=== PATIENT | male | born 1980 | race Caucasian/White ===

== ENCOUNTER 2024-07-02 13:29 | Outpatient (OUT) | payer MEDICARE, OTHER, SELFPAY ==
--- NOTE | 2024-07-02 13:44 | XR_ITS ---
The [address] [address] Patient Name: RON MOHAN MRN: [id number] date: 1980 Sex: M Assigned Patient Location: LAB Current Patient Location: Accession/Order Number: [id number] Exam Date: 07/02/2024 14:00 Report Date: 07/03/2024 07:38 At the request of: AP DENIS Procedure: XR lumbar spine 2-3V EXAMINATION: XR lumbar spine 2-3V HISTORY: Low Back Pain Radiating To Right Lower Extremity ; injured while lifting COMPARISON: No relevant comparison available. FINDINGS: BONES: No significant spondylosis, scoliosis, fracture, or visible bony lesion. DISC SPACES: Slight disc space narrowing L5-S1. PARASPINOUS: Negative. No paraspinous abnormality is seen. OTHER: Negative. XR/XR lumbar spine 2-3V IMPRESSION: 1. Minimal left convex curvature lumbar spine; positioning versus muscle spasm. 2. L5-S1 minimal disc height reduction compared to other levels; possibly secondary to degenerative disc disease. Electronically authenticated by: ABDOUL HOLT Date: 07/03/2024 07:38
[2024-07-02 14:40] LABS: Basophils Percent Auto 0.8 % (0.2-2.0); Eosinophils Percent Auto 1.1 % (0.9-7.0); Hematocrit 41.3 % (42.0-54.0); Hemoglobin 14.2 g/dL (14.0-18.0); Immature Granulocytes Abs Auto 0.01 10^3/uL (0.00-0.03); Immature Granulocytes Pct Auto 0.3 % (0.0-0.5); Lymphocytes Absolute Auto 1.4 10^3/uL (1.2-3.8); Lymphocytes Percent Auto 37.2 % (20.5-60.0); Mean Corpuscular HGB Conc 34.4 g/dL (29.9-35.2); Mean Corpuscular Hemoglobin 32.3 pg (25.9-34.0); Mean Corpuscular Volume 94.1 fL (80.0-94.0); Monocytes Absolute Auto 0.4 10^3/uL (0.3-0.8); Monocytes Percent Auto 9.5 % (1.7-12.0); Neutrophils Absolute Auto 1.9 10^3/uL (1.4-6.5); Neutrophils Percent Auto 51.1 % (43.0-75.0); Platelet Count 142 10^3/uL (150-450); Red Blood Count 4.39 10^6/uL (4.70-6.10); Red Cell Distribution Width 11.9 % (11.0-15.0); White Blood Count 3.8 10^3/uL (4.0-11.0)
[2024-07-02 15:36] LABS: Anion Gap 11.8; BUN Creatinine Ratio 9.8; Calcium 8.9 mg/dL (8.5-10.1); Carbon Dioxide 27.2 mmol/L (21.0-32.0); Chloride 100 mmol/L (98-107); Estimated GFR (African America >60 (>=60 mL/min/1.73m^2); Estimated GFR (Non-African Ame >60 (>=60 mL/min/1.73m^2); Glucose 79 mg/dL (74-106); Sodium 135 mmol/L (136-145); Thyroid Stimulating Hormone 0.901 uIU/mL (0.358-3.740)
[2024-07-03 04:08] LABS: Vitamin B12 623 pg/mL (232-1245)
== END 2024-07-02 13:30 | disposition home or self-care (01) ==
LOC: LAB 13:38
PROVIDERS: PCP Family Medicine; Visit Provider Family Medicine
DX: R53.83 Other fatigue (principal); M54.50 Low back pain, unspecified; M79.604 Pain in right leg; M51.369 Other intervertebral disc degeneration, lumbar region without mention of lumbar back pain or lower extremity pain
CPT/HCPCS: 36415; 72100; 80048; 82306; 82607; 82746; 84443; 85025

== ENCOUNTER 2024-09-15 10:00 | Emergency (ER) | payer MEDICARE, BC, SELFPAY ==
[2024-09-15 10:06] VITALS: BP 132/86; PULSE 90; TEMP 36.8; O2SAT 100; BMI 19.7
--- OUTSIDE RECORDS SUMMARY | 2024-09-15 10:28 | XMS_ITS | CCD ---
Author Organization [facility] Care Team Providers Care Rating Examiner Name Role Phone Ap Denis MD Primary Care Provider [phone] DR AP DENIS Attending Unavailable ADEEL, DR AP Pickering Consulting Unavailable ADEEL, DR AP Pickering Admitting Unavailable Ap Denis MD Primary Care Provider [phone] Ap Denis AP DENIS Primary Care Unavailable KAYLAN, DEEPALI R Referring Unavailable DAYDAY TUCKER Attending Unavailable Ap Denis MD Primary Care Provider [phone] KAYLAN, DEEPALI R Referring Unavailable DIANNA DENISIA Raheel Primary Care Unavailable KAYLAN, DEEPALI R Referring Unavailable DENISAP Primary Care Unavailable KAYLAN, DEEPALI R Referring Unavailable DENIS, AP Raheel Primary Care Unavailable KAYLAN, DEEPALI R Referring Unavailable KAYLAN, DEEPALI R Attending Unavailable DIANNA DENISIA Raheel Primary Care Unavailable KAYLAN, DEEPALI R Referring Unavailable DENIS, AP Raheel Primary Care Unavailable DENIS, AP Raheel Primary Care Unavailable KAYLAN, DEEPALI R Referring Unavailable AP DENIS Primary Care Unavailable KAYLAN, DEEPALI R Referring Unavailable DIANNA DENISIA Raheel Primary Care Unavailable KAYLAN, DEEPALI R Referring Unavailable KAYLAN, DEEPALI R Attending Unavailable AP DENIS Primary Care Unavailable Allergies Allergy Classification Reported Allergen(s) Allergy Type Date of Onset Reaction(s) Facility (20 sources) azaTHIOprine; Translations: [AZATHIOPRINE SODIUM] Drug Allergy 02-02-20 13 Other: See Comments [facility] (20 sources) Baclofen; Translations: [BACLOFEN] Drug Allergy 07-15-20 13 Other: See Comments [facility] (20 sources) Budesonide; Translations: [BUDESONIDE] Drug Allergy 02-02-20 13 Other: See Comments [facility] (20 sources) Cholestyramine Resin; Translations: [CHOLESTYRAMINE (WITH SUGAR)] Drug Allergy 02-02-20 13 Other: See Comments [facility] (20 sources) Colestipol; Translations: [COLESTIPOL] Drug Allergy 11-11-19 17 Other: See Comments [facility] Work Phone: (20 sources) Metoclopramide; Translations: [METOCLOPRAMIDE HCL] Drug Allergy 02-02-20 13 Other: See Comments [facility] (20 sources) traMADol; Translations: [TRAMADOL HCL] Drug Allergy 02-02-20 13 Other: See Comments [facility] (20 sources) venlafaxine; Translations: [VENLAFAXINE HCL] Drug Allergy 02-02-20 13 Other: See Comments [facility] (1 source) Amoxicillin / Clavulanate Drug Allergy 07-08-20 14 [facility] (20 sources) Colestipol Drug Allergy 05-06-20 14 Unknown [facility] (1 source) Dicyclomine Drug Allergy 05-06-20 14 [facility] (1 source) Iothalamate Drug Allergy 05-06-20 14 [facility] (1 source) traMADol Drug Allergy 05-06-20 14 [facility] (20 sources) Budesonide Drug Allergy 12-26-19 24 Unknown, [facility] (20 sources) Cholestyramine Resin Drug Allergy Unknown [facility] Other (20 sources) Dicyclomine Drug Allergy 12-26-19 24 Unknown, [facility] (20 sources) Metoclopramide Drug Allergy 12-26-19 24 Unknown, [facility] (20 sources) traMADol Drug Allergy 12-26-19 24 Unknown, [facility] (20 sources) venlafaxine Drug Allergy Unknown [facility] Other (20 sources) 6MP MEDS Propensity to adverse reactions 12-26-19 24 Unknown, [facility] (20 sources) IMMURAN Drug allergy 12-26-19 24 Unknown, [facility] (20 sources) Ciprofloxacin; Translations: [ciprofloxacin] Drug Allergy 10-05-19 17 Unknown, [facility] (20 sources) DULoxetine Drug Allergy 12-26-19 24 Unknown, [facility] (20 sources) guaiFENesin Drug Allergy 12-26-19 24 Unknown, [facility] (14 sources) guaiFENesin / Pseudoephedrine Drug Allergy Unknown [email or web address] [facility] [employer] Other (20 sources) venlafaxine Drug Allergy 12-26-19 24 Unknown, [facility] (12 sources) patient allergy list reviewed by nurse or physicia Propensity to adverse reactions 10-05-19 Comment:Done [facility] Other (12 sources) Allergies Reconciled Propensity to adverse reactions Unknown [facility] Other (7 sources) Cholestyramine Resin Drug Allergy 12-26-19 [facility] (7 sources) Sucrose Drug Allergy 12-26-19 [facility] Medications Current Medications Medication Drug Class(es) Dates Sig (Normalized) Sig (Original) 8 hr acetaminophen 650 mg extended release oral tablet (20 sources) take 2 tablets by mouth twice daily acetaminophen 650 mg CR tablet Take 1,300 mg by mouth twice daily. Active Comment on above: Take 1,300 mg by mary twice daily. atropine sulfate 0.025 mg / diphenoxylate hydrochloride 2.5 mg oral tablet (20 sources) Anticholinergic, Cholinergic Muscarinic Antagonist, Antidiarrheal Start: 01-08-2024 take 1 tablet by mouth every six hours as needed Diphenoxylate-Atro pine (Lomotil) 2.5-0.025 mg tablet Active 1 TAB PO Every 6 hours as needed January 07, 2024 11:00pm Start: 08-16-2023 take 2 tablets by mo [facility] every six hours as needed Diphenoxylate-Atropine 2.5-0.025 MG TAKE 2 TABLETS BY MOUTH EVERY 6 HOURS NEEDED for Jul, Active Start: 04-28-2017 End: 01-21-2022 take 1 tablet by mouth every six hours as needed diphenoxylate-atropine (LOMOTIL) 2.5-0.025 mg per tablet Take 1 tablet by mouth four times daily as needed. 0 04/28/2017 01/21/2022 Discontinued Comment on above: Take 1 tablet by mary th four times daily as needed. daridorexant 25 MG Oral Tablet [Quviviq] (8 sources) Start: 01-18-2023 Quviviq 25 MG 1 tablet within 30 minutes of bedtime Orally Once a day for 30 days Dec, Active Start: 10-17-2022 Quviviq 25 MG 1 tablet within 30 minutes of bedtime Orally Once a day for 30 days Sep, Active enteric contrast (will be provided with radiology test) (13 sources) Start: 08-25-[address] (will be provided with radiology test) For MRI ENTEROGRAPHY WO/W Administer, As Directed One Time Only, via Oral, Rectal, both Oral and Rectal, Enteric Tube, Stoma or Indwelling Catheter, Enteric Contrast as designated per enteric contrast guidelines 1 Each 08/25/2023 Active Start: 08-25-[address] (will be provided with radiology test) For MRI ENTEROGRAPHY WO/W Administer, As Directed One Time Only, via Oral, Rectal, both Oral and Rectal, Enteric Tube, Stoma or Indwelling Catheter, Enteric Contrast as designated per enteric contrast guidelines 1 Each 0 08/25/2023 Active Comment on above: For MRI ENTEROGRAPHY WO/W Administer, As Directed One Time Only, via Oral, Rectal, both Oral and Rectal, Enteric Tube, Stoma or Indwelling Catheter, Enteric Contrast as designated per enteric contrast guidelines famotidine 20 mg oral tablet (20 sources) Histamine-2 Receptor Antagonist Start: 2015 take 1 tablet by mouth twice daily famotidine (PEPCID) 20 mg tablet Take 1 tablet by mouth twice daily. 60 tablet 0 12/20/2015 Active Comment on above: Take 1 tablet by mary twice daily. glucagon (rdna) 1 mg injection (13 sources) Antihypoglycemic Agent Start: 2022 inject 1 mg intravenously once glucagon (GLUCAGEN) 1 mg/mL injection Inject 1 mg intravenously one time only for 1 dose. For MRI Enterography, Inject 1 mg intravenously, as directed. Slow push at the appropriate time during MRI Scan 1 Each 08/25/2023 Active Comment on above: Inject 1 mg intraven ously one time only for 1 dose. For MRI Enterography, Inject 1 mg intravenously, as directed. Slow push at the appropriate time during MRI Scan iv contrast (will be provided with radiology test) (13 sources) Start: 2022 iv contrast (will be provided with radiology test) MRI Enterography Inject, intravenously, once for 1 dose. No IV access, insert saline lock prior to the beginning of sedation, infusion, injection of imaging exam. Discontinue saline lock post exam. If Pt. has a central line or IVAD, may access for administration according to line specific nursing protocol. Once exam is complete flush line and de-access according to line specific nursing protocol in the MR contrast administration guidelines link. 1 Each 08/25/2023 Active Start: 08-25-2023 iv contrast (w ill be provided with radiology test) MRI Enterography Inject, intravenously, once for 1 dose. No IV access, insert saline lock prior to the beginning of sedation, infusion, injection of imaging exam. Discontinue saline lock post exam. If Pt. has a central line or IVAD, may access for administration according to line specific nursing protocol. Once exam is complete flush line and de-access according to line specific nursing protocol in the MR contrast administration guidelines link. 1 Each 0 08/25/2023 Active Comment on above: MRI Enterography Inj ect, intravenously, once for 1 dose. No IV access, insert saline lock prior to the beginning of sedation, infusion, injection of imaging exam. Discontinue saline lock post exam. If Pt. has a central line or IVAD, may access for administration according to line specific nursing protocol. Once exam is complete flush line and de-access according to line specific nursing protocol in the MR contrast administration guidelines link. ondansetron 4 mg disintegrating oral tablet (20 sources) Serotonin-3 Receptor Antagonist Start: 07-11-20 take 1 tablet by mouth three times daily as needed Ondansetron 4 mg tablet,disintegrati ng Active 0 .ROUTE .COMPLEX 90 July 11, 2024 7:27am DISSOLVE 1 (ONE) TABLET BY MOUTH THREE TIMES DAILY NEEDED Start: 12-25-2023 End: 07-11-2024 take 1 tablet by mouth three times daily as needed Ondansetron 4 mg tablet,disintegrating Discontinued 4 MG PO Three times daily as needed December 24, 2023 11:00pm July 11, 2024 7:27am Start: 01-18-2023 take 1 tablet by mary th three times daily as needed Ondansetron 4 MG 1 tablet on the tongue and allow to dissolve Orally tid prn for 30 days Dec, Active Start: 05-24-2018 take 1 tablet by mary th every six hours as needed ondansetron orally disintegrating (ZOFRA N ODT) 4 mg disintegrating tablet DISSOLVE 1 (ONE) TABLET on the tongue EVERY 6 HOURS NEEDED 3 05/24/2018 Active Zofran 4 MG as d irected Orally Active Comment on above: DISSOLVE 1 (ONE) TAB LET on the tongue EVERY 6 HOURS NEEDED rifAXIMin 550 mg oral tablet (12 sources) Rifamycin Antibacterial Start: 01-12-2024 take 1 tablet by mouth three times daily rifAXIMin (XIFAXAN) 550 mg tablet Take 1 tablet by mouth three times a day. 42 tablet 01/12/2024 Active Start: 10-16-2020 End: 01-21-2022 take 1 tablet by mouth twice daily rifAXIMin (XIFAXAN) 550 mg tablet Take 1 tablet by mouth twice daily. 20 tablet 0 10/16/2020 01/21/2022 Discontinued Comment on above: Take 1 tablet by mary twice daily. rOPINIRole 2 mg oral tablet (20 sources) Nonergot Dopamine Agonist Start: 06-17-2024 take 1 tablet by mouth twice daily Ropinirole 2 mg tablet Active 2 MG PO Twice daily 60 June 17, 2024 1:22pm Start: 06-11-2024 End: 06-17-2024 take 1 tablet by mouth twice daily Ropinirole 2 mg tablet Discontinued 0 .ROUTE .COMPLEX 60 June 11, 2024 7:18am June 17, 2024 1:27pm TAKE 1 TABLET BY MOUTH TWICE DAILY Start: 12-26-2023 End: 06-11-2024 take 1 tablet by mouth twice daily Ropinirole 2 mg tablet Discontinued 2 MG PO Twice daily 60 February 16, 2024 9:26am June 11, 2024 7:18am Start: 10-20-2022 take 2 tablets by mo [facility] every twelve hours rOPINIRole HCl 2 MG 2 tablet Orally bid for 30 days Sep, Active Start: 01-21-2022 End: 12-26-2023 take 2 tablets by mouth once daily at bedtime rOPINIRole (REQUIP) 2 mg tablet Take 2 tablets by mouth daily at bedtime. 01/21/2022 Active Start: 07-16-2015 take 2 tablets by mo [facility] once daily at bedtime rOPINIRole (REQUIP) 1 mg tablet Take 2 tablets by mouth daily at bedtime. 0 07/16/2015 Active take 1 tablet by [facility] three times daily Requip 1 MG 1 tablet Orally Three times a day for 90 days Active Comment on above: Take 2 tablets by mo [facility] daily at bedtime. vedolizumab 300 mg injection (20 sources) Integrin Receptor Antagonist Start: 01-08-2024 Vedolizumab (Entyvio) 300 mg recon soln Active 300 MG IV EVERY 8 WEEKS January 07, 2024 11:00pm administer over 30 mins Start: 12-17-2020 End: 01-04-2022 vedolizumab (ENTYVIO) 300 mg injection 300 mg iv every 8 weeks 1 Each 5 01/05/2022 Active Comment on above: 300 mg iv every 8 we eks vitamin b12 5 mg sublingual tablet (8 sources) Vitamin B12 Start: 01-12-2024 cyanocobalamin, vitamin B-12, (VITAMIN B-12) 5,000 mcg subl Dissolve 1 tablet under the tongue once daily. 30 tablet 11 01/12/2024 Active Completed/Discontinued Medications Medication Drug Class(es) Dates Sig (Normalized) Sig (Original) B-12 - up to 1000 mcg (5 sources) Start: 11-02-2023 B-12 - up to 1000 mcg Oct, 1000 mcg Start: 10-20-2023 B-12 - up to 1 000 mcg Sep, 1000 mcg Start: 10-12-2023 B-12 - up to 1 000 mcg Sep, 1000 mcg COMPOUNDED PRESCRIPTION (9 sources) COMPOUNDED PRESCRIPTION Medical Marijuna 0 Active Comment on above: Medical Marijuna crisaborole 0.02 mg/mg topical ointment (20 sources) Start: 02-24-20 End: 01-12-20 EUCRISA 2 % oint Apply to affected area. APPLY TO THE AFFECTED AREA(S) TWICE DAILY. 1 02/23/2018 01/12/2024 Discontinued Comment on above: Apply to affected ar ea. APPLY TO THE AFFECTED AREA(S) TWICE DAILY. DULoxetine 60 mg delayed release oral capsule (6 sources) Serotonin and Norepinephrine Reuptake Inhibitor take 1 capsule by mouth every twenty-four hours Cymbalta 60 MG 1 capsule Orally Once a day for 30 day(s) Not-Taking eszopiclone 3 mg oral tablet (6 sources) take 1 tablet by mouth every twenty-four hours Lunesta 3 MG 1 tablet immediately before bedtime Orally Once a day Not-Taking folic acid 1 mg oral tablet (1 source) Start: 07-02-20 End: 08-06-20 take 1 tablet by mouth once daily Folic Acid 1 mg tablet Discontinued 1 MG PO Daily July 01, 2024 11:00pm August 06, 2024 2:13pm hyoscyamine sulfate 0.125 mg oral tablet (6 sources) take 1 tablet by mouth every four hours Levsin 0.125 MG 1 tablet before meals Orally every 4 hrs Not-Taking inFLIXimab 100 mg injection (6 sources) Tumor Necrosis Factor Jean Remicade 100 MG as directed Intravenous Not-Taking metroNIDAZOLE 0.0075 mg/mg topical gel (20 sources) Nitroimidazole Antimicrobial Start: 02-19-20 End: 01-12-20 metroNIDAZOLE (METROGEL) 0.75 % Topical Gel Indications: Rosacea Apply to affected areas on face at bedtime. 45 g 2 02/18/2021 01/12/2024 Discontinued Comment on above: Apply to affected ar eas on face at bedtime. morphine sulfate 15 mg extended release oral tablet (20 sources) Opioid Agonist Start: 03-01-20 End: 08-01-20 take 1 tablet by mouth every eight hours Morphine 15 mg tablet extended release Discontinued 15 MG PO Every 8 hours 90 April 03, 2024 May 02, 2024 3:43pm Start: 02-05-2024 End: 03-01-2024 take 1 tablet by mouth every twelve hours Morphine 15 mg tablet extended release Discontinued 15 MG PO Q12H 50 February 08, 2024 March 01, 2024 8:44am oxyCODONE hydrochloride 20 mg oral tablet (20 sources) Opioid Agonist Start: 02-05-2024 End: 02-05-2024 take 1 tablet by mouth every twelve hours Oxycodone 10 mg tablet,oral only,ext.rel.12 hr Discontinued 10 MG PO Every 12 hours 60 February 05, 2024 February 05, 2024 4:12pm Start: 01-08-2024 End: 01-15-2024 take 1 tablet by mouth every hour Oxycodone 10 mg tablet,oral only,ext.rel.12 hr Discontinued 10 MG PO Once 10 January 08, 2024 January 08, 2024 3:03pm Start: 01-08-2024 End: 02-05-2024 take 1 tablet by mouth once daily Oxycodone 10 mg tablet,oral only,ext.rel.12 hr Discontinued 10 MG PO Daily 03 31January 15, 2024 February 05, 2024 1:51pm Start: 01-03-2024 End: 01-08-2024 take 1 tablet by mouth twice daily Oxycodone 10 mg tablet,oral only,ext.rel.12 hr Discontinued 10 MG PO Twice daily 14 January 03, 2024 January 08, 2024 2:27pm Start: 12-26-2023 End: 01-03-2024 take 1 tablet by mouth twice daily Oxycodone 15 mg tablet,oral only,ext.rel.12 hr Discontinued 15 MG PO Twice daily 07 04December 26, 2023 January 03, 2024 4:33am Start: 11-21-2023 End: 12-26-2023 take 1 tablet by mouth twice daily Oxycodone 20 mg tablet,oral only,ext.rel.12 hr Discontinued 20 MG PO Twice daily 07 04December 21, 2023 December 26, 2023 1:39pm Start: 11-10-2023 End: 11-21-2023 take 1 tablet by mouth every four hours as needed for pain Oxycodone 20 mg tablet,oral only,ext.rel.12 hr Discontinued 20 MG PO Every 4 hours as needed for pain 180 November 10, 2023 November 21, 2023 1:03pm Start: 09-13-2023 take 1 tablet by mary th every six hours as needed oxyCODONE HCl 30 MG 1 tablet as needed Orally q6h prn for 30 days Aug, Active Start: 08-24-2023 take 1 tablet by mary th every twelve hours OXYCONTIN 20 mg 12 hr tablet Take 20 mg by mouth as directed. 08/24/2023 Active Start: 08-15-2023 take 1 tablet by mary th every six hours as needed oxyCODONE HCl 30 MG 1 tablet as needed Orally q6h prn for 30 days Jul, Active Start: 07-21-2023 take 1 tablet by mary th every twelve hours oxyCODONE HCl ER 20 MG 1 tablet Orally every 12 hrs for 30 days Due on 07/24 - fill then please Jun, Active Start: 07-10-2023 take 1 tablet by mary th every twelve hours oxyCODONE HCl ER 20 MG 1 tablet Orally every 12 hrs for 7 days Jun, Active Start: 06-08-2023 take 1 capsule by mo uth every twelve hours Xtampza ER 27 MG 1 capsule with food Orally every 12 hrs for 30 days May, Active Start: 05-11-2023 take 1 capsule by mo uth every twelve hours Xtampza ER 27 MG 1 capsule with food Orally every 12 hrs for 30 days Apr, Active Start: 04-07-2023 take 1 capsule by mo uth every twelve hours Xtampza ER 27 MG 1 capsule with food Orally every 12 hrs for 30 days Mar, Active Start: 04-07-2023 End: 08-01-2024 take 1 tablet by mouth every four hours as needed for pain Oxycodone 20 mg tablet Discontinued 20 MG PO Every 4 hours as needed for pain 180 March 04, 2024 April 03, 2024 8:04am Start: 01-12-2023 take 1 tablet by mary th every four hours as needed oxyCODONE HCl 30 MG 1 tablet Orally every 4 hours, as needed for 30 days Dec, Active Start: 12-12-2022 take 1 tablet by mary th every four hours as needed oxyCODONE HCl 30 MG 1 tablet Orally every 4 hours, as needed for 30 days Nov, Active Start: 11-10-2022 End: 08-25-2023 take 1 capsule by mouth twice daily Xtampza ER 18 MG 1 capsule Orally two times daily for 30 days (DO NOT CRUSH) Dec, Active Start: 11-10-2022 take 1 tablet by mary th every four hours as needed oxyCODONE HCl 30 MG 1 tablet Orally every 4 hours, as needed for 30 days Oct, Active take 1 tablet by mary th every six hours as needed oxyCODONE 30 mg tab ER 12hr Take 30 mg by mouth every 6 hours as needed. 0 Active take 1 tablet by mary th every four hours as needed oxyCODONE 30 mg tab ER 12hr Take 30 mg by mouth every 4 hours as needed. 0 Active oxyCODONE HCl 5 MG 1 tablet Orally NEEDED Not-Taking Comment on above: Take 30 mg by mouth every 4 hours as needed. Take by mouth. Take 30 mg by mouth every 6 hours as needed. Take 20 mg by mouth every 4 hours as needed (pain). Take 20 mg by mouth every 12 hours. Vitamins 0.8 MG (6 sources) Vitamin s 0.8 MG as directed Orally Not-Taking vedolizumab 300 mg in NaCl 0.9% 250 mL (ENTYVIO) (4 sources) Start: 08-07-2024 End: 08-07-2024 300 mg, INTRAVENOUS, Administer over 30 Minutes, ONCE, 1 dose, On Mon08/07/24 at 1430, Approx Total Volume: 280 mL EXP: 08/08/2024 0210 RT After the infusion is complete flush with 30 mL of sterile 0.9% Sodium Chloride Injection. Refrigerate. After the infusion is complete flush with 30 mL of sterile 0.9% Sodium Chloride Injection. Start: 06-12-2024 End: 06-12-2024 300 mg, INTRAVENOUS, Adminis ter over 30 Minutes, ONCE, 1 dose, On Mon06/12/24 at 1430, Approx Total Volume: 280 mL EXP: 06/13/2024 0220 RT After the infusion is complete flush with 30 mL of sterile 0.9% Sodium Chloride Injection. Refrigerate. EXP: (24 HR) Start: 04-18-2024 End: 04-18-2024 vedolizumab 300 mg in NaCl 0 .9% 250 mL (ENTYVIO) Start: 02-22-2024 End: 02-22-2024 vedolizumab 300 mg in NaCl 0 .9% 250 mL (ENTYVIO) Vitamin D 1000 UNIT (6 sources) take 1 tablet by mouth once daily Vitamin D 1000 UNIT 1 tablet Orally Once a day for 30 day(s) Not-Taking zolpidem tartrate 10 mg oral tablet (20 sources) gamma-Aminobutyri c Acid-ergic Agonist Start: 09-29-2022 End: 07-19-2024 take 1 tablet by mouth once daily at bedtime Zolpidem 10 mg tablet Discontinued 10 MG PO Daily at bedtime December 24, 2023 11:00pm January 23, 2024 12:21pm Comment on above: Take by mouth at bed time as needed. Problems Active Problems Problem Classification Problem Date Documented Date Episodic/Chronic Adjustment disorders (8 sources) Adjustment disorder with mixed anxiety and depressed mood; Translations: [Adjustment disorder with mixed anxiety and depressed mood] 06-04-2024 Chronic Deficiency and other anemia (7 sources) Vitamin B12 deficiency anemia due to intrinsic factor deficiency; Translations: [VITAMIN B12 DEF ANEMIA DUE IF DEF] Onset: 04-19-2016 Episodic Deficiency and other anemia (20 sources) Pernicious anemia; Translations: [Vitamin B12 deficiency anemia due to intrinsic factor deficiency] Onset: 04-19-2016 12-25-2023 Episodic Immunity disorders (2 sources) Immunosuppression; Translations: [Immunodeficiency, unspecified] Chronic Inflammation; infection of eye (except that caused by tuberculosis or sexually transmitteddisease) (20 sources) Conjunctivitis; Translations: [Unspecified conjunctivitis] Onset: 07-10-2013 Episodic Malaise and fatigue (20 sources) Fatigue; Translations: [Other fatigue] Onset: 06-15-2015 06-17-2024 Episodic Miscellaneous mental health disorders (20 sources) Primary insomnia; Translations: [Primary insomnia] Chronic Mood disorders (11 sources) Depression; Translations: [Depression, unspecified] Onset: 10-25-2013 Chronic Mood disorders (1 source) Mood disorders; Translations: [Depression, unspecified] Onset: 10-25-2013 Nausea and vomiting (19 sources) Nausea and vomiting; Translations: [Nausea with vomiting, unspecified] 12-25-2023 Episodic Nutritional deficiencies (20 sources) Vitamin D deficiency; Translations: [Vitamin D deficiency, unspecified] Onset: 05-30-2013 05-30-2013 Chronic Other aftercare (6 sources) Patient encounter status; Translations: [Encounter for palliative care] 01-05-2024 Episodic Other aftercare (3 sources) Encounter for palliative care; Translations: [Encounter for palliative care] 01-08-2024 Episodic Other and unspecified benign neoplasm (1 source) Adenomatous polyp of colon ; Translations: [Benign neoplasm of colon, unspecified] 01-20-2024 Episodic Other connective tissue disease (6 sources) Fibromyalgia; Translations: [Fibromyalgia] 12-26-2023 Episodic Other connective tissue disease (4 sources) Fibromyalgia; Translations: [Myalgia and myositis, unspecified] 12-26-2023 Episodic Other hereditary and degenerative nervous system conditions (8 sources) Restless legs syndrome; Translations: [Restless legs syndrome (RLS)] Onset: 06-15-2022 Chronic Other hereditary and degenerative nervous system conditions (2 sources) Extrapyramidal and movement disorder, unspecified; Translations: [EXTRAPYRAMIDAL MOVEMNT DISORDER UNS] Onset: 06-15-2022 Chronic Other hereditary and degenerative nervous system conditions (20 sources) Restless legs; Translations: [Restless legs syndrome] 12-25-2023 Chronic Other hereditary and degenerative nervous system conditions (11 sources) Extrapyramidal movements; Translations: [Extrapyramidal and movement disorder, unspecified] Chronic Other hereditary and degenerative nervous system conditions (7 sources) Movement disorder; Translations: [Extrapyramidal and movement disorder, unspecified] 12-25-2023 Chronic Other nutritional; endocrine; and metabolic disorders (12 sources) Body mass index less than 20; Translations: [Body mass index (BMI) 19.9 or less, adult] Episodic Other screening for suspected conditions (not mental disorders or infectious disease) (2 sources) Abnormal blood cell count; Translations: [Abnormal finding of blood chemistry, unspecified] Episodic Other upper respiratory disease (12 sources) Allergic rhinitis; Translations: [Other allergic rhinitis] Onset: 04-19-2016 Chronic Other upper respiratory infections (12 sources) Chronic sinusitis; Translations: [Chronic sinusitis, unspecified] Chronic Other upper respiratory infections (20 sources) Acute sinusitis; Translations: [Acute sinusitis, unspecified] Onset: 08-27-2015 Episodic Regional enteritis and ulcerative colitis (20 sources) Crohn's disease; Translations: [Crohn's disease, unspecified, without complications] Onset: 05-13-2013 05-13-2013 Chronic Residual codes; unclassified (18 sources) Insomnia; Translations: [Insomnia, unspecified] 12-25-2023 Episodic Residual codes; unclassified (5 sources) Insomnia, unspecified; Translations: [Insomnia, unspecified] 06-04-2024 Episodic Spondylosis; intervertebral disc disorders; other back problems (16 sources) Pain in thoracic spine; Translations: [Pain in thoracic spine] Onset: 07-10-2013 06-17-2024 Episodic Unclassified (1 source) Abdominal pain, unspecified site; Translations: [Abdominal pain, unspecified site] Onset: 07-10-2013 Past or Other Problems Problem Classification Problem Date Documented Date Episodic/Chronic Abdominal pain (20 sources) Right lower quadrant pain; Translations: [Right lower quadrant pain] Onset: 07-10-2013 Episodic Allergic reactions (12 sources) Contact dermatitis; Translations: [Contact dermatitis and other eczema, due to unspecified cause] Onset: 07-07-2017 Episodic Deficiency and other anemia (11 sources) Megaloblastic anemia due to vitamin B>12< deficiency; Translations: [Other vitamin B12 deficiency anemia] Onset: 09-07-2017 Episodic Deficiency and other anemia (1 source) Other vitamin B12 deficiency anemia; Translations: [Other vitamin B12 deficiency anemia] Onset: 09-07-2017 Episodic Fever of unknown origin (12 sources) Fever; Translations: [Fever, unspecified] Onset: 10-29-2013 Episodic Mycoses (12 sources) Candidiasis of mouth; Translations: [Candidal stomatitis] Onset: 07-24-2013 Episodic Other connective tissue disease (3 sources) Myalgia/myositis - multiple; Translations: [Unspecified myalgia and myositis] Onset: 10-29-2013 Episodic Other connective tissue disease (9 sources) Muscle pain; Translations: [Unspecified myalgia and myositis] Onset: 10-29-2013 Episodic Other non-traumatic joint disorders (12 sources) Shoulder joint pain; Translations: [Pain in left shoulder] Onset: 02-12-2018 Episodic Residual codes; unclassified (12 sources) Sleep disorder; Translations: [Persistent disorder of initiating or maintaining sleep] Onset: 07-07-2017 Episodic Screening and history of mental health and substance abuse codes (12 sources) History of tobacco use; Translations: [Personal history of tobacco use, presenting hazards to health] Onset: 12-05-2016 Episodic Results Test Name Value Interpretation Reference Range Facility Basophils Auto (Bld) [#/Vol] on 07-02-2024 Basophils (Bld) [#/Vol] Automated basophil count 0.0-0.1 [facility] Basophils/100 WBC Auto (Bld) on 07-02-2024 Basophils/100 WBC (Bld) Automated basophil % 0.2-2.0 [facility] Eosinophils/100 WBC Auto (Bl d)on 07-02-2024 Eosinophils/100 WBC (Bld) Automated eosinophil % 0.9-7.0 [facility] Erythrocyte distribution wid th Auto (RBC) [Ratio]on 07-02-2024 Erythrocyte distribution width (RBC) [Ratio] Erythrocyte distribution width [Ratio] by Automated count 11.0-15.0 [facility] Estimated glomerular filtrat ion rate (GFR) non- Americanon 07-02-2024 GFR/1.73 sq M.predicted among non-blacks MDRD (S/P/Bld) [Vol rate/Area] Estimated glomerular filtration rate (GFR) non- >=60 mL/min/1.73m 2 [facility] Hematocrit Auto (Bld) [Volum e fraction]on 07-02-2024 Hematocrit (Bld) [Volume fraction] Hematocrit [Volume Fraction] of Blood by Automated count Low 42.0-54.0 [facility] Hemoglobin [Mass/volume] in Bloodon 07-02-2024 Hemoglobin (Bld) [Mass/Vol] Hemoglobin [Mass/volume] in Blood 14.0-18.0 [facility] Laboratory - Chemistry and C hemistry - challengeon 07-02-2024 Calcium [Mass/Vol] 8.9 mg/dL 8.5-10.1 [facility] Chloride [Moles/Vol] 100 mmol/L 98-107 [facility] CO2 [Moles/Vol] 27.2 mmol/L 21.0-32.0 [facility] Cobalamin (Vitamin B12) [Mass/Vol] 623 pg/mL 232-1245 [facility] Comment on above: Performed at: [address] [id number] Director: Maikel Henderson PhD, Phone: [phone] Creatinine [Mass/Vol] 1.22 mg/dL 0.70-1.30 [facility] GFR/1.73 sq M.predicted MDRD (S/P/Bld) [Vol rate/Area] mL/min/{1.73_m2} >=60 mL/min/1.73m 2 [facility] Glucose [Mass/Vol] 79 mg/dL 74-106 [facility] Potassium [Moles/Vol] 4.0 mmol/L 3.5-5.1 [facility] Sodium [Moles/Vol] 135 mmol/L Low 136-145 [facility] TSH Qn 0.901 m[IU]/L 0.358-3.740 [facility] Urea nitrogen [Mass/Vol] 12.0 mg/dL 7.0-18.0 [facility] Urea nitrogen/Creatinine [Mass ratio] 9.8 mg/mg [facility] Laboratory - Hematology and Cell countson 07-02-2024 Immature granulocytes/100 WBC (Bld) 0.3 % 0.0-0.5 [facility] Leukocytes [#/volume] correc brett for nucleated erythrocytes in Blood by Automated counon 07-02-2024 WBC corrected for nucl RBC Auto (Bld) [#/Vol] Leukocytes [#/volume] corrected for nucleated erythrocytes in Blood by Automated coun Low 4.0-11.0 [facility] Lymphocytes Auto (Bld) [#/Vo l]on 07-02-2024 Lymphocytes (Bld) [#/Vol] Lymphocytes [#/volume] in Blood by Automated count 1.2-3.8 [facility] Lymphocytes/100 WBC Auto (Bl d)on 07-02-2024 Lymphocytes/100 WBC (Bld) Lymphocytes/100 leukocytes in Blood by Automated count 20.5-60.0 [facility] MCH Auto (RBC) [Entitic mass ]on 07-02-2024 MCH (RBC) [Entitic mass] MCH [Entitic mass] by Automated count 25.9-34.0 [facility] MCHC Auto (RBC) [Mass/Vol]on 07-02-2024 MCHC (RBC) [Mass/Vol] MCHC [Mass/volume] by Automated count 29.9-35.2 [facility] MCV Auto (RBC) [Entitic vol] on 07-02-2024 MCV (RBC) [Entitic vol] MCV [Entitic volume] by Automated count High 80.0-94.0 [facility] Monocytes Auto (Bld) [#/Vol] on 07-02-2024 Monocytes (Bld) [#/Vol] Automated blood monocyte count 0.3-0.8 [facility] Monocytes/100 WBC Auto (Bld) on 07-02-2024 Monocytes/100 WBC (Bld) Automated monocyte % 1.7-12.0 [facility] Neutrophils Auto (Bld) [#/Vo l]on 07-02-2024 Neutrophils (Bld) [#/Vol] Neutrophils [#/volume] in Blood by Automated count 1.4-6.5 [facility] Neutrophils/100 WBC Auto (Bl d)on 07-02-2024 Neutrophils/100 WBC (Bld) Automated neutrophil % 43.0-75.0 [facility] No Panel Informationon 07-02 25-Hydroxy Vitamin D Total 53.9 ng/mL [facility] Comment on above: <20 ng/mL Vit D defi cient20-<30 ng/mL Vit D [id number] ng/mL Vit D sufficient>100 ng/mL Potential Toxicity Eosinophils # (Auto) 0.0 10 3/uL 0.0-0.7 [facility] Folate 1.50 ng/mL Low 8.60-58.90 [facility] Immature Granulocyte # (Auto) 0.01 10 3/uL 0.00-0.03 [facility] Platelet mean volume Auto (B ld) [Entitic vol]on 07-02-2024 Platelet mean volume (Bld) [Entitic vol] Platelet mean volume [Entitic volume] in Blood by Automated count Low 9.5-13.5 [facility] Platelets Auto (Bld) [#/Vol] on 07-02-2024 Platelets (Bld) [#/Vol] Platelets [#/volume] in Blood by Automated count Low 150-450 [facility] RBC Auto (Bld) [#/Vol]on RBC (Bld) [#/Vol] Erythrocytes [#/volume] in Blood by Automated count Low 4.70-6.10 [facility] Serum or plasma anion gap de terminationon 07-02-2024 Anion gap [Moles/Vol] Serum or plasma anion gap determination [facility] C-REACTIVE PROTEINon CRP [Mass/Vol] mg/dL NINF - 0.9 mg/dL [facility] CRP [Mass/Vol]on 02-23-2024 Interpretation and review of laboratory results Normal [facility] Cobalamin (Vitamin B12) [Mas s/Vol]on 02-23-2024 Interpretation and review of laboratory results Abnormal [facility] VITAMIN B12on 02-23-2024 Cobalamin (Vitamin B12) [Mass/Vol] pg/mL High 232 - 1245 pg/mL [facility] BLOOD TB SCREENon 02-22-2024 M. tuberculosis tuberculin stim IFN-g Ql (Bld) Negative Normal [facility] Comment on above: Order Comment: Specyesenia vázquez Type: BLOOD SPECIMEN Ordering Facility: [facility] Address: [address] [place] [address] Performed By: #### 1 988-5, 2132-05 #### [facility] CLIA [id number] [address] [place] [address] [place] MITOGEN MINUS NIL >9.96 Normal >=0.50 [facility] Comment on above: Order Comment: Raquel vázquez Type: BLOOD SPECIMEN Ordering Facility: [facility] Address: [address] [place] [address] Performed By: #### 1 988-5, 2132-05 #### [facility] CLIA [id number] [address] [place] [address] [place] TB GAMMA INTERPRETATION Infection with M. tuberculosis complex is unlikely. If latent tuberculosis infection is highly suspected, a negative result does not rule out the infection. Specimens from immunocompromised patients and those <5 years of age may show false negative results. In case of a contact investigation, please repeat 8-12 weeks after a known exposure. Normal [facility] Comment on above: Order Comment: Speci men Type: BLOOD SPECIMEN Ordering Facility: [facility] Address: [address] [place] [address] Performed By: #### 1 9885, 2132-05 #### [facility] CLIA [id number] [address] [place] [address] [place] TB NIL 0.04 IU/mL Normal <=8.00 [facility] Comment on above: Order Comment: Speci men Type: BLOOD SPECIMEN Ordering Facility: [facility] Address: [address] [place] [address] Performed By: #### 1 988-, 2132-05 #### [facility] CLIA [id number] [address] [place] [address] [place] TB1 AG MINUS NIL 0.01 IU/mL Normal <0.35 [facility] Comment on above: Order Comment: Speci men Type: BLOOD SPECIMEN Ordering Facility: [facility] Address: [address] [place] [address] Performed By: #### 1 988, 2132-05 #### [facility] CLIA [id number] [address] [place] [address] [place] TB2 AG MINUS NIL 0.09 IU/mL Normal <0.35 [facility] Comment on above: Order Comment: Speci men Type: BLOOD SPECIMEN Ordering Facility: [facility] Address: [address] [place] [address] Performed By: #### 1 988-5, 2132-05 #### [facility] CLIA [id number] [address] [place] [address] [place] Basophils Auto (Bld) [#/Vol] on 02-22-2024 Basophils (Bld) [#/Vol] 10*3/uL <0.11 [facility] Basophils/100 WBC Auto (Bld) on 02-22-2024 Basophils/100 WBC (Bld) 0.7 % [facility] Blood Mycobacterium tubercul osis tuberculin stimulated gamma interferon detectionon 02-22-2024 M. tuberculosis tuberculin stim IFN-g Ql (Bld) 0.01 [IU]/mL <0.35 [facility] M. tuberculosis tuberculin stim IFN-g Ql (Bld) [facility] M. tuberculosis tuberculin stim IFN-g Ql (Bld) 0.04 [IU]/mL <=8.00 [facility] Blood manual differential co mment interpretation narrativeon 02-22-2024 Manual differential comment Obdulio (Bld) [Interp] Auto [facility] Blood mitogen stimulated jaycee ma interferon measurement (units/volume)on 02-22-2024 Mitogen stimulated gamma interferon Qn (Bld) >9.96 [IU]/mL >=0.50 [facility] CBC W Auto Differential pane l (Bld)on 02-22-2024 Basophils (Bld) [#/Vol] [facility] Basophils/100 WBC (Bld) 0.7 % [facility] Differential cell count method Nom (Bld) Auto [facility] Eosinophils (Bld) [#/Vol] 0.04 10*3/uL [facility] Eosinophils/100 WBC (Bld) 1.4 % [facility] Erythrocyte distribution width (RBC) [Ratio] 11.9 % 11.5 - 15.0 % [facility] Hematocrit (Bld) [Volume fraction] 40.5 % 39.0 - 51.0 % [facility] Hemoglobin (Bld) [Mass/Vol] 14.2 g/dL 13.0 - 17.0 g/dL [facility] Immature granulocytes (Bld) [#/Vol] [facility] Immature granulocytes/100 WBC (Bld) 0.3 % [facility] Interpretation and review of laboratory results Abnormal [facility] Lymphocytes (Bld) [#/Vol] 1.28 10*3/uL [facility] Lymphocytes/100 WBC (Bld) 43.4 % [facility] MCH (RBC) [Entitic mass] 32.2 pg 26.0 - 34.0 pg [facility] MCHC (RBC) [Mass/Vol] 35.1 g/dL 30.5 - 36.0 g/dL [facility] MCV (RBC) [Entitic vol] 91.8 fL 80.0 - 100.0 fL [facility] Monocytes (Bld) [#/Vol] 0.28 10*3/uL [facility] Monocytes/100 WBC (Bld) 9.5 % [facility] Neutrophils (Bld) [#/Vol] 1.32 10*3/uL Low [facility] Neutrophils/100 WBC (Bld) 44.7 % [facility] Nucleated RBC (Bld) [#/Vol] NINF [facility] Nucleated RBC/100 WBC (Bld) [Ratio] 0.0 % /100 WBC [facility] Platelet mean volume (Bld) [Entitic vol] 9.8 fL 9.0 - 12.7 fL [facility] Platelets (Bld) [#/Vol] 137 10*3/uL Low [facility] RBC (Bld) [#/Vol] 4.41 10*6/uL 4.20 - 6.0 0 m/uL [facility] WBC (Bld) [#/Vol] 2.95 10*3/uL Low [facility] Basophils (Bld) [#/Vol] 10*3/uL Normal <0.11 [facility] Comment on above: Order Comment: Speci men Type: BLOOD SPECIMEN Ordering Facility: [facility] Address: [address] [place] [address] Performed By: #### 5 7021-8 #### [facility] CLIA [id number] [address] [place] [address] Basophils/100 WBC (Bld) 0.7 % Normal [facility] Comment on above: Order Comment: Speci men Type: BLOOD SPECIMEN Ordering Facility: [facility] Address: [address] [place] [address] Performed By: #### 5 7021-8 #### [facility] CLIA [id number] [address] [place] [address] Differential cell count method Nom (Bld) Auto Normal [facility] Comment on above: Order Comment: Speci men Type: BLOOD SPECIMEN Ordering Facility: [facility] Address: [address] [place] [address] [place] [address] Performed By: #### 5 7021-8 #### [facility] CLIA [id number] [address] [place] [address] Eosinophils (Bld) [#/Vol] 0.04 10*3/uL Normal <0.46 [facility] Comment on above: Order Comment: Speci men Type: BLOOD SPECIMEN Ordering Facility: [facility] Address: [address] [place] [address] Performed By: #### 5 7021-8 #### [facility] CLIA [id number] [address] [place] [address] Eosinophils/100 WBC (Bld) 1.4 % Normal [facility] Comment on above: Order Comment: Speci men Type: BLOOD SPECIMEN Ordering Facility: [facility] Address: [address] [place] [address] Performed By: #### 5 7021-8 #### [facility] CLIA [id number] [address] [place] [address] Erythrocyte distribution width (RBC) [Ratio] 11.9 % Normal 11.5-15.0 [facility] Comment on above: Order Comment: Speci men Type: BLOOD SPECIMEN Ordering Facility: [facility] Address: [address] [place] [address] Performed By: #### 5 7021-8 #### [facility] CLIA [id number] [address] [place] [address] Hematocrit (Bld) [Volume fraction] 40.5 % Normal 39.0-51.0 [facility] Comment on above: Order Comment: Speci men Type: BLOOD SPECIMEN Ordering Facility: [facility] Address: [address] [place] [address] Performed By: #### 5 7021-8 #### [facility] CLIA [id number] [address] [place] [address] Hemoglobin (Bld) [Mass/Vol] 14.2 g/dL Normal 13.0-17.0 [facility] Comment on above: Order Comment: Speci men Type: BLOOD SPECIMEN Ordering Facility: [facility] Address: [address] [place] [address] Performed By: #### 5 7021-8 #### [facility] CLIA [id number] [address] [place] [address] Immature granulocytes (Bld) [#/Vol] 10*3/uL Normal <0.10 [facility] Comment on above: Order Comment: Speci men Type: BLOOD SPECIMEN Ordering Facility: [facility] Address: [address] [place] [address] Performed By: #### 5 7021-8 #### [facility] CLIA [id number] [address] [place] [address] Immature granulocytes/100 WBC (Bld) 0.3 % Normal [facility] Comment on above: Order Comment: Speci men Type: BLOOD SPECIMEN Ordering Facility: [facility] Address: [address] [place] [address] Performed By: #### 5 7021-8 #### [facility] CLIA [id number] [address] [place] [address] Lymphocytes (Bld) [#/Vol] 1.28 10*3/uL Normal 1.00-4.00 [facility] Comment on above: Order Comment: Speci men Type: BLOOD SPECIMEN Ordering Facility: [facility] Address: [address] [place] [address] Performed By: #### 5 7021-8 #### [facility] CLIA [id number] [address] [place] [address] 16221 Lymphocytes/100 WBC (Bld) 43.4 % Normal [facility] Comment on above: Order Comment: Speci men Type: BLOOD SPECIMEN Ordering Facility: [facility] Address: [address] [place] [address] Performed By: #### 5 7021-8 #### [facility] CLIA [id number] [address] [place] [address] 10625 MCH (RBC) [Entitic mass] 32.2 pg Normal 26.0-34.0 [facility] Comment on above: Order Comment: Speci men Type: BLOOD SPECIMEN Ordering Facility: [facility] Address: [address] [place] [address] Performed By: #### 5 7021-8 #### [facility] CLIA [id number] [address] [place] [address] 33623 MCHC (RBC) [Mass/Vol] 35.1 g/dL Normal 30.5-36.0 [facility] Comment on above: Order Comment: Speci men Type: BLOOD SPECIMEN Ordering Facility: [facility] Address: [address] [place] [address] Performed By: #### 5 7021-8 #### [facility] CLIA [id number] [address] [place] [address]4638 MCV (RBC) [Entitic vol] 91.8 fL Normal 80.0-100.0 [facility] Comment on above: Order Comment: Speci men Type: BLOOD SPECIMEN Ordering Facility: [facility] Address: [address] [place] [address] Performed By: #### 5 7021-8 #### [facility] CLIA [id number] [address] [place] [address] 19685 Monocytes (Bld) [#/Vol] 0.28 10*3/uL Normal <0.87 [facility] Comment on above: Order Comment: Speci men Type: BLOOD SPECIMEN Ordering Facility: [facility] Address: [address] [place] [address] Performed By: #### 5 7021-8 #### [facility] CLIA [id number] [address] [place] [address] 34966 Monocytes/100 WBC (Bld) 9.5 % Normal [facility] Comment on above: Order Comment: Speci men Type: BLOOD SPECIMEN Ordering Facility: [facility] Address: [address] [place] [address] Performed By: #### 5 7021-8 #### [facility] CLIA [id number] [address] [place] [address] Neutrophils (Bld) [#/Vol] 1.32 10*3/uL Low 1.45-7.50 [facility] Comment on above: Order Comment: Speci men Type: BLOOD SPECIMEN Ordering Facility: [facility] Address: [address] [place] [address] Performed By: #### 5 7021-8 #### [facility] CLIA [id number] [address] [place] [address] 87103 Neutrophils/100 WBC (Bld) 44.7 % Normal [facility] Comment on above: Order Comment: Speci men Type: BLOOD SPECIMEN Ordering Facility: [facility] Address: [address] [place] [address] Performed By: #### 5 7021-8 #### [facility] CLIA [id number] [address] [place] [address] 48777 Nucleated RBC (Bld) [#/Vol] 10*3/uL Normal <0.01 [facility] Comment on above: Order Comment: Speci men Type: BLOOD SPECIMEN Ordering Facility: [facility] Address: [address] [place] [address] Performed By: #### 5 7021-8 #### [facility] CLIA [id number] [address] [place] [address] 16541 Nucleated RBC/100 WBC (Bld) [Ratio] 0.0 /100 WBC Normal [facility] Comment on above: Order Comment: Speci men Type: BLOOD SPECIMEN Ordering Facility: [facility] Address: [address] [place] [address] Performed By: #### 5 7021-8 #### [facility] CLIA [id number] [address] [place] [address] 98620 Platelet mean volume (Bld) [Entitic vol] 9.8 fL Normal 9.0-12.7 [facility] Comment on above: Order Comment: Speci men Type: BLOOD SPECIMEN Ordering Facility: [facility] Address: [address] [place] [address] Performed By: #### 5 7021-8 #### [facility] CLIA [id number] [address] [place] [address] Platelets (Bld) [#/Vol] 137 10*3/uL Low 150-400 [facility] Comment on above: Order Comment: Speci men Type: BLOOD SPECIMEN Ordering Facility: [facility] Address: [address] [place] [address] Performed By: #### 5 7021-8 #### [facility] CLIA [id number] [address] [place] [address] 14829 RBC (Bld) [#/Vol] 4.41 10*6/uL Normal 4.20-6.00 [facility] Comment on above: Order Comment: Speci men Type: BLOOD SPECIMEN Ordering Facility: [facility] Address: [address] [place] [address] Performed By: #### 5 7021-8 #### [facility] CLIA [id number] [address] [place] [address] 78837 WBC (Bld) [#/Vol] 2.95 10*3/uL Low 3.70-11.00 [facility] Comment on above: Order Comment: Speci men Type: BLOOD SPECIMEN Ordering Facility: [facility] Address: [address] [place] [address] Performed By: #### 5 7021-8 #### [facility] CLIA [id number] [address] [place] [address] 84335 CRP [facility] 02-22-2024 CRP [Mass/Vol] mg/L Normal <0.9 [facility] Comment on above: Order Comment: Speci men Type: BLOOD SPECIMEN Ordering Facility: [facility] Address: [address] [place] [address] Performed By: #### 1 988-5, 2132-9 #### [facility] CLIA [id number] [address] [place] [address] [place] Comprehensive metabolic 2000 panelOrdered By: Emeterio Betts on 02-22-2024 Albumin [Mass/Vol] 4.5 g/dL 3.9 - 4.9 g/dL [facility] ALP [Catalytic activity/Vol] 101 U/L 38 - 113 U/L [facility] ALT [Catalytic activity/Vol] 17 U/L 10 - 54 U/L [facility] Anion gap [Moles/Vol] 11 mmol/L 9 - 18 mmol/L [facility] AST [Catalytic activity/Vol] [facility] Comment on above: Unable to assay. Spe cimen significantly hemolyzed. Bilirubin [Mass/Vol] 2.4 mg/dL High 0.2 - 1 .3 mg/dL [facility] Calcium [Mass/Vol] 9.7 mg/dL 8.5 - 10. 2 mg/dL [facility] Chloride [Moles/Vol] 98 mmol/L 97 - 10 5 mmol/L [facility] CO2 [Moles/Vol] 27 mmol/L 22 - 30 mmol/L [facility] Creatinine [Mass/Vol] 1.16 mg/dL 0.73 - 1.22 mg/dL [facility] GFR/1.73 sq M.predicted among non-blacks MDRD (S/P/Bld) [Vol rate/Area] 79 mL/min/{1.73_m2} - PINF [facility] Comment on above: Estimated Glomerular Filtration Rate (eGFR) is calculated using the 2020 CKD-EPI creatinine equation. This equation utilizes serum creatinine, sex, and age as parameters. The creatinine assay has traceable calibration to isotope dilution-mass spectrometry. Refer to KDIGO guidelines for clinical interpretation. In patients with unstable renal function, e.g. those with acute kidney injury, the eGFR may not accurately reflect actual GFR. Glucose [Mass/Vol] 87 mg/dL 74 - 99 mg/dL [facility] Comment on above: The Stateless Diabete s Association (ADA) provides guidance for cutoff values for fasting glucose and random glucose. The ADA defines fasting as no caloric intake for at least 8 hours. Fasting plasma glucose results between 100 to 125 mg/dL indicate increased risk for diabetes (prediabetes). Fasting plasma glucose results greater than or equal to 126 mg/dL meet the criteria for diagnosis of diabetes. In the absence of unequivocal hyperglycemia, results should be confirmed by repeat testing. In a patient with classic symptoms of hyperglycemia or hyperglycemic crisis, random plasma glucose results greater than or equal to 200 mg/dL meet the criteria for diagnosis of diabetes. Reference: Standards of Medical Care in Diabetes 2016, Stateless Diabetes Association. Diabetes Care. 2016.39(Suppl 1). Interpretation and review of laboratory results Abnormal [facility] Potassium [Moles/Vol] 3.9 mmol/L 3.7 - 5.1 mmol/L [facility] Protein [Mass/Vol] 7.4 g/dL 6.3 - 8.0 g/dL [facility] Sodium [Moles/Vol] 136 mmol/L 136 - 144 mmol/L [facility] Urea nitrogen [Mass/Vol] 12 mg/dL 9 - 24 mg/dL [facility] Comprehensive metabolic 2000 panelon 02-22-2024 Albumin [Mass/Vol] 4.5 g/dL Normal 3.9-4.9 [facility] Comment on above: Order Comment: Speci men Type: BLOOD SPECIMEN Ordering Facility: [facility] Address: [address] [place] [address] Performed By: #### 2 4323-8 #### [facility] CLIA [id number] [address] [place], [place] [id number] ALP [Catalytic activity/Vol] 101 U/L Normal 38-113 [facility] Comment on above: Order Comment: Speci men Type: BLOOD SPECIMEN Ordering Facility: [facility] Address: [address] [place] [address] Performed By: #### 2 4323-8 #### [facility] CLIA [id number] [address] [place] [address] ALT [Catalytic activity/Vol] 17 U/L Normal 10-54 [facility] Comment on above: Order Comment: Speci men Type: BLOOD SPECIMEN Ordering Facility: [facility] Address: [address] [place] [address] Performed By: #### 2 4323-8 #### [facility] CLIA [id number] [address] [place] [address]190 Anion gap [Moles/Vol] 11 mmol/L Normal 9-18 [facility] Comment on above: Order Comment: Speci men Type: BLOOD SPECIMEN Ordering Facility: [facility] Address: [address] [place] [address] Performed By: #### 2 4323-8 #### [facility] CLIA [id number] [address] [place] [address] 95965 AST [Catalytic activity/Vol] Normal [facility] Comment on above: Order Comment: Speci men Type: BLOOD SPECIMEN Ordering Facility: [facility] Address: [address] [place] [id number] Result Comment: Unab le to assay. Specimen significantly hemolyzed. Performed By: #### 2 4323-8 #### [facility] CLIA [id number] [address] [place] [address] Bilirubin [Mass/Vol] 2.4 mg/dL High 0.2-1.3 [facility] Comment on above: Order Comment: Speci men Type: BLOOD SPECIMEN Ordering Facility: [facility] Address: [address] [place] [address] Performed By: #### 2 4323-8 #### [facility] CLIA [id number] [address] [place] [address] Calcium [Mass/Vol] 9.7 mg/dL Normal 8.5-10.2 [facility] Comment on above: Order Comment: Speci men Type: BLOOD SPECIMEN Ordering Facility: [facility] Address: [address] [place] [address] Performed By: #### 2 4323-8 #### [facility] CLIA [id number] [address] [place] [address] Chloride [Moles/Vol] 98 mmol/L Normal 97-105 [facility] Comment on above: Order Comment: Speci men Type: BLOOD SPECIMEN Ordering Facility: [facility] Address: [address] [place] [address] Performed By: #### 2 4323-8 #### [facility] CLIA [id number] [address] [place] [address] CO2 [Moles/Vol] 27 mmol/L Normal 22-30 [facility] Comment on above: Order Comment: Speci men Type: BLOOD SPECIMEN Ordering Facility: [facility] Address: [address] [place] [address] Performed By: #### 2 4323-8 #### [facility] CLIA [id number] [address] [place] [address] Creatinine [Mass/Vol] 1.16 mg/dL Normal 0.73-1.22 [facility] Comment on above: Order Comment: Speci men Type: BLOOD SPECIMEN Ordering Facility: [facility] Address: [address] [place] [address] Performed By: #### 2 4323-8 #### [facility] CLIA [id number] [address] [place] [address] Creatinine and Glomerular filtration rate.predicted panel (S/P/Bld) 79 mL/min/1.73m??? Normal >=60 [facility] Comment on above: Order Comment: Speci men Type: BLOOD SPECIMEN Ordering Facility: [facility] Address: [address] [place] [address] Result Comment: Barbara mated Glomerular Filtration Rate (eGFR) is calculated using the 2020 CKD-EPI creatinine equation. This equation utilizes serum creatinine, sex, and age as parameters. The creatinine assay has traceable calibration to isotope dilution-mass spectrometry. Refer to KDIGO guidelines for clinical interpretation. In patients with unstable renal function, e.g. those with acute kidney injury, the eGFR may not accurately reflect actual GFR. Performed By: #### 2 4323-8 #### [facility] CLIA [id number] [address] [place] [address]698 Glucose [Mass/Vol] 87 mg/dL Normal 74-99 [facility] Comment on above: Order Comment: Speci men Type: BLOOD SPECIMEN Ordering Facility: [facility] Address: [address], [place] [address] Result Comment: The Stateless Diabetes Association (ADA) provides guidance for cutoff values for fasting glucose and random glucose. The ADA defines fasting as no caloric intake for at least 8 hours. Fasting plasma glucose results between 100 to 125 mg/dL indicate increased risk for diabetes (prediabetes). Fasting plasma glucose results greater than or equal to 126 mg/dL meet the criteria for diagnosis of diabetes. In the absence of unequivocal hyperglycemia, results should be confirmed by repeat testing. In a patient with classic symptoms of hyperglycemia or hyperglycemic crisis, random plasma glucose results greater than or equal to 200 mg/dL meet the criteria for diagnosis of diabetes. Reference: Standards of Medical Care in Diabetes 2016, Stateless Diabetes Association. Diabetes Care. 2016.39(Suppl 1). Performed By: #### 2 4323-8 #### [facility] CLIA [id number] [address] [place] [address] Potassium [Moles/Vol] 3.9 mmol/L Normal 3.7-5.1 [facility] Comment on above: Order Comment: Speci men Type: BLOOD SPECIMEN Ordering Facility: [facility] Address: [address] [place] [address] Performed By: #### 2 4323-8 #### [facility] CLIA [id number] [address] [place] [address] Protein [Mass/Vol] 7.4 g/dL Normal 6.3-8.0 [facility] Comment on above: Order Comment: Speci men Type: BLOOD SPECIMEN Ordering Facility: [facility] Address: [address] [place] [address] Performed By: #### 2 4323-8 #### [facility] CLIA [id number] [address] [place] [address] Sodium [Moles/Vol] 136 mmol/L Normal 136-144 [facility] Comment on above: Order Comment: Speci men Type: BLOOD SPECIMEN Ordering Facility: [facility] Address: [address] [place] [place] [id number] Performed By: #### 2 4323-8 #### [facility] CLIA [id number] [address] [place] [address] Urea nitrogen [Mass/Vol] 12 mg/dL Normal 9-24 [facility] Comment on above: Order Comment: Speci men Type: BLOOD SPECIMEN Ordering Facility: [facility] Address: [address] [place] [address] Performed By: #### 2 4323-8 #### [facility] CLIA [id number] [address] [place] [address]2822 Eosinophils/100 WBC Auto (Bl d)on 02-22-2024 Eosinophils/100 WBC (Bld) 1.4 % [facility] Erythrocyte distribution wid th Auto (RBC) [Ratio]on 02-22-2024 Erythrocyte distribution width (RBC) [Ratio] 11.9 % 11.5-15.0 [facility] Hematocrit Auto (Bld) [Volum e fraction]on 02-22-2024 Hematocrit (Bld) [Volume fraction] 40.5 % 39.0-51.0 [facility] Hemoglobin [Mass/volume] in Bloodon 02-22-2024 Hemoglobin (Bld) [Mass/Vol] 14.2 g/dL 13.0-17.0 [facility] Laboratory - Chemistry and C hemistry - challengeon 02-22-2024 Albumin [Mass/Vol] 4.5 g/dL 3.9-4.9 [facility] ALP [Catalytic activity/Vol] 101 U/L 38-113 [facility] ALT [Catalytic activity/Vol] 17 U/L 10-54 [facility] Bilirubin [Mass/Vol] 2.4 mg/dL High 0.2-1.3 [facility] Calcium [Mass/Vol] 9.7 mg/dL 8.5-10.2 [facility] Chloride [Moles/Vol] 98 mmol/L 97-105 [facility] CO2 [Moles/Vol] 27 mmol/L 22-30 [facility] Creatinine [Mass/Vol] 1.16 mg/dL 0.73-1.22 [facility] Glucose [Mass/Vol] 87 mg/dL 74-99 [facility] Comment on above: The Stateless Diabete s Association (ADA) provides guidance for cutoff values for fasting glucose and random glucose. The ADA defines fasting as no caloric intake for at least 8 hours. Fasting plasma glucose results between 100 to 125 mg/dL indicate increased risk for diabetes (prediabetes).Fasting plasma glucose results greater than or equal to 126 mg/dL meet the criteria for diagnosis of diabetes. In the absence of unequivocal hyperglycemia, results should be confirmed by repeat testing. In a patient with classic symptoms of hyperglycemia or hyperglycemic crisis, random plasma glucose results greater than or equal to 200 mg/dL meet the criteria for diagnosis of diabetes.Reference: Standards of Medical Care in Diabetes 2016, Stateless Diabetes Association. Diabetes Care. 2016.39(Suppl 1). Potassium [Moles/Vol] 3.9 mmol/L 3.7-5.1 [facility] Sodium [Moles/Vol] 136 mmol/L 136-144 [facility] Urea nitrogen [Mass/Vol] 12 mg/dL 9- [facility] Laboratory - Hematology and Cell countson 02-22-2024 Eosinophils (Bld) [#/Vol] 0.04 10*3/uL <0.46 [facility] Immature granulocytes/100 WBC (Bld) 0.3 % [facility] Leukocytes [#/volume] correc brett for nucleated erythrocytes in Blood by Automated counon 02-22-2024 WBC corrected for nucl RBC Auto (Bld) [#/Vol] 2.95 k/uL Low 3.70-11.00 [facility] Lymphocytes Auto (Bld) [#/Vo l]on 02-22-2024 Lymphocytes (Bld) [#/Vol] 1.28 10*3/uL 1.00-4.00 [facility] Lymphocytes/100 WBC Auto (Bl d)on 02-22-2024 Lymphocytes/100 WBC (Bld) 43.4 % [facility] MCH Auto (RBC) [Entitic mass ]on 02-22-2024 MCH (RBC) [Entitic mass] 32.2 pg 26.0-34.0 [facility] MCHC Auto (RBC) [Mass/Vol]on 02-22-2024 MCHC (RBC) [Mass/Vol] 35.1 g/dL 30.5-36.0 [facility] MCV Auto (RBC) [Entitic vol] on 02-22-2024 MCV (RBC) [Entitic vol] 91.8 fL 80.0-100.0 [facility] Monocytes Auto (Bld) [#/Vol] on 02-22-2024 Monocytes (Bld) [#/Vol] 0.28 10*3/uL <0.87 [facility] Monocytes/100 WBC Auto (Bld) on 02-22-2024 Monocytes/100 WBC (Bld) 9.5 % [facility] Mycobacterium tuberculosis s timulated gamma interferon [Interpretation] in Blood Qualon 02-22-2024 M. tuberculosis stim IFN-g Ql (Bld) [Interp] Negative [facility] Neutrophils Auto (Bld) [#/Vo l]on 02-22-2024 Neutrophils (Bld) [#/Vol] 1.32 10*3/uL Low 1.45-7.50 [facility] Neutrophils/100 WBC Auto (Bl d)on 02-22-2024 Neutrophils/100 WBC (Bld) 44.7 % [facility] No Panel Informationon 02-21 Aspartate Amino Transf (AST/SGOT) See comment [facility] Comment on above: Unable to assay. Spe cimen significantly hemolyzed. C-Reactive Protein, Quantitative <0.3 mg/dL <0.9 [facility] Estimated GFR (CKD-EPI) 79 mL/min/1.73m??? >=60 [facility] Comment on above: Estimated Glomerular Filtration Rate (eGFR) is calculated using the 2020 CKD-EPI creatinine equation. This equation utilizes serum creatinine, sex, and age as parameters. The creatinine assay has traceable calibration to isotope dilution-mass spectrometry. Refer to KDIGO guidelines for clinical interpretation. In patients with unstable renal function, e.g. those with acute kidney injury, the eGFR may not accurately reflect actual GFR. Immature Granulocyte # (Auto) <0.03 k/uL <0.10 [facility] Vitamin B12 Level >2000 pg/mL High 232-1245 [facility] Nucleated RBC Auto (Bld) [#/ Vol]on 02-22-2024 Nucleated RBC (Bld) [#/Vol] 10*3/uL <0.01 [facility] Nucleated erythrocytes [Pres ence] in Blood by Automated counton 02-22-2024 Nucleated RBC Auto Ql (Bld) 0.0 /100{WBC} [facility] Platelet mean volume Auto (B ld) [Entitic vol]on 02-22-2024 Platelet mean volume (Bld) [Entitic vol] 9.8 fL 9.0-12.7 [facility] Platelets Auto (Bld) [#/Vol] on 02-22-2024 Platelets (Bld) [#/Vol] 137 10*3/uL Low 150-400 [facility] Protein [Mass/volume] in Ser um or Plasmaon 02-22-2024 Protein [Mass/Vol] 7.4 g/dL 6.3-8.0 [facility] RBC Auto (Bld) [#/Vol]on RBC (Bld) [#/Vol] 4.41 10*6/uL 4.20-6.00 [facility] Serum or plasma anion gap de terminationon 02-22-2024 Anion gap [Moles/Vol] 11 mmol/L 9-18 [facility] Vit B12 SerPl-mCncon 024 Cobalamin (Vitamin B12) [Mass/Vol] pg/mL High 232-1245 [facility] Comment on above: Order Comment: Speci men Type: BLOOD SPECIMEN Ordering Facility: [facility] Address: [address] [place] [address] Performed By: #### 1 988-5, 3365-0 #### [facility] CLIA [id number] [address] [place] [address] [place] Whole blood measurement of M ycobacterium tuberculosis stimulated gamma interferon relon 02-22-2024 M. tuberculosis stim IFN-g by CD4+ CD8+ T-cells corrected for background Qn (Bld) 0.09 [IU]/mL <0.35 [facility] CNPNon 01-25-2024 CNPN Telephone (GASTMN) MADELINE MOHANBRIAN Del Angel ([id number]) 1980 M Date Time Provider Department 01/25/24 DEEPALI STONE During your visit today, we recorded the following information about you: Deepali Castellanos RN 01/25/2024 1:52 PM Signed Submitted PA request for Xifaxan via [facility]. Awaiting insurance determination. Deepali Castellanos RN ([place]kes: [id number]) - [id number] Manuela Crowley 01/29/2024 1:12 PM Signed Incoming fax received on 01/27/2024 informing of Xifaxan approval, valid 01/27/2024 - 03/23/2024. Scanned into [employer]. PA ref #: [id number] Manuela Crowley Allergies As of Date: 01/25/2024 Noted Allergy Reaction EFFEXOR (VENLAFAXINE HCL) 02/01/2013 14 - Other: See Comments Comments: Hot flashes, and tachycardia IMURAN (AZATHIOPRINE SODIUM) 02/01/2013 14 - Other: See Comments Comments: Nausea COLESTIPOL 11/11/2016 14 - Other: See Comments Comments: Joint pian ENTOCORT EC (BUDESONIDE) 02/01/2013 14 - Other: See Comments Comments: Cramps LIORESAL (BACLOFEN) 07/15/2013 14 - Other: See Comments Comments: [place] off , dizziness, irregular heart beat/breathing, difficult to wake up. QUESTRAN (CHOLESTYRAMINE (WITH CARVALHO*02/01/2013 14 - Other: See Comments Comments: Nausea REGLAN (METOCLOPRAMIDE HCL) 02/01/2013 14 - Other: See Comments Comments: anxiety, states couldn't control himself ULTRAM (TRAMADOL HCL) 02/01/2013 14 - Other: See Comments Comments: Dizzy, vertigo Date Reviewed: 01/12/2024 Reviewed by: Mirian Mckeon OCCA - Fully Assessed Reason for Visit: Insurance Authorization [[id number]] Cmt: Xifaxan Prescriptions as of 01/29/2024 - rifAXIMin (XIFAXAN) 550 mg tablet Take 1 tablet by mouth three times a day. - cyanocobalamin, vitamin B-12, (VITAMIN B-12) 5,000 mcg subl Dissolve 1 tablet under the tongue once daily. - OXYCONTIN 20 mg 12 hr tablet Take 20 mg by mouth as directed. - iv contrast (will be provided with radiology test) MRI Enterography Inject, intravenously, once for 1 dose. No IV access, insert saline lock prior to the beginning of sedation, infusion, injection of imaging exam. Discontinue saline lock post exam. If Pt. has a central line or IVAD, may access for administration according to line specific nursing protocol. Once exam is complete flush line and de-access according to line specific nursing protocol in the MR contrast administration guidelines link. - enteric contrast (will be provided with radiology test) For MRI ENTEROGRAPHY WO/W Administer, As Directed One Time Only, via Oral, Rectal, both Oral and Rectal, Enteric Tube, Stoma or Indwelling Catheter,? Enteric Contrast as designated per enteric contrast guidelines - glucagon (GLUCAGEN) 1 mg/mL injection Inject 1 mg intravenously one time only for 1 dose. For MRI Enterography, Inject 1 mg intravenously, as directed. Slow push at the appropriate time during MRI Scan - rOPINIRole (REQUIP) 2 mg tablet Take 2 tablets by mouth daily at bedtime. - vedolizumab (ENTYVIO) 300 mg injection 300 mg iv every 8 weeks - ondansetron orally disintegrating (ZOFRAN ODT) 4 mg disintegrating tablet DISSOLVE 1 (ONE) TABLET on the tongue EVERY 6 HOURS NEEDED - zolpidem (AMBIEN) 10 mg Take by mouth at bedtime as needed. - oxyCODONE IR (ROXICODONE) 20 mg tab Take 20 mg by mouth every 4 hours as needed (pain). - acetaminophen 650 mg CR tablet Take 1,300 mg by mouth twice daily. - famotidine (PEPCID) 20 mg tablet Take 1 tablet by mouth twice daily. Problem List As Of Date 01/25/2024 Noted Resolved Crohn disease [K50.90] 05/13/2013 Vitamin D deficiency-Severe [E55.9] 05/30/2013 Crohn's disease of both small and large intesti*12/16/2015 Crohn's disease of small intestine with intesti*12/11/2017 Encounter Status:Closed by DEEPALI CASTELLANOS RN on 01/25/24 Normal [facility] CNOVon 01-12-2024 CNOV Office Visit (GASTAV ) HERMINIO MOHAN ([id number]) 1980 M Date Time Provider Department 01/12/24 9:20 AM DEEPALI STONE GASTAV During your visit today, we recorded the following information about you: Pulse Blood pressure Weight Height 98/minute 117/82 67 kg 1.829 m Deepali Stone MD, PhD 01/20/2024 10:36 AM Signed EST PT OFFICE VISIT CC: Patient presents with: Established Patient: Crohn's disease of small intestine with intestinal obstruction Pt states 1 BM every other day, regular stools without bleeding. Mr. Mohan is here today for follow-up of: Crohn's disease. He is having abdominal pain Sometimes gets bloated but not too often Having bm with Is having cramping/spasming pain Weight is stable Not ready to schedule the scan Has some traveling ahead of him In precess of weaning off opiates VITALS: Blood pressure 117/82, pulse 98, height 182.9 cm (6'), weight 67 kg (147 lb 11.3 oz), SpO2 98%. ALLERGIES: Effexor [Venlafaxine Hcl], Imuran [Azathioprine Sodium], Colestipol, Entocort Ec [Budesonide], Lioresal [Baclofen], Questran [Cholestyramine (With Sugar)], Reglan [Metoclopramide Hcl], and Ultram [Tramadol Hcl] MEDICATIONS: Current Outpatient Medications Medication Sig Dispense Refill OXYCONTIN 20 mg 12 hr tablet Take 20 mg by mouth as directed. enteric contrast (will be provided with radiology test) For MRI ENTEROGRAPHY WO/W Administer, As Directed One Time Only, via Oral, Rectal, both Oral and Rectal, Enteric Tube, Stoma or Indwelling Catheter, Enteric Contrast as designated per enteric contrast guidelines 1 Each 0 rOPINIRole (REQUIP) 2 mg tablet Take 2 tablets by mouth daily at bedtime. vedolizumab (ENTYVIO) 300 mg injection 300 mg iv every 8 weeks 1 Each 5 ondansetron orally disintegrating (ZOFRAN ODT) 4 mg disintegrating tablet DISSOLVE 1 (ONE) TABLET on the tongue EVERY 6 HOURS NEEDED 3 zolpidem (AMBIEN) 10 mg Take by mouth at bedtime as needed. oxyCODONE IR (ROXICODONE) 20 mg tab Take 20 mg by mouth every 4 hours as needed (pain). acetaminophen 650 mg CR tablet Take 1,300 mg by mouth twice daily. famotidine (PEPCID) 20 mg tablet Take 1 tablet by mouth twice daily. 60 tablet 0 rifAXIMin (XIFAXAN) 550 mg tablet Take 1 tablet by mouth three times a day. 42 tablet 0 cyanocobalamin, vitamin B-12, (VITAMIN B-12) 5,000 mcg subl Dissolve 1 tablet under the tongue once daily. 30 tablet 11 iv contrast (will be provided with radiology test) MRI Enterography Inject, intravenously, once for 1 dose. No IV access, insert saline lock prior to the beginning of sedation, infusion, injection of imaging exam. Discontinue saline lock post exam. If Pt. has a central line or IVAD, may access for administration according to line specific nursing protocol. Once exam is complete flush line and de-access according to line specific nursing protocol in the MR contrast administration guidelines link. (Patient not taking: Reported on 01/12/2024) 1 Each 0 glucagon (GLUCAGEN) 1 mg/mL injection Inject 1 mg intravenously one time only for 1 dose. For MRI Enterography, Inject 1 mg intravenously, as directed. Slow push at the appropriate time during MRI Scan 1 Each 0 No current facility-administered medications for this visit. Social History: Social History Tobacco Use Smoking status: Former Packs/day: 1.00 Years: 18.00 Additional pack years: 0.00 Total pack years: 18.00 Types: Cigarettes Quit date: 12/15/2014 Years since quittin.1 Smokeless tobacco: Never Substance Use Topics Alcohol use: Yes Comment: Maybe once a year Drug use: No Medical History: No changes since last visit. REVIEW OF SYSTEMS: GENERAL: weight stable, no fevers. CARDIOVASCULAR: No chest pain, no edema RESPIRATORY: No dyspnea The remainder of the review of systems are negative. Reviewed with patient during visit today. PHYSICAL EXAMINATION: GENERAL APPEARANCE: Well developed and well nourished. SKIN: Skin color, texture, turgor normal. No rashes or lesions. EYES: Conjunctiva normal without icterus. OROPHARYNX: lips, mucosa, and tongue normal, teeth and gums normal NECK: Supple, full range of motion, no lymphadenopathy, normal thyroid, LUNGS: Normal breath sounds, Clear to auscultation, No wheezes, No crackles. HEART:Normal PMI, Regular rate and rhythm, Normal heart sounds, S1 and S2 and No murmurs. NEURO: Alert and oriented in no acute distress. ABDOMEN: Normal bowel sounds, abdomen flat with no distention, Soft, non-tender, no hepatomegaly. no palpable masses, no abdominal bruits, no rebound and no rigidity. EXTREMITIES:Extremitie s normal, No deformities, No skin discoloration, No edema . Copy of narrative history per previous note with addendum/edit. 1994 dx 1999 bowel resection 2010 bowel resection 12/07 quit smoking Serial bowel resections, most recently 2016. (more content not included)... [facility] ANES POSTPROC EVALon 024 ANES POSTPROC EVAL HNO ID: [id number] Author: ELVIS MELGAR MD Service: Anesthesiology Author Type: Physician Type: Anesthesia Postprocedure Evaluation Filed: 11/15/2023 13:56 Note Text: POST ANESTHESIA EVALUATION NOTE : 1980 Procedure Summary Date: 11/15/23 Room / Location: Procedures Anesthesia Start: 1324 Anesthesia Stop: 1345 Procedure: COLONOSCOPY DIAGNOSTIC Diagnosis: Crohn's disease of small intestine with intestinal obstruction (HCC) (Disease activity assessment of Crohn's disease of the small bowel) Scheduled Providers: Deepali Stone MD, PhD; Elvis Melgar MD; Dayday Tucker APRN.MANUFACTURING PLANT MANAGER; Coni Edouard RN Responsible Provider: Elvis Melgar MD Anesthesia Type: MAC ASA Status: 2 Anesthesia Type: MAC Last Vitals Vitals Value Taken Time BP 96/57 11/15/23 1350 Temp 11/15/23 1356 Pulse 71 11/15/23 1355 Resp 10 11/15/23 1355 SpO2 97 % 11/15/23 1355 Vitals shown include unfiled device data. Post Anesthesia Patient Status Patient Evaluation: PACU. PACU/ICU Patient Condition: stable. Anticipated Disposition: phase 2 then home. Neurological Status: aware and responsive. Pulmonary Status: breathing comfortably on room air Airway Control: returned to baseline unsupported. Cardiovascular Status: stable. Pain Management: satisfactory to patient Postoperative Hydration: acceptable. Intraoperative Events: no significant anesthesia events Recommendation: continue current plan of care. Anesthesia Observations No Documentation SIGNATURE: Elvis Melgar MD PATIENT NAME: Herminio Mohan DATE: November 15, 2023 TIME: 1:56 PM CSN: [id number] [facility] ANES PRE-OPon 11-15-2023 ANES PRE-OP HNO ID: [id number] Author: ELVIS MELGAR MD Service: Anesthesiology Author Type: Physician Type: Anesthesia Preprocedure Evaluation Filed: 11/15/2023 12:40 Note Text: ANESTHESIOLOGY DAY OF SURGERY NOTE : 1980 Procedure Information Date/Time: 11/15/23 1245 Scheduled providers: Deepali Stone MD, PhD; Elvis Melgar MD; Dayday Tucker APRN.MANUFACTURING PLANT MANAGER; Coni Edouard RN Procedure: COLONOSCOPY DIAGNOSTIC Location: Procedures Estimated body mass index is 19.67 kg/m? as calculated from the following: Height as of 08/25/23: 182.9 cm (6'). Weight as of this encounter: 65.8 kg (145 lb). Most recent hematocrit and potassium results: Hematocrit 36.9 09/07/2023 Potassium 3.4 09/07/2023 Relevant Problems Allergy/Immunology (+) Crohn disease (HCC) I - PHYSICAL EVALUATION AIRWAY Patient intubated: No. Tracheostomy tube not present Mallampati: II. TM distance: >3 FB. Neck ROM: full. Mouth opening: adequate. Short neck: no. Thick neck: no Murillo present: no DENTAL Normal dental observations. Dental findings: teeth intact. Additional exam findings: no II - ANESTHESIA PLAN ASA Score: 2 Anesthetic Plan: MAC NPO Status: adequate Beta Jean Monitoring Plan Monitoring plan: Standard ASA. Post Procedure Analgesic Plan Postoperative analgesic plan: parenteral or oral opioids. Informed Consent Anesthetic risks, benefits, alternatives, personnel and consent discussed: yes. Patient / Responsible Libertarian agrees to proceed: yes Patient / Surrogate agrees to blood products: blood products not planned Significant changes in the patient condition since the History and Physical, not otherwise documented in primary service progress note: no. Potential Anesthesia issues that may suggest increased risk of complications or contraindication to planned procedure: none. Vitals Value Taken Time BP 109/76 11/15/23 1239 Pulse 86 11/15/23 1239 Resp 16 11/15/23 1239 Temp 36.5 ?C (97.7 ?F) 11/15/23 1239 SpO2 100 % 11/15/23 1239 Outpatient Medications as of 11/15/2023 Medication Sig - OXYCONTIN 20 mg 12 hr tablet Take 20 mg by mouth every 12 hours. - rOPINIRole (REQUIP) 2 mg tablet Take 2 tablets by mouth daily at bedtime. - ondansetron orally disintegrating (ZOFRAN ODT) 4 mg disintegrating tablet DISSOLVE 1 (ONE) TABLET on the tongue EVERY 6 HOURS NEEDED - zolpidem (AMBIEN) 10 mg Take by mouth at bedtime as needed. - oxyCODONE IR (ROXICODONE) 20 mg tab Take 20 mg by mouth every 4 hours as needed (pain). - acetaminophen 650 mg CR tablet Take 1,300 mg by mouth twice daily. - famotidine (PEPCID) 20 mg tablet Take 1 tablet by mouth twice daily. (Patient taking differently: Take 20 mg by mouth once daily.) - iv contrast (will be provided with radiology test) MRI Enterography Inject, intravenously, once for 1 dose. No IV access, insert saline lock prior to the beginning of sedation, infusion, injection of imaging exam. Discontinue saline lock post exam. If Pt. has a central line or IVAD, may access for administration according to line specific nursing protocol. Once exam is complete flush line and de-access according to line specific nursing protocol in the MR contrast administration guidelines link. - enteric contrast (will be provided with radiology test) For MRI ENTEROGRAPHY WO/W Administer, As Directed One Time Only, via Oral, Rectal, both Oral and Rectal, Enteric Tube, Stoma or Indwelling Catheter,? Enteric Contrast as designated per enteric contrast guidelines - glucagon (GLUCAGEN) 1 mg/mL injection Inject 1 mg intravenously one time only for 1 dose. For MRI Enterography, Inject 1 mg intravenously, as directed. Slow push at the appropriate time during MRI Scan - vedolizumab (ENTYVIO) 300 mg injection 300 mg iv every 8 weeks - metroNIDAZOLE (METROGEL) 0.75 % Topical Gel Apply to affected areas on face at bedtime. (Patient not taking: Reported on 11/02/2023) - EUCRISA 2 % oint Apply to affected area. APPLY TO THE AFFECTED AREA(S) TWICE DAILY. (Patient not taking: Reported on 11/02/2023) Facility-Administered Medications as of 11/15/2023 Medication Dose Route Frequency - NaCl 0.9% iv infusion 30 mL/hr INTRAVENOUS CONTINUOUS - fentaNYL 50 mcg/mL 50 mcg injection (SUBLIMAZE) 50 mcg INTRAVENOUS Pre-Op PRN I have interviewed and examined the patient. I have reviewed the medical record and/or the pre-anesthesia evaluation, pertinent labs, and test results. This contains updated information obtained within 48 hours of Surgery/Procedure. SIGNATURE: Elvis Melgar MD PATIENT NAME: Herminio Mohan DATE: November 15, 2023 TIME: 12:40 PM CSN: [id number] Normal [facility] Colonoscopyon 11-15-2023 Colonoscopy [facility] Gastrointestinal Endoscopy Patient Name: Herminio Mohan Procedure Date: 11/15/2023 1:17 PM Date of : 1980 Admit Type: Outpatient Age: 43 Room: [place] [address] Gender: Male Note Status: Finalized Attending MD: Deepali Stone MD, PhD, [id number] Procedure: Colonoscopy Indications: Disease activity assessment of Crohn's disease of the small bowel, Assess therapeutic response to therapy of Crohn's disease of the small bowel on entyvio some symptoms Providers: Deepali Stone MD, PhD Patient Profile: This is a 43 year old male. Refer to note in patient chart for documentation of history and physical. Last Colonoscopy: several years ago. Referring Physician: Deepali Stone MD, PhD (Referring MD) Medicines: Monitored Anesthesia Care Complications: No immediate complications. Requesting Provider: Procedure: Pre-Anesthesia Assessment: - Prior to the procedure, a History and Physical was performed, and patient medications and allergies were reviewed. The patient's tolerance of previous anesthesia was also reviewed. The risks and benefits of the procedure and the sedation options and risks were discussed with the patient. All questions were answered, and informed consent was obtained. Prior Anticoagulants: The patient has taken no anticoagulant or antiplatelet agents. ASA Grade Assessment: III - A patient with severe systemic disease. After reviewing the risks and benefits, the patient was deemed in satisfactory condition to undergo the procedure. After I obtained informed consent, the scope was passed under direct vision. Throughout the procedure, the patient's blood pressure, pulse, and oxygen saturations were monitored continuously. The Colonoscope was introduced through the anus and advanced to the terminal ileum. The colonoscopy was performed without difficulty. The patient tolerated the procedure well. The quality of the bowel preparation was poor. The terminal ileum and the rectum were photographed. Scope Withdrawal Time: 0 hours 9 minutes 17 seconds Moderate Sedation: MAC anesthesia was administered by the anesthesia team. Total Procedure Duration: 0 hours 15 minutes 14 seconds Findings: The terminal ileum appeared normal. Biopsies were taken with a cold forceps for histology. Estimated blood loss was minimal. There was evidence of a prior end-to-side ileo-colonic anastomosis in the ascending colon. This was patent and was characterized by healthy appearing mucosa. The anastomosis was traversed. A 7 mm polyp was found in the transverse colon. The polyp was sessile. The polyp was removed with a hot snare. Resection and retrieval were complete. Estimated blood loss was minimal. A 5 mm polyp was found in the sigmoid colon. The polyp was sessile. The polyp was removed with a cold snare. Resection and retrieval were complete. Estimated blood loss was minimal. The Simple Endoscopic Score for Crohn's Disease was determined based on the endoscopic appearance of the mucosa in the following segments: - Ileum: Findings include no ulcers present, no ulcerated surfaces, no affected surfaces and no narrowings. Segment score: 0. - Right Colon: Findings include no ulcers present, no ulcerated surfaces, no affected surfaces and no narrowings. Segment score: 0. - Transverse Colon: Findings include no ulcers present, no ulcerated surfaces, no affected surfaces and no narrowings. Segment score: 0. - Left Colon: Findings include no ulcers present, no ulcerated surfaces, no affected surfaces and no narrowings. Segment score: 0. - Rectum: Findings include less than 50% of surfaces affected. Segment score: 1. Some very mild stritped erythyma was only findings to limits of this exam - Total SES-CD aggregate score: 1. Biopsies were taken with a cold forceps for histology. Estimated blood loss was minimal. Impression: - Preparation of the colon was poor. - The examined portion of the ileum was normal. Biopsied. - Patent end-to-side ileo-colonic anastomosis, characterized by healthy appearing mucosa. - One 7 mm polyp in the transverse colon, removed with a hot snare. Resected and retrieved. - One 5 mm polyp in the sigmoid colon, removed with a cold snare. Resected and retrieved. - Simple Endoscopic Score for Crohn's Disease: 1, mucosal inflammatory changes secondary to Crohn's disease. Biopsied. Recommendation: - Discharge patient to home (ambulatory). - Await pathology results. - If you have not received my chart notice, letter or telephone call in one week telephone Dr. Stone at [phone] for results. - Resume previous diet. - Continue present medications. - Return to my office as previously scheduled. - Patient has a contact number available for emergencies. The signs and symptoms of potential delayed complications were discussed with the patient. Return to [facility] (more content not included)... Normal [facility] Flexible sigmoidoscopy study on 11-15-2023 [facility] HISTORY PHYSICALon HISTORY PHYSICAL HNO ID: [id number] Author: DEEPALI STONE MD, PhD Service: Gastroenterology Author Type: Physician Type: H&P Filed: 11/15/2023 13:19 Note Text: PROCEDURAL SEDATION HISTORY AND PHYSICAL EXAM SERVICE DATE: 11/15/2023 SERVICE TIME: 1:18 PM Subjective HPI: This is a 43 year old male who presents with crohns PAST ANESTHESIA HISTORY: No history of adverse event PAST MEDICAL HISTORY Diagnosis Date Chronic back pain Crohn's disease (HCC) dx'd 1993, small bowel RLS (restless legs syndrome) PAST SURGICAL HISTORY Procedure Laterality Date PAST SURGICAL HISTORY OF 09/25/1993 bowel resection PAST SURGICAL HISTORY OF 09/25/2000 bowel resection PAST SURGICAL HISTORY OF 09/25/2004 vasectomy PAST SURGICAL HISTORY OF right inguinal hernia PAST SURGICAL HISTORY OF 09/25/2010 bowel resection PAST SURGICAL HISTORY OF 12/16/2015 Exploratory laparotomy, lysis of adhesions, resection of ileocolic anastomosis with creation of new ileocolic anastomosis, omental pedicle flap Prior to Admission medications as of 11/15/23 1231 Medication Sig Last Dose Taking OXYCONTIN 20 mg 12 hr tablet Take 20 mg by mouth every 12 hours. 11/15/2023 Yes rOPINIRole (REQUIP) 2 mg tablet Take 2 tablets by mouth daily at bedtime. 11/14/2023 Yes ondansetron orally disintegrating (ZOFRAN ODT) 4 mg disintegrating tablet DISSOLVE 1 (ONE) TABLET on the tongue EVERY 6 HOURS NEEDED 11/14/2023 Yes zolpidem (AMBIEN) 10 mg Take by mouth at bedtime as needed. 11/14/2023 Yes oxyCODONE IR (ROXICODONE) 20 mg tab Take 20 mg by mouth every 4 hours as needed (pain). 11/15/2023 Yes acetaminophen 650 mg CR tablet Take 1,300 mg by mouth twice daily. 11/15/2023 Yes famotidine (PEPCID) 20 mg tablet Take 1 tablet by mouth twice daily. Patient taking differently: Take 20 mg by mouth once daily. 11/14/2023 Yes iv contrast (will be provided with radiology test) MRI Enterography Inject, intravenously, once for 1 dose. No IV access, insert saline lock prior to the beginning of sedation, infusion, injection of imaging exam. Discontinue saline lock post exam. If Pt. has a central line or IVAD, may access for administration according to line specific nursing protocol. Once exam is complete flush line and de-access according to line specific nursing protocol in the MR contrast administration guidelines link. enteric contrast (will be provided with radiology test) For MRI ENTEROGRAPHY WO/W Administer, As Directed One Time Only, via Oral, Rectal, both Oral and Rectal, Enteric Tube, Stoma or Indwelling Catheter, Enteric Contrast as designated per enteric contrast guidelines glucagon (GLUCAGEN) 1 mg/mL injection Inject 1 mg intravenously one time only for 1 dose. For MRI Enterography, Inject 1 mg intravenously, as directed. Slow push at the appropriate time during MRI Scan vedolizumab (ENTYVIO) 300 mg injection 300 mg iv every 8 weeks 11/02/2023 metroNIDAZOLE (METROGEL) 0.75 % Topical Gel Apply to affected areas on face at bedtime. Patient not taking: Reported on 11/02/2023 EUCRISA 2 % oint Apply to affected area. APPLY TO THE AFFECTED AREA(S) TWICE DAILY. Patient not taking: Reported on 11/02/2023 ALLERGIES Allergen Reactions Effexor [Venlafaxin* Other: See Comments Hot flashes, and tachycardia Imuran [Azathioprin* Other: See Comments Nausea Colestipol Other: See Comments Joint pian Entocort Ec [Budeso* Other: See Comments Cramps Lioresal [Baclofen] Other: See Comments [place] off , dizziness, irregular heart beat/breathing, difficult to wake up. Questran [Cholestyr* Other: See Comments Nausea Reglan [Metoclopram* Other: See Comments anxiety, states couldn't control himself Ultram [Tramadol Hc* Other: See Comments Dizzy, vertigo Objective PHYSICAL EXAM: The remainder of the physical exam is noncontributory. AIRWAY: Airway Visualization of Uvula: Yes Mouth opening greater than 2 fingerbreadths: Yes Neck Full Range of Motion: Yes LUNGS: ctab CARDIAC: , rrr Assessment/Plan ASA Class: ASA Class:: Patient with severe systemic disease Active Problems: * No active hospital problems. * Resolved Problems: * No resolved hospital problems. * Medication and Non-Pharmacologic VTE Prophylaxis/Anticoagul ants VTE Prophylaxis: none Provisional Diagnosis/Treatment Plan: crohns SIGNATURE: Deepali Stone MD, PhD PATIENT NAME: Herminio Mohan DATE: November 15, 2023 TIME: 1:18 PM [facility] SURGICAL PATHOLOGYon 024 CASE REPORT [facility] Comment on above: Order Comment: Speci men Type: TISSUE SPECIMEN Ordering Facility: [facility] Address: [address] [place] [address] Result Comment: Surg [facility] Pathology Report Case: [id number] Authorizing Provider: Deepali Stone MD, Collected: 11/15/2023 01:32 PM PhD Ordering Location: Procedures Received: 11/15/2023 02:02 PM Pathologist: Van Quezada MD, PhD Specimens: A) - TRANSVERSE COLON POLYP B) - ILEUM BIOPSY C) - TRANSVERSE COLON BIOPSY, ? colitis D) - SIGMOID COLON POLYP E) - RECTAL BIOPSY, proctitis Performed By: #### S #### [facility] CLIA [id number] [address] [place] [address] OF [place] FINAL DIAGNOSIS Normal [facility] ital Comment on above: Order Comment: Speci men Type: TISSUE SPECIMEN Ordering Facility: [facility] Address: [address] [place] [address] Result Comment: A. C olon, transverse, polyp, polypectomy: - Scant mucus material, no colonic mucosa tissue present. B. Ileum, biopsy: - Small intestinal mucosa with no diagnostic abnormality. - No evidence of granulomas or dysplasia. C. Colon, transverse, biopsy: - Colonic mucosa with no diagnostic abnormality. - No evidence of granulomas or dysplasia. D. Colon, sigmoid, polyp, polypectomy: - Polypoid low-grade dysplasia. E. Rectum, biopsy: - Colonic mucosa with no significant diagnostic abnormality. - No evidence of granulomas or dysplasia. Performed By: #### S #### [facility] CLIA [id number] [address] [place] [address] FINAL PERFORMING LAB Normal [facility] Comment on above: Order Comment: Speci men Type: TISSUE SPECIMEN Ordering Facility: [facility] Address: [address] [place] [address] Result Comment: Diag nostic interpretation performed at [facility], [address] [place] [address] CLIA# [id number] Visitor Services Associate: Macario Jeffery M.D. Performed By: #### S #### [facility] CLIA [id number] [address] [place] [address] GROSS DESCRIPTION Normal [facility] spital Comment on above: Order Comment: Speci men Type: TISSUE SPECIMEN Ordering Facility: [facility] Address: [address] [place] [address] Result Comment: A. T RANSVERSE COLON POLYP Received in formalin are two pieces of yan, soft tissue aggregating to 0.6 x 0.2 x 0.1 cm. Totally submitted in one cassette, may not survive the processing. B. ILEUM BIOPSY Received in formalin are two pieces of yan to yan-pink, soft tissue aggregating to 0.6 x 0.2 x 0.2 cm. Totally submitted in one cassette. C. TRANSVERSE COLON BIOPSY Received in formalin are multiple pieces of yan, soft tissue aggregating to 1.1 x 0.2 x 0.1 cm. Totally submitted in one cassette. November 15, 2023 7:36 PM Gross examination performed at [facility], [address] [place] [address].[place] [address] D. SIGMOID COLON POLYP Received in formalin is one segment of yan-brown polypoid tissue measuring 1.3 x 0.6 x 0.3 cm. No stalk is present. The line of resection is noted. The specimen is bisected and totally submitted in one cassette. Gross examination performed at [facility], [address] [place] [address] November 15, 2023 7:11 PM E. RECTAL BIOPSY Received in formalin are two pieces of yan to yan-pink, soft tissue aggregating to 0.8 x 0.3 x 0.2 cm. Totally submitted in one cassette. November 15, 2023 7:39 PM Gross examination performed at [facility], [address] [place] [address] Performed By: #### S #### [facility] CLIA [id number] [address] [place], [place] [address]K [address] [facility] An 09-09-20[facility] HERMIN[facility]OHAN ([id number]) 1980 M Date Time Provider Department 09/09/23 DEEPALI STONE During your visit today, we recorded the following information about you: Deepali Stone MD, PhD 09/09/2023 10:48 AM Signed Anywhere we can squeeze him in for sooner colon Zeny Do 09/11/2023 9:37 AM Signed Patient is scheduled for 11/15 and on wait list Allergies As of Date: 09/09/2023 Noted Allergy Reaction EFFEXOR (VENLAFAXINE HCL) 02/01/2013 14 - Other: See Comments Comments: Hot flashes, and tachycardia IMURAN (AZATHIOPRINE SODIUM) 02/01/2013 14 - Other: See Comments Comments: Nausea COLESTIPOL 11/11/2016 14 - Other: See Comments Comments: Joint pian ENTOCORT EC (BUDESONIDE) 02/01/2013 14 - Other: See Comments Comments: Cramps LIORESAL (BACLOFEN) 07/15/2013 14 - Other: See Comments Comments: [place] off , dizziness, irregular heart beat/breathing, difficult to wake up. QUESTRAN (CHOLESTYRAMINE (WITH CARVALHO*02/01/2013 14 - Other: See Comments Comments: Nausea REGLAN (METOCLOPRAMIDE HCL) 02/01/2013 14 - Other: See Comments Comments: anxiety, states couldn't control himself ULTRAM (TRAMADOL HCL) 02/01/2013 14 - Other: See Comments Comments: Dizzy, vertigo Date Reviewed: 09/07/2023 Reviewed by: Michele Turcios, NURYS - Fully Assessed Prescriptions as of 09/11/2023 - OXYCONTIN 20 mg 12 hr tablet - iv contrast (will be provided with radiology test) MRI Enterography Inject, intravenously, once for 1 dose. No IV access, insert saline lock prior to the beginning of sedation, infusion, injection of imaging exam. Discontinue saline lock post exam. If Pt. has a central line or IVAD, may access for administration according to line specific nursing protocol. Once exam is complete flush line and de-access according to line specific nursing protocol in the MR contrast administration guidelines link. - enteric contrast (will be provided with radiology test) For MRI ENTEROGRAPHY WO/W Administer, As Directed One Time Only, via Oral, Rectal, both Oral and Rectal, Enteric Tube, Stoma or Indwelling Catheter,? Enteric Contrast as designated per enteric contrast guidelines - glucagon (GLUCAGEN) 1 mg/mL injection Inject 1 mg intravenously one time only for 1 dose. For MRI Enterography, Inject 1 mg intravenously, as directed. Slow push at the appropriate time during MRI Scan - rOPINIRole (REQUIP) 2 mg tablet Take 2 tablets by mouth daily at bedtime. - vedolizumab (ENTYVIO) 300 mg injection 300 mg iv every 8 weeks - metroNIDAZOLE (METROGEL) 0.75 % Topical Gel Apply to affected areas on face at bedtime. - EUCRISA 2 % oint Apply to affected area. APPLY TO THE AFFECTED AREA(S) TWICE DAILY. - ondansetron orally disintegrating (ZOFRAN ODT) 4 mg disintegrating tablet DISSOLVE 1 (ONE) TABLET on the tongue EVERY 6 HOURS NEEDED - zolpidem (AMBIEN) 10 mg Take by mouth at bedtime as needed. - oxyCODONE 30 mg tab ER 12hr Take 30 mg by mouth every 6 hours as needed. - acetaminophen 650 mg CR tablet Take 1,300 mg by mouth twice daily. - famotidine (PEPCID) 20 mg tablet Take 1 tablet by mouth twice daily. Problem List As Of Date 09/09/2023 Noted Resolved Crohn disease [K50.90] 05/13/2013 Vitamin D deficiency-Severe [E55.9] 05/30/2013 Crohn's disease of both small and large intesti*12/16/2015 Crohn's disease of small intestine with intesti*12/11/2017 Encounter Status:Closed by ZENY DO on 09/11/23 Normal [facility] 25(OH)D3 Cierra-ana luisa 2022 25-hydroxyvitamin D3 [Mass/Vol] 57.4 ng/mL Normal 31.0-80.0 [facility] Comment on above: Order Comment: Speci men Type: BLOOD SPECIMEN Ordering Facility: [facility] Address: [address] [place] [address] Result Comment: Clas sification of 25 OH Vitamin D status: Deficiency/Insufficiency: < or = 30 ng/ml. Sufficiency/Optimal Levels: 31-80 ng/mL Toxicity: > 100 ng/mL. Test performed by chemiluminescent immunoassay. Performed By: #### 1 [id number] #### [facility] CLIA [id number] [address] [facility] [address] [place] CBC panel Auto (Bld)on 09-07 Erythrocyte distribution width (RBC) [Ratio] 12.4 % 11.5 - 15.0 % [facility] Hematocrit (Bld) [Volume fraction] 36.9 % Low 39.0 - 51.0 % [facility] Hemoglobin (Bld) [Mass/Vol] 13.0 g/dL 13.0 - 17.0 g/dL [facility] MCH (RBC) [Entitic mass] 32.4 pg 26.0 - 34.0 pg [facility] MCHC (RBC) [Mass/Vol] 35.2 g/dL 30.5 - 36.0 g/dL [facility] MCV (RBC) [Entitic vol] 92.0 fL 80.0 - 100.0 fL [facility] Nucleated RBC (Bld) [#/Vol] <0.01 k/uL [facility] Platelet mean volume (Bld) [Entitic vol] 8.9 fL Low 9.0 - 12.7 fL [facility] Platelets (Bld) [#/Vol] 127 10*3/uL Low 150 - 400 k/uL [facility] RBC (Bld) [#/Vol] 4.01 10*6/uL Low 4.20 - 6.0 0 m/uL [facility] WBC (Bld) [#/Vol] 3.96 10*3/uL 3.70 - 11. 00 k/uL [facility] Erythrocyte distribution width (RBC) [Ratio] 12.4 % Normal 11.5-15.0 [facility] Comment on above: Order Comment: Speci men Type: BLOOD SPECIMEN Ordering Facility: [facility] Address: [address] [place] [address] Performed By: #### 1 988-5, 2132-05 #### [facility] CLIA [id number] [address] [place] [address] [place] Hematocrit (Bld) [Volume fraction] 36.9 % Low 39.0-51.0 [facility] Comment on above: Order Comment: Speci men Type: BLOOD SPECIMEN Ordering Facility: [facility] Address: [address] [place] [address] Performed By: #### 1 988-5, 2132-05 #### [facility] CLIA [id number] [address] [place] [address] [place] Hemoglobin (Bld) [Mass/Vol] 13.0 g/dL Normal 13.0-17.0 [facility] Comment on above: Order Comment: Speci men Type: BLOOD SPECIMEN Ordering Facility: [facility] Address: [address] [place] [address] Performed By: #### 1 988-, 2132-05 #### [facility] CLIA [id number] [address] [place] [address] [place] MCH (RBC) [Entitic mass] 32.4 pg Normal 26.0-34.0 [facility] Comment on above: Order Comment: Speci men Type: BLOOD SPECIMEN Ordering Facility: [facility] Address: [address] [place] [address] Performed By: #### 1 988-, 2132-05 #### [facility] CLIA [id number] [address] [place] [address] [place] MCHC (RBC) [Mass/Vol] 35.2 g/dL Normal 30.5-36.0 [facility] Comment on above: Order Comment: Speci men Type: BLOOD SPECIMEN Ordering Facility: [facility] Address: [address] [place] [address] Performed By: #### 1 988, 2132-05 #### [facility] CLIA [id number] [address] [place] [address] [place] MCV (RBC) [Entitic vol] 92.0 fL Normal 80.0-100.0 [facility] Comment on above: Order Comment: Speci men Type: BLOOD SPECIMEN Ordering Facility: [facility] Address: [address] [place] [address] Performed By: #### 1 988-5, 2132-05 #### [facility] CLIA [id number] [address] [place] [address] [place] Nucleated RBC (Bld) [#/Vol] 10*3/uL Normal <0.01 [facility] Comment on above: Order Comment: Speci men Type: BLOOD SPECIMEN Ordering Facility: [facility] Address: [address] [place] [address] Performed By: #### 1 988-5, 2132-05 #### [facility] CLIA [id number] [address] [place] [address] [place] Platelet mean volume (Bld) [Entitic vol] 8.9 fL Low 9.0-12.7 [facility] Comment on above: Order Comment: Speci men Type: BLOOD SPECIMEN Ordering Facility: [facility] Address: [address] [place] [address] Performed By: #### 1 988-5, 2132-05 #### [facility] CLIA [id number] [address] [place] [address] [place] Platelets (Bld) [#/Vol] 127 10*3/uL Low 150-400 [facility] Comment on above: Order Comment: Speci men Type: BLOOD SPECIMEN Ordering Facility: [facility] Address: [address] [place] [address] Performed By: #### 1 988, 2132-05 #### [facility] CLIA [id number] [address] [place] [address] [place] RBC (Bld) [#/Vol] 4.01 10*6/uL Low 4.20-6.00 [facility] Comment on above: Order Comment: Speci men Type: BLOOD SPECIMEN Ordering Facility: [facility] Address: [address] [place] [address] Performed By: #### 1 988-5, 2132-05 #### [facility] CLIA [id number] [address] [place] [address] [place] WBC (Bld) [#/Vol] 3.96 10*3/uL Normal 3.70-11.00 [facility] Comment on above: Order Comment: Speci men Type: BLOOD SPECIMEN Ordering Facility: [facility] Address: [address] [place] [address] Performed By: #### 1 988-5, 2132-05 #### [facility] CLIA [id number] [address] CRP SerPl-mCncon 09-07-2023 CRP [Mass/Vol] 4.2 mg/dL High <0.9 [facility] Comment on above: Order Comment: Speci men Type: BLOOD SPECIMEN Ordering Facility: [facility] Address: [address] [place] [address] Performed By: #### 1 988-5, 2132-05 #### [facility] CLIA [id number] [address] STATES OF [facility] Comprehensive metabolic 2000 panelon 09-07-2023 Albumin [Mass/Vol] 4.2 g/dL 3.9 - 4.9 g/dL [facility] ALP [Catalytic activity/Vol] 95 U/L 38 - 113 U/L [facility] ALT [Catalytic activity/Vol] 11 U/L 10 - 54 U/L [facility] Anion gap [Moles/Vol] 9 mmol/L 9 - 18 mmol/L [facility] AST [Catalytic activity/Vol] 13 U/L Low 14 - 40 U/L [facility] Bilirubin [Mass/Vol] 2.8 mg/dL High 0.2 - 1 .3 mg/dL [facility] Calcium [Mass/Vol] 8.9 mg/dL 8.5 - 10. 2 mg/dL [facility] Chloride [Moles/Vol] 100 mmol/L 97 - 10 5 mmol/L [facility] CO2 [Moles/Vol] 29 mmol/L 22 - 30 mmol/L [facility] Creatinine [Mass/Vol] 1.07 mg/dL 0.73 - 1.22 mg/dL [facility] Estimated Glomerular Filtration Rate 88 mL/min/1.73m >=60 mL/min/1.73m [facility] Glucose [Mass/Vol] 115 mg/dL High 74 - 99 mg/dL [facility] Potassium [Moles/Vol] 3.4 mmol/L Low 3.7 - 5.1 mmol/L [facility] Protein [Mass/Vol] 6.6 g/dL 6.3 - 8.0 g/dL [facility] Sodium [Moles/Vol] 138 mmol/L 136 - 144 mmol/L [facility] Urea nitrogen [Mass/Vol] 10 mg/dL 9 - 24 mg/dL [facility] Albumin [Mass/Vol] 4.2 g/dL Normal 3.9-4.9 [facility] Comment on above: Order Comment: Speci men Type: BLOOD SPECIMEN Ordering Facility: [facility] Address: [address] [place] [address] Performed By: #### 2 4323-8 #### [facility] CLIA [id number] [address] [place] [address] ALP [Catalytic activity/Vol] 95 U/L Normal 38-113 [facility] Comment on above: Order Comment: Speci men Type: BLOOD SPECIMEN Ordering Facility: [facility] Address: [address] [place] [address] Performed By: #### 2 4323-8 #### [facility] CLIA [id number] [address] [place] [address] ALT [Catalytic activity/Vol] 11 U/L Normal 10-54 [facility] Comment on above: Order Comment: Speci men Type: BLOOD SPECIMEN Ordering Facility: [facility] Address: [address] [place] [address] Performed By: #### 2 4323-8 #### [facility] CLIA [id number] [address] [place] [address] Anion gap [Moles/Vol] 9 mmol/L Normal 9-18 [facility] Comment on above: Order Comment: Speci men Type: BLOOD SPECIMEN Ordering Facility: [facility] Address: [address] [place] [address] Performed By: #### 2 4323-8 #### [facility] CLIA [id number] [address] [place] [address]058 AST [Catalytic activity/Vol] 13 U/L Low 14-40 [facility] Comment on above: Order Comment: Speci men Type: BLOOD SPECIMEN Ordering Facility: [facility] Address: [address] [place] [address] Performed By: #### 2 4323-8 #### [facility] CLIA [id number] [address] [place] [address] Bilirubin [Mass/Vol] 2.8 mg/dL High 0.2-1.3 [facility] Comment on above: Order Comment: Speci men Type: BLOOD SPECIMEN Ordering Facility: [facility] Address: [address] [place] [address] Performed By: #### 2 4323-8 #### [facility] CLIA [id number] [address] [place] [address] Calcium [Mass/Vol] 8.9 mg/dL Normal 8.5-10.2 [facility] Comment on above: Order Comment: Speci men Type: BLOOD SPECIMEN Ordering Facility: [facility] Address: [address] [place] [address] Performed By: #### 2 4323-8 #### [facility] CLIA [id number] [address] [place] [address] Chloride [Moles/Vol] 100 mmol/L Normal 97-105 [facility] Comment on above: Order Comment: Speci men Type: BLOOD SPECIMEN Ordering Facility: [facility] Address: [address] [place] [address] Performed By: #### 2 4323-8 #### [facility] CLIA [id number] [address] [place] [address] CO2 [Moles/Vol] 29 mmol/L Normal 22-30 [facility] Comment on above: Order Comment: Speci men Type: BLOOD SPECIMEN Ordering Facility: [facility] Address: [address] [place] [address] Performed By: #### 2 4323-8 #### [facility] CLIA [id number] [address] [place] [address] Creatinine [Mass/Vol] 1.07 mg/dL Normal 0.73-1.22 [facility] Comment on above: Order Comment: Raquel vázquez Type: BLOOD SPECIMEN Ordering Facility: [facility] Address: [address] [place] [address] Performed By: #### 2 4323-8 #### [facility] CLIA [id number] [address] [place] [address]778 Creatinine and Glomerular filtration rate.predicted panel (S/P/Bld) 88 mL/min/1.73m??? Normal >=60 [facility] Comment on above: Order Comment: Raquel vázquez Type: BLOOD SPECIMEN Ordering Facility: [facility] Address: [address] [place] [address] Result Comment: Barbara mated Glomerular Filtration Rate (eGFR) is calculated using the 2020 CKD-EPI creatinine equation. This equation utilizes serum creatinine, sex, and age as parameters. The creatinine assay has traceable calibration to isotope dilution-mass spectrometry. Refer to KDIGO guidelines for clinical interpretation. In patients with unstable renal function, e.g. those with acute kidney injury, the eGFR may not accurately reflect actual GFR. Performed By: #### 2 4323-8 #### [facility] CLIA [id number] [address] [place] [address]98 Glucose [Mass/Vol] 115 mg/dL High 74-99 [facility] Comment on above: Order Comment: Raquel vázquez Type: BLOOD SPECIMEN Ordering Facility: [facility] Address: [address] [place] [address] Result Comment: The Stateless Diabetes Association (ADA) provides guidance for cutoff values for fasting glucose and random glucose. The ADA defines fasting as no caloric intake for at least 8 hours. Fasting plasma glucose results between 100 to 125 mg/dL indicate increased risk for diabetes (prediabetes). Fasting plasma glucose results greater than or equal to 126 mg/dL meet the criteria for diagnosis of diabetes. In the absence of unequivocal hyperglycemia, results should be confirmed by repeat testing. In a patient with classic symptoms of hyperglycemia or hyperglycemic crisis, random plasma glucose results greater than or equal to 200 mg/dL meet the criteria for diagnosis of diabetes. Reference: Standards of Medical Care in Diabetes 2016, Stateless Diabetes Association. Diabetes Care. 2016.39(Suppl 1). Performed By: #### 2 4323-8 #### [facility] CLIA [id number] [address] [place] [address] Potassium [Moles/Vol] 3.4 mmol/L Low 3.7-5.1 [facility] Comment on above: Order Comment: Speci men Type: BLOOD SPECIMEN Ordering Facility: [facility] Address: [address] [place] [address] Performed By: #### 2 4323-8 #### [facility] CLIA [id number] [address] [place] [address]118 Protein [Mass/Vol] 6.6 g/dL Normal 6.3-8.0 [facility] Comment on above: Order Comment: Speci men Type: BLOOD SPECIMEN Ordering Facility: [facility] Address: [address] [place] [address] Performed By: #### 2 4323-8 #### [facility] CLIA [id number] [address] [place] [address]95 Sodium [Moles/Vol] 138 mmol/L Normal 136-144 [facility] Comment on above: Order Comment: Speci men Type: BLOOD SPECIMEN Ordering Facility: [facility] Address: [address] [place] [address] Performed By: #### 2 4323-8 #### [facility] CLIA [id number] [address] [place] [address] 49052 Urea nitrogen [Mass/Vol] 10 mg/dL Normal 9-24 [facility] Comment on above: Order Comment: Speci men Type: BLOOD SPECIMEN Ordering Facility: [facility] Address: [address] [place] [address] Performed By: #### 2 4323-8 #### [facility] CLIA [id number] [address] [place] [address]6576 Vit B12 SerPl-mCncon 12-14-2 023 Cobalamin (Vitamin B12) [Mass/Vol] 228 pg/mL Low 232-1245 [facility] Comment on above: Order Comment: Speci men Type: BLOOD SPECIMEN Ordering Facility: [facility] Address: [address] [place] [address] Performed By: #### 1 988-5, 2132-9 #### [facility] CLIA [id number] [address] [facility] [id number] [place] [address] [address] [facility] CNOVon 08-25-2023 CNOV Office Visit (GASTAV ) HERMINIO MOHAN ([id number]) 1980 M Date Time Provider Department 08/25/23 3:20 PM DEEPALI STONE GASTAV During your visit today, we recorded the following information about you: Pulse Blood pressure Weight Height 85/minute 118/84 65.8 kg 1.829 m Deepali Stone MD, PhD 09/02/2023 6:04 PM Signed EST PT OFFICE VISIT CC: Patient presents with: Established Patient: 9 month follow up Pt states no BM in the last two days. Pt states not in a flare up. Mr. Mohan is here today for follow-up of: Crohn's disease. Lots of rough days Had to miss the scope he got bad diarrhea The day of clean out Could not drink fluids Could not drink coffee Thought no way he could drink the prep Fatigue level higher Pain on left side Has th constant on the right side Stopped the medical cannibis Vaccine Tetanus is utd Pneumo he thinks he got at my suggestion Hep B ? PPD Hep A VZV had a child Flu does not get Pertussis Skin no check Bone covid 02/12 03/15 did not have ifx VITALS: Blood pressure 118/84, pulse 85, height 182.9 cm (6'), weight 65.8 kg (145 lb). ALLERGIES: Effexor [Venlafaxine Hcl], Imuran [Azathioprine Sodium], Colestipol, Entocort Ec [Budesonide], Lioresal [Baclofen], Questran [Cholestyramine (With Sugar)], Reglan [Metoclopramide Hcl], and Ultram [Tramadol Hcl] MEDICATIONS: Current Outpatient Medications Medication Sig Dispense Refill OXYCONTIN 20 mg 12 hr tablet rOPINIRole (REQUIP) 2 mg tablet Take 2 tablets by mouth daily at bedtime. vedolizumab (ENTYVIO) 300 mg injection 300 mg iv every 8 weeks 1 Each 5 metroNIDAZOLE (METROGEL) 0.75 % Topical Gel Apply to affected areas on face at bedtime. 45 g 2 EUCRISA 2 % oint Apply to affected area. APPLY TO THE AFFECTED AREA(S) TWICE DAILY. 1 ondansetron orally disintegrating (ZOFRAN ODT) 4 mg disintegrating tablet DISSOLVE 1 (ONE) TABLET on the tongue EVERY 6 HOURS NEEDED 3 zolpidem (AMBIEN) 10 mg Take by mouth at bedtime as needed. oxyCODONE 30 mg tab ER 12hr Take 30 mg by mouth every 6 hours as needed. acetaminophen 650 mg CR tablet Take 1,300 mg by mouth twice daily. famotidine (PEPCID) 20 mg tablet Take 1 tablet by mouth twice daily. (Patient taking differently: Take 20 mg by mouth once daily.) 60 tablet 0 No current facility-administered medications for this visit. Social History: Social History Tobacco Use Smoking status: Former Packs/day: 1.00 Years: 18.00 Additional pack years: 0.00 Total pack years: 18.00 Types: Cigarettes Quit date: 12/15/2014 Years since quittin.6 Smokeless tobacco: Never Substance Use Topics Alcohol use: Yes Comment: Maybe once a year Drug use: No Medical History: No changes since last visit. REVIEW OF SYSTEMS: GENERAL: weight stable, no fevers. CARDIOVASCULAR: No chest pain, no edema RESPIRATORY: No dyspnea The remainder of the review of systems are negative. Reviewed with patient during visit today. PHYSICAL EXAMINATION: GENERAL APPEARANCE: thin SKIN: Skin color, texture, turgor normal. No rashes or lesions. EYES: Conjunctiva normal without icterus. OROPHARYNX: lips, mucosa, and tongue normal, teeth and gums normal NECK: Supple, full range of motion, no lymphadenopathy, normal thyroid, LUNGS: Normal breath sounds, Clear to auscultation, No wheezes, No crackles. HEART:Normal PMI, Regular rate and rhythm, Normal heart sounds, S1 and S2 and No murmurs. NEURO: Alert and oriented in no acute distress. ABDOMEN: Normal bowel sounds, abdomen flat with no distention, Soft, mild tender, no hepatomegaly. no palpable masses, no abdominal bruits, no rebound and no rigidity. EXTREMITIES:Extremitie s normal, No deformities, No skin discoloration, No edema . Copy of narrative history per previous note with addendum/edit. 1994 dx 1999 bowel resection 2010 bowel resection 12/07 quit smoking Serial bowel resections, most recently 2015. Was on maximal dose ifx (10 mg/kg q4) with levels but still symptomatic and evidence of disease on mri and insurance would not authorize 12/01/16. was changed to entyvio His crp went up but now is down. 09/10 mri shows improvement 2017 repeated colonoscopy and no disease recurrence. For joint pains, I added mtx. 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 Biologic statement of necessity: Requires Entyvio to maintain remission. Tolerating with no side effects. No active infection. It is medically necessary to continue this med (more content not included)... Normal [facility] CBC W Auto Differential pane l (Bld)on 01-27-2023 Basophils (Bld) [#/Vol] 0.03 10*3/uL <0.11 k/uL [facility] Basophils/100 WBC (Bld) 0.8 % [facility] Differential cell count method Nom (Bld) Auto [facility] Eosinophils (Bld) [#/Vol] 0.03 10*3/uL <0.46 k/uL [facility] Eosinophils/100 WBC (Bld) 0.8 % [facility] Erythrocyte distribution width (RBC) [Ratio] 12.6 % 11.5 - 15.0 % [facility] Hematocrit (Bld) [Volume fraction] 36.7 % Low 39.0 - 51.0 % [facility] Hemoglobin (Bld) [Mass/Vol] 12.7 g/dL Low 13.0 - 17.0 g/dL [facility] Immature granulocytes (Bld) [#/Vol] <0.10 k/uL [facility] Immature granulocytes/100 WBC (Bld) 0.3 % [facility] Lymphocytes (Bld) [#/Vol] 1.03 10*3/uL 1.00 - 4.00 k/uL [facility] Lymphocytes/100 WBC (Bld) 27.8 % [facility] MCH (RBC) [Entitic mass] 33.2 pg 26.0 - 34.0 pg [facility] MCHC (RBC) [Mass/Vol] 34.6 g/dL 30.5 - 36.0 g/dL [facility] MCV (RBC) [Entitic vol] 95.8 fL 80.0 - 100.0 fL [facility] Monocytes (Bld) [#/Vol] 0.27 10*3/uL <0.87 k/uL [facility] Monocytes/100 WBC (Bld) 7.3 % [facility] Neutrophils (Bld) [#/Vol] 2.34 10*3/uL 1.45 - 7.50 k/uL [facility] Neutrophils/100 WBC (Bld) 63.0 % [facility] Nucleated RBC (Bld) [#/Vol] <0.01 k/uL [facility] Nucleated RBC/100 WBC (Bld) [Ratio] 0.0 /100 WBC [facility] Platelet mean volume (Bld) [Entitic vol] 8.8 fL Low 9.0 - 12.7 fL [facility] Platelets (Bld) [#/Vol] 122 10*3/uL Low 150 - 400 k/uL [facility] RBC (Bld) [#/Vol] 3.83 10*6/uL Low 4.20 - 6.0 0 m/uL [facility] WBC (Bld) [#/Vol] 3.71 10*3/uL 3.70 - 11. 00 k/uL [facility] RETIC COUNTon 01-27-2023 Reticulocytes (Bld) [#/Vol] 0.18079 10*3/uL 0.018 - 0.100 M/uL [facility] Reticulocytes (Bld) [#/Vol]o n 01-27-2023 Reticulocytes/100 RBC (Bld) 1.2 % 0.4 - 2.0 % [facility] CBC panel Auto (Bld)on 12-07 Erythrocyte distribution width (RBC) [Ratio] 12.6 % 11.5 - 15.0 % [facility] Hematocrit (Bld) [Volume fraction] 38.0 % Low 39.0 - 51.0 % [facility] Hemoglobin (Bld) [Mass/Vol] 13.4 g/dL 13.0 - 17.0 g/dL [facility] MCH (RBC) [Entitic mass] 33.6 pg 26.0 - 34.0 pg [facility] MCHC (RBC) [Mass/Vol] 35.3 g/dL 30.5 - 36.0 g/dL [facility] MCV (RBC) [Entitic vol] 95.2 fL 80.0 - 100.0 fL [facility] Nucleated RBC (Bld) [#/Vol] <0.01 k/uL [facility] Platelet mean volume (Bld) [Entitic vol] 8.5 fL Low 9.0 - 12.7 fL [facility] Platelets (Bld) [#/Vol] 118 10*3/uL Low 150 - 400 k/uL [facility] RBC (Bld) [#/Vol] 3.99 10*6/uL Low 4.20 - 6.0 0 m/uL [facility] WBC (Bld) [#/Vol] 2.97 10*3/uL Low 3.70 - 11. 00 k/uL [facility] Comprehensive metabolic 2000 panelon 12-07-2022 Albumin [Mass/Vol] 4.2 g/dL 3.9 - 4.9 g/dL Cl [facility] ALP [Catalytic activity/Vol] 92 U/L 38 - 113 U/L [facility] ALT [Catalytic activity/Vol] 15 U/L 10 - 54 U/L [facility] Anion gap [Moles/Vol] 11 mmol/L 9 - 18 mmol/L [facility] AST [Catalytic activity/Vol] 15 U/L 14 - 40 U/L [facility] Bilirubin [Mass/Vol] 2.0 mg/dL High 0.2 - 1 .3 mg/dL [facility] Calcium [Mass/Vol] 9.1 mg/dL 8.5 - 10. 2 mg/dL [facility] Chloride [Moles/Vol] 100 mmol/L 97 - 10 5 mmol/L [facility] CO2 [Moles/Vol] 26 mmol/L 22 - 30 mmol/L [facility] Creatinine [Mass/Vol] 1.11 mg/dL 0.73 - 1.22 mg/dL [facility] Estimated Glomerular Filtration Rate 84 mL/min/1.73m >=60 mL/min/1.73m [facility] Glucose [Mass/Vol] 128 mg/dL High 74 - 99 mg/dL [facility] Potassium [Moles/Vol] 3.4 mmol/L Low 3.7 - 5.1 mmol/L [facility] Protein [Mass/Vol] 6.6 g/dL 6.3 - 8.0 g/dL Cl [facility] Sodium [Moles/Vol] 137 mmol/L 136 - 144 mmol/L [facility] Urea nitrogen [Mass/Vol] 11 mg/dL 9 - 24 mg/dL [facility] CBC AUTO DIFFon 06-13-2022 BASO # 0.0 103/ul Normal 0.0-0.1 [facility] Comment on above: Performed By: #### C BC #### [facility] [address] [place] [address] Dr. Isabel Garcia Basophils/100 WBC (Bld) 1.1 % Normal 0.2-2.0 [facility] Comment on above: Performed By: #### C BC #### [facility] [address] [place] [address] Dr. Isabel Garcia EO # 0.1 103/ul Normal 0.0-0.7 [facility] Comment on above: Performed By: #### C BC #### [facility] [address] [address] [address] Isabel Garcia Eosinophils/100 WBC (Bld) 1.7 % Normal 0.9-7.0 [facility] Comment on above: Performed By: #### C BC #### [facility] [address] [place] [address] [address] Isabel Garcia Erythrocyte distribution width (RBC) [Ratio] 12.4 % Normal 11.0-15.0 [facility] Comment on above: Performed By: #### C BC #### [facility] [address] [place] [address] Dr. Isabel Garcia Hematocrit (Bld) [Volume fraction] 41.3 % Critically low 42.0-54.0 [facility] Comment on above: Performed By: #### C BC #### [facility] [address] [place] [address] Dr. Isabel Garcia Hemoglobin (Bld) [Mass/Vol] 14.2 g/dL Normal 14.0-18.0 [facility] Comment on above: Performed By: #### C BC #### [facility] [address] [place] [address] Dr. Isabel Garcia IG # 0.01 10e3/ul Normal 0.00-0.03 [facility] Comment on above: Performed By: #### C BC #### [facility] [address] [place] [address] Dr. Isabel Garcia IG % 0.3 % Normal 0.0-0.5 [facility] Comment on above: Performed By: #### C BC #### [facility] [address] [place] [address] Dr. Isabel Garcia LYMPH # 1.4 103/ul Normal 1.2-3.8 [facility] Comment on above: Performed By: #### C BC #### [facility] [address] [place] [address] Dr. Isabel Garcia Lymphocytes/100 WBC (Bld) 38.7 % Normal 20.5-60.0 [facility] Comment on above: Performed By: #### C BC #### [facility] [address] [place] [address] Dr. Isabel Garcia MANUAL DIFF REQ NO Normal [facility] Comment on above: Performed By: #### C BC #### [facility] [address] [place] [address] Dr. Isabel Garcia MCH (RBC) [Entitic mass] 32.9 pg Normal 25.9-34.0 [facility] Comment on above: Performed By: #### C BC #### [facility] [address] [place] [address] Dr. Isabel Garcia MCHC (RBC) [Mass/Vol] 34.4 g/dL Normal 29.9-35.2 [facility] Comment on above: Performed By: #### C BC #### [facility] [address] [place] [address] Dr. Isabel Garcia MCV (RBC) [Entitic vol] 95.6 fL Critically high 80.0-94.0 [facility] Comment on above: Performed By: #### C BC #### [facility] [address] [place] [address] Dr. Isabel Garcia MONO # 0.4 103/ul Normal 0.3-0.8 [facility] Comment on above: Performed By: #### C BC #### [facility] [address] [place] [address] Dr. Isabel Garcia Monocytes/100 WBC (Bld) 11.9 % Normal 1.7-12.0 [facility] Comment on above: Performed By: #### C BC #### [facility] [address] [place] [address] Dr. Isabel Garcia NEUT # 1.7 103/ul Normal 1.4-6.5 [facility] Comment on above: Performed By: #### C BC #### [facility] [address] [place] [address] Dr. Isabel Garcia Neutrophils/100 WBC (Bld) 46.3 % Normal 43.0-75.0 [facility] Comment on above: Performed By: #### C BC #### [facility] [address] [place] [address] Dr. Isabel Garcia Platelet mean volume (Bld) [Entitic vol] 8.4 fL Critically low 9.5-13.5 [facility] Comment on above: Performed By: #### C BC #### [facility] [address] [place] [address] Dr. Isabel Garcia PLT 129 103/ul Critically low 150-450 [facility] Comment on above: Performed By: #### C BC #### [facility] [address] [place] [address] Dr. Isabel Garcia RBC 4.32 106/ul Critically low 4.70-6.10 [facility] Comment on above: Performed By: #### C BC #### [facility] [address] [address] [address] Isabel Garcia WBC 3.6 103/ul Critically low 4.0-11.0 [facility] Comment on above: Performed By: #### C BC #### [facility] [address] [place] [address] Dr. Isabel Garcia FERRITINon 06-13-2022 Ferritin [Mass/Vol] 84.0 ng/mL Normal 26.0-388.0 [facility] Comment on above: Performed By: #### V ITB12, FERR #### [facility] [address] [place] [address] Dr. Isabel Garcia MAGNESIUMon 06-13-2022 Magnesium [Mass/Vol] 2.1 mg/dL Normal 1.8-2.4 [facility] Comment on above: Performed By: #### M SHELBY Morrison, TSH #### [facility] [address] [place] [address] Dr. Isabel Garcia PROF CHEM 8 (BAS METB)on Anion gap [Moles/Vol] 12.3 mmol/L Normal [facility] Comment on above: Performed By: #### M Prince BMP, TSH #### [facility] [address] [place] [address] Dr. Isabel Garcia Calcium [Mass/Vol] 8.7 mg/dL Normal 8.5-10.1 [facility] Comment on above: Performed By: #### M Prince BMP, TSH #### [facility] [address] [place] [address] Dr. Isabel Garcia Chloride [Moles/Vol] 101 mmol/L Normal 98-107 [facility] Comment on above: Performed By: #### M Prince, BMP, TSH #### [facility] [address] [address] [address] Isabel Garcia CO2 [Moles/Vol] 26.4 mmol/L Normal 21.0-32.0 [facility] Comment on above: Performed By: #### M G, BMP, TSH #### [facility] [address] [address] [address] Isabel Garcia Creatinine [Mass/Vol] 1.00 mg/dL Normal 0.70-1.30 [facility] Comment on above: Performed By: #### M G, BMP, TSH #### [facility] [address] [address] [address] Isabel Garcia EGFR-AF SOUTH AFRICAN >60 Normal >=60 [facility] Comment on above: Performed By: #### M G, BMP, TSH #### [facility] [address] [address] [address] Isabel Garcia EGFR-NON AF SOUTH AFRICAN >60 Normal >=60 [facility] Comment on above: Performed By: #### M G, BMP, TSH #### [facility] [address] [address] [address] Isabel Garcia Glucose [Mass/Vol] 96 mg/dL Normal 74-106 [facility] Comment on above: Performed By: #### M G, BMP, TSH #### [facility] [address] [address] [address] Isabel Garcia Potassium [Moles/Vol] 3.7 mmol/L Normal 3.5-5.1 [facility] Comment on above: Performed By: #### M G, BMP, TSH #### [facility] [address] [address] [address] Iasbel Garcia Sodium [Moles/Vol] 136 mmol/L Normal 136-145 [facility] Comment on above: Performed By: #### M G, BMP, TSH #### [facility] [address] [address] [address] Isabel Garcia Urea nitrogen [Mass/Vol] 13.0 mg/dL Normal 7.0-18.0 [facility] Comment on above: Performed By: #### M G, BMP, TSH #### [facility] [address] [address] [address] Isabel Garcia Urea nitrogen/Creatinine [Mass ratio] 13.0 mg/mg Normal [facility] Comment on above: Performed By: #### M G, BMP, TSH #### [facility] [address] [address] [address] Isabel Garcia TSHon 06-13-2022 TSH 0.779 uIU/mL Normal 0.358-3.740 [facility] Comment on above: Performed By: #### M G, BMP, TSH #### [facility] [address] [address] [address] Isabel Garcia VITAMIN B12on 06-13-2022 Cobalamin (Vitamin B12) [Mass/Vol] 286.0 pg/mL Normal 193.0-986.0 [facility] Comment on above: Performed By: #### V ITB12, FERR #### [facility] [address] [address] [address] Isabel Garcia CBC panel Auto (Bld)on 03-02 Erythrocyte distribution width (RBC) [Ratio] 12.6 % 11.5 - 15.0 % [facility] Hematocrit (Bld) [Volume fraction] 39.7 % 39.0 - 51.0 % [facility] Hemoglobin (Bld) [Mass/Vol] 13.8 g/dL 13.0 - 17.0 g/dL [facility] MCH (RBC) [Entitic mass] 33.1 pg 26.0 - 34.0 pg [facility] MCHC (RBC) [Mass/Vol] 34.8 g/dL 30.5 - 36.0 g/dL [facility] MCV (RBC) [Entitic vol] 95.2 fL 80.0 - 100.0 fL [facility] Nucleated RBC (Bld) [#/Vol] 10*3/uL <0.01 k/uL [facility] Platelet mean volume (Bld) [Entitic vol] 8.8 fL Low 9.0 - 12.7 fL [facility] Platelets (Bld) [#/Vol] 134 10*3/uL Low 150 - 400 k/uL [facility] RBC (Bld) [#/Vol] 4.17 10*6/uL Low 4.20 - 6.0 0 m/uL [facility] WBC (Bld) [#/Vol] 3.39 10*3/uL Low 3.70 - 11. 00 k/uL [facility] Comprehensive metabolic 2000 panelon 03-02-2022 Albumin [Mass/Vol] 4.4 g/dL 3.9 - 4.9 g/dL [facility] ALP [Catalytic activity/Vol] 97 U/L 38 - 113 U/L [facility] ALT [Catalytic activity/Vol] 12 U/L 10 - 54 U/L [facility] Anion gap [Moles/Vol] 7 mmol/L Low 9 - 18 mmol/L [facility] AST [Catalytic activity/Vol] 15 U/L 14 - 40 U/L [facility] Bilirubin [Mass/Vol] 1.4 mg/dL High 0.2 - 1 .3 mg/dL [facility] Calcium [Mass/Vol] 9.1 mg/dL 8.5 - 10. 2 mg/dL [facility] Chloride [Moles/Vol] 102 mmol/L 97 - 10 5 mmol/L [facility] CO2 [Moles/Vol] 28 mmol/L 22 - 30 mmol/L [facility] Creatinine [Mass/Vol] 1.01 mg/dL 0.73 - 1.22 mg/dL [facility] Estimated Glomerular Filtration Rate 95 mL/min/1.73m >=60 mL/min/1.73m [facility] Glucose [Mass/Vol] 114 mg/dL High 74 - 99 mg/dL [facility] Potassium [Moles/Vol] 3.7 mmol/L 3.7 - 5.1 mmol/L [facility] Protein [Mass/Vol] 6.8 g/dL 6.3 - 8.0 g/dL [facility] Sodium [Moles/Vol] 137 mmol/L 136 - 144 mmol/L [facility] Urea nitrogen [Mass/Vol] 11 mg/dL 9 - 24 mg/dL [facility] SURGICAL PATHOLOGYon 021 SURGICAL PATHOLOGY Specimen originated from [facility] Specimen #: [id number] Submitting Physician: DEEPALI STONE M.D. FINAL DIAGNOSIS 1. Ileum, biopsy (A) - Small bowel mucosa with no diagnostic alteration. 2. Right colon, biopsy (B) - Colonic mucosa with no diagnostic alteration. 3. Transverse colon, biopsy (C) - Colonic mucosa with no diagnostic alteration. 4. Left colon, biopsy (D) - Colonic mucosa with no diagnostic alteration. 5. Rectum, biopsy (E) - Rectal mucosa with focal prolapse-type changes. TP/slb 11/05/2020 Jeffery Reynaga M.D. (Electronic Signature) _ SPECIMEN SUBMITTED A: ILEUM, BIOPSY B: RIGHT COLON, BIOPSY C: TRANSVERSE COLON, BIOPSY D: LEFT COLON, BIOPSY E: RECTAL, BIOPSY CLINICAL DATA CROHN'S DISEASE OF SMALL INTESTINE WITH INTESTINAL OBSTRUCTION (HCC) B-C: ? COLITIS E: ? PROCTITIS GROSS DESCRIPTION A. Received in formalin are multiple pieces of yan, soft tissue aggregating to 0.6 x 0.4 x 0.1 cm. Totally submitted in one cassette. B. Received in formalin are two pieces of yan, soft tissue aggregating to 0.5 x 0.2 x 0.2 cm. Totally submitted in one cassette. C. Received in formalin are multiple pieces of yan, soft tissue aggregating to 0.4 x 0.3 x 0.2 cm. Totally submitted in one cassette. D. Received in formalin are two pieces of yan, soft tissue aggregating to 0.6 x 0.3 x 0.2 cm. Totally submitted in one cassette. E. Received in formalin are multiple pieces of yan, soft tissue aggregating to 0.3 x 0.3 x 0.2 cm. Totally submitted in one cassette. Gross examination performed at [facility], [address] [place] [address] 11/04/2020 1:49:01 PM Date of Report: 11/05/2020 Date of Procedure: 11/04/2020 Date of Receipt: 11/04/2020 Submitted by: DEEPALI STONE M.D. Location: [facility] Diagnostic interpretation performed at [facility], [address] [place] [address], [place] [address]. CLIA Number: [id number] Normal [facility] Comment on above: Performed By: #### S #### See report for performing lab information. Vital Signs Date Time Vital Sign Value Performing Clinician Facility 08-07-2024 13:57-0500 Body temperature 97.59 [degF] Chair Wanova Work Phone: [facility] 08-07-2024 13:57-0500 Diastolic blood pressure 76 mm[Hg] Chair Wanova Work Phone: [facility] 08-07-2024 13:57-0500 Heart rate 95 /min Chair Wanova Work Phone: [facility] 08-07-2024 13:57-0500 Respiratory rate 16 /min Chair Wanova Work Phone: [facility] 08-07-2024 13:57-0500 SaO2% (BldA) [Mass fraction] 96 % Chair Wanova Work Phone: [facility] 08-07-2024 13:57-0500 Systolic blood pressure 111 mm[Hg] Chair Wanova Work Phone: [facility] 08-06-2024 14:11-0500 Body height 182.88 cm [facility] 08-06-2024 14:11-0500 Body mass index (BMI) [Ratio] 19.7 kg/m2 [facility] 08-06-2024 14:11-0500 Body temperature 98.2 [degF] [facility] 08-06-2024 14:11-0500 Body weight 66 kg [facility] 08-06-2024 14:11-0500 Diastolic blood pressure 69 mm[Hg] [facility] 08-06-2024 14:11-0500 Systolic blood pressure 103 mm[Hg] [facility] 06-17-2024 13:56-0400 Body height 182.88 cm [facility] 06-17-2024 13:56-0400 Body mass index (BMI) [Ratio] 20.1 kg/m2 [facility] 06-17-2024 13:56-0400 Body weight 67.3 kg [facility] 06-17-2024 13:56-0400 Diastolic blood pressure 62 mm[Hg] [facility] 06-17-2024 13:56-0400 Heart rate 102 /min [facility] 06-17-2024 13:56-0400 Systolic blood pressure 95 mm[Hg] [facility] 06-12-2024 14:00-0400 Body temperature 97.7 [degF] [employer] Work Phone: [facility] 06-12-2024 14:00-0400 Diastolic blood pressure 66 mm[Hg] Chair Wanova Work Phone: [facility] 06-12-2024 14:00-0400 Heart rate 76 /min [employer] Work Phone: [facility] 06-12-2024 14:00-0400 Respiratory rate 16 /min [employer] Work Phone: [facility] 06-12-2024 14:00-0400 SaO2% (BldA) [Mass fraction] 99 % Chair Wanova Work Phone: [facility] 06-12-2024 14:00-0400 Systolic blood pressure 99 mm[Hg] [employer] Work Phone: [facility] 06-04-2024 14:10-0400 Body height 182.88 cm [facility] 06-04-2024 14:10-0400 Body mass index (BMI) [Ratio] 19.7 kg/m2 [facility] 06-04-2024 14:10-0400 Body temperature 97.9 [degF] [facility] 06-04-2024 14:10-0400 Body weight 66 kg [facility] 06-04-2024 14:10-0400 Diastolic blood pressure 69 mm[Hg] [facility] 06-04-2024 14:10-0400 Systolic blood pressure 104 mm[Hg] [facility] 04-18-2024 14:10-0400 Body temperature 98.01 [degF] [facility] Work Phone: [facility] 04-18-2024 14:10-0400 Diastolic blood pressure 72 mm[Hg] Chair Kati Work Phone: [facility] 04-18-2024 14:10-0400 Heart rate 65 /min [facility] Work Phone: [facility] 04-18-2024 14:10-0400 Respiratory rate 18 /min [facility] Work Phone: [facility] 04-18-2024 14:10-0400 SaO2% (BldA) [Mass fraction] 96 % [facility] Work Phone: [facility] 04-18-2024 14:10-0400 Systolic blood pressure 103 mm[Hg] [facility] Work Phone: [facility] 04-03-2024 08:37-0400 Body height 182.88 cm [facility] 04-03-2024 08:37-0400 Body mass index (BMI) [Ratio] 19.7 kg/m2 [facility] 04-03-2024 08:37-0400 Body temperature 98.2 [degF] [facility] 04-03-2024 08:37-0400 Body weight 66 kg [facility] 04-03-2024 08:37-0400 Diastolic blood pressure 76 mm[Hg] [facility] 04-03-2024 08:37-0400 Systolic blood pressure 108 mm[Hg] [facility] 02-27-2024 14:17-0400 Body height 182.88 cm [facility] 02-27-2024 14:17-0400 Body mass index (BMI) [Ratio] 19.4 kg/m2 [facility] 02-27-2024 14:17-0400 Body temperature 98.8 [degF] [facility] 02-27-2024 14:17-0400 Body weight 65 kg [facility] 02-27-2024 14:17-0400 Diastolic blood pressure 89 mm[Hg] [facility] 02-27-2024 14:17-0400 Heart rate 60 /min [facility] 02-27-2024 14:17-0400 Systolic blood pressure 121 mm[Hg] [facility] 02-22-2024 14:24-0400 Body temperature 98.01 [degF] Chair Kati Work Phone: [facility] 02-22-2024 14:24-0400 Diastolic blood pressure 76 mm[Hg] [facility] Work Phone: [facility] 02-22-2024 14:24-0400 Heart rate 71 /min Chair Kati Work Phone: [facility] 02-22-2024 14:24-0400 Respiratory rate 16 /min [facility] Work Phone: [facility] 02-22-2024 14:24-0400 SaO2% (BldA) [Mass fraction] 98 % [facility] Work Phone: [facility] 02-22-2024 14:24-0400 Systolic blood pressure 116 mm[Hg] [facility] Work Phone: [facility] 01-12-2024 09:26-0400 Body height 182.9 cm Deepali Stone MD, PhD Work Phone: [facility] 01-12-2024 09:26-0400 Body mass index (BMI) [Ratio] 20.03 kg/m2 Deepali Stone MD, PhD Work Phone: [facility] 01-12-2024 09:26-0400 Body weight 67 kg Deepali Stone MD, PhD Work Phone: [facility] 01-12-2024 09:26-0400 Diastolic blood pressure 82 mm[Hg] Deepali Stone MD, PhD Work Phone: [facility] 01-12-2024 09:26-0400 Heart rate 98 /min Deepali Stone MD, PhD Work Phone: [facility] 01-12-2024 09:26-0400 SaO2% (BldA) [Mass fraction] 98 % Deepali Stone MD, PhD Work Phone: [facility] 01-12-2024 09:26-0400 Systolic blood pressure 117 mm[Hg] Deepali Stone MD, PhD Work Phone: [facility] 01-08-2024 14:39-0400 Body height 182.88 cm [facility] 01-08-2024 14:39-0400 Body mass index (BMI) [Ratio] 19.9 kg/m2 [facility] 01-08-2024 14:39-0400 Body weight 66.67 kg [facility] 01-08-2024 14:39-0400 Diastolic blood pressure 75 mm[Hg] [facility] 01-08-2024 14:39-0400 Heart rate 100 /min [facility] 01-08-2024 14:39-0400 Systolic blood pressure 114 mm[Hg] [facility] 12-28-2023 14:01-0400 Body temperature 97.59 [degF] Chair Kati Work Phone: [facility] 12-28-2023 14:01-0400 Diastolic blood pressure 78 mm[Hg] [facility] Work Phone: [facility] 12-28-2023 14:01-0400 Heart rate 83 /min Chair Kati Work Phone: [facility] 12-28-2023 14:01-0400 Respiratory rate 16 /min [facility] Work Phone: [facility] 12-28-2023 14:01-0400 SaO2% (BldA) [Mass fraction] 100 % Chair Kati Work Phone: [facility] 12-28-2023 14:01-0400 Systolic blood pressure 115 mm[Hg] Chair Kati Work Phone: [facility] 12-26-2023 14:08-0400 Body height 182.88 cm [facility] 12-26-2023 14:08-0400 Body mass index (BMI) [Ratio] 20 kg/m2 [facility] 12-26-2023 14:08-0400 Body weight 66.84 kg [facility] 12-26-2023 14:08-0400 Diastolic blood pressure 78 mm[Hg] [facility] 12-26-2023 14:08-0400 Heart rate 92 /min [facility] 12-26-2023 14:08-0400 Systolic blood pressure 116 mm[Hg] [facility] 11-15-2023 14:30-0500 Diastolic blood pressure 63 mm[Hg] Deepali Stone MD, PhD Work Phone: [facility] 11-15-2023 14:30-0500 Heart rate 82 /min Deepali Stone MD, PhD Work Phone: [facility] 11-15-2023 14:30-0500 Respiratory rate 13 /min Deepali Stone MD, PhD Work Phone: [facility] 11-15-2023 14:30-0500 SaO2% (BldA) [Mass fraction] 95 % Deepali Stone MD, PhD Work Phone: [facility] 11-15-2023 14:30-0500 Systolic blood pressure 100 mm[Hg] Deepali Stone MD, PhD Work Phone: [facility] 11-15-2023 13:50-0500 Body temperature 97.11 [degF] Deepali Stone MD, PhD Work Phone: [facility] 11-15-2023 12:39-0500 Body weight 65.77 kg Deepali Stone MD, PhD Work Phone: [facility] 11-02-2023 14:05-0500 Body temperature 97.39 [degF] [facility] Work Phone: [facility] 11-02-2023 14:05-0500 Diastolic blood pressure 69 mm[Hg] [facility] Work Phone: [facility] 11-02-2023 14:05-0500 Heart rate 96 /min Chair Kati Work Phone: [facility] 11-02-2023 14:05-0500 Respiratory rate 18 /min Chair Kati Work Phone: [facility] 11-02-2023 14:05-0500 SaO2% (BldA) [Mass fraction] 95 % Chair Kati Work Phone: [facility] 11-02-2023 14:05-0500 Systolic blood pressure 101 mm[Hg] Chair Kati Work Phone: [facility] 10-12-2023 13:00-0500 Body height 182.88 cm [facility] 10-12-2023 13:00-0500 Body weight 64.41 kg [facility] 10-12-2023 13:00-0500 Diastolic blood pressure 73 mm[Hg] [facility] 10-12-2023 13:00-0500 Systolic blood pressure 98 mm[Hg] [facility] 09-07-2023 14:18-0500 Body temperature 98.4 [degF] [facility] Work Phone: [facility] 09-07-2023 14:18-0500 Diastolic blood pressure 73 mm[Hg] [facility] Work Phone: [facility] 09-07-2023 14:18-0500 Heart rate 90 /min [facility] Work Phone: [facility] 09-07-2023 14:18-0500 Respiratory rate 18 /min [facility] Work Phone: [facility] 09-07-2023 14:18-0500 SaO2% (BldA) [Mass fraction] 97 % Chair Kati Work Phone: [facility] 09-07-2023 14:18-0500 Systolic blood pressure 123 mm[Hg] Chair Kati Work Phone: [facility] 08-25-2023 15:26-0500 Body height 182.9 cm Deepali Stone MD, PhD Work Phone: [facility] 08-25-2023 15:26-0500 Body weight 65.77 kg Deepali Stone MD, PhD Work Phone: [facility] 08-25-2023 15:26-0500 Diastolic blood pressure 84 mm[Hg] Deepali Stone MD, PhD Work Phone: [facility] 08-25-2023 15:26-0500 Heart rate 85 /min Deepali Stone MD, PhD Work Phone: [facility] 08-25-2023 15:26-0500 Systolic blood pressure 118 mm[Hg] Deepali Stone MD, PhD Work Phone: [facility] 07-10-2023 13:45-0400 Body height 182.88 cm Ap Denis Other [employer] Other 07-10-2023 13:45-0400 Body mass index (BMI) [Ratio] 18.93 kg/m2 Ap Denis Other [employer] Other 07-10-2023 13:45-0400 Body weight 63.32 kg Ap Denis Other [employer] Other 07-10-2023 13:45-0400 Diastolic blood pressure 76 mm[Hg] Ap Denis Other [employer] Other 07-10-2023 13:45-0400 Systolic blood pressure 116 mm[Hg] Ap Denis Other [email or web address] [facility] [employer] Other 05-18-2023 15:09-0400 Body temperature 98.2 [degF] [facility] Work Phone: [facility] 05-18-2023 15:09-0400 Diastolic blood pressure 63 mm[Hg] [facility] Work Phone: [facility] 05-18-2023 15:09-0400 Heart rate 75 /min [facility] Work Phone: [facility] 05-18-2023 15:09-0400 Respiratory rate 16 /min [employer] Work Phone: [facility] 05-18-2023 15:09-0400 SaO2% (BldA) [Mass fraction] 98 % Chair Wanova Work Phone: [facility] 05-18-2023 15:09-0400 Systolic blood pressure 98 mm[Hg] [facility] Work Phone: [facility] 04-07-2023 13:15-0400 Body height 182.88 cm Ap Denis Other [employer] Other 04-07-2023 13:15-0400 Body mass index (BMI) [Ratio] 19.12 kg/m2 Ap [facility] Other [employer] Other 04-07-2023 13:15-0400 Body weight 63.96 kg Ap Denis Other [employer] Other 04-07-2023 13:15-0400 Diastolic blood pressure 68 mm[Hg] Ap Denis Other [facility] Other 04-07-2023 13:15-0400 Systolic blood pressure 99 mm[Hg] Ap Denis Other [facility] Other 03-23-2023 14:10-0400 Body temperature 98.1 [degF] Chair [facility] Work Phone: [facility] 03-23-2023 14:10-0400 Diastolic blood pressure 60 mm[Hg] Chair Kati Work Phone: [facility] 03-23-2023 14:10-0400 Heart rate 82 /min Chair Kati Work Phone: [facility] 03-23-2023 14:10-0400 Respiratory rate 16 /min Chair [facility] Work Phone: [facility] 03-23-2023 14:10-0400 SaO2% (BldA) [Mass fraction] 98 % Chair [facility] Work Phone: [facility] 03-23-2023 14:10-0400 Systolic blood pressure 95 mm[Hg] Chair [facility] Work Phone: [facility] 01-27-2023 12:54-0400 Body temperature 97.81 [degF] Chair Kati Work Phone: [facility] 01-27-2023 12:54-0400 Diastolic blood pressure 74 mm[Hg] Chair [facility] Work Phone: [facility] 01-27-2023 12:54-0400 Heart rate 91 /min Chair Kati Work Phone: [facility] 01-27-2023 12:54-0400 Respiratory rate 18 /min Chair [facility] Work Phone: [facility] 01-27-2023 12:54-0400 SaO2% (BldA) [Mass fraction] 97 % Chair Kati Work Phone: [facility] 01-27-2023 12:54-0400 Systolic blood pressure 122 mm[Hg] Chair [facility] Work Phone: [facility] 01-18-2023 12:30-0400 Body height 182.88 cm Ap Denis Other [facility] Other 01-18-2023 12:30-0400 Body mass index (BMI) [Ratio] 20.8 kg/m2 Ap Denis Other [facility] Other 01-18-2023 12:30-0400 Body weight 69.58 kg Ap Denis Other [facility] Other 01-18-2023 12:30-0400 Diastolic blood pressure 60 mm[Hg] Ap Denis Other [facility] Other 01-18-2023 12:30-0400 SaO2% (BldA) [Mass fraction] 97 % Ap Denis Other [facility] Other 01-18-2023 12:30-0400 Systolic blood pressure 104 mm[Hg] Ap Denis Other [facility] Other 12-07-2022 15:14-0400 Body temperature 98.29 [degF] Chair [facility] Work Phone: [facility] 12-07-2022 15:14-0400 Diastolic blood pressure 54 mm[Hg] Chair [facility] Work Phone: [facility] 12-07-2022 15:14-0400 Heart rate 78 /min Chair [facility] Work Phone: [facility] 12-07-2022 15:14-0400 Respiratory rate 16 /min Chair [facility] Work Phone: [facility] 12-07-2022 15:14-0400 SaO2% (BldA) [Mass fraction] 96 % Chair [facility] Work Phone: [facility] 12-07-2022 15:14-0400 Systolic blood pressure 91 mm[Hg] Chair Kati Work Phone: [facility] 10-17-2022 15:30-0500 Body height 182.88 cm Ap Denis Other [facility] Other 10-17-2022 15:30-0500 Body mass index (BMI) [Ratio] 20.34 kg/m2 Ap Denis Other [facility] Other 10-17-2022 15:30-0500 Body weight 68.04 kg Ap Denis Other [facility] Other 10-17-2022 15:30-0500 Diastolic blood pressure 66 mm[Hg] Ap Denis Other [facility] Other 10-17-2022 15:30-0500 SaO2% (BldA) [Mass fraction] 97 % Ap Denis Other [facility] Other 10-17-2022 15:30-0500 Systolic blood pressure 102 mm[Hg] Ap Denis Other [facility] Other 10-12-2022 14:45-0500 Body temperature 98.2 [degF] Chair Kati Work Phone: [facility] 10-12-2022 14:45-0500 Diastolic blood pressure 64 mm[Hg] Chair [facility] Work Phone: [facility] 10-12-2022 14:45-0500 Heart rate 75 /min Chair Kati Work Phone: [facility] 10-12-2022 14:45-0500 Respiratory rate 16 /min Chair Kati Work Phone: [facility] 10-12-2022 14:45-0500 SaO2% (BldA) [Mass fraction] 98 % Chair Kati Work Phone: [facility] 10-12-2022 14:45-0500 Systolic blood pressure 98 mm[Hg] Chair [facility] Work Phone: [facility] 08-16-2022 14:38-0500 Body temperature 97.81 [degF] Chair Kati Work Phone: [facility] 08-16-2022 14:38-0500 Diastolic blood pressure 79 mm[Hg] Chair [facility] Work Phone: [facility] 08-16-2022 14:38-0500 Heart rate 89 /min Chair [facility] Work Phone: [facility] 08-16-2022 14:38-0500 Respiratory rate 16 /min Chair Kati Work Phone: [facility] 08-16-2022 14:38-0500 SaO2% (BldA) [Mass fraction] 98 % Chair [facility] Work Phone: [facility] 08-16-2022 14:38-0500 Systolic blood pressure 112 mm[Hg] Chair Kati Work Phone: [facility] 04-27-2022 14:28-0400 Body temperature 98.2 [degF] Chair Kati Work Phone: [facility] 04-27-2022 14:28-0400 Diastolic blood pressure 66 mm[Hg] Chair Kati Work Phone: [facility] 04-27-2022 14:28-0400 Heart rate 78 /min Chair [facility] Work Phone: [facility] 04-27-2022 14:28-0400 Respiratory rate 18 /min Chair [facility] Work Phone: [facility] 04-27-2022 14:28-0400 Systolic blood pressure 112 mm[Hg] Chair [facility] Work Phone: [facility] 03-02-2022 14:07-0400 Body temperature 97 [degF] Chair [facility] Work Phone: [facility] 03-02-2022 14:07-0400 Diastolic blood pressure 65 mm[Hg] Chair Kati Work Phone: [facility] 03-02-2022 14:07-0400 Heart rate 70 /min Chair [facility] Work Phone: [facility] 03-02-2022 14:07-0400 Respiratory rate 18 /min Chair [facility] Work Phone: [facility] 03-02-2022 14:07-0400 SaO2% (BldA) [Mass fraction] 98 % Chair [facility] Work Phone: [facility] 03-02-2022 14:07-0400 Systolic blood pressure 106 mm[Hg] Chair [facility] Work Phone: [facility] 01-21-2022 11:00-0400 Body weight 67.27 kg Deepali Stone MD, PhD Work Phone: [facility] 01-21-2022 11:00-0400 Diastolic blood pressure 70 mm[Hg] Deepali Stone MD, PhD Work Phone: [facility] 01-21-2022 11:00-0400 Heart rate 97 /min Deepali Stone MD, PhD Work Phone: [facility] 01-21-2022 11:00-0400 SaO2% (BldA) [Mass fraction] 98 % Deepali Stone MD, PhD Work Phone: [facility] 01-21-2022 11:00-0400 Systolic blood pressure 120 mm[Hg] Deepali Stone MD, PhD Work Phone: [facility] 01-05-2022 14:18-0400 Body temperature 98.1 [degF] Chair Kati Work Phone: [facility] 01-05-2022 14:18-0400 Diastolic blood pressure 71 mm[Hg] Chair [facility] Work Phone: [facility] 01-05-2022 14:18-0400 Heart rate 83 /min Chair Kati Work Phone: [facility] 01-05-2022 14:18-0400 Respiratory rate 18 /min Chair Chin Work Phone: [facility] 01-05-2022 14:18-0400 SaO2% (BldA) [Mass fraction] 98 % Chair Chin Work Phone: [facility] 01-05-2022 14:18-0400 Systolic blood pressure 119 mm[Hg] Chair Chin Work Phone: [facility] Encounters Encounter Date Encounter Type Care Provider Facility Start: 09-14-2024 End: 09-14-2024 E-mail encounter from caregiver Deepali Stone MD, PhD Work Phone: Gastroenterology Start: 09-14-2024 End: 09-14-2024 Follow-up encounter Deepali Stone MD, PhD Work Phone: Gastroenterology Comment on above: follow up Start: 08-07-2024 End: 08-07-2024 ambulatory Chair Delvis Chin Work Phone: Hematology/Oncology Comment on above: Crohn's disease of b oth small and large intestine with intestinal obstruction (HCC) (Primary Dx) Start: 08-06-2024 End: 08-06-2024 ambulatory [facility] Work Phone: Start: 08-06-2024 End: 08-06-2024 Patient encounter procedure [facility] Work Phone: Start: 07-18-2024 End: 07-18-2024 Orders Only Deepali Stone MD, PhD Work Phone: Gastroenterology Start: 07-02-2024 Non-patient / Non-visit [facility] Work Phone: Start: 06-17-2024 End: 06-17-2024 ambulatory [facility] Work Phone: Start: 06-17-2024 End: 06-17-2024 Patient encounter procedure [facility] Work Phone: Start: 06-12-2024 End: 06-12-2024 ambulatory Chair Delvis Chin Work Phone: Hematology/Oncology Comment on above: Crohn's disease of b oth small and large intestine with intestinal obstruction (HCC) (Primary Dx) Start: 06-04-2024 End: 06-04-2024 ambulatory [facility] Work Phone: Start: 06-04-2024 End: 06-04-2024 Patient encounter procedure [facility] Work Phone: Start: 04-18-2024 End: 04-18-2024 ambulatory Chair Delvis Chin Work Phone: Hematology/Oncology Comment on above: Crohn's disease of b oth small and large intestine with intestinal obstruction (HCC) (Primary Dx) Start: 04-03-2024 End: 04-03-2024 ambulatory [facility] Work Phone: Start: 04-03-2024 End: 04-03-2024 Patient encounter procedure [facility] Palliative [facility] Work Phone: Start: 02-27-2024 End: 02-27-2024 ambulatory [facility] Work Phone: Start: 02-27-2024 End: 02-27-2024 Patient encounter procedure [facility] Work Phone: Start: 02-22-2024 Non-patient / Non-visit [facility] Work Phone: Start: 02-22-2024 End: 02-22-2024 ambulatory Chair Delvis Chin Work Phone: Hematology/Oncology Comment on above: Crohn's disease of b oth small and large intestine with intestinal obstruction (HCC) (Primary Dx); Crohn's disease of small intestine with intestinal obstruction (HCC) Start: 02-08-2024 End: 02-08-2024 Patient encounter procedure [facility] Work Phone: Start: 01-25-2024 Telephone encounter Deepali Stone MD, PhD Work Phone: Gastroenterology Comment on above: Insurance Authorizat ion ([employer]) Start: 01-12-2024 End: 01-12-2024 ambulatory DEEPALI STONE Facility:[facility] Start: 01-12-2024 End: 01-12-2024 Patient encounter procedure Deepali Stone MD, PhD Work Phone: Gastroenterology Comment on above: Crohn's disease of s mall intestine with intestinal obstruction (HCC) (Primary Dx); Vitamin D deficiency-Severe; Immunosuppression (HCC); Adenomatous polyp of colon, unspecified part of colon Start: 01-08-2024 End: 01-08-2024 ambulatory [facility] Work Phone: Start: 01-08-2024 End: 01-08-2024 Patient encounter procedure [facility] Work Phone: Start: 12-28-2023 End: 12-28-2023 ambulatory Chair 17 Kati Work Phone: Hematology/Oncology Comment on above: Crohn's disease of b oth small and large intestine with intestinal obstruction (HCC) (Primary Dx) Start: 12-26-2023 End: 12-26-2023 ambulatory [facility] Work Phone: Start: 12-26-2023 End: 12-26-2023 Patient encounter procedure [facility] Work Phone: Start: 11-21-2023 Non-patient / Non-visit [facility] Work Phone: Start: 11-15-2023 ambulatory AP DENIS Facility :[facility] Start: 11-15-2023 End: 11-15-2023 Subsequent hospital visit by physician Deepali Stone MD, PhD Work Phone: Procedures Comment on above: Crohn's disease of s mall intestine with intestinal obstruction (HCC) [K50.012] Start: 11-10-2023 Non-patient / Non-visit [facility] Work Phone: Start: 11-02-2023 End: 11-02-2023 ambulatory Chair Delvis Chin Work Phone: Hematology/Oncology Comment on above: Crohn's disease of b oth small and large intestine with intestinal obstruction (HCC) (Primary Dx) Start: 11-02-2023 Nursing evaluation o f patient and report Ap Denis [facility] Start: 10-20-2023 End: 10-20-2023 ambulatory Ap Denis Other [facility] Other Start: 10-20-2023 Nursing evaluation o f patient and report Ap Denis [facility] Start: 10-12-2023 End: 10-12-2023 Patient encounter procedure [facility] Start: 09-21-2023 End: 09-21-2023 ambulatory Ap Denis Other [facility] Other Start: 09-21-2023 Telephone encounter Ap Denis [facility] Start: 09-13-2023 End: 09-13-2023 ambulatory Ap Denis Other [facility] Other Start: 09-13-2023 Telephone encounter Ap Denis [facility] Start: 09-07-2023 End: 09-07-2023 ambulatory Chair Delvis Chin Work Phone: Hematology/Oncology Comment on above: Crohn's disease of b oth small and large intestine with intestinal obstruction (HCC) (Primary Dx); Crohn's disease of small intestine with intestinal obstruction (HCC) Start: 08-25-2023 End: 08-25-2023 ambulatory DEEPALI STONE Facility:[facility] Start: 08-25-2023 End: 08-25-2023 Patient encounter procedure Deepali Stone MD, PhD Work Phone: Gastroenterology Comment on above: Crohn's disease of s mall intestine with intestinal obstruction (HCC) (Primary Dx); Crohn's disease of small and large intestines with complication (HCC) Start: 08-23-2023 End: 08-23-2023 ambulatory Ap Denis Other [facility] Other Start: 08-23-2023 Telephone encounter Ap Adeel [facility] Start: 08-15-2023 End: 08-15-2023 ambulatory Ap Denis Other [facility] Other Start: 08-15-2023 Telephone encounter Ap Adeel [facility] Start: 08-14-2023 End: 08-14-2023 ambulatory Ap Denis Other [facility] Other Start: 08-14-2023 Telephone encounter Ap Adeel [facility] Start: 08-08-2023 End: 08-08-2023 ambulatory Ap Adeel Other [facility] Other Start: 08-08-2023 Telephone encounter Ap Adeel [facility] Start: 07-21-2023 End: 07-21-2023 ambulatory Ap Adeel Other [facility] Other Start: 07-21-2023 Telephone encounter Ap Denis [facility] Start: 07-19-2023 End: 07-19-2023 ambulatory Ap Adeel Other [facility] Other Start: 07-19-2023 Telephone encounter Ap Denis [facility] Start: 07-13-2023 End: 07-13-2023 ambulatory Chair 18 Kati Work Phone: Hematology/Oncology Comment on above: Crohn's disease of b oth small and large intestine with intestinal obstruction (HCC) (Primary Dx) Start: 07-10-2023 End: 07-10-2023 ambulatory Ap Denis Other [facility] Other Start: 07-10-2023 Office outpatient vi sit 15 minutes Ap Denis [facility] Start: 06-27-2023 End: 06-27-2023 ambulatory Ap Denis Other [facility] Other Start: 06-27-2023 Telephone encounter Ap Denis [facility] Start: 06-07-2023 End: 06-07-2023 ambulatory Ap Denis Other [facility] Other Start: 06-07-2023 Telephone encounter Ap Denis [facility] Start: 05-18-2023 End: 05-18-2023 ambulatory Chair 17 Kati Work Phone: Hematology/Oncology Comment on above: Crohn's disease of b oth small and large intestine with intestinal obstruction (HCC) (Primary Dx) Start: 05-10-2023 End: 05-10-2023 ambulatory Ap Denis Other [facility] Other Start: 05-10-2023 Telephone encounter Ap Denis [facility] Start: 04-07-2023 End: 04-07-2023 ambulatory Ap Denis Other [facility] Other Start: 04-07-2023 Office outpatient vi sit 15 minutes Ap Denis [facility] Start: 03-23-2023 End: 03-23-2023 ambulatory Chair 17 [facility] Work Phone: Hematology/Oncology Comment on above: Crohn's disease of b oth small and large intestine with intestinal obstruction (HCC) (Primary Dx) Start: 03-23-2023 Telephone encounter Kelly Steward RN H ematology/Oncology Comment on above: Orders Start: 01-27-2023 End: 01-27-2023 ambulatory Chair 17 Kati Work Phone: Hematology/Oncology Comment on above: Crohn's disease of b oth small and large intestine with intestinal obstruction (HCC) (Primary Dx); Crohn's disease of small intestine with intestinal obstruction (HCC); Abnormal blood cell count Start: 01-23-2023 ambulatory Deepali lawrence MD, PhD Work Phone: Gastroenterology Comment on above: Entivyo Infusion chance e move sooner Start: 01-19-2023 End: 01-19-2023 ambulatory Ap Denis Other [facility] Other Start: 01-19-2023 Telephone encounter Ap Adeel [facility] Start: 01-18-2023 End: 01-18-2023 ambulatory Ap Denis Other [facility] Other Start: 01-18-2023 Office outpatient vi sit 15 minutes Ap Adeel [facility] Start: 01-11-2023 End: 01-11-2023 ambulatory Ap Denis Other [facility] Other Start: 01-11-2023 Telephone encounter Ap Denis [facility] Start: 12-16-2022 End: 12-16-2022 ambulatory Ap Denis Other [facility] Other Start: 12-16-2022 Telephone encounter Ap Denis [facility] Start: 12-12-2022 End: 12-12-2022 ambulatory Ap Denis Other [facility] Other Start: 12-12-2022 Telephone encounter Ap Denis [facility] Start: 12-08-2022 ambulatory Deepali lawrence MD, PhD Work Phone: Gastroenterology Comment on above: Question regarding C BC Start: 12-07-2022 End: 12-07-2022 ambulatory Chair John Chin Work Phone: Hematology/Oncology Comment on above: Crohn's disease of b oth small and large intestine with intestinal obstruction (HCC) (Primary Dx); Crohn's disease of small intestine with intestinal obstruction (HCC); Immunosuppression (HCC) Start: 11-09-2022 End: 11-09-2022 ambulatory Ap Denis Other [facility] Other Start: 11-09-2022 Telephone encounter Ap Denis [facility] Start: 10-20-2022 End: 10-20-2022 ambulatory Ap Denis Other [facility] Other Start: 10-20-2022 Telephone encounter Ap Denis [facility] Start: 10-17-2022 End: 10-17-2022 ambulatory Ap Denis Other [facility] Other Start: 10-17-2022 Office outpatient vi sit 15 minutes Ap Denis [facility] Start: 10-12-2022 End: 10-12-2022 ambulatory Chair 19 Kati Work Phone: Hematology/Oncology Comment on above: Crohn's disease of b oth small and large intestine with intestinal obstruction (HCC) (Primary Dx) Start: 08-26-2022 Telephone encounter Deepali Stone MD, PhD Work Phone: Gastroenterology Comment on above: Appointment Start: 08-16-2022 End: 08-16-2022 ambulatory Chair 9 Kati Work Phone: Hematology/Oncology Comment on above: Crohn's disease of b oth small and large intestine with intestinal obstruction (HCC) (Primary Dx) Start: 06-13-2022 End: 06-14-[address] AP DENIS Facility: Start: 05-31-2022 Adult health examination Ap Denis Other [facility] Other Start: 04-27-2022 End: 04-27-2022 ambulatory Chair 17 Kati Work Phone: Hematology/Oncology Comment on above: Crohn's disease of b oth small and large intestine with intestinal obstruction (HCC) (Primary Dx) Start: 03-02-2022 End: 03-02-2022 ambulatory Chair 17 Kati Work Phone: Hematology/Oncology Comment on above: Crohn's disease of b oth small and large intestine with intestinal obstruction (HCC) (Primary Dx); Crohn's disease of small intestine with intestinal obstruction (HCC) Start: 01-21-2022 End: 01-21-2022 Patient encounter procedure Deepali Stone MD, PhD Work Phone: Gastroenterology Comment on above: Crohn's disease of s mall intestine with intestinal obstruction (HCC) (Primary Dx) Start: 01-05-2022 End: 01-05-2022 ambulatory Chair 17 Kati Work Phone: Hematology/Oncology Comment on above: Crohn's disease of b oth small and large intestine with intestinal obstruction (HCC) (Primary Dx) Start: 01-04-2022 Refill Yue DelunaQuan azael [facility] Work Phone: Hematology/Oncology Comment on above: Refill Request Procedures Date Procedure Procedure Detail Performing Clinician Start: 02-22-2024 Blood count complete auto&auto difrntl wbc Deepali Stone MD, PhD Work Phone: Start: 02-22-2024 C-reactive protein Evelyn Stone MD, PhD Work Phone: Start: 11-15-2023 Colonoscopy flx dx w /collj spec when pfrmd Deepali Stone MD, PhD Work Phone: Start: 11-15-2023 Colonoscopy Deepali briceno MD, PhD Work Phone: Start: 09-07-2023 Blood count complete automated Deepali Stone MD, PhD Work Phone: Start: 01-27-2023 Blood count complete auto&auto difrntl wbc Deepali Stone MD, PhD Work Phone: Start: 12-07-2022 Blood count complete automated Deepali Stone MD, PhD Work Phone: Start: 03-02-2022 Blood count complete automated Deepali Stone MD, PhD Work Phone: Start: 11-04-2020 Colonoscopy Yue Underwood [facility] Work Phone: Start: 12-31-2015 Removal of suture Bridgett Denis Other Start: 07-15-2013 Adult depression scr eening assessment Yue Pisano [facility] Work Phone: Plan of Treatment Date Care Activity Detail Author Start: 2038 HEPATITIS B (1 of 3 - Risk 3-dose series) HEPATITIS B (1 of 3 - Risk 3-dose series) [facility] Start: 2038 Hepatitis B Vaccine (1 of 3 - Risk 3-dose series) Hepatitis B Vaccine (1 of 3 - Risk 3-dose series) [facility] Start: 02-21-2027 Diabetes Screening Diabetes Screenin g [facility] Start: 09-07-2026 Diabetes Screening Diabetes Screenin [facility] Start: 11-15-2024 Screening for malign ant neoplasm of colon [facility] Start: 10-02-2024 End: 10-02-2024 ambulatory 10/02/2024 2:00 PM [facility] Hematology/Oncology [address] [place] [address] 8 Week [facility] Hematology/Oncology Comment on above: 8 Week [facility] Start: 08-07-2024 End: 08-07-2024 ambulatory 08/07/2024 2:00 PM [facility] Hematology/Oncology [address] [place] [address] 8 Week [facility] Hematology/Oncology Comment on above: 8 Week [facility] Start: 06-12-2024 End: 06-12-2024 ambulatory 06/12/2024 2:00 PM [facility]fusion [facility] Hematology/Oncology [address] [place] [place] [address] 8 Week [facility] Hematology/Oncology Comment on above: 8 Week [facility] Start: 05-26-2024 Covid-19 Vaccine () Covid-19 Vaccine () [facility] Start: 05-26-2024 Covid-19 Vaccine () Covid-19 Vaccine () [facility] Start: 05-26-2024 Influenza vaccination C [facility] Start: 04-18-2024 End: 04-18-2024 ambulatory 04/18/2024 2:00 PM [facility] Hematology/Oncology [address] [place] [address] [place] [address] 8 Week [facility] Hematology/Oncology Comment on above: 8 Week [facility]io Start: 02-22-2024 End: 02-22-2024 ambulatory 02/22/2024 2:00 PM [facility] Hematology/Oncology [address] [place] [address] [place] [address] 8 Week [facility] Hematology/Oncology Comment on above: 8 Week Entyv Start: 01-12-2024 End: 04-12-2024 BLOOD TB SCREEN BLOOD TB SCREEN Lab Routine Crohn's disease of small intestine with intestinal obstruction (HCC) Expected: 01/12/2024, Expires: 04/12/2024 [facility] Comment on above: Expected: 01/12/2024 , Expires: 04/12/2024 Start: 2023 Cologuard (FIT-DNA) Cologuard (FIT-D NA) [facility] Start: [address] Colonography [facility] Start: 2023 Fecal Occult Blood Fecal Occult Bloo d [facility] Start: 2023 Screening for malign ant neoplasm of colon [facility] Start: 2023 Sigmoidoscopy Sigmoidoscopy [facility] Start: 09-25-2023 Behavioral Health Screening Behavioral Health Screening [facility] Start: 09-25-2023 Depression Assessment Depression Ass essment [facility] Start: 05-26-2023 Covid-19 Vaccine ( season) Covid-19 Vaccine () [facility] Start: 05-26-2023 Influenza vaccination C [facility] Start: 12-11-2022 End: 02-10-2023 CBC W Auto Differential panel - Blood CBC + DIFF Lab Routine Crohn's disease of small intestine with intestinal obstruction (HCC) Abnormal blood cell count Expected: 12/11/2022, Expires: 02/10/2023 [facility] Work Phone: Comment on above: Expected: 12/11/2022 , Expires: 02/10/2023 Start: 12-11-2022 End: 02-10-2023 COPPER BLOOD COPPER BLOOD Lab Routine Crohn's disease of small intestine with intestinal obstruction (HCC) Abnormal blood cell count Expected: 12/11/2022, Expires: 02/10/2023 [facility] Work Phone: Comment on above: Expected: 12/11/2022 , Expires: 02/10/2023 Start: 12-11-2022 End: 02-10-2023 RETIC COUNT RETIC COUNT Lab Routine Crohn's disease of small intestine with intestinal obstruction (HCC) Abnormal blood cell count Expected: 12/11/2022, Expires: 02/10/2023 [facility] Work Phone: Comment on above: Expected: 12/11/2022 , Expires: 02/10/2023 Start: 09-25-2022 DEPRESSION ASSESSMENT DEPRESSION ASS ESSMENT [facility] Start: 05-26-2022 Influenza vaccination [facility] Start: 01-21-2022 End: 03-23-2022 C reactive protein [Mass/volume] in Serum or Plasma C-REACTIVE PROTEIN (CRP) Lab Routine Crohn's disease of small intestine with intestinal obstruction (HCC) Expected: 01/21/2022, Expires: 03/23/2022 [facility] Work Phone: Comment on above: Expected: 01/21/2022 , Expires: 03/23/2022 Start: 01-21-2022 End: 03-23-2022 CBC panel - Blood by Automated count CBC Lab Routine Crohn's disease of small intestine with intestinal obstruction (HCC) Expected: 01/21/2022, Expires: 03/23/2022 [facility] Work Phone: Comment on above: Expected: 01/21/2022 , Expires: 03/23/2022 Start: 01-21-2022 End: 03-23-2022 Comprehensive metabolic 2000 panel - Serum or Plasma COMP METABOLIC PANEL Lab Routine Crohn's disease of small intestine with intestinal obstruction (HCC) Expected: 01/21/2022, Expires: 03/23/2022 [facility] Work Phone: Comment on above: Expected: 01/21/2022 , Expires: 03/23/2022 Start: 01-21-2022 End: 03-23-2022 VITAMIN B12 BLOOD VITAMIN B12 BLOOD Lab Routine Crohn's disease of small intestine with intestinal obstruction (HCC) Expected: 01/21/2022, Expires: 03/23/2022 [facility] Work Phone: Comment on above: Expected: 01/21/2022 , Expires: 03/23/2022 Start: 01-21-2022 End: 03-23-2022 VITAMIN D 25 HYDROXY VITAMIN D 25 HYDROXY Lab Routine Crohn's disease of small intestine with intestinal obstruction (HCC) Expected: 01/21/2022, Expires: 03/23/2022 [facility] Work Phone: Comment on above: Expected: 01/21/2022 , Expires: 03/23/2022 Start: 11-04-2021 Colonoscopy COLONOSCOPY [facility] Start: 11-04-2021 COLORECTAL CANCER SCREENING COLORECTAL CANCER SCREENING [facility] Start: 11-04-2021 Screening for malign ant neoplasm of colon [facility] Start: 09-25-2021 DEPRESSION ASSESSMENT DEPRESSION ASS ESSMENT [facility] Start: 08-14-2021 COVID-19 VACCINE (3 - Booster for Moderna series) COVID-19 VACCINE (3 - Booster for Moderna series) [facility] Start: 05-09-2021 COVID-19 VACCINE (3 - Booster for Moderna series) COVID-19 VACCINE (3 - Booster for Moderna series) [facility] Start: 05-09-2021 COVID-19 VACCINE (3 - Moderna series) COVID-19 VACCINE (3 - Moderna series) [facility] Start: 07-15-2014 Adult depression screening assessment DEPRESSION SCREENING [facility] Start: 2013 Lipid 1996 panel - Serum or Plasma Lipid Screening [facility] Start: 2013 Lipid panel Lipid Screening [facility] Start: 2013 LIPID SCREEN LIPID SCREEN [facility] Start: 07-06-2013 Pneumococcal vaccination Pneumococcal Vaccine (2 of 2 - PCV) [facility] Start: 1997 HEPATITIS A (1 of 2 - Risk 2-dose series) HEPATITIS A (1 of 2 - Risk 2-dose series) [facility] Start: 1997 Hepatitis A Vaccine (1 of 2 - Risk 2-dose series) Hepatitis A Vaccine (1 of 2 - Risk 2-dose series) [facility] Start: 1997 HEPATITIS B (1 of 3 - Risk 3-dose series) HEPATITIS B (1 of 3 - Risk 3-dose series) [facility] Start: 1997 Hepatitis B Vaccine (1 of 3 - 19+ 3-dose series) Hepatitis B Vaccine (1 of 3 - 19+ 3-dose series) [facility] Start: 1997 Urine microalbumin profile [facility] Start: 1996 Anxiety Screening Anxiety Screening [facility] Start: 1996 Depression Screening Depression Scre ening [facility] Start: 1996 HEPATITIS C SCREENING HEPATITIS C [facility] Start: 1996 Hepatitis C screening Hepatitis C [facility] Start: 1996 HIV SCREENING HIV SCREENING [facility] Start: 1996 HIV screening HIV Screening [facility] Start: 1996 MMR (1 of 2 - Risk 2-dose series) MMR (1 of 2 - Risk 2-dose series) [facility] Start: 1996 MMR Vaccine (1 of 2 - Risk 2-dose series) MMR Vaccine (1 of 2 - Risk 2-dose series) [facility] Start: 1988 Meningococcal B Vaccine: Consider Based On Risk (1 of 4 - Increased Risk) Meningococcal B Vaccine: Consider Based On Risk (1 of 4 - Increased Risk) [facility] Start: 1988 MENINGOCOCCAL B: Consider based on risk (1 of 4 - Increased Risk Bexsero 2-dose series) MENINGOCOCCAL B: Consider based on risk (1 of 4 - Increased Risk Bexsero 2-dose series) [facility] Start: 1988 MENINGOCOCCAL B: Consider based on risk (1 of 4 - Increased Risk) MENINGOCOCCAL B: Consider based on risk (1 of 4 - Increased Risk) [facility] Start: 1979 HEPATITIS A (1 of 2 - Risk 2-dose series) HEPATITIS A (1 of 2 - Risk 2-dose series) [facility] 25-hydroxyvitamin D3 [Mass/volume] in Serum or Plasma VITAMIN D 25 HYDROXY Lab Routine Crohn's disease of small intestine with intestinal obstruction (HCC) Immunosuppression (HCC) 12/07/2022 2:57 PM EDT [facility] Work Phone: End: 08-19-2024 25-hydroxyvitamin D3 [Mass/volume] in Serum or Plasma VITAMIN D 25 HYDROXY Lab Routine Crohn's disease of small intestine with intestinal obstruction (HCC) 1 Occurrences starting 08/25/2023 until 08/19/2024 [facility] Work Phone: Comment on above: 1 Occurrences starti ng 08/25/2023 until 08/19/2024 25-hydroxyvitamin D3 [Mass/volume] in Serum or Plasma VITAMIN D 25 HYDROXY Lab Routine Crohn's disease of small intestine with intestinal obstruction (HCC) 09/07/2023 2:37 PM [facility] Work Phone: BLOOD TB SCREEN BLOOD TB SCREEN Lab Routine Crohn's disease of small intestine with intestinal obstruction (HCC) Immunosuppression (HCC) 12/07/2022 2:57 PM T [facility] Work Phone: BLOOD TB SCREEN BLOOD TB SCREEN Lab Routine Crohn's disease of small intestine with intestinal obstruction (HCC) 02/22/2024 2:23 PM T [facility] Work Phone: C reactive protein [Mass/volume] in Serum or Plasma C-REACTIVE PROTEIN (CRP) Lab Routine Crohn's disease of small intestine with intestinal obstruction (HCC) 03/02/2022 2:09 PM T [facility] Work Phone: C reactive protein [Mass/volume] in Serum or Plasma C-REACTIVE PROTEIN (CRP) Lab Routine Crohn's disease of small intestine with intestinal obstruction (HCC) Immunosuppression (HCC) 12/07/2022 2:57 PM T [facility] Work Phone: End: 08-23-2024 C reactive protein [Mass/volume] in Serum or Plasma C-REACTIVE PROTEIN (CRP) Lab Routine Crohn's disease of small intestine with intestinal obstruction (HCC) 1 Occurrences starting 08/25/2023 until 08/23/2024 [facility] Work Phone: Comment on above: 1 Occurrences starti ng 08/25/2023 until 08/23/2024 C reactive protein [Mass/volume] in Serum or Plasma C-REACTIVE PROTEIN (CRP) Lab Routine Crohn's disease of small intestine with intestinal obstruction (HCC) 09/07/2023 2:37 PM EST [facility] Work Phone: End: 01-10-2025 C reactive protein [Mass/volume] in Serum or Plasma C-REACTIVE PROTEIN Lab Routine Crohn's disease of small intestine with intestinal obstruction (HCC) 1 Occurrences starting 01/12/2024 until 01/10/2025 [facility] Comment on above: 1 Occurrences starti ng 01/12/2024 until 01/10/2025 End: 08-19-2024 CBC panel - Blood by Automated count CBC Lab Routine Crohn's disease of small intestine with intestinal obstruction (HCC) 1 Occurrences starting 08/25/2023 until 08/19/2024 [facility] Work Phone: Comment on above: 1 Occurrences starti ng 08/25/2023 until 08/19/2024 End: 01-06-2025 CBC W Auto Differential panel - Blood COMPLETE BLOOD COUNT AND DIFFERENTIAL Lab Routine Crohn's disease of small intestine with intestinal obstruction (HCC) 1 Occurrences starting 01/12/2024 until 01/06/2025 [facility] Comment on above: 1 Occurrences starti ng 01/12/2024 until 01/06/2025 Cobalamin (Vitamin B 12) [Mass/volume] in Serum or Plasma VITAMIN B12 BLOOD Lab Routine Crohn's disease of small intestine with intestinal obstruction (HCC) Immunosuppression (HCC) 12/07/2022 2:57 PM EDT [facility] Work Phone: End: 08-23-2024 Cobalamin (Vitamin B12) [Mass/volume] in Serum or Plasma VITAMIN B12 BLOOD Lab Routine Crohn's disease of small intestine with intestinal obstruction (HCC) 1 Occurrences starting 08/25/2023 until 08/23/2024 [facility] Work Phone: Comment on above: 1 Occurrences starti ng 08/25/2023 until 08/23/2024 Cobalamin (Vitamin B 12) [Mass/volume] in Serum or Plasma VITAMIN B12 BLOOD Lab Routine Crohn's disease of small intestine with intestinal obstruction (HCC) 09/07/2023 2:37 PM EST [facility] Work Phone: End: 01-10-2025 Cobalamin (Vitamin B12) [Mass/volume] in Serum or Plasma VITAMIN B12 Lab Routine Crohn's disease of small intestine with intestinal obstruction (HCC) 1 Occurrences starting 01/12/2024 until 01/10/2025 [facility] Comment on above: 1 Occurrences starti ng 01/12/2024 until 01/10/2025 End: 08-25-2024 COLONOSCOPY DIAGNOSTIC COLONOSCOPY DIAGNOSTIC Endoscopy Routine Crohn's disease of small intestine with intestinal obstruction (HCC) 1 Occurrences starting 08/25/2023 until 08/25/2024 [facility] Work Phone: Comment on above: 1 Occurrences starti ng 08/25/2023 until 08/25/2024 End: 08-23-2024 Comprehensive metabolic 2000 panel - Serum or Plasma COMP METABOLIC PANEL Lab Routine Crohn's disease of small intestine with intestinal obstruction (HCC) 1 Occurrences starting 08/25/2023 until 08/23/2024 [facility] Work Phone: Comment on above: 1 Occurrences starti ng 08/25/2023 until 08/23/2024 End: 01-10-2025 Comprehensive metabolic 2000 panel - Serum or Plasma COMPREHENSIVE METABOLIC PANEL Lab Routine Crohn's disease of small intestine with intestinal obstruction (HCC) 1 Occurrences starting 01/12/2024 until 01/10/2025 [facility] Work Phone: Comment on above: 1 Occurrences starti ng 01/12/2024 until 01/10/2025 COPPER BLOOD COPPER BLOOD Lab Routine Crohn's disease of small intestine with intestinal obstruction (HCC) Abnormal blood cell count 01/27/2023 1:07 PM EDT [facility] Work Phone: End: 09-23-2024 MRI ABD ENTEROG WO/W IVCON MRI ABD ENTEROG WO/W IVCON Radiology Routine Crohn's disease of small and large intestines with complication (HCC) 1 Occurrences starting 08/25/2023 until 09/23/2024 [facility] Work Phone: Comment on above: 1 Occurrences starti ng 08/25/2023 until 09/23/2024 End: 09-23-2024 Mri pelvis w/o & w/contrast material MRI PEL ENTEROG WO/W IVCON Radiology Routine Crohn's disease of small and large intestines with complication (HCC) 1 Occurrences starting 08/25/2023 until 09/23/2024 [facility] Work Phone: Comment on above: 1 Occurrences starti ng 08/25/2023 until 09/23/2024 Patient Education Low back pain in adults [facility] Work Phone: SURGICAL PATHOLOGY [facility] Work Phone: Comment on above: Release Upon Orderin g for 1 Occurrences starting 11/15/2023, 1 completed VITAMIN B12 BLOOD VITAMIN B12 BL OOD Lab Routine Crohn's disease of small intestine with intestinal obstruction (HCC) 03/02/2022 2:09 PM EDT [facility] Work Phone: VITAMIN D 25 HYDROXY VITAMIN D 2 5 HYDROXY Lab Routine Crohn's disease of small intestine with intestinal obstruction (HCC) 03/02/2022 2:09 PM EDT [facility] Work Phone: XR Lumbar spine [address] [facility] Immunizations Immunization Date Immunization Notes Care Provider Eduardo yang 07-06-2012 pneumococcal polysaccharide vaccine, 23 valent Ap Denis Other [facility] Payers Date Payer Category Payer Private Health Insurance [employer] OAP [id number] 2023-Present [phone] [address] [place] [address] Open Access [id number] 2023 Private Health Insurance [id number] 2023 Blue Cross Blue Shield [id number] 2023 Medicare [employer] [facility] MEDICARE [id number] 2023-Present [phone] [address] [place] [address] HMO [id number] 2023 Medicare [id number] 2016 Unknown [employer] BLUE CARD PPO OOS [id number] 2016-Present [phone] [address] [place] [address] PPO [id number] 2016 Unknown [id number] 1978 Unknown [id number] 1959 Unknown [id number] Medicare [id number] Medicare [employer] [facility] PFFS [id number] 600 [id number] Private Health Insurance [facility] [id number] Social History Date Type Detail Facility Start: 02-20-2015 End: 11-18-2022 Tobacco smoking status MDIS Ex-smoker [facility] Start: 12-15-1996 End: 11-10-2023 History of tobacco use Current smoker [facility] Start: 12-15-1996 End: 12-15-2014 History of tobacco use Cigarette Smoker [facility] Start: 02-20-2015 End: 01-27-2023 Cigarettes smoked current (pack per day) - Reported 1 [facility] Start: 02-20-2015 End: 11-18-2022 Tobacco use and exposure Smokeless tobacco non-user [facility] Start: 10-26-2020 End: 01-12-2024 Alcohol intake Current drinker of alcohol (finding) [facility] Start: 02-01-2013 History SDOH Alcohol Comment Maybe once a year [facility] Start: 1980 Sex Assigned At Male [facility] Start: 12-26-2021 End: 08-16-2022 Exposure to SARS-CoV-2 (event) Not sure [facility] Start: 01-27-2023 End: 01-12-2024 Sex Assigned At [place] Other National Score (1-10 0), lower number is lower risk 59 [facility] Start: 10-26-2020 Gender identity Identifies as male gender (finding) [facility] Start: 10-26-2020 Sexual orientation Heterosexual (finding) [facility] Start: 08-06-2024 Sex Male (finding) [facility] Clinical Notes 01-05-2022 to 06-04-2024 Note Date & Type Note Facility 06-04-2024 Evaluation note Diagnosis Onset Date Resolution Abdominal pain despite therapy for Crohn's disease acute June 04, 2024 2:08pm Adjustment disorder with mixed anxiety and depressed mood acute June 04, 2024 2:08pm Insomnia acute May 2:08pm Fatigue acute May 1:39pm Grief reaction acute June 17, 2024 1:39pm Lumbar pain with radiation down right leg acute June 17, 2024 1:39pm Abdominal pain despite therapy for Crohn's disease acute August 06, 2 024 2:04pm Insomnia acute August 06, 2024 2:04pm [facility] Work Phone: [phone]) 268-214605-02-2024 Telephone encounter Note* Telephone Encounter - Deepali Castellanos RN - 01/25/2024 1:51 PM EDT Submitted PA request for Xifaxan via CMM. Awaiting insurance determination. Deepali Castellanos RN (Sykes: [id number]) - [id number] [facility]05-02-2024 Miscellaneous Notes* Telephone Encounter - Deepali Castellanos RN - 01/25/2024 1:51 PM EDT Submitted PA request for Xifaxan via CMM. Awaiting insurance determination. Deepali Castellanos RN (Sykes: [id number]) - [id number] [facility] History of Present illness Narrative* Deepali Stone MD, PhD - 01/12/2024 9:20 AM EDT EST PT OFFICE VISIT CC: Patient presents with: Established Patient: Crohn's disease of small intestine with intestinal obstruction Pt states 1 BM every other day, regular stools without bleeding. Mr. Mohan is here today for follow-up of: Crohn's disease. He is having abdominal pain Sometimes gets bloated but not too often Having bm with Is having cramping/spasming pain Weight is stable Not ready to schedule the scan Has some traveling ahead of him In precess of weaning off opiates VITALS: Blood pressure 117/82, pulse 98, height 182.9 cm (6'), weight 67 kg (147 lb 11.3 oz), SpO2 98%. ALLERGIES: Effexor [Venlafaxine Hcl], Imuran [Azathioprine Sodium], Colestipol, Entocort Ec [Budesonide], Lioresal [Baclofen], Questran [Cholestyramine (With Sugar)], Reglan [Metoclopramide Hcl], andUltram [Tramadol Hcl] MEDICATIONS: Current Outpatient Medications Medication Sig Dispense Refill OXYCONTIN 20 mg 12 hr tablet Take 20 mg by mouth as directed. enteric contrast (will be provided with radiology test) For MRI ENTEROGRAPHY WO/W Administer, As Directed One Time Only, via Oral, Rectal, both Oral and Rectal, Enteric Tube, Stoma or Indwelling Catheter, Enteric Contrast as designated per enteric contrast guidelines 1 Each 0 rOPINIRole (REQUIP) 2 mg tablet Take 2 tablets by mouth daily at bedtime. vedolizumab (ENTYVIO) 300 mg injection 300 mg iv every 8 weeks 1 Each 5 ondansetron orally disintegrating (ZOFRAN ODT) 4 mg disintegrating tablet DISSOLVE 1 (ONE) TABLET on the tongue EVERY 6 HOURS NEEDED 3 zolpidem (AMBIEN) 10 mg Take by mouth at bedtime as needed. oxyCODONE IR (ROXICODONE) 20 mg tab Take 20 mg by mouth every 4 hours as needed (pain). acetaminophen 650 mg CR tablet Take 1,300 mg by mouth twice daily. famotidine (PEPCID) 20 mg tablet Take 1 tablet by mouth twice daily. 60 tablet 0 rifAXIMin (XIFAXAN) 550 mg tablet Take 1 tablet by mouth three times a day. 42 tablet 0 cyanocobalamin, vitamin B-12, (VITAMIN B-12) 5,000 mcg subl Dissolve 1 tablet under the tongue oncedaily. 30 tablet 11 iv contrast (will be provided with radiology test) MRI Enterography Inject, intravenously, once for1 dose. No IV access, insert saline lock prior to the beginning of sedation, infusion, injection ofimaging exam. Discontinue saline lock post exam. If Pt. has a central line or IVAD, may access for administration according to line specific nursing protocol. Once exam is complete flush line and de-access according to line specific nursing protocol in the MR contrast administration guidelines link. (Patient not taking: Reported on 01/12/2024) 1 Each 0 glucagon (GLUCAGEN) 1 mg/mL injection Inject 1 mg intravenously one time only for 1 dose. For MRI Enterography, Inject 1 mg intravenously, as directed. Slow push at the appropriate time during MRI Scan 1 Each 0 No current facility-administered medications for this visit. Social History: Social History Tobacco Use Smoking status: Former Packs/day: 1.00 Years: 18.00 Additional pack years: 0.00 Total pack years: 18.00 Types: Cigarettes Quit date: 12/15/2014 Years since quittin.1 Smokeless tobacco: Never Substance Use Topics Alcohol use: Yes Comment: Maybe once a year Drug use: No Medical History: No changes since last visit. REVIEW OF SYSTEMS: GENERAL: weight stable, no fevers. CARDIOVASCULAR: No chest pain, no edema RESPIRATORY: No dyspnea The remainder of the review of systems are negative. Reviewed with patient during visit today. PHYSICAL EXAMINATION: GENERAL APPEARANCE: Well developed and well nourished. SKIN: Skin color, texture, turgor normal. No rashes or lesions. EYES: Conjunctiva normal without icterus. OROPHARYNX: lips, mucosa, and tongue normal, teeth and gums normal NECK: Supple, full range of motion, no lymphadenopathy, normal thyroid, LUNGS: Normal breath sounds, Clear to auscultation, No wheezes, No crackles. HEART:Normal PMI, Regular rate and rhythm, Normal heart sounds, S1 and S2 and No murmurs. NEURO: Alert and oriented in no acute distress. ABDOMEN: Normal bowel sounds, abdomen flat with no distention, Soft, non-tender, no hepatomegaly. no palpable masses, no abdominal bruits, no rebound and no rigidity. EXTREMITIES:Extremities normal, No deformities, No skin discoloration, No edema . Copy of narrative history per previous note with addendum/edit. 1994 dx 1999 bowel resection 2010 bowel resection 12/07 quit smoking Serial bowel resections, most recently 2015. Was on maximal dose ifx (10 mg/kg q4) with levels but still symptomatic and evidence of disease on mri and insurance would not authorize 12/01/16. was changed to entyvio His crp went up but now is down. 09/10 mri shows improvement 2017 repeated colonoscopy and no disease recurrence. For joint pains, I added mtx. He did not feel better in terms of joint and did not tolerate 2020 colonoscopy in remission 2023 colonoscopy ses 1 (erythema rectum) i0 all bx normal 2 adenoma ASSESSMENT/PLAN: (K50.012) Crohn's disease of small intestine with intestinal obstruction (HCC) (primary encounter diagnosis) (E55.9) Vitamin D deficiency-Severe (D84.9) Immunosuppression (HCC) (D12.6) Adenomatous polyp of colon, unspecified part of colon 43 yo with ileal Crohns, fibrostenosing, s/p serial resections most recently 2015 On Entyvio with endoscopic remission Has chronic back pain on opiates, is weaning off, this is good news. He has sense of malaise and not feeling well, will treat for sibo Check mri Biologic statement of necessity: Requires Entyvio to maintain remission. Tolerating with no side effects. No active infection. It is medically necessary to continue this medication otherwise at risk of flares, steroids, hospitalization and potentially surgery and very importantly permanent disabilit y. Biologics are not interchangeable. If a medication has been dose optimized, if it is not continued at that required dose the patient undergoes the risk of permanent loss of response. Deepali Stone MD, PhD [facility] NoteHNO ID: [id number] Author: DEEPALI STONE MD, PhD Service: ? Author Type: Physician Type: Progress Notes Filed: 01/20/2024 10:36 Note Text: EST PT OFFICE VISIT CC: Patient presents with: Established Patient: Crohn's disease of small intestine with intestinal obstruction Pt states 1 BM every other day, regular stools without bleeding. Mr. Mohan is here today for follow-up of: Crohn's disease. He is having abdominal pain Sometimes gets bloated but not too often Having bm with Is having cramping/spasming pain Weight is stable Not ready to schedule the scan Has some traveling ahead of him In precess of weaning off opiates VITALS: Blood pressure 117/82, pulse 98, height 182.9 cm (6'), weight 67 kg (147 lb 11.3 oz), SpO2 98%. ALLERGIES: Effexor [Venlafaxine Hcl], Imuran [Azathioprine Sodium], Colestipol, Entocort Ec [Budesonide], Lioresal [Baclofen], Questran [Cholestyramine (With Sugar)], Reglan [Metoclopramide Hcl], and Ultram [Tramadol Hcl] MEDICATIONS: Current Outpatient Medications Medication Sig Dispense Refill OXYCONTIN 20 mg 12 hr tablet Take 20 mg by mouth as directed. enteric contrast (will be provided with radiology test) For MRI ENTEROGRAPHY WO/W Administer, As Directed One Time Only, via Oral, Rectal, both Oral and Rectal, Enteric Tube, Stoma or Indwelling Catheter, Enteric Contrast as designated per enteric contrast guidelines 1 Each 0 rOPINIRole (REQUIP) 2 mg tablet Take 2 tablets by mouth daily at bedtime. vedolizumab (ENTYVIO) 300 mg injection 300 mg iv every 8 weeks 1 Each 5 ondansetron orally disintegrating (ZOFRAN ODT) 4 mg disintegrating tablet DISSOLVE 1 (ONE) TABLET on the tongue EVERY 6 HOURS NEEDED 3 zolpidem (AMBIEN) 10 mg Take by mouth at bedtime as needed. oxyCODONE IR (ROXICODONE) 20 mg tab Take 20 mg by mouth every 4 hours as needed (pain). acetaminophen 650 mg CR tablet Take 1,300 mg by mouth twice daily. famotidine (PEPCID) 20 mg tablet Take 1 tablet by mouth twice daily. 60 tablet 0 rifAXIMin (XIFAXAN) 550 mg tablet Take 1 tablet by mouth three times a day. 42 tablet 0 cyanocobalamin, vitamin B-12, (VITAMIN B-12) 5,000 mcg subl Dissolve 1 tablet under the tongue once daily. 30 tablet 11 iv contrast (will be provided with radiology test) MRI Enterography Inject, intravenously, once for 1 dose. No IV access, insert saline lock prior to the beginning of sedation, infusion, injection of imaging exam. Discontinue saline lock post exam. If Pt. has a central line or IVAD, may access for administration according to line specific nursing protocol. Once exam is complete flush line and de-access according to line specific nursing protocol in the MR contrast administration guidelines link. (Patient not taking: Reported on 01/12/2024) 1 Each 0 glucagon (GLUCAGEN) 1 mg/mL injection Inject 1 mg intravenously one time only for 1 dose. For MRI Enterography, Inject 1 mg intravenously, as directed. Slow push at the appropriate time during MRI Scan 1 Each 0 No current facility-administered medications for this visit. Social History: Social History Tobacco Use Smoking status: Former Packs/day: 1.00 Years: 18.00 Additional pack years: 0.00 Total pack years: 18.00 Types: Cigarettes Quit date: 12/15/2014 Years since quittin.1 Smokeless tobacco: Never Substance Use Topics Alcohol use: Yes Comment: Maybe once a year Drug use: No Medical History: No changes since last visit. REVIEW OF SYSTEMS: GENERAL: weight stable, no fevers. CARDIOVASCULAR: No chest pain, no edema RESPIRATORY: No dyspnea The remainder of the review of systems are negative. Reviewed with patient during visit today. PHYSICAL EXAMINATION: GENERAL APPEARANCE: Well developed and well nourished. SKIN: Skin color, texture, turgor normal. No rashes or lesions. EYES: Conjunctiva normal without icterus. OROPHARYNX: lips, mucosa, and tongue normal, teeth and gums normal NECK: Supple, full range of motion, no lymphadenopathy, normal thyroid, LUNGS: Normal breath sounds, Clear to auscultation, No wheezes, No crackles. HEART:Normal PMI, Regular rate and rhythm, Normal heart sounds, S1 and S2 and No murmurs. NEURO: Alert and oriented in no acute distress. ABDOMEN: Normal bowel sounds, abdomen flat with no distention, Soft, non-tender, no hepatomegaly. no palpable masses, no abdominal bruits, no rebound and no rigidity. EXTREMITIES:Extremities normal, No deformities, No skin discoloration, No edema . Copy of narrative history per previous note with addendum/edit. 1994 dx 1999 bowel resection 2010 bowel resection 12/07 quit smoking Serial bowel resections, most recently 2016. Was on maximal dose ifx (10 mg/kg q4) with levels but still symptomatic and evidence of disease on mri and insurance would not authorize 12/01/16. was changed to entyvio His crp went up but now is down. 09/10 mri shows improvement 2018 repeated colonoscopy and (more content not included)...[facility]04-04[facility]24 NoteHNO ID: [id number] Author: MICHELE TURCIOS RN Service: ? Author Type: Registered Nurse Type: Progress Notes Filed: 12/28/2023 15:29 Note Text: Patient has arrived for Entyvio per Dr Stone. There are no signed orders to proceed. Provider paged. Michele Turcios RNPro[facility]04-[facility] History of Present illness Narrative* Michele Turcios RN - 12/28/2023 2:03 PM EDT Patient has arrived for Entyvio per Dr Stone. There are no signed orders to proceed. Provider paged. Michele Turcios RN documented in this encounterCl[facility]02-21-[facility]24 History and physical note * Deepali Stone MD, PhD - 11/15/2023 12:45 PM EST PROCEDURAL SEDATION HISTORY AND PHYSICAL EXAM SERVICE DATE: 11/15/2023 SERVICE TIME: 1:18 PM Subjective HPI: This is a 43 year old male who presents with crohns PAST ANESTHESIA HISTORY: No history of adverse event PAST MEDICAL HISTORY Diagnosis Date Chronic back pain Crohn's disease (HCC) dx'd 1993, small bowel RLS (restless legs syndrome) PAST SURGICAL HISTORY Procedure Laterality Date PAST SURGICAL HISTORY OF 09/25/1993 bowel resection PAST SURGICAL HISTORY OF 09/25/2000 bowel resection PAST SURGICAL HISTORY OF 09/25/2004 vasectomy PAST SURGICAL HISTORY OF right inguinal hernia PAST SURGICAL HISTORY OF 09/25/2010 bowel resection PAST SURGICAL HISTORY OF 12/16/2015 Exploratory laparotomy, lysis of adhesions, resection of ileocolic anastomosis with creation of newileocolic anastomosis, omental pedicle flap Prior to Admission medications as of 11/15/23 1231 Medication Sig Last Dose Taking OXYCONTIN 20 mg 12 hr tablet Take 20 mg by mouth every 12 hours. 11/15/2023 Yes rOPINIRole (REQUIP) 2 mg tablet Take 2 tablets by mouth daily at bedtime. 11/14/2023 Yes ondansetron orally disintegrating (ZOFRAN ODT) 4 mg disintegrating tablet DISSOLVE 1 (ONE) TABLET on the tongue EVERY 6 HOURS NEEDED 11/14/2023 Yes zolpidem (AMBIEN) 10 mg Take by mouth at bedtime as needed. 11/14/2023 Yes oxyCODONE IR (ROXICODONE) 20 mg tab Take 20 mg by mouth every 4 hours as needed (pain). 11/15/2023 Yes acetaminophen 650 mg CR tablet Take 1,300 mg by mouth twice daily. 11/15/2023 Yes famotidine (PEPCID) 20 mg tablet Take 1 tablet by mouth twice daily. Patient taking differently: Take 20 mg by mouth once daily. 11/14/2023 Yes iv contrast (will be provided with radiology test) MRI Enterography Inject, intravenously, once for1 dose. No IV access, insert saline lock prior to the beginning of sedation, infusion, injection ofimaging exam. Discontinue saline lock post exam. If Pt. has a central line or IVAD, may access for administration according to line specific nursing protocol. Once exam is complete flush line and de-access according to line specific nursing protocol in the MR contrast administration guidelines link. enteric contrast (will be provided with radiology test) For MRI ENTEROGRAPHY WO/W Administer, As Directed One Time Only, via Oral, Rectal, both Oral and Rectal, Enteric Tube, Stoma or Indwelling Catheter, Enteric Contrast as designated per enteric contrast guidelines glucagon (GLUCAGEN) 1 mg/mL injection Inject 1 mg intravenously one time only for 1 dose. For MRI Enterography, Inject 1 mg intravenously, as directed. Slow push at the appropriate time during MRI Scan vedolizumab (ENTYVIO) 300 mg injection 300 mg iv every 8 weeks 11/02/2023 metroNIDAZOLE (METROGEL) 0.75 % Topical Gel Apply to affected areas on face at bedtime. Patient not taking: Reported on 11/02/2023 EUCRISA 2 % oint Apply to affected area. APPLY TO THE AFFECTED AREA(S) TWICE DAILY. Patient not taking: Reported on 11/02/2023 ALLERGIES Allergen Reactions Effexor [Venlafaxin* Other: See Comments Hot flashes, and tachycardia Imuran [Azathioprin* Other: See Comments Nausea Colestipol Other: See Comments Joint pian Entocort Ec [Budeso* Other: See Comments Cramps Lioresal [Baclofen] Other: See Comments [place] off , dizziness, irregular heart beat/breathing, difficult to wake up. Questran [Cholestyr* Other: See Comments Nausea Reglan [Metoclopram* Other: See Comments anxiety, states couldn't control himself Ultram [Tramadol Hc* Other: See Comments Dizzy, vertigo Objective PHYSICAL EXAM: The remainder of the physical exam is noncontributory. AIRWAY: Airway Visualization of Uvula: Yes Mouth opening greater than 2 fingerbreadths: Yes Neck Full Range of Motion: Yes LUNGS: ctab CARDIAC: , rrr Assessment/Plan ASA Class: ASA Class:: Patient with severe systemic disease Active Problems: * No active hospital problems. * Resolved Problems: * No resolved hospital problems. * Medication and Non-Pharmacologic VTE Prophylaxis/Anticoagulants VTE Prophylaxis: none Provisional Diagnosis/Treatment Plan: crohns SIGNATURE: Deepali Stone MD, PhD PATIENT NAME: Herminio Mohan DATE: November 15, 2023 TIME: 1:18 PM documented in this encounterClerm[facility]02-08-[facility] Evaluation note* Encounter Date Diagnosis Assessment Notes Treatment Notes Treatment Clinical Notes Oct, Pernicious anemia (ICD-10 - D51.0) [facility] 01-26-2024 Evaluation note* Encounter Date Diagnosis Assessment Notes Treatment Notes Treatment Clinical Notes Sep, Pernicious anemia (ICD-10 - D51.0) [facility] 12-28-2023 Evaluation note* Encounter Date Diagnosis Assessment Notes Treatment Notes Treatment Clinical Notes Aug, Crohn's disease with other complication, unspecified gastrointestinal tract location (ICD-10 - K50.918) [facility] 12-20-2023 Evaluation note* Encounter Date Diagnosis Assessment Notes Treatment Notes Treatment Clinical Notes Aug, Crohn's disease with other complication, unspecified gastrointestinal tract location (ICD-10 - K50.918) [facility] 12-01-2023 History of Present illness Narrative* Deepali Stone MD, PhD - 08/25/2023 3:20 PM EST EST PT OFFICE VISIT CC: Patient presents with: Established Patient: 9 month follow up Pt states no BM in the last two days. Pt states not in a flare up. Mr. Mohan is here today for follow-up of: Crohn's disease. Lots of rough days Had to miss the scope he got bad diarrhea The day of clean out Could not drink fluids Could not drink coffee Thought no way he could drink the prep Fatigue level higher Pain on left side Has th constant on the right side Stopped the medical cannibis Vaccine Tetanus is utd Pneumo he thinks he got at my suggestion Hep B ? PPD Hep A VZV had a child Flu does not get Pertussis Skin no check Bone covid 02/12 03/15 did not have ifx VITALS: Blood pressure 118/84, pulse 85, height 182.9 cm (6'), weight 65.8 kg (145 lb). ALLERGIES: Effexor [Venlafaxine Hcl], Imuran [Azathioprine Sodium], Colestipol, Entocort Ec [Budesonide], Lioresal [Baclofen], Questran [Cholestyramine (With Sugar)], Reglan [Metoclopramide Hcl], andUltram [Tramadol Hcl] MEDICATIONS: Current Outpatient Medications Medication Sig Dispense Refill OXYCONTIN 20 mg 12 hr tablet rOPINIRole (REQUIP) 2 mg tablet Take 2 tablets by mouth daily at bedtime. vedolizumab (ENTYVIO) 300 mg injection 300 mg iv every 8 weeks 1 Each 5 metroNIDAZOLE (METROGEL) 0.75 % Topical Gel Apply to affected areas on face at bedtime. 45 g 2 EUCRISA 2 % oint Apply to affected area. APPLY TO THE AFFECTED AREA(S) TWICE DAILY. 1 ondansetron orally disintegrating (ZOFRAN ODT) 4 mg disintegrating tablet DISSOLVE 1 (ONE) TABLET on the tongue EVERY 6 HOURS NEEDED 3 zolpidem (AMBIEN) 10 mg Take by mouth at bedtime as needed. oxyCODONE 30 mg tab ER 12hr Take 30 mg by mouth every 6 hours as needed. acetaminophen 650 mg CR tablet Take 1,300 mg by mouth twice daily. famotidine (PEPCID) 20 mg tablet Take 1 tablet by mouth twice daily. (Patient taking differently: Take 20 mg by mouth once daily.) 60 tablet 0 No current facility-administered medications for this visit. Social History: Social History Tobacco Use Smoking status: Former Packs/day: 1.00 Years: 18.00 Additional pack years: 0.00 Total pack years: 18.00 Types: Cigarettes Quit date: 12/15/2014 Years since quittin.6 Smokeless tobacco: Never Substance Use Topics Alcohol use: Yes Comment: Maybe once a year Drug use: No Medical History: No changes since last visit. REVIEW OF SYSTEMS: GENERAL: weight stable, no fevers. CARDIOVASCULAR: No chest pain, no edema RESPIRATORY: No dyspnea The remainder of the review of systems are negative. Reviewed with patient during visit today. PHYSICAL EXAMINATION: GENERAL APPEARANCE: thin SKIN: Skin color, texture, turgor normal. No rashes or lesions. EYES: Conjunctiva normal without icterus. OROPHARYNX: lips, mucosa, and tongue normal, teeth and gums normal NECK: Supple, full range of motion, no lymphadenopathy, normal thyroid, LUNGS: Normal breath sounds, Clear to auscultation, No wheezes, No crackles. HEART:Normal PMI, Regular rate and rhythm, Normal heart sounds, S1 and S2 and No murmurs. NEURO: Alert and oriented in no acute distress. ABDOMEN: Normal bowel sounds, abdomen flat with no distention, Soft, mild tender, no hepatomegaly. no palpable masses, no abdominal bruits, no rebound and no rigidity. EXTREMITIES:Extremities normal, No deformities, No skin discoloration, No edema . Copy of narrative history per previous note with addendum/edit. 1994 dx 1999 bowel resection 2010 bowel resection 12/07 quit smoking Serial bowel resections, most recently 2015. Was on maximal dose ifx (10 mg/kg q4) with levels but still symptomatic and evidence of disease on mri and insurance would not authorize 12/01/16. was changed to entyvio His crp went up but now is down. 09/10 mri shows improvement 2017 repeated colonoscopy and no disease recurrence. For joint pains, I added mtx. 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 Biologic statement of necessity: Requires Entyvio to maintain remission. Tolerating with no side effects. No active infection. It is medically necessary to continue this medication otherwise at risk of flares, steroids, hospitalization and potentially surgery and very importantly permanent disabilit y. Biologics are not interchangeable. If a medication has been dose optimized, if it is not continued at that required dose the patient undergoes the risk of permanent loss of response. Vaccines are utd Labs He was not able to do prep last time so had to cancel his procedure He is was upset. Will try to get it for him ? Need to dilate and assess for active disease Deepali Stone MD, PhD documented in this encounterCl[facility]12-01-[facility]23 NoteHNO ID: [id number] Author: Deepali Stone MD, PhD Service: ? Author Type: Physician Type: Progress Notes Filed: 09/02/2023 6:04 PM Note Text: EST PT OFFICE VISIT CC: Patient presents with: Established Patient: 9 month follow up Pt states no BM in the last two days. Pt states not in a flare up. Mr. Mohan is here today for follow-up of: Crohn's disease. Lots of rough days Had to miss the scope he got bad diarrhea The day of clean out Could not drink fluids Could not drink coffee Thought no way he could drink the prep Fatigue level higher Pain on left side Has th constant on the right side Stopped the medical cannibis Vaccine Tetanus is utd Pneumo he thinks he got at my suggestion Hep B ? PPD Hep A VZV had a child Flu does not get Pertussis Skin no check Bone covid 02/12 03/15 did not have ifx VITALS: Blood pressure 118/84, pulse 85, height 182.9 cm (6'), weight 65.8 kg (145 lb). ALLERGIES: Effexor [Venlafaxine Hcl], Imuran [Azathioprine Sodium], Colestipol, Entocort Ec [Budesonide], Lioresal [Baclofen], Questran [Cholestyramine (With Sugar)], Reglan [Metoclopramide Hcl], and Ultram [Tramadol Hcl] MEDICATIONS: Current Outpatient Medications Medication Sig Dispense Refill OXYCONTIN 20 mg 12 hr tablet rOPINIRole (REQUIP) 2 mg tablet Take 2 tablets by mouth daily at bedtime. vedolizumab (ENTYVIO) 300 mg injection 300 mg iv every 8 weeks 1 Each 5 metroNIDAZOLE (METROGEL) 0.75 % Topical Gel Apply to affected areas on face at bedtime. 45 g 2 EUCRISA 2 % oint Apply to affected area. APPLY TO THE AFFECTED AREA(S) TWICE DAILY. 1 ondansetron orally disintegrating (ZOFRAN ODT) 4 mg disintegrating tablet DISSOLVE 1 (ONE) TABLET on the tongue EVERY 6 HOURS NEEDED 3 zolpidem (AMBIEN) 10 mg Take by mouth at bedtime as needed. oxyCODONE 30 mg tab ER 12hr Take 30 mg by mouth every 6 hours as needed. acetaminophen 650 mg CR tablet Take 1,300 mg by mouth twice daily. famotidine (PEPCID) 20 mg tablet Take 1 tablet by mouth twice daily. (Patient taking differently: Take 20 mg by mouth once daily.) 60 tablet 0 No current facility-administered medications for this visit. Social History: Social History Tobacco Use Smoking status: Former Packs/day: 1.00 Years: 18.00 Additional pack years: 0.00 Total pack years: 18.00 Types: Cigarettes Quit date: 12/15/2014 Years since quittin.6 Smokeless tobacco: Never Substance Use Topics Alcohol use: Yes Comment: Maybe once a year Drug use: No Medical History: No changes since last visit. REVIEW OF SYSTEMS: GENERAL: weight stable, no fevers. CARDIOVASCULAR: No chest pain, no edema RESPIRATORY: No dyspnea The remainder of the review of systems are negative. Reviewed with patient during visit today. PHYSICAL EXAMINATION: GENERAL APPEARANCE: thin SKIN: Skin color, texture, turgor normal. No rashes or lesions. EYES: Conjunctiva normal without icterus. OROPHARYNX: lips, mucosa, and tongue normal, teeth and gums normal NECK: Supple, full range of motion, no lymphadenopathy, normal thyroid, LUNGS: Normal breath sounds, Clear to auscultation, No wheezes, No crackles. HEART:Normal PMI, Regular rate and rhythm, Normal heart sounds, S1 and S2 and No murmurs. NEURO: Alert and oriented in no acute distress. ABDOMEN: Normal bowel sounds, abdomen flat with no distention, Soft, mild tender, no hepatomegaly. no palpable masses, no abdominal bruits, no rebound and no rigidity. EXTREMITIES:Extremities normal, No deformities, No skin discoloration, No edema . Copy of narrative history per previous note with addendum/edit. 1994 dx 1999 bowel resection 2010 bowel resection 12/07 quit smoking Serial bowel resections, most recently 2015. Was on maximal dose ifx (10 mg/kg q4) with levels but still symptomatic and evidence of disease on mri and insurance would not authorize 12/01/16. was changed to entyvio His crp went up but now is down. 09/10 mri shows improvement 2018 repeated colonoscopy and no disease recurrence. For joint pains, I added mtx. 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 Biologic statement of necessity: Requires Entyvio to maintain remission. Tolerating with no side effects. No active infection. It is medically necessary to continue this medication otherwise at risk of flares, steroids, hospitalization and potentially surgery and very importantly permanent disability. Biologics are not interchangeable. If a medication has been dose optimized, if it is not continued at that required dose the (more content not included)...[facility]11-29-[facility]* Encounter Date Diagnosis Assessment Notes Treatment Notes Treatment Clinical Notes Jul, Crohn's disease with other complication, unspecified gastrointestinal tract location (ICD-10 - K50.918) [facility] 11-21-2023 Evaluation note* Encounter Date Diagnosis Assessment Notes Treatment Notes Treatment Clinical Notes Jul, Crohn's disease with other complication, unspecified gastrointestinal tract location (ICD-10 - K50.918) [facility] 11-20-2023 Evaluation note* Encounter Date Diagnosis Assessment Notes Treatment Notes Treatment Clinical Notes Jul, Crohn's disease with other complication, unspecified gastrointestinal tract location (ICD-10 - K50.918) [facility] 11-14-2023 Evaluation note* Encounter Date Diagnosis Assessment Notes Treatment Notes Treatment Clinical Notes Jul, Crohn's disease with other complication, unspecified gastrointestinal tract location (ICD-10 - K50.918) [facility] 10-27-2023 Evaluation note* Encounter Date Diagnosis Assessment Notes Treatment Notes Treatment Clinical Notes Jun, Crohn's disease with other complication, unspecified gastrointestinal tract location (ICD-10 - K50.918) [facility] 10-25-2023 Evaluation note* Encounter Date Diagnosis Assessment Notes Treatment Notes Treatment Clinical Notes Jun, Crohn's disease with other complication, unspecified gastrointestinal tract location (ICD-10 - K50.918) [facility] 10-16-2023 Evaluation note* Encounter Date Diagnosis Assessment Notes Treatment Notes Treatment Clinical Notes Jun, Crohn's disease with other complication, unspecified gastrointestinal tract location (ICD-10 - K50.918) Reviewed [place] report. Followup in 3 months. Changed meds to reflect his new insurance and their formulary. [facility] 09-13-2023 Evaluation note* Encounter Date Diagnosis Assessment Notes Treatment Notes Treatment Clinical Notes May, Crohn's disease with other complication, unspecified gastrointestinal tract location (ICD-10 - K50.918) [facility] 08-16-2023 Evaluation note* Encounter Date Diagnosis Assessment Notes Treatment Notes Treatment Clinical Notes Apr, Crohn's disease with other complication, unspecified gastrointestinal tract location (ICD-10 - K50.918) [facility] 07-14-2023 Evaluation note* Encounter Date Diagnosis Assessment Notes Treatment Notes Treatment Clinical Notes Mar, Crohn's disease with other complication, unspecified gastrointestinal tract location (ICD-10 - K50.918) Pt requests to have an increased amount due to traveling this month. Will go back to #150 next month Mar, Primary insomnia (ICD-10 - F51.01) Pt states problem is chronic and is addressed w present meds. Mar, Restless legs syndro me (RLS) (ICD-10 - G25.81) This is a chronic problem. encouraged hydration and exercise as able. [facility] 06-30-2023 Miscellaneous Notes* Telephone Encounter - Deepali Stone MD, PhD - 03/24/2023 2:27 PM EDT Removed thx * Telephone Encounter - Kelly Steward RN - 03/23/2023 3:36 PM EDT Herminio does not take the benadryl or tylenol prior to his entyvio infusions. Would you mind removingthese premeds from all future plans to avoid confusion? Thank you, Kelly Steward RN documented in this encounterClerm[facility]05-02-2023 Miscellaneous Notes* Telephone Encounter - Deepali Castellanos RN - 01/24/2023 1:13 PM EDT Called [facility] at [phone] and spoke Jen. Jen was informed patient could schedule earlier due to scheduling conflict per Dr. Stone. Informed Jen that there is documentation via [email or web address] from 01/23/23. Jen verbalized understanding. Deepali Castellanos RN documented in this encounterClerm[facility]04-27-2023 Evaluation note* Encounter Date Diagnosis Assessment Notes Treatment Notes Treatment Clinical Notes Dec, Restless legs syndrome (RLS) (ICD-10 - G25.81) [facility] 04-26-2023 Evaluation note* Encounter Date Diagnosis Assessment Notes Treatment Notes Treatment Clinical Notes Dec, Restless legs syndro me (RLS) (ICD-10 - G25.81) chronic problem continue present meds. Dec, Crohn's disease with other complication, unspecified gastrointestinal tract location (ICD-10 - K50.918) Refilled Zofran. Discussed with next prescription fill to increase Xtampza as to the next dose and decrease oxycodone dose in hopes of better chronic pain control. Reviewed [place] report. Patient understands controlled substance and to not fill early Dec, Primary insomnia (ICD-10 - F51.01) will resend prescription and work on prior Auth as he has failed Ambien for insomnia all doses [facility] 04-19-2023 Evaluation note* Encounter Date Diagnosis Assessment Notes Treatment Notes Treatment Clinical Notes Dec, Crohn's disease with other complication, unspecified gastrointestinal tract location (ICD-10 - K50.918) [facility] 03-16-2023 Miscellaneous Notes* Telephone Encounter - Deepali Castellanos RN - 12/08/2022 1:54 PM EDT Lab results from 12/07/[address] Stone for review. Deepali Castellanos RN documented in this encounterClerm[facility]01-26-2023 Evaluation note* Encounter Date Diagnosis Assessment Notes Treatment Notes Treatment Clinical Notes Sep, Restless legs syndrome (RLS) (ICD-10 - G25.81) [facility] 01-23-2023 Evaluation note* Encounter Date Diagnosis Assessment Notes Treatment Notes Treatment Clinical Notes Sep, Primary insomnia (ICD-10 - F51.01) As Marvel would like we will start new medication. Discussed side effects and other things to look out for with new medicine. Sep, Restless legs syndro me (RLS) (ICD-10 - G25.81) Patient states he is stable on present dose and requests a refill Sep, Crohn's disease with other complication, unspecified gastrointestinal tract location (ICD-10 - K50.918) Reviewed [place] report we will continue to monitor medication. Decrease in dose about 5 months ago was completed. [facility] 12-12-2022 Miscellaneous Notes* Telephone Encounter - Cassidy Zacarias - 09/05/2022 10:41 AM EST Scheduled * Telephone Encounter - Deepali Stone MD, PhD - 08/26/2022 7:33 AM EST He needs to be seen to continue crohns therapy Please offer next available dept use [facility] History of Present illness Narrative* Blanca Dobbins RN - 03/02/2022 2:36 PM EDT . [facility] History of Present illness Narrative* Deepali Stone MD, PhD - 01/21/2022 10:59 AM EDT EST PT OFFICE VISIT Patient states, feeling ok on entyvio CC: Patient presents with: Established Patient Follow-Up: Crohn's disease of small intestine with intestinal obstruction Is eating one meal a day and resting a lot Does better No blood-rare Not black stool Hurts when it comes Goes days without Having constiopation if he has not gone he might take dulolax or miralax No severe anal pain pmld Weight stable to up His pain is abdominal right side Joint pains Vaccine Tetanus is utd Pneumo he thinks he got at my suggestion Hep B ? PPD Hep A VZV had a child Flu does not get Pertussis Skin no check Bone covid 02/12 03/15 did not have ifx VITALS: Blood pressure 120/70, pulse 97, weight 67.3 kg (148 lb 4.8 oz), SpO2 98 %. ALLERGIES: Effexor [Venlafaxine Hcl], Imuran [Azathioprine Sodium], Colestipol, Entocort Ec [Budesonide], Lioresal [Baclofen], Questran [Cholestyramine (With Sugar)], Reglan [Metoclopramide Hcl], andUltram [Tramadol Hcl] MEDICATIONS: Current Outpatient Medications Medication Sig Dispense Refill rOPINIRole (REQUIP) 2 mg tablet Take 2 tablets by mouth daily at bedtime. vedolizumab (ENTYVIO) 300 mg injection 300 mg iv every 8 weeks 1 Each 5 metroNIDAZOLE (METROGEL) 0.75 % Topical Gel Apply to affected areas on face at bedtime. 45 g 2 oxyCODONE myristate (XTAMPZA ER) 18 mg CSpT Take by mouth. COMPOUNDED PRESCRIPTION Medical Marijuna EUCRISA 2 % oint Apply to affected area. APPLY TO THE AFFECTED AREA(S) TWICE DAILY. 1 ondansetron orally disintegrating (ZOFRAN ODT) 4 mg disintegrating tablet DISSOLVE 1 (ONE) TABLET on the tongue EVERY 6 HOURS NEEDED 3 zolpidem (AMBIEN) 10 mg tab Take by mouth at bedtime as needed. oxyCODONE (OXYCONTIN) 30 mg TR12 Take 30 mg by mouth every 4 hours as needed. acetaminophen (TYLENOL ARTHRITIS PAIN) 650 mg CR tablet Take 1,300 mg by mouth twice daily. famotidine (PEPCID) 20 mg tablet Take 1 tablet by mouth twice daily. (Patient taking differently: Take 20 mg by mouth once daily. ) 60 tablet 0 rOPINIRole (REQUIP) 1 mg tablet Take 2 tablets by mouth daily at bedtime. No current facility-administered medications for this visit. Social History: Social History Tobacco Use Smoking status: Former Smoker Packs/day: 1.00 Years: 18.00 Pack years: 18.00 Types: Cigarettes Quit date: 12/15/2014 Years since quittin.1 Smokeless tobacco: Never Used Substance Use Topics Alcohol use: Yes Comment: Maybe once a year Drug use: No Medical History: No changes since last visit. REVIEW OF SYSTEMS: GENERAL: weight stable, no fevers. CARDIOVASCULAR: No chest pain, no edema RESPIRATORY: No dyspnea The remainder of the review of systems are negative. Reviewed with patient during visit today. PHYSICAL EXAMINATION: GENERAL APPEARANCE: Well developed and well nourished. SKIN: Skin color, texture, turgor normal. No rashes or lesions. EYES: Conjunctiva normal without icterus. OROPHARYNX:masked NECK: Supple, full range of motion, no lymphadenopathy, normal thyroid, LUNGS: Normal breath sounds, Clear to auscultation, No wheezes, No crackles. HEART:Normal PMI, Regular rate and rhythm, Normal heart sounds, S1 and S2 and No murmurs. NEURO: Alert and oriented in no acute distress. ABDOMEN: Normal bowel sounds, abdomen flat with no distention, Soft, non-tender, no hepatomegaly. no palpable masses, no abdominal bruits, no rebound and no rigidity. EXTREMITIES:Extremities normal, No deformities, No skin discoloration, No edema . Copy of narrative history per previous note with addendum/edit. Serial bowel resections, most recently 2015. Was on maximal dose ifx (10 mg/kg q4) with levels but still symptomatic and evidence of disease on mri and insurance would not authorize it so was changedto entyvio 12/01/16. His crp went up but now is down. joint pains, I added mtx. 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 Will you please renew it for him. Thank you Golden Pisano RPh documented in this encounterCl[facility]04-13-[facility] History of Present illness Narrative* Alisia Lopes RN - 01/05/2022 2:07 PM EDT Patient states his bowels move every other day or 2-3 x week. It is of normal consistency but smallamounts. His biggest complaints continue to be fatigue and right lower quadrant pain in his abdomen. States this is not new or different for him. Alisia Lopes RN documented in this encounterClerm[facility] HospitalChi complaint+Reason for visit Narrative* Chief Complaint 3 Month Follow Up Amb Documentation Amb Documentation [address] Denis Referral Reason for Visit Crohn's disease, uns pecified, with other complication Fibromyalgia Primary insomnia Restless leg syndrome Abdominal pain despite therapy for Crohn's disease Crohn's disease Encounter for palliative care Fibromyalgia Primary insomnia [facility] Work Phone: Chihk complaint+Reason for visit Narrative* Chief Complaint [address] Denis Referral Patient here for a 1 month f/u in office Reason for Visit Crohn's disease, uns pecified, with other complication Fibromyalgia Primary insomnia Restless leg syndrome Abdominal pain despite therapy for Crohn's disease Crohn's disease Encounter for palliative care Crohn's disease Fibromyalgia [facility] Work Phone: Chiud complaint+Reason for visit Narrative* Chief Complaint Dr. Denis Referral Patient here for a 1 month f/u in office Patient here for a 1 month f/u in office Reason for Visit Abdominal pain despi te therapy for Crohn's disease Crohn's disease Encounter for palliative care Abdominal pain despite therapy for Crohn's disease Crohn's disease Abdominal pain despite therapy for Crohn's disease Crohn's disease, unspecified, with other complication [facility] Work Phone: Evaluation note* Diagnosis Crohn's disease of both small and large intestine with intestinal obstruction (HCC)- 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 intestine [facility] Diagnosis Crohn's disease of small intestine with intestinal obstruction (HCC)- Primary Regional enteritis of small intestine [facility]* Diagnosis Crohn's disease of both small and large intestine with intestinal obstruction (HCC)- 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 intestine Crohn's disease of small intestine with intestinal obstruction (HCC) Regional enteritis of small intestine [facility] Diagnosis Crohn's disease of both small and large intestine with intestinal obstruction (HCC)- 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 intestine [facility] Diagnosis Crohn's disease of both small and large intestine with intestinal obstruction (HCC)- 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 intestine [facility] Crohn's disease of both small and large intestine with intestinal obstruction (HCC)- 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 intestine [facility] noteNo InformationNort mokono Other Evaluation note* Diagnosis Crohn's disease of both small and large intestine with intestinal obstruction (HCC)- 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 intestine Crohn's disease of small intestine with intestinal obstruction (HCC) Regional enteritis of small intestine Immunosuppression (HCC) Unspecified disorder of immune mechanism [facility] Diagnosis Crohn's disease of small intestine with intestinal obstruction (HCC)- Primary Regional enteritis of small intestine Abnormal blood cell count [facility] Diagnosis Crohn's disease of both small and large intestine with intestinal obstruction (HCC)- 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 intestine Crohn's disease of small intestine with intestinal obstruction (HCC) Regional enteritis of small intestine Abnormal blood cell count [facility] Diagnosis Crohn's disease of both small and large intestine with intestinal obstruction (HCC)- 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 intestine [facility] Diagnosis Crohn's disease of small intestine with intestinal obstruction (HCC)- Primary Regional enteritis of small intestine Crohn's disease of small and large intestines with complication (HCC) [facility]* Diagnosis Crohn's disease of both small and large intestine with intestinal obstruction (HCC)- 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 intestine Crohn's disease of small intestine with intestinal obstruction (HCC) [facility] enteritis of small intestine [facility] Diagnosis Crohn's disease of both small and large intestine with intestinal obstruction (HCC)- 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 intestine [facility]* Diagnosis Crohn's disease of small intestine with intestinal obstruction (HCC) Regional enteritis of small intestine [facility] noteNo assessment information availableAs[facility] Work Phone: evalutoksa note* Diagnosis Onset Date Resolution Status Crohn's disease, unspecified, with other complication acute Fibromyalgia acute Primary insomnia acute Restless leg syndrome acute Abdominal pain despite therapy for Crohn's disease acute Crohn's disease acute Encounter for palliative care acute Fibromyalgia acute Primary insomnia acute [facility] Work Phone: evaluation note* Diagnosis Crohn's disease of small intestine with intestinal obstruction (HCC)- Primary Regional enteritis of small intestine Vitamin D deficiency-Severe Unspecified vitamin D deficiency Immunosuppression (HCC) Unspecified disorder of immune mechanism Adenomatous polyp of colon, unspecified part of colon documented in this encounter [facility] note* Diagnosis Crohn's disease of both small and large intestine with intestinal obstruction (HCC)- 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 intestine Crohn's disease of small intestine with intestinal obstruction (HCC) Regional enteritis of small intestine documented in this encounter [facility] note* Diagnosis Onset Date Resolution Status Crohn's disease, unspecified, with other complication acute Fibromyalgia acute Primary insomnia acute Restless leg syndrome acute Abdominal pain despite therapy for Crohn's disease acute Crohn's disease acute Encounter for palliative care acute Crohn's disease acute Fibromyalgia acute [facility] Work Phone: evaluation note* Diagnosis Onset Date Resolution Status Abdominal pain despite therapy for Crohn's disease acute Crohn's disease acute Encounter for palliative care acute Abdominal pain despite therapy for Crohn's disease acute Crohn's disease acute Abdominal pain despite therapy for Crohn's disease acute Crohn's disease, unspecified, with other complication acute [facility] Work Phone: [email or web address] note* Diagnosis Crohn's disease of both small and large intestine with intestinal obstruction (HCC)- 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 intestine documented in this encounter [facility] note* Diagnosis Onset Date Resolution Status Abdominal pain despite therapy for Crohn's disease acute Crohn's disease, unspecified, with other complication acute Abdominal pain despite therapy for Crohn's disease acute Adjustment disorder with mix ed anxiety and depressed mood acute Insomnia acute [facility] Work Phone: evaluation note* Diagnosis Onset Date Resolution Status Abdominal pain despite therapy for Crohn's disease acute Crohn's disease, unspecified, with other complication acute Abdominal pain despite therapy for Crohn's disease acute Adjustment disorder with mix ed anxiety and depressed mood acute Insomnia acute Fatigue acute Lumbar pain with radiation down right leg acute [facility] Work Phone: History general Narrative - Reported* Type Description Date Medical History Crohn''s disease wit h complication, unspecified gastrointestinal tract location Medical History Movement disorder Medical History Restless leg syndrome Medical History Pernicious anemia Medical History Nausea and vomiting Medical History Insomnia Surgical History BOWEL RESECTION X 3 (08/1995, AND 01/2011) Surgical History HERNIA REPAIR 1997 Surgical History VASECTOMY 2007 Hospitalization History SEE SURGICAL HX [facility] Other Reason for referral (narrative)* Outpatient Procedure (Routine) - Authorized Specialty Diagnoses / Procedures Referred By Mena santiago Referred To Contact [facility] Diagnoses Crohn's disease of small intestine with intestinal obstruction (HCC) Procedures COLONOSCOPY DIAGNOSTIC COLONOSCOPY FLX DX W/COLLJ SPEC WHEN PFRMD Deepali Stone MD, PhD [address] [place] [address] [facility] [address] [place] [address] Referral ID Status Reason Start Date Expiration Date Visits Requested Visits Authorized [id number] Authorized Auto-Generat ed Referral 08/25/2023 08/25/2024 1 1 * MRI/CT (Routine) - Pending Review Specialty Diagnoses / Procedures Referred By Mena santiago Referred To Contact [facility] Diagnoses Crohn's disease of small and large intestines with complication (HCC) Procedures MRI PEL ENTEROG WO/W IVCON MRI PELVIS W/O & W/CONTRAST MATERIAL [place] [address] [place] [id number] [facility] Referral ID Status Reason Start Date Expiration Date Visits Requested Visits Authorized [id number] Pending Review Auto-Generat ed Referral 08/25/2023 09/23/2024 1 1 * MRI/CT (Routine) - Pending Review Specialty Diagnoses / Procedures Referred By Mena santiago Referred To Contact [facility] Diagnoses Crohn's disease of small and large intestines with complication (HCC) Procedures MRI ABD ENTEROG WO/W IVCON MRI ABDOMEN W/O & W/CONTRAST MATERIAL MRI PELVIS W/O & W/CONTRAST MATERIAL Deepali Stone MD, PhD [address] [id number] [facility] [place] [address] Referral ID Status Reason Start Date Expiration Date Visits Requested Visits Authorized [id number] Pending Review Auto-Generat ed Referral 08/25/2023 09/23/2024 1 1 [facility] for referral (narrative)* Outpatient Procedure (Routine) - Closed Specialty Diagnoses / Procedures Referred By Mena santiago Referred To Contact [facility] Diagnoses Crohn's disease of small intestine with intestinal obstruction (HCC) Procedures COLONOSCOPY DIAGNOSTIC COLONOSCOPY FLX DX W/COLLJ SPEC WHEN Deepali Nava MD, PhD [id number] [place] [address] Referral ID Status Reason Start Date Expiration Date V isits Requested Visits Authorized [id number] Closed Auto-Generate d Referral 08/25/2023 08/25/2024 1 1 [facility] for visit Narrative* Outpatient Procedure (Routine) - Closed Specialty Diagnoses / Procedures Referred By Mena santiago Referred To Contact [facility] Diagnoses Crohn's disease of small intestine with intestinal obstruction (HCC) Procedures COLONOSCOPY DIAGNOSTIC COLONOSCOPY FLX DX W/COLLJ SPEC WHEN Deepali Nava MD, PhD [address] [place] [address] [facility] [address] [place] [address] Referral ID Status Reason Start Date Expiration Date V isits Requested Visits Authorized [id number] Closed Auto-Generate d Referral 08/25/2023 08/25/2024 1 1 [facility] Summary Purpose Family History Relationship Condition Age at Onset Recorded Date/T evaristo father Heart disease Unknown Diabetes mellitus Unknown Not Specified Crohn's disease Unknown sister Unknown Ulcerative colitis Unknown Relationship Condition Age at Onset Recorded Date/T evaristo father Heart disease Unknown Diabetes mellitus Unknown mother Crohn's disease Unknown sister Unknown Ulcerative colitis Unknown Advance Directives Documents on File Type Date Recorded 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 Advance Directive(s) 11/04/2020 7:03 AM Advance Directive(s) 05/02/2018 6:59 AM Advance Directive(s) 12/04/2015 12:56 PM Documents on File Type Date Recorded 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 Advance Directive(s) 11/04/2020 7:03 AM Advance Directive(s) 05/02/2018 6:59 AM Advance Directive(s) 12/04/2015 12:56 PM Advance Directive Response Recorded Date/ Time Advance Directives No October 18, 2023 3:01pm Advance Directive Response Recorded Date/ Time Advance Directives No October 18, 2023 2:01pm Medications Administered Section Inactive Administered Medications - up to 3 most recent administrations Medication Order MAR Action Action Date Dose Rate Site vedolizumab 300 mg in NaCl 0.9% 250 mL (ENTYVIO) 300 mg, INTRAVENOUS, Administer over 30 Minutes, ONCE, 1 dose, On Mon01/05/22 at 1430, Approx Total Volume: 280 mL After the infusion is complete flush with 30 mL of sterile 0.9% Sodium Chloride Injection. EXP 1425 01/06/22 Refrigerate. EXP: (24 HR) New Bag/Syringe/Bottle 01/05/2022 2:44 PM EDT 300 mg Inactive Administered Medications - up to 3 most recent administrations Medication Order MAR Action Action Date Dose Rate Site vedolizumab 300 mg in NaCl 0.9% 250 mL (ENTYVIO) 300 mg, INTRAVENOUS, Administer over 30 Minutes, ONCE, 1 dose, On Mon03/02/22 at 1430, Approx Total Volume: 280 mL After the infusion is complete flush with 30 mL of sterile 0.9% Sodium Chloride Injection. EXP: 1415 03/03/22 Refrigerate. EXP: (24 HR) New Bag/Syringe/Bottle 03/02/2022 2:36 PM EDT 300 mg Inactive Administered Medications - up to 3 most recent administrations Medication Order MAR Action Action Date Dose Rate Site vedolizumab 300 mg in NaCl 0.9% 250 mL (ENTYVIO) 300 mg, INTRAVENOUS, Administer over 30 Minutes, ONCE, 1 dose, On Mon04/27/22 at 1500, Approx Total Volume: 280 mL After the infusion is complete flush with 30 mL of sterile 0.9% Sodium Chloride Injection. Refrigerate. EXP: (24 HR) New Bag/Syringe/Bottle 04/27/2022 3:07 PM EDT 300 mg Inactive Administered Medications - up to 3 most recent administrations Medication Order MAR Action Action Date Dose Rate Site vedolizumab 300 mg in NaCl 0.9% 250 mL (ENTYVIO) 300 mg, INTRAVENOUS, Administer over 30 Minutes, ONCE, 1 dose, On Mon08/16/22 at 1500, Approx Total Volume: 280 mL After the infusion is complete flush with 30 mL of sterile 0.9% Sodium Chloride Injection. EXP 1500 08/17/22 Refrigerate. EXP: (24 HR) New Bag/Syringe/Bottle 08/16/2022 3:04 PM EST 300 mg Inactive Administered Medications - up to 3 most recent administrations Medication Order MAR Action Action Date Dose Rate Site vedolizumab 300 mg in NaCl 0.9% 250 mL (ENTYVIO) 300 mg, INTRAVENOUS, Administer over 30 Minutes, ONCE, 1 dose, On Mon10/12/22 at 1500, Approx Total Volume: 280 mL After the infusion is complete flush with 30 mL of sterile 0.9% Sodium Chloride Injection. EXP: 1845 Refrigerate. EXP: (24 HR) New Bag/Syringe/Bottle 10/12/2022 3:03 PM EST 300 mg Inactive Administered Medications - up to 3 most recent administrations Medication Order MAR Action Action Date Dose Rate Site vedolizumab 300 mg in NaCl 0.9% 250 mL (ENTYVIO) 300 mg, INTRAVENOUS, Administer over 30 Minutes, ONCE, 1 dose, On Mon12/07/22 at 1500, Approx Total Volume: 280 mL After the infusion is complete flush with 30 mL of sterile 0.9% Sodium Chloride Injection. EXP: 1900 Refrigerate. EXP: (24 HR) New Bag/Syringe/Bottle 12/07/2022 3:14 PM EDT 300 mg Inactive Administered Medications - up to 3 most recent administrations Medication Order MAR Action Action Date Dose Rate Site vedolizumab 300 mg in NaCl 0.9% 250 mL (ENTYVIO) 300 mg, INTRAVENOUS, Administer over 30 Minutes, ONCE, 1 dose, On Mon01/27/23 at 1300, Approx Total Volume: 280 mL After the infusion is complete flush with 30 mL of sterile 0.9% Sodium Chloride Injection. EXP 129901/28/23 Refrigerate. EXP: (24 HR) New Bag/Syringe/Bottle 01/27/2023 1:40 PM EDT 300 mg Inactive Administered Medications - up to 3 most recent administrations Medication Order MAR Action Action Date Dose Rate Site vedolizumab 300 mg in NaCl 0.9% 250 mL (ENTYVIO) 300 mg, INTRAVENOUS, Administer over 30 Minutes, ONCE, 1 dose, On [place] 03/23/23 at 1430, Approx Total Volume: 280 mL After the infusion is complete flush with 30 mL of sterile 0.9% Sodium Chloride Injection. EXP: 1815 Refrigerate. EXP: (24 HR) New Bag/Syringe/Bottle 03/23/2023 2:31 PM EDT 300 mg Inactive Administered Medications - up to 3 most recent administrations Medication Order MAR Action Action Date Dose Rate Site vedolizumab 300 mg in NaCl 0.9% 250 mL (ENTYVIO) 300 mg, INTRAVENOUS, Administer over 30 Minutes, ONCE, 1 dose, On [place] 05/18/23 at 1430, Approx Total Volume: 280 mL EXP: 08/25/23 0215 RT After the infusion is complete flush with 30 mL of sterile 0.9% Sodium Chloride Injection. Refrigerate. EXP: (24 HR) New Bag/Syringe/Bottle 05/18/2023 2:34 PM EDT 300 mg Inactive Administered Medications - up to 3 most recent administrations Medication Order MAR Action Action Date Dose Rate Site vedolizumab 300 mg in NaCl 0.9% 250 mL (ENTYVIO) 300 mg, INTRAVENOUS, Administer over 30 Minutes, ONCE, 1 dose, On [place] 07/13/23 at 1430, Approx Total Volume: 280 mL After the infusion is complete flush with 30 mL of sterile 0.9% Sodium Chloride Injection. EXP: 1840 Refrigerate. EXP: (24 HR) New Bag/Syringe/Bottle 07/13/2023 2:47 PM EDT 300 mg Inactive Administered Medications - up to 3 most recent administrations Medication Order MAR Action Action Date Dose Rate Site vedolizumab 300 mg in NaCl 0.9% 250 mL (ENTYVIO) 300 mg, INTRAVENOUS, Administer over 30 Minutes, ONCE, 1 dose, On [place] 09/07/23 at 1430, Approx Total Volume: 280 mL EXP 1815 After the infusion is complete flush with 30 mL of sterile 0.9% Sodium Chloride Injection. Refrigerate. EXP: (24 HR) New Bag/Syringe/Bottle 09/07/2023 2:38 PM EST 300 mg Chief Complaint and Reason for Visit Chief Complaint 3 Month Follow Up Amb Documentation Amb Documentation 3 month follow up Chief Complaint Patient here for a 1 month f/u in office Patient here for a 2 month f/u in office Reason for Visit Abdominal pain despi te therapy for Crohn's disease Crohn's disease, unspecified, with other complication Abdominal pain despite therapy for Crohn's disease Adjustment disorder with mixed anxiety and depressed mood Insomnia Chief Complaint Patient here for a 1 month f/u in office Patient here for a 2 month f/u in office Depression Reason for Visit Abdominal pain despi te therapy for Crohn's disease Crohn's disease, unspecified, with other complication Abdominal pain despite therapy for Crohn's disease Adjustment disorder with mixed anxiety and depressed mood Insomnia Fatigue Lumbar pain with radiation down right leg Chief Complaint Admit Date Patient here for a 2 month f/u in office June 04, 2024 2:08pm Depression June 17, 2024 1:39pm 2 month follow up August 06, 2024 2:04pm Reason for Visit Admit Date Abdominal pain despite therapy for Crohn 's disease June 04, 2024 2:08pm Adjustment disorder with mixed anxiety a nd depressed mood June 04, 2024 2:08pm Insomnia June 04, 2024 2:08pm Fatigue June 17, 2024 1:39pm Grief reaction June 17, 2024 1:39pm Lumbar pain with radiation down right le g June 17, 2024 1:39pm Abdominal pain despite therapy for Crohn 's disease August 06, 2024 2:04pm Insomnia August 06, 2024 2:04pm Additional Source Comments (unrecognized sect ion and content) No Status Records FoundNo Status Records FoundNo Status Records FoundNo Status Records Found INFORMATION SOURCE (unrecogn ized section and content) DATE CREATED AUTHOR 11/07/2020 [facility] DATE CREATED AUTHOR AUTHOR'S ORGANIZ ATION 06/26/2022 [facility] DATE CREATED AUTHOR AUTHOR'S ORGANIZ ATION 11/23/2023 [facility] DATE CREATED AUTHOR AUTHOR'S ORGANIZ ATION 08/09/2024 [facility] Source Comments (unrecognize d section and content) In the event this informatio n is protected by the Federal Confidentiality of Alcohol and Drug Abuse Patient Records regulations: The Federal rules restrict any use of the information to criminally investigate or prosecute any alcohol or drug abuse patient.[facility] the event this information is protected by the Federal Confidentiality of Alcohol and Drug Abuse Patient Records regulations: The Federal rules restrict any use of the information to criminally investigate or prosecute any alcohol or drug abuse patient.[facility] the event this information is protected by the Federal Confidentiality of Alcohol and Drug Abuse Patient Records regulations: The Federal rules restrict any use of the information to criminally investigate or prosecute any alcohol or drug abuse patient.[facility] the event this information is protected by the Federal Confidentiality of Alcohol and Drug Abuse Patient Records regulations: The Federal rules restrict any use of the information to criminally investigate or prosecute any alcohol or drug abuse patient.[facility] the event this information is protected by the Federal Confidentiality of Alcohol and Drug Abuse Patient Records regulations: The Federal rules restrict any use of the information to criminally investigate or prosecute any alcohol or drug abuse patient.[facility] the event this information is protected by the Federal Confidentiality of Alcohol and Drug Abuse Patient Records regulations: The Federal rules restrict any use of the information to criminally investigate or prosecute any alcohol or drug abuse patient.[facility] the event this information is protected by the Federal Confidentiality of Alcohol and Drug Abuse Patient Records regulations: The Federal rules restrict any use of the information to criminally investigate or prosecute any alcohol or drug abuse patient.[facility] the event this information is protected by the Federal Confidentiality of Alcohol and Drug Abuse Patient Records regulations: The Federal rules restrict any use of the information to criminally investigate or prosecute any alcohol or drug abuse patient.[facility] the event this information is protected by the Federal Confidentiality of Alcohol and Drug Abuse Patient Records regulations: The Federal rules restrict any use of the information to criminally investigate or prosecute any alcohol or drug abuse patient.[facility] the event this information is protected by the Federal Confidentiality of Alcohol and Drug Abuse Patient Records regulations: The Federal rules restrict any use of the information to criminally investigate or prosecute any alcohol or drug abuse patient.[facility] the event this information is protected by the Federal Confidentiality of Alcohol and Drug Abuse Patient Records regulations: The Federal rules restrict any use of the information to criminally investigate or prosecute any alcohol or drug abuse patient.[facility] the event this information is protected by the Federal Confidentiality of Alcohol and Drug Abuse Patient Records regulations: The Federal rules restrict any use of the information to criminally investigate or prosecute any alcohol or drug abuse patient.[facility] the event this information is protected by the Federal Confidentiality of Alcohol and Drug Abuse Patient Records regulations: The Federal rules restrict any use of the information to criminally investigate or prosecute any alcohol or drug abuse patient.[facility] the event this information is protected by the Federal Confidentiality of Alcohol and Drug Abuse Patient Records regulations: The Federal rules restrict any use of the information to criminally investigate or prosecute any alcohol or drug abuse patient.[facility] the event this information is protected by the Federal Confidentiality of Alcohol and Drug Abuse Patient Records regulations: The Federal rules restrict any use of the information to criminally investigate or prosecute any alcohol or drug abuse patient.[facility] the event this information is protected by the Federal Confidentiality of Alcohol and Drug Abuse Patient Records regulations: The Federal rules restrict any use of the information to criminally investigate or prosecute any alcohol or drug abuse patient.[facility] the event this information is protected by the Federal Confidentiality of Alcohol and Drug Abuse Patient Records regulations: The Federal rules restrict any use of the information to criminally investigate or prosecute any alcohol or drug abuse patient.[facility] the event this information is protected by the Federal Confidentiality of Alcohol and Drug Abuse Patient Records regulations: The Federal rules restrict any use of the information to criminally investigate or prosecute any alcohol or drug abuse patient.[facility] the event this information is protected by the Federal Confidentiality of Alcohol and Drug Abuse Patient Records regulations: The Federal rules restrict any use of the information to criminally investigate or prosecute any alcohol or drug abuse patient.[facility] the event this information is protected by the Federal Confidentiality of Alcohol and Drug Abuse Patient Records regulations: The Federal rules restrict any use of the information to criminally investigate or prosecute any alcohol or drug abuse patient.[facility] the event this information is protected by the Federal Confidentiality of Alcohol and Drug Abuse Patient Records regulations: The Federal rules restrict any use of the information to criminally investigate or prosecute any alcohol or drug abuse patient.[facility] the event this information is protected by the Federal Confidentiality of Alcohol and Drug Abuse Patient Records regulations: The Federal rules restrict any use of the information to criminally investigate or prosecute any alcohol or drug abuse patient.[facility] the event this information is protected by the Federal Confidentiality of Alcohol and Drug Abuse Patient Records regulations: The Federal rules restrict any use of the information to criminally investigate or prosecute any alcohol or drug abuse patient.[facility] the event this information is protected by the Federal Confidentiality of Alcohol and Drug Abuse Patient Records regulations: The Federal rules restrict any use of the information to criminally investigate or prosecute any alcohol or drug abuse patient.[facility] the event this information is protected by the Federal Confidentiality of Alcohol and Drug Abuse Patient Records regulations: The Federal rules restrict any use of the information to criminally investigate or prosecute any alcohol or drug abuse patient.[facility] the event this information is protected by the Federal Confidentiality of Alcohol and Drug Abuse Patient Records regulations: The Federal rules restrict any use of the information to criminally investigate or prosecute any alcohol or drug abuse patient.[facility] the event this information is protected by the Federal Confidentiality of Alcohol and Drug Abuse Patient Records regulations: The Federal rules restrict any use of the information to criminally investigate or prosecute any alcohol or drug abuse patient.[facility] the event this information is protected by the Federal Confidentiality of Alcohol and Drug Abuse Patient Records regulations: The Federal rules restrict any use of the information to criminally investigate or prosecute any alcohol or drug abuse patient.[facility] the event this information is protected by the Federal Confidentiality of Alcohol and Drug Abuse Patient Records regulations: The Federal rules restrict any use of the information to criminally investigate or prosecute any alcohol or drug abuse patient.[facility] the event this information is protected by the Federal Confidentiality of Alcohol and Drug Abuse Patient Records regulations: The Federal rules restrict any use of the information to criminally investigate or prosecute any alcohol or drug abuse patient.[facility] Reason for Visit (unrecogniz ed section and content) Reason Onset Date Comments Refill Request 01/04/2022 Specialty Diagnoses / Procedures Referred By Contac t Referred To Contact Diagnoses Crohn's disease of both small and large intestine with intestinal obstruction (HCC) Procedures INJECTION, VEDOLIZUMAB Deepali Stone MD, PhD [address] [place] [address] Reynold Treat [address] [place] [address] Referral ID Status Reason Start Date Expiration Date V isits Requested Visits Authorized [id number] Authorized 09/14/2021 09/15/2022 7 7 Reason Comments Established Patient Follow-Up Crohn's di sease of small intestine with intestinal obstruction Reason Comments Appointment Referral ID Status Reason Start Date Expiration Date V isits Requested Visits Authorized [id number] Authorized 09/14/2021 09/16/2023 14 14 Reason Comments Orders Specialty Diagnoses / Procedures Referred By Contac t Referred To Contact Diagnoses Crohn's disease of both small and large intestine with intestinal obstruction Procedures Consult, Test, Treatment, Follow-up, Labs Deepali Stone MD, PhD [address] [id number] [facility] [place] [address] Referral ID Status Reason Start Date Expiration Date Visits Requested Visits Authorized [id number] Authorized Patient Cleared - Qualified 100% FAS 3 10/11/2023 99 99 Reason Comments Established Patient 9 month follow up Specialty Diagnoses / Procedures Referred By Contac t Referred To Contact GASTROENTEROLOGY Diagnoses Crohn's disease of both small and large intestine with intestinal obstruction Procedures COLONOSCOPY FLX DX W/COLLJ SPEC WHEN PFRMD Consult, Test, Treatment, Follow-up, Labs Deepali Stone MD, PhD [address] [id number] [facility] [address] [id number] Referral ID Status Reason Start Date Expiration Date V isits Requested Visits Authorized [id number] Authorized 07/13/2023 10/11/2023 99 99 Referral ID Status Reason Start Date Expiration Date V isits Requested Visits Authorized [id number] Authorized 09/14/2021 09/24/2023 99 99 Referral ID Status Reason Start Date Expiration Date V isits Requested Visits Authorized [id number] Authorized 09/14/2021 10/02/2024 21 21 Reason Comments Established Patient Crohn's disease of s mall intestine with intestinal obstruction Reason Comments Insurance Authorization [employer] Referral ID Status Reason Start Date Expiration Date V isits Requested Visits Authorized [id number] Authorized 09/14/2021 04/02/2025 24 24 Care Teams (unrecognized sec tion and content) Rating Examiner Relationship Specialty Start Date End Date Ap Denis MD [address] [place] [address] PCP - General Family Practice 01/07/13 Rating Examiner Relationship Specialty Start Date End Date Ap Denis MD [address] [place] [address] PCP - General Family Practice 01/07/13 Rating Examiner Relationship Specialty Start Date End Date Ap Denis MD [address] [place] [address] PCP - General Family Practice 01/07/13 Rating Examiner Relationship Specialty Start Date End Date Ap Denis MD [address] [facility] [place] [address] PCP - General Family Practice 01/07/13 Rating Examiner Relationship Specialty Start Date End Date Ap Denis MD [address] [facility] [place] [address] PCP - General Family Practice 01/07/13 Rating Examiner Relationship Specialty Start Date End Date Ap Denis MD [address] [facility] [place] [address] PCP - General Family Medicine 01/07/13 Rating Examiner Relationship Specialty Start Date End Date Ap Denis MD [address] [place] [place] [address] PCP - General Family Medicine 01/07/13 Rating Examiner Relationship Specialty Start Date End Date Ap Denis MD [address] [facility] [place] [address] PCP - General Family Medicine 01/07/13 Rating Examiner Relationship Specialty Start Date End Date Ap Denis MD [address] [facility] [place] [address] PCP - General Family Medicine 01/07/13 Rating Examiner Relationship Specialty Start Date End Date Ap Denis MD [address] [facility] [place] [address] PCP - General Family Medicine 01/07/13 Rating Examiner Relationship Specialty Start Date End Date Ap Denis MD [address] [facility] [place] [address] PCP - General Family Medicine 01/07/13 Rating Examiner Relationship Specialty Start Date End Date Ap Denis MD [address] [facility] [place] [address] PCP - General Family Medicine 01/07/13 Rating Examiner Relationship Specialty Start Date End Date Ap Denis MD [address] [facility] [place] [address] PCP - General Family Medicine 01/07/13 Rating Examiner Relationship Specialty Start Date End Date Ap Denis MD [address] [facility] [place] [address] PCP - General Family Medicine 01/07/13 Rating Examiner Relationship Specialty Start Date End Date Ap Denis MD [address] [facility] [place] [address] PCP - General Family Medicine 01/07/13 Rating Examiner Relationship Specialty Start Date End Date Ap Denis MD [address] [place] [place] [address] PCP - General Family Medicine 01/07/13 Rating Examiner Relationship Specialty Start Date End Date Ap Denis MD [address] [facility] [place] [address] PCP - General Family Medicine 01/07/13 Rating Examiner Relationship Specialty Start Date End Date Ap Denis MD [address] [facility] [place] [address] PCP - General Family Medicine 01/07/13 Team Status: Active Member Role Status Dates Ap Denis MD Primary Care Provider Active Team Status: Inactive Member Role Status Dates Ap Denis MD Attending Provider Active St art: October 12, 2023 End: October 12, 2023 Team Status: Active Member Role Status Dates Ap Denis MD Primary Care Provider Active Start: November 10, 2023 MARCEL Box Attending Provider Active Start : November 10, 2023 Team Status: Active Member Role Status Dates Ap Denis MD Primary Care Provider Active Start: November 21, 2023 MARCEL Box Attending Provider Active Start : November 21, 2023 Team Status: Inactive Member Role Status Dates Ap Denis MD Primary Care Provide r, Attending Provider Active Start: December 26, 2023 End: December 26, 2023 Team Status: Inactive Member Role Status Dates Ap Denis MD Primary Care Provider Active Start: January 08, 2024 End: January 08, 2024 Radha Reyes APRN Attending Provider Active Start: January 08, 2024 End: January 08, 2024 Rating Examiner Relationship Specialty Start Date End Date Ap Denis MD [address] [facility] [place] [address] PCP - General Family Medicine 01/07/13 Rating Examiner Relationship Specialty Start Date End Date Ap Denis MD [address] [facility] [place] [address] PCP - General Family Medicine 01/07/13 Rating Examiner Relationship Specialty Start Date End Date Ap Denis MD [address] [facility] [place] [address] PCP - General Family Medicine 01/07/13 Team Status: Inactive Member Role Status Dates Ap Denis MD Primary Care Provider Active Start: February 08, 2024 End: February 08, 2024 Radha Reyes APRN Attending Provider Active Start: February 08, 2024 End: February 08, 2024 Team Status: Active Member Role Status Dates Ap Denis MD Primary Care Provider Active Start: February 22, 2024 Deepali Stone MD Attending Provider Active Start: February 22, 2024 Team Status: Inactive Member Role Status Dates Ap Denis MD Primary Care Provider Active Start: February 27, 2024 End: February 27, 2024 Radha Reyes APRN Attending Provider Active Start: February 27, 2024 End: February 27, 2024 Team Status: Inactive Member Role Status Dates Ap Denis MD Primary Care Provider Active Start: April 03, 2024 End: April 03, 2024 Radha Reyes APRN Attending Provider Active Start: April 03, 2024 End: April 03, 2024 Team Status: Inactive Member Role Status Dates Ap Denis MD Primary Care Provider Active Start: June 04, 2024 End: June 04, 2024 Radha Reyes APRN Attending Provider Active Start: June 04, 2024 End: June 04, 2024 Team Status: Inactive Member Role Status Dates Ap Denis MD Primary Care Provide r, Attending Provider Active Start: June 17, 2024 End: June 17, 2024 Rating Examiner Relationship Specialty Start Date End Date Ap Denis MD [address] [place] [address] PCP - General [facility] Medicine 01/07/13 Team Status: Active Member Role Status Dates Ap Denis MD Primary Care Provide r, Attending Provider Active Start: July 02, 2024 Team Status: Inactive Member Role Status Dates Ap Denis MD Primary Care Provider Active Start: August 06, 2024 End: August 06, 2024 Radha Reyes APRN Attending Provider Active Start: August 06, 2024 End: August 06, 2024 Rating Examiner Relationship Specialty Start Date End Date Ap Denis MD [address] [place] [address] PCP - General Family Medicine 01/07/13 Inactive Administered Medications - up to 3 most recent administrations Administered Medications (un recognized section and content) Medication Order MAR Action Action Date Dose Rate Site vedolizumab 300 mg in NaCl 0.9% 250 mL (ENTYVIO) 300 mg, INTRAVENOUS, Administer over 30 Minutes, ONCE, 1 dose, On [place] 11/02/23 at 1430, Approx Total Volume: 280 mL After the infusion is complete flush with 30 mL of sterile 0.9% Sodium Chloride Injection. EXP: 1814 Refrigerate. EXP: (24 HR) New Bag/Syringe/Bottle 11/02/2023 2:26 PM EST 300 mg Inactive Administered Medications - up to 3 most recent administrations Medication Order MAR Action Action Date Dose Rate Site fentaNYL 50 mcg/mL 50 mcg injection (SUBLIMAZE) 50 mcg, INTRAVENOUS, PRE-OP PRN, 4 doses, Starting on Mon11/15/23 at 1239, Until Mon11/15/23 at 1351, Severe Pain (>/=7) - Parenteral, Preprocedure Given 11/15/2023 12:58 PM EST 50 mcg Given 11/15/2023 12:46 PM EST 50 mcg NaCl 0.9% iv infusion 30 mL/hr, INTRAVENOUS, CONTINUOUS, Starting on Mon11/15/23 at 1230, Until Mon11/15/23 at 1351, Preprocedure Continued by Anesthesia 11/15/2023 1:24 PM EST 100 mL/hr New Bag/Syringe/Bottle 11/15/2023 12:46 PM EST 30 mL/hr 30 mL/hr Inactive Administered Medications - up to 3 most recent administrations Medication Order MAR Action Action Date Dose Rate Site vedolizumab 300 mg in NaCl 0.9% 250 mL (ENTYVIO) 300 mg, INTRAVENOUS, Administer over 30 Minutes, ONCE, 1 dose, On [place] 12/28/23 at 1430, Approx Total Volume: 280 mL EXP: 12/29/2023 0230 RT After the infusion is complete flush with 30 mL of sterile 0.9% Sodium Chloride Injection. Refrigerate. EXP: (24 HR) New Bag/Syringe/Bottle 12/28/2023 2:40 PM EDT 300 mg Goals (unrecognized section and content) Goals may be documented in a n alternate section FOR RECORDS PERTAINING TO PATIENTS WHO ARE OR HAVE BEEN ENROLLED IN A CHEMICAL DEPENDENCY/SUBSTANCEABUSE PROGRAM, SOME INFORMATION MAY BE OMITTED. This clinical summary was aggregated from multiple sources. Caution should be exercised in using it in the provision of clinical care. This summary normalizes information from multiple sources, and as a consequence, information in this document may materially change the coding, format and clinical context of patient data. In addition, data may be omitted in some cases. CLINICAL DECISIONS SHOULD BE BASED ON THE PRIMARY CLINICAL RECORDS. [facility], [facility]. provides no warranty or guarantee of the accuracy or completeness of information in this document.
[2024-09-15 10:32] LABS: Basophils Percent Auto 0.5 % (0.2-2.0); Eosinophils Percent Auto 0.7 % (0.9-7.0); Hematocrit 37.3 % (42.0-54.0); Hemoglobin 13.2 g/dL (14.0-18.0); Immature Granulocytes Abs Auto 0.01 10^3/uL (0.00-0.03); Immature Granulocytes Pct Auto 0.2 % (0.0-0.5); Lymphocytes Absolute Auto 1.1 10^3/uL (1.2-3.8); Lymphocytes Percent Auto 27.1 % (20.5-60.0); Mean Corpuscular HGB Conc 35.4 g/dL (29.9-35.2); Mean Corpuscular Hemoglobin 32.8 pg (25.9-34.0); Mean Corpuscular Volume 92.6 fL (80.0-94.0); Mean Platelet Volume 9.5 fL (9.5-13.5); Monocytes Absolute Auto 0.3 10^3/uL (0.3-0.8); Monocytes Percent Auto 6.2 % (1.7-12.0); Neutrophils Absolute Auto 2.6 10^3/uL (1.4-6.5); Neutrophils Percent Auto 65.3 % (43.0-75.0); Platelet Count 132 10^3/uL (150-450); Red Blood Count 4.03 10^6/uL (4.70-6.10); Red Cell Distribution Width 11.9 % (11.0-15.0)
[2024-09-15 10:47] LABS: Alanine Aminotransferase 15 U/L (16-63); Albumin Globulin Ratio 1.2; Albumin Level 3.7 g/dL (3.4-5.0); Alkaline Phosphatase 80 U/L (46-116); Anion Gap 13.3; Aspartate Amino Transferase 14 U/L (15-37); BUN Creatinine Ratio 7.9; Bilirubin Total 2.2 mg/dL (0.2-1.0); Calcium 8.9 mg/dL (8.5-10.1); Carbon Dioxide 28.3 mmol/L (21.0-32.0); Chloride 101 mmol/L (98-107); Estimated GFR (African America >60 (>=60 mL/min/1.73m^2); Estimated GFR (Non-African Ame >60 (>=60 mL/min/1.73m^2); Globulin 3.2 g/dL; Glucose 130 mg/dL (74-106); Potassium 3.6 mmol/L (3.5-5.1); Sodium 139 mmol/L (136-145); Total Protein 6.9 g/dL (6.4-8.2)
[2024-09-15] MEDS: KETOROLAC TROMETHAMINE 30 MG/ML VIAL 15 MG IVP (10:51)
[2024-09-15] MEDS: LORAZEPAM 2 MG/ML VIAL 1 MG IV (10:51)
[2024-09-15] MEDS: 0.9 % SODIUM CHLORIDE 1,000 ML 500 ML IV (10:51)
--- NOTE | 2024-09-15 11:51 | ED.GENADUL1 ---
HPI HPI - General Adult General Chief complaint: Recheck/Abnormal Lab/Rx Stated complaint: HALLUCINATIONS, BODY IS RESTLESS JUMPING Time Seen by Provider: 09/15/24 10:21 Source: patient Mode of arrival: walk-in Limitations: no limitations History of Present Illness HPI narrative: Patient with a history of restless leg syndrome already been diagnosed with that according to the 23 years ago, the patient denies any weakness he is able to ambulate with no difficulty, he denies any new back pain he have a history of chronic back pain , there is no change in back to her baseline back pain, pt mentioned that during the night since yesterday is having his legs being restless more than before, and he was not able to sleep due to that. The patient when asked about any iron deficiency anemia history he did not know he mentioned that he was diagnosed with this 23 years ago The patient denies any other complaints of incontinence or any nausea vomiting fever or any other new concern Related Data Home Medications ?Medication ?Instructions ?Recorded ?Confirmed folic acid 1 mg tablet 1 mg PO DAILY 09/15/24 09/15/24 morphine 15 mg tablet,extended 15 mg PO Q8H 09/15/24 09/15/24 release oxycodone 20 mg tablet 20 mg PO Q6H PRN pain 09/15/24 09/15/24 ropinirole 2 mg tablet 2 mg PO DAILY 09/15/24 09/15/24 zolpidem 10 mg tablet 10 mg PO .QHS 09/15/24 09/15/24 Allergies Allergy/AdvReac Type Severity Reaction Status Date / Time metoclopramide (From Reglan) Allergy Mild rage Verified 09/15/24 10:06 Opioid HPI Opioid Management Most Recent Opioid Data: No Data to Display Review of Systems ROS Status of ROS 10 or more systems reviewed and unremarkable except as noted in history and below PFSH PFSH Social History Little interest or pleasure in doing things: not at all Feeling down, depressed, or hopeless: not at all Exam Narrative Exam Narrative: Nurses notes and vital signs reviewed and patient is not hypoxic. General: Well-appearing and in no apparent distress. Skin: Warm, dry, no pallor noted. No rash. Head: Normocephalic, atraumatic. Neck: Supple, non-tender. Eye: Pupils are equal, round and EOMI. No scleral icterus. Ears, Nose, Mouth, and Throat: TM are clear, no nasal mucosal hypertrophy. Oral mucosa is moist, no posterior oropharynx erythema, uvula is mid-line Cardiovascular: Regular Rate and Rhythm without murmur, gallop or rub. Respiratory: No accessory muscle use or respiratory distress. Lungs are clear to auscultation, no wheezing, rales or rhonchi Chest Wall: no tenderness Back: No midline thoracic or lumbar vertebral tenderness. No CVA tenderness Musculoskeletal: normal ROM, no calf or popliteal tenderness, no lower extremity edema/swelling GI: Abdomen is soft, non-distended. Normal bowel sounds. No masses appreciated. No tenderness to palpation. No rebound, guarding, or rigidity noted. Neurological: A&O x4. No cranial nerve dysfunction observed. No truncal ataxia. Moves all extremities. Sensation intact. Psychiatric: Cooperative and interactive. Normal mood and affect. Constitutional Vital Signs, click to edit/add: Last Vital Signs Temp 98.3 F 09/15/24 10:06 Pulse 68 09/15/24 11:54 Resp 18 09/15/24 11:54 BP 136/88 09/15/24 11:54 Pulse Ox 98 09/15/24 11:54 O2 Del Method Room Air 09/15/24 10:06 Course Vital Signs Vital signs: Vital Signs Temperature 98.3 F 09/15/24 10:06 Pulse Rate 90 09/15/24 10:06 Respiratory Rate 18 09/15/24 10:06 Blood Pressure 132/86 09/15/24 10:06 Pulse Oximetry 100 09/15/24 10:06 Oxygen Delivery Method Room Air 09/15/24 10:06 Temperature 98.3 F 09/15/24 10:06 Pulse Rate 68 09/15/24 11:54 Respiratory Rate 18 09/15/24 11:54 Blood Pressure 136/88 09/15/24 11:54 Pulse Oximetry 98 09/15/24 11:54 Oxygen Delivery Method Room Air 09/15/24 10:06 Medical Decision Making [facility] Narrative Medical decision making narrative: The patient CBC and chemistry showed no acute pathology and the his lymphocytes were mildly low The patient presentation right now with restless leg syndrome and the fact that his neuroexam is completely benign, although he did had some restless leg episodes when I was examining him But it was noted that the patient was able to ambulate with no difficulty and there is no weakness I initially provided the patient with Ativan just to help controlling his symptoms and reviewing his medication he already taking morphine and oxycodone as well which could also help in his symptoms although he did not know that and he thinks that only for his back pain I did explain to him that oxycodone and morphine can also help his symptoms and I also mentioned to him that he might need more workup done with neurology as outpatient I did explain to the patient right now that this is not a life-threatening situation and although it does cause some discomfort and the fact that I give him Ativan and Toradol in the ER did not help his symptoms, I explained to the patient right now he just need to follow-up with neurology as outpatient While trying to offer the patient referral as outpatient with neurology his at the bedside was yelling because she think that I can help him right away in the ER, I asked the patient and his multiple times with her expectation of this visit but they do not have a clear expectation they just think that I will resolve his restless leg syndrome with medication. I did explain to him that restless leg syndrome is a chronic problem I did try explaining to the patient as well as his that from the ER standpoint the patient does not need any admission specially that he is able to ambulate with no difficulty and I do understand the discomfort that comes from the restless leg but with the treatment here in the ER Ativan did not help, especially that with the patient already have a chronic prescription of morphine and oxycodone I am not comfortable writing prescription of Ativan to go home with to be added to his medication Specially that on the clinical evaluation the bedside the patient was sleepy after the Ativan and I would be concerned that he would take that with his oxycodone and morphine and this will cause him some life-threatening respiratory depression From my standpoint this is not a life-threatening situation and the patient have no neurological findings on examination he just can follow-up with neurology as outpatient, and follow-up with his primary care as outpatient to be referred to neurology and i explained that to the family as well as the patient and politely even asked them what could be the expectation of this visit, but they were upset because we did not give him any medication that stopped the restless legs completely Patient was discharged to follow-up with his primary care doctor and he walked out of here with no difficulty Lab Data Labs: Lab Results 09/15/24 Range/Units 10:13 WBC 4.0 (4.0-11.0) 10^3/uL RBC 4.03 L (4.70-6.10) 10^6/uL Hgb 13.2 L (14.0-18.0) g/dL Hct 37.3 L (42.0-54.0) % MCV 92.6 (80.0-94.0) fL MCH 32.8 (25.9-34.0) pg MCHC 35.4 H (29.9-35.2) g/dL RDW 11.9 (11.0-15.0) % Plt Count 132 L (150-450) 10^3/uL MPV 9.5 (9.5-13.5) fL Neut % (Auto) 65.3 (43.0-75.0) % Lymph % (Auto) 27.1 (20.5-60.0) % Crane % (Auto) 6.2 (1.7-12.0) % Eos % (Auto) 0.7 L (0.9-7.0) % Baso % (Auto) 0.5 (0.2-2.0) % Neut # (Auto) 2.6 (1.4-6.5) 10^3/uL Lymph # (Auto) 1.1 L (1.2-3.8) 10^3/uL Crane # (Auto) 0.3 (0.3-0.8) 10^3/uL Eos # (Auto) 0.0 (0.0-0.7) 10^3/uL Baso # (Auto) 0.0 (0.0-0.1) 10^3/uL Abs Immat Gran (auto) 0.01 (0.00-0.03) 10^3/uL Imm/Tot Granulo (auto) 0.2 (0.0-0.5) % Sodium 139 (136-145) mmol/L Potassium 3.6 (3.5-5.1) mmol/L Chloride 101 (98-107) mmol/L Carbon Dioxide 28.3 (21.0-32.0) mmol/L Anion Gap 13.3 BUN 9.0 (7.0-18.0) mg/dL Creatinine 1.14 (0.70-1.30) mg/dL Est GFR ( Amer) >60 (>=60 mL/min/1.73m^2) Est GFR (Non-Af Amer) >60 (>=60 mL/min/1.73m^2) BUN/Creatinine Ratio 7.9 Glucose 130 H (74-106) mg/dL Calcium 8.9 (8.5-10.1) mg/dL Total Bilirubin 2.2 H (0.2-1.0) mg/dL AST 14 L (15-37) U/L ALT 15 L (16-63) U/L Alkaline Phosphatase 80 (46-116) U/L Total Protein 6.9 (6.4-8.2) g/dL Albumin 3.7 (3.4-5.0) g/dL Globulin 3.2 g/dL Albumin/Globulin Ratio 1.2 Discharge Plan Discharge Chief Complaint: Recheck/Abnormal Lab/Rx Clinical Impression: Restless leg syndrome Patient Disposition: Home, Self-Care Time of Disposition Decision: 11:45 Condition: Good Prescriptions / Home Meds: No Action morphine 15 mg tablet extended release 15 mg PO Q8H oxycodone 20 mg tablet 20 mg PO Q6H PRN (Reason: pain) zolpidem 10 mg tablet 10 mg PO .QHS ropinirole 2 mg tablet 2 mg PO DAILY folic acid 1 mg tablet 1 mg PO DAILY Print Language: Mohawk Instructions: Restless Legs Syndrome (ED) Referrals: Isis Hernandez MD [Primary Care Provider] - 1 week Discharge Date/Time: 09/15/24 11:56
[2024-09-15 11:54] VITALS: BP 136/88; PULSE 68; O2SAT 98
== END 2024-09-15 11:56 | disposition home or self-care (01) ==
PROVIDERS: Emergency Provider Emergency Medicine; PCP Family Medicine
DX: G25.81 Restless legs syndrome (principal)
CPT/HCPCS: 36415; 80053; 85025; 96374; 96375; 99284; J1885; J2060

== ENCOUNTER 2024-10-28 16:16 | Outpatient (OUT) | payer MEDICARE, BC, SELFPAY ==
--- OUTSIDE RECORDS SUMMARY | 2024-10-28 16:26 | XMS_ITS | CCD ---
Author Organization [facility] Care Team Providers Care Sizer Machine Name Role Phone Ap Denis MD Primary Care Provider [phone] AP DENIS Attending Unavailable ADEEL, DR AP Pickering Consult[employer] Unavailable DR AP DENIS Admitting Unavailable Ap Denis MD Primary Care Provider [phone] Ap Denis Unavailable AP DENIS Primary Care Unavailable KAYLAN, DEEPALI R Referring Unavailable DAYDAY TUCKER Attending Unavailable Ap Denis MD Primary Care Provider KAYLAN, DEEPALI R Referring Unavailable AP DENIS Primary Care Unavailable KAYLAN, DEEPALI R Attending Unavailable AP DENIS Primary Care Unavailable KAYLAN, [...] Referring Unavailable AP DENIS Primary Care Unavailable Ap Denis MD Primary Care Provider [phone] TIFFANIE GAMING Attending Unavailable AP DENIS Referring Unavailable Allergies Allergy Classification Reported Allergen(s) Allergy Type Date of Onset Reaction(s) Facility (20 sources) azaTHIOprine; Translations: [AZATHIOPRINE SODIUM] Drug Allergy Other: See Comments [facility] (20 sources) Baclofen; Translations: [BACLOFEN] Drug Allergy Other: See Comments [facility] (20 sources) Budesonide; Translations: [BUDESONIDE] Drug Allergy Other: See Comments [facility] (20 sources) Cholestyramine Resin; Translations: [CHOLESTYRAMINE (WITH SUGAR)] Drug Allergy Other: See Comments [facility] (20 sources) Colestipol; Translations: [COLESTIPOL] Drug Allergy Other: See Comments [facility] Work Phone: (20 sources) Metoclopramide; Translations: [METOCLOPRAMIDE HCL] Drug Allergy Other: See Comments [facility] (20 sources) traMADol; Translations: [TRAMADOL HCL] Drug Allergy Other: See Comments [facility] (20 sources) venlafaxine; Translations: [VENLAFAXINE HCL] Drug Allergy Other: See Comments [facility] (1 source) Amoxicillin / Clavulanate Drug Allergy [facility] Repository (20 sources) Colestipol Drug Allergy Unknown [facility] (1 source) Dicyclomine Drug Allergy [facility] (1 source) Iothalamate Drug Allergy [facility] Rep[facility] (1 source) traMADol Drug Allergy [facility] (20 sources) Budesonide Drug Allergy Unknown, [facility] (20 sources) Cholestyramine Resin Drug Allergy Unknown [facility] Other (20 sources) Dicyclomine Drug Allergy 024 Unknown, [facility] (20 sources) Metoclopramide Drug Allergy 024 [facility] (20 sources) traMADol Drug Allergy Unknown, [facility] (20 sources) venlafaxine Drug Allergy Unknown [facility] Other (20 sources) 6MP MEDS Propensity to adverse reactions Unknown, [facility] (20 sources) IMMURAN Drug allergy 04-02-2 024 Unknown, [facility] (20 sources) Ciprofloxacin; Translations: [ciprofloxacin] Drug Allergy Unknown, [facility] (20 sources) DULoxetine Drug Allergy Unknown, [facility] (20 sources) guaiFENesin Drug Allergy Unknown, [facility] (14 sources) guaiFENesin / Pseudoephedrine Drug Allergy Unknown [employer] [facility] [employer] Other (20 sources) venlafaxine Drug Allergy Unknown, [facility] (12 sources) patient allergy list reviewed by nurse or physicia Propensity to adverse reactions Comment:Done [facility] Other (12 sources) Allergies Reconciled Propensity to adverse reactions Unknown [facility] Other (8 sources) Cholestyramine Resin Drug Allergy [facility] (8 sources) Sucrose Drug Allergy [facility] Medications Current Medications Medication Drug Class(es) Dates Sig (Normalized) Sig (Original) 8 hr acetaminophen 650 mg extended release oral tablet (20 sources) take 2 tablets by mouth twice daily acetaminophen 650 mg CR tablet Take 1,300 mg by mouth twice daily. Active Comment on above: Take 1,300 mg by mary twice daily. acetaminophen 325 mg / oxyCODONE hydrochloride 10 mg oral tablet (2 sources) Opioid Agonist take 2 tablets by mouth every four hours as needed for pain oxyCODONE-acetamin ophen (Percocet) 10-325 MG tablet 2 tablets every 4 (four) hours if needed for severe pain Active atropine sulfate 0.025 mg / diphenoxylate hydrochloride 2.5 mg oral tablet (20 sources) Anticholinergic, Cholinergic Muscarinic Antagonist, Antidiarrheal Start: 01-08-2024 take 1 tablet by mouth every six hours as needed Diphenoxylate-Atro pine (Lomotil) 2.5-0.025 mg tablet Active 1 TAB PO Every 6 hours as needed January 07, 2024 11:00pm Start: 08-16-2023 take 2 tablets by mo [facility] every six hours as needed Diphenoxylate-Atropine 2.5-0.025 MG TAKE 2 TABLETS BY MOUTH EVERY 6 HOURS NEEDED for 30 Jul, Active Start: 04-28-2017 End: 01-21-2022 take [...] contrast (will be provided with radiology test) (14 sources) Start: 08-25-[address] (will [...] twice daily. glucagon (rdna) 1 mg injection (14 sources) Antihypoglycemic Agent Start: 2022 inject 1 [...] contrast (will be provided with radiology test) (14 sources) Start: 2022 iv contrast (will be [...] EVERY 6 HOURS NEEDED 3 05/24/2018 Active ondansetron (Zof ran) 4 MG tablet Take by mouth Active Zofran 4 MG as d irected Orally Active Comment on above: DISSOLVE 1 (ONE) TAB LET on the tongue EVERY 6 HOURS NEEDED rifAXIMin 550 mg oral tablet (13 sources) Rifamycin Antibacterial Start: 01-12-2024 take 1 [...] above: Take 1 tablet by mary th twice daily. rOPINIRole 3 mg oral tablet (20 sources) Nonergot Dopamine Agonist Start: 09-23-2024 take 1 tablet by mouth twice daily Ropinirole 3 mg tablet Active 3 MG PO Twice daily 60 September 23, 2024 1:59pm Start: 06-17-2024 End: 09-23-2024 take 1 tablet by mouth twice daily Ropinirole 2 mg tablet Discontinued 2 MG PO Twice daily 60 June 17, 2024 1:22pm September 23, 2024 2:01pm Start: 06-11-2024 End: 06-17-2024 take 1 tablet [...] Start: 10-20-2022 take 2 tablets by mo [facility] every twelve hours rOPINIRole HCl 2 MG 2 tablet Orally bid for 30 days Sep, Active Start: 01-21-2022 End: 12-26-2023 take 2 tablets by mouth once daily at bedtime rOPINIRole (REQUIP) 2 mg tablet Take 2 tablets by mouth daily at bedtime. 01/21/2022 Active Start: 07-16-2015 take 2 tablets by mo ut once daily at bedtime rOPINIRole (REQUIP) 1 mg tablet Take 2 tablets by mouth daily at bedtime. 0 07/16/2015 Active take 2 tablets by mo [facility] at bedtime rOPINIRole (Requip) 3 MG tablet Take 6 mg by mouth at bedtime Active take 1 tablet by [facility] three times daily Requip 1 MG 1 tablet Orally Three times a day for 90 days Active Comment on above: Take 2 tablets by mo [facility] daily at bedtime. vedolizumab 300 mg injection (20 sources) Integrin Receptor Antagonist Start: 01-08-2024 Vedolizumab (Entyvio) 300 mg recon soln Active 300 MG IV EVERY 8 WEEKS January 07, 2024 11:00pm administer over 30 mins Start: 12-17-2020 End: 01-04-2022 vedolizumab (ENTYVIO) 300 mg injection 300 mg iv every 8 weeks 1 Each 5 01/05/2022 Active Vedolizumab (ENT YVIO IV) Infuse into a venous catheter Active Comment on above: 300 mg iv every 8 we eks vitamin b12 5 mg sublingual tablet (9 sources) Vitamin B12 Start: 01-12-2024 cyanocobalamin, vitamin [...] Not-Taking folic acid 1 mg oral tablet (2 sources) Start: 07-02-20 End: 08-06-20 take 1 tablet [...] (20 sources) Opioid Agonist Start: 03-01-20 End: 09-23-20 take 1 tablet by mouth every eight hours Morphine 15 mg tablet extended release Discontinued 15 MG PO Every 8 hours 90 30 April 03, 2024 May 02, 2024 3:43pm Start: 02-05-2024 End: 03-01-2024 take 1 tablet by mouth every twelve hours Morphine 15 mg tablet extended release Discontinued 15 MG PO Q12H 50 25 February 08, 2024 March 01, 2024 8:44am [...] hr Discontinued 10 MG PO Twice daily 07 04January 03, 2024 January 08, 2024 2:27pm Start: 12-26-2023 End: 01-03-2024 take 1 tablet by mouth twice daily Oxycodone 15 mg tablet,oral only,ext.rel.12 hr Discontinued 15 MG PO Twice daily 07 04December 26, 2023 January 03, 2024 4:33am Start: 11-21-2023 End: 12-26-2023 take 1 tablet by mouth twice daily Oxycodone 20 mg tablet,oral only,ext.rel.12 hr Discontinued 20 MG PO Twice daily 14 December 21, 2023 December 26, 2023 1:39pm Start: [...] 30 days Mar, Active Start: 04-07-2023 End: 09-26-2024 take 1 tablet by mouth every four to six hours as needed for pain Oxycodone 20 mg tablet Discontinued 20 MG PO EVERY 4-6 HOURS as needed for pain 160 September 26, 2024 September 26, 2024 3:15pm Start: 01-12-2023 take 1 tablet by mary [...] mg in NaCl 0.9% 250 mL (ENTYVIO) (5 sources) Start: 10-02-2024 End: 10-02-2024 300 mg, INTRAVENOUS, Administer over 30 Minutes, ONCE, 1 dose, On Mon10/02/24 at 1430, Approx Total Volume: 280 mL EXP: 10/03/2024 0220 RT After the infusion is complete flush with 30 mL of sterile 0.9% Sodium Chloride Injection. Refrigerate. After the infusion is complete flush with 30 mL of sterile 0.9% Sodium Chloride Injection. Start: 08-07-2024 End: 08-07-2024 300 mg, INTRAVENOUS, Adminis ter over 30 [...] 24, 2023 11:00pm January 23, 2024 12:21pm zolpidem CR (Amb ien CR) 6.25 MG ER tablet Take 6.25 mg by mouth as needed at bedtime for sleep Do not crush, chew, or split. Active Comment on above: Take by mouth at bed time as needed. Problems Active Problems Problem Classification Problem Date Documented Date Episodic/Chronic Adjustment disorders (10 sources) Adjustment disorder with mixed anxiety and [...] intrinsic factor deficiency] Onset: 04-19-2016 12-25-2023 Episodic Deficiency and other anemia (2 sources) Iron deficiency anemia; Translations: [Iron deficiency anemia, unspecified] 10-17-2024 Episodic Immunity disorders (2 sources) Immunosuppression; Translations: [...] [Depression, unspecified] Onset: 10-25-2013 Nausea and vomiting (20 sources) Nausea and vomiting; Translations: [Nausea with vomiting, unspecified] 12-25-2023 Episodic Nutritional deficiencies (20 sources) Vitamin D deficiency; Translations: [Vitamin D deficiency, unspecified] Onset: 05-30-2013 05-30-2013 Chronic Other aftercare (7 sources) Patient encounter status; Translations: [Encounter for palliative care] 01-05-2024 Episodic Other aftercare (3 sources) Encounter for palliative care; Translations: [Encounter for palliative care] 01-08-2024 Episodic Other and unspecified benign neoplasm (1 source) Adenomatous polyp of colon ; Translations: [Benign neoplasm of colon, unspecified] 01-20-2024 Episodic Other connective tissue disease (7 sources) Fibromyalgia; Translations: [Fibromyalgia] 12-26-2023 Episodic Other connective tissue disease (4 sources) Fibromyalgia; Translations: [Myalgia and myositis, unspecified] 12-26-2023 Episodic Other hereditary and degenerative nervous system conditions (10 sources) Restless legs syndrome; Translations: [Restless legs [...] and degenerative nervous system conditions (8 sources) Movement disorder; Translations: [Extrapyramidal and movement [...] Onset: 05-13-2013 05-13-2013 Chronic Residual codes; unclassified (19 sources) Insomnia; Translations: [Insomnia, unspecified] 12-25-2023 Episodic Residual codes; unclassified (7 sources) Insomnia, unspecified; Translations: [Insomnia, unspecified] 06-04-2024 Episodic Spondylosis; intervertebral disc disorders; other back problems (17 sources) Pain in thoracic spine; Translations: [Pain [...] Range Facility Basophils Auto (Bld) [#/Vol] on 09-15-2024 Basophils (Bld) [#/Vol] Automated basophil count 0.0-0.1 [facility] Basophils/100 WBC Auto (Bld) on 09-15-2024 Basophils/100 WBC (Bld) Automated basophil % 0.2-2.0 [facility] Eosinophils/100 WBC Auto (Bl d)on 09-15-2024 Eosinophils/100 WBC (Bld) Automated eosinophil % Low 0.9-7.0 [facility] Erythrocyte distribution wid th Auto (RBC) [Ratio]on 09-15-2024 Erythrocyte distribution width (RBC) [Ratio] Erythrocyte distribution width [Ratio] by Automated count 11.0-15.0 [facility] Estimated glomerular filtrat ion rate (GFR) non- Americanon 09-15-2024 GFR/1.73 sq M.predicted among non-blacks MDRD (S/P/Bld) [Vol rate/Area] Estimated glomerular filtration rate (GFR) non- >=60 mL/min/1.73m 2 [facility] Globulin Calc (S) [Mass/Vol] on 09-15-2024 Globulin (S) [Mass/Vol] Serum globulin measurement by calculation (mass/volume) [facility] Hematocrit Auto (Bld) [Volum e fraction]on 09-15-2024 Hematocrit (Bld) [Volume fraction] Hematocrit [Volume Fraction] of Blood by Automated count Low 42.0-54.0 [facility] Hemoglobin [Mass/volume] in Bloodon 09-15-2024 Hemoglobin (Bld) [Mass/Vol] Hemoglobin [Mass/volume] in Blood Low 14.0-18.0 [facility] Laboratory - Chemistry and C hemistry - challengeon 09-15-2024 Albumin [Mass/Vol] 3.7 g/dL 3.4-5.0 [facility] ALP [Catalytic activity/Vol] 80 U/L 46-116 [facility] ALT [Catalytic activity/Vol] 15 U/L Low 16-63 [facility] AST [Catalytic activity/Vol] 14 U/L Low 15-37 [facility] Bilirubin [Mass/Vol] 2.2 mg/dL High 0.2-1.0 [facility] Calcium [Mass/Vol] 8.9 mg/dL 8.5-10.1 [facility] Chloride [Moles/Vol] 101 mmol/L 98-107 [facility] CO2 [Moles/Vol] 28.3 mmol/L 21.0-32.0 [facility] Creatinine [Mass/Vol] 1.14 mg/dL 0.70-1.30 [facility] GFR/1.73 sq M.predicted MDRD (S/P/Bld) [Vol rate/Area] mL/min/{1.73_m2} >=60 mL/min/1.73m 2 [facility] Glucose [Mass/Vol] 130 mg/dL High 74-106 [facility] Potassium [Moles/Vol] 3.6 mmol/L 3.5-5.1 [facility] Protein [Mass/Vol] 6.9 g/dL 6.4-8.2 [facility] Sodium [Moles/Vol] 139 mmol/L 136-145 [facility] Urea nitrogen [Mass/Vol] 9.0 mg/dL 7.0-18.0 [facility] Urea nitrogen/Creatinine [Mass ratio] 7.9 mg/mg [facility] Laboratory - Hematology and Cell countson 09-15-2024 Immature granulocytes/100 WBC (Bld) 0.2 % 0.0-0.5 [facility] Leukocytes [#/volume] correc brett for nucleated erythrocytes in Blood by Automated counon 09-15-2024 WBC corrected for nucl RBC Auto (Bld) [#/Vol] Leukocytes [#/volume] corrected for nucleated erythrocytes in Blood by Automated coun 4.0-11.0 [facility] Lymphocytes Auto (Bld) [#/Vo l]on 09-15-2024 Lymphocytes (Bld) [#/Vol] Lymphocytes [#/volume] in Blood by Automated count Low 1.2-3.8 [facility] Lymphocytes/100 WBC Auto (Bl d)on 09-15-2024 Lymphocytes/100 WBC (Bld) Lymphocytes/100 leukocytes in Blood by Automated count 20.5-60.0 [facility] MCH Auto (RBC) [Entitic mass ]on 09-15-2024 MCH (RBC) [Entitic mass] MCH [Entitic mass] by Automated count 25.9-34.0 [facility] MCHC Auto (RBC) [Mass/Vol]on 09-15-2024 MCHC (RBC) [Mass/Vol] MCHC [Mass/volume] by Automated count High 29.9-35.2 [facility] MCV Auto (RBC) [Entitic vol] on 09-15-2024 MCV (RBC) [Entitic vol] MCV [Entitic volume] by Automated count 80.0-94.0 [facility] Monocytes Auto (Bld) [#/Vol] on 09-15-2024 Monocytes (Bld) [#/Vol] Automated blood monocyte count 0.3-0.8 [facility] Monocytes/100 WBC Auto (Bld) on 09-15-2024 Monocytes/100 WBC (Bld) Automated monocyte % 1.7-12.0 [facility] Neutrophils Auto (Bld) [#/Vo l]on 09-15-2024 Neutrophils (Bld) [#/Vol] Neutrophils [#/volume] in Blood by Automated count 1.4-6.5 [facility] Neutrophils/100 WBC Auto (Bl d)on 09-15-2024 Neutrophils/100 WBC (Bld) Automated neutrophil % 43.0-75.0 [facility] No Panel Informationon 09-15 Eosinophils # (Auto) 0.0 10 3/uL 0.0-0.7 [facility] Immature Granulocyte # (Auto) 0.01 10 3/uL 0.00-0.03 [facility] Platelet mean volume Auto (B ld) [Entitic vol]on 09-15-2024 Platelet mean volume (Bld) [Entitic vol] Platelet mean volume [Entitic volume] in Blood by Automated count 9.5-13.5 [facility] Platelets Auto (Bld) [#/Vol] on 09-15-2024 Platelets (Bld) [#/Vol] Platelets [#/volume] in Blood by Automated count Low 150-450 [facility] RBC Auto (Bld) [#/Vol]on RBC (Bld) [#/Vol] Erythrocytes [#/volume] in Blood by Automated count Low 4.70-6.10 [facility] Serum or plasma albumin/glob ulin mass ratioon 09-15-2024 Albumin/Globulin [Mass ratio] Serum or plasma albumin/globulin mass ratio [facility] Serum or plasma anion gap de terminationon 09-15-2024 Anion gap [Moles/Vol] Serum or plasma anion gap determination [facility] Basophils Auto (Bld) [#/Vol] on 07-02-2024 Basophils (Bld) [#/Vol] Automated basophil count 0.0-0.1 [facility] Basophils/100 WBC Auto (Bld) on 07-02-2024 Basophils/100 WBC (Bld) Automated basophil % 0.2-2.0 [facility] Eosinophils/100 WBC Auto (Bl d)on 07-02-2024 Eosinophils/100 WBC (Bld) Automated eosinophil % 0.9-7.0 [facility] Erythrocyte distribution wid th Auto (RBC) [Ratio]on 07-02-2024 Erythrocyte distribution width (RBC) [Ratio] Erythrocyte distribution width [Ratio] by Automated count 11.0-15.0 [facility] Estimated glomerular filtrat ion rate (GFR) non- Americanon 07-02-2024 GFR/1.73 sq M.predicted among non-blacks MDRD (S/P/Bld) [Vol rate/Area] Estimated glomerular filtration rate (GFR) non- >=60 mL/min/1.73m 2 [facility] Hematocrit Auto (Bld) [Volum e fraction]on 07-02-2024 Hematocrit (Bld) [Volume fraction] Hematocrit [Volume Fraction] of Blood by Automated count Low 42.0-54.0 [facility] Hemoglobin [Mass/volume] in Bloodon 07-02-2024 Hemoglobin (Bld) [Mass/Vol] Hemoglobin [Mass/volume] in Blood 14.0-18.0 [facility] Laboratory - Chemistry and C hemistry - challengeon 07-02-2024 Calcium [Mass/Vol] 8.9 mg/dL 8.5-10.1 [facility] Chloride [Moles/Vol] 100 mmol/L 98-107 [facility] CO2 [Moles/Vol] 27.2 mmol/L 21.0-32.0 [facility] Cobalamin (Vitamin B12) [Mass/Vol] 623 pg/mL 232-1245 [facility] Comment on above: Performed at: [address] [id number] Director: Maikel Henderson PhD, Phone: [phone] Creatinine [Mass/Vol] 1.22 mg/dL 0.70-1.30 [facility] GFR/1.73 sq M.predicted MDRD (S/P/Bld) [Vol rate/Area] mL/min/{1.73_m2} >=60 mL/min/1.73m 2 [facility] Glucose [Mass/Vol] 79 mg/dL 74-106 [facility] Potassium [Moles/Vol] 4.0 mmol/L 3.5-5.1 [facility] Sodium [Moles/Vol] 135 mmol/L Low 136-145 [facility] TSH Qn 0.901 m[IU]/L 0.358-3.740 [facility] Urea nitrogen [Mass/Vol] 12.0 mg/dL 7.0-18.0 [facility] Urea nitrogen/Creatinine [Mass ratio] 9.8 mg/mg [facility] Laboratory - Hematology and Cell countson 07-02-2024 Immature granulocytes/100 WBC (Bld) 0.3 % 0.0-0.5 [facility] Leukocytes [#/volume] correc brett for nucleated erythrocytes in Blood by Automated counon 07-02-2024 WBC corrected for nucl RBC Auto (Bld) [#/Vol] Leukocytes [#/volume] corrected for nucleated erythrocytes in Blood by Automated coun Low 4.0-11.0 [facility] Lymphocytes Auto (Bld) [#/Vo l]on 07-02-2024 Lymphocytes (Bld) [#/Vol] Lymphocytes [#/volume] in Blood by Automated count 1.2-3.8 [facility] Lymphocytes/100 WBC Auto (Bl d)on 07-02-2024 Lymphocytes/100 WBC (Bld) Lymphocytes/100 leukocytes in Blood by Automated count 20.5-60.0 [facility] MCH Auto (RBC) [Entitic mass ]on 07-02-2024 MCH (RBC) [Entitic mass] MCH [Entitic mass] by Automated count 25.9-34.0 [facility] MCHC Auto (RBC) [Mass/Vol]on 07-02-2024 MCHC (RBC) [Mass/Vol] MCHC [Mass/volume] by Automated count 29.9-35.2 [facility] MCV Auto (RBC) [Entitic vol] on 07-02-2024 MCV (RBC) [Entitic vol] MCV [Entitic volume] by Automated count High 80.0-94.0 [facility] Monocytes Auto (Bld) [#/Vol] on 07-02-2024 Monocytes (Bld) [#/Vol] Automated blood monocyte count 0.3-0.8 [facility] Monocytes/100 WBC Auto (Bld) on 07-02-2024 Monocytes/100 WBC (Bld) Automated monocyte % 1.7-12.0 [facility] Neutrophils Auto (Bld) [#/Vo l]on 07-02-2024 Neutrophils (Bld) [#/Vol] Neutrophils [#/volume] in Blood by Automated count 1.4-6.5 [facility] Neutrophils/100 WBC Auto (Bl d)on 07-02-2024 Neutrophils/100 WBC (Bld) Automated neutrophil % 43.0-75.0 [facility] No Panel Informationon 07-02 25-Hydroxy Vitamin D Total 53.9 ng/mL [facility] Comment on above: <20 ng/mL Vit D defi cient20-<30 ng/mL Vit D [id number] ng/mL Vit D sufficient>100 ng/mL Potential Toxicity Eosinophils # (Auto) 0.0 10 3/uL 0.0-0.7 [facility] Folate 1.50 ng/mL Low 8.60-58.90 [facility] Immature Granulocyte # (Auto) 0.01 10 3/uL 0.00-0.03 [facility] Platelet mean volume Auto (B ld) [Entitic vol]on 07-02-2024 Platelet mean volume (Bld) [Entitic vol] Platelet mean volume [Entitic volume] in Blood by Automated count Low 9.5-13.5 [facility] Platelets Auto (Bld) [#/Vol] on 07-02-2024 Platelets (Bld) [#/Vol] Platelets [#/volume] in Blood by Automated count Low 150-450 [facility] RBC Auto (Bld) [#/Vol]on RBC (Bld) [#/Vol] Erythrocytes [#/volume] in Blood by Automated count Low 4.70-6.10 [facility] Serum or plasma anion gap de terminationon 07-02-2024 Anion gap [Moles/Vol] Serum or plasma anion gap determination [facility] C-REACTIVE PROTEINon 024 CRP [Mass/Vol] mg/dL NINF - 0.9 mg/dL [facility] CRP [Mass/Vol]on 02-23-2024 Interpretation and review of laboratory results Normal [facility] Cobalamin (Vitamin B12) [Mas s/Vol]on 02-23-2024 Interpretation and review of laboratory results Abnormal [facility] VITAMIN B12on 02-23-2024 Cobalamin (Vitamin B12) [Mass/Vol] pg/mL High 232 - 1245 pg/mL [facility] BLOOD TB SCREENon 02-22-2024 M. tuberculosis tuberculin stim IFN-g Ql (Bld) Negative Normal [facility] Comment on above: Order Comment: Raquel vázquez Type: BLOOD SPECIMEN Ordering Facility: [facility] Address: [address] [place] [address] Performed By: #### I NFTBP #### [facility] CLIA [id number] [address] [place] [address] [place] MITOGEN MINUS NIL >9.96 Normal >=0.50 [facility] Comment on above: Order Comment: Raquel vázquez Type: BLOOD SPECIMEN Ordering Facility: [facility] Address: [address] [place] [address] Performed By: #### I NFTBP #### [facility] CLIA [id number] [address] [place] [address] [place] TB GAMMA INTERPRETATION Infection with M. tuberculosis complex is unlikely. If latent tuberculosis infection is highly suspected, a negative result does not rule out the infection. Specimens from immunocompromised patients and those <5 years of age may show false negative results. In case of a contact investigation, please repeat 8-12 weeks after a known exposure. Normal [facility] Comment on above: Order Comment: Speci men Type: BLOOD SPECIMEN Ordering Facility: [facility] Address: [address] [place] [address] Performed By: #### I NFTBP #### [facility] CLIA [id number] [address] [place] [address] [place] TB NIL 0.04 IU/mL Normal <=8.00 [facility] Comment on above: Order Comment: Speci men Type: BLOOD SPECIMEN Ordering Facility: [facility] Address: [address] [place] [address] Performed By: #### I NFTBP #### [facility] CLIA [id number] [address] [place] [address] [place] TB1 AG MINUS NIL 0.01 IU/mL Normal <0.35 [facility] Comment on above: Order Comment: Speci men Type: BLOOD SPECIMEN Ordering Facility: [facility] Address: [address] [place] [address] Performed By: #### I NFTBP #### [facility] CLIA [id number] [address] [place] [address] [place] TB2 AG MINUS NIL 0.09 IU/mL Normal <0.35 [facility] Comment on above: Order Comment: Speci men Type: BLOOD SPECIMEN Ordering Facility: [facility] Address: [address] [place] [address] Performed By: #### I NFTBP #### [facility] CLIA [id number] [address] [place] [address] [place] Basophils Auto (Bld) [#/Vol] on 02-22-2024 Basophils (Bld) [#/Vol] 10*3/uL <0.11 [facility] Basophils/100 WBC Auto (Bld) on 02-22-2024 Basophils/100 WBC (Bld) 0.7 % [facility] Blood Mycobacterium tubercul osis tuberculin stimulated gamma interferon detectionon 02-22-2024 M. tuberculosis tuberculin stim IFN-g Ql (Bld) 0.01 [IU]/mL <0.35 [facility] M. tuberculosis tuberculin stim IFN-g Ql (Bld) [facility] M. tuberculosis tuberculin stim IFN-g Ql (Bld) 0.04 [IU]/mL <=8.00 [facility] Blood manual differential co mment interpretation narrativeon 02-22-2024 Manual differential comment Obdulio (Bld) [Interp] Auto [facility] Blood mitogen stimulated jaycee ma interferon measurement (units/volume)on 02-22-2024 Mitogen stimulated gamma interferon Qn (Bld) >9.96 [IU]/mL >=0.50 [facility] CBC W Auto Differential pane l (Bld)on 02-22-2024 Basophils (Bld) [#/Vol] [facility] Basophils/100 WBC (Bld) 0.7 % [facility] Differential cell count method Nom (Bld) Auto [facility] Eosinophils (Bld) [#/Vol] 0.04 10*3/uL [facility] Eosinophils/100 WBC (Bld) 1.4 % [facility] Erythrocyte distribution width (RBC) [Ratio] 11.9 % 11.5 - 15.0 % [facility] Hematocrit (Bld) [Volume fraction] 40.5 % 39.0 - 51.0 % [facility] Hemoglobin (Bld) [Mass/Vol] 14.2 g/dL 13.0 - 17.0 g/dL [facility] Immature granulocytes (Bld) [#/Vol] [facility] Immature granulocytes/100 WBC (Bld) 0.3 % [facility] Interpretation and review of laboratory results Abnormal [facility] Lymphocytes (Bld) [#/Vol] 1.28 10*3/uL [facility] Lymphocytes/100 WBC (Bld) 43.4 % [facility] MCH (RBC) [Entitic mass] 32.2 pg 26.0 - 34.0 pg [facility] MCHC (RBC) [Mass/Vol] 35.1 g/dL 30.5 - 36.0 g/dL [facility] MCV (RBC) [Entitic vol] 91.8 fL 80.0 - 100.0 fL [facility] Monocytes (Bld) [#/Vol] 0.28 10*3/uL [facility] Monocytes/100 WBC (Bld) 9.5 % [facility] Neutrophils (Bld) [#/Vol] 1.32 10*3/uL Low [facility] Neutrophils/100 WBC (Bld) 44.7 % [facility] Nucleated RBC (Bld) [#/Vol] NINF [facility] Nucleated RBC/100 WBC (Bld) [Ratio] 0.0 % /100 WBC [facility] Platelet mean volume (Bld) [Entitic vol] 9.8 fL 9.0 - 12.7 fL [facility] Platelets (Bld) [#/Vol] 137 10*3/uL Low [facility] RBC (Bld) [#/Vol] 4.41 10*6/uL 4.20 - 6.0 0 m/uL [facility] WBC (Bld) [#/Vol] 2.95 10*3/uL Low [facility] Basophils (Bld) [#/Vol] 10*3/uL Normal <0.11 [facility] Comment on above: Order Comment: Speci men Type: BLOOD SPECIMEN Ordering Facility: [facility] Address: [address] [place] [address] Performed By: #### 5 7021-8 #### [facility] CLIA [id number] [address] [place] [address] 95166 Basophils/100 WBC (Bld) 0.7 % Normal [facility] Comment on above: Order Comment: Speci men Type: BLOOD SPECIMEN Ordering Facility: [facility] Address: [address] [place] [address] Performed By: #### 5 7021-8 #### [facility] CLIA [id number] [address] [place] [address] 19777 Differential cell count method Nom (Bld) Auto Normal [facility] Comment on above: Order Comment: Speci men Type: BLOOD SPECIMEN Ordering Facility: [facility] Address: [address] [place] [address] Performed By: #### 5 7021-8 #### [facility] CLIA [id number] [address] [place] [address] 66696 Eosinophils (Bld) [#/Vol] 0.04 10*3/uL Normal <0.46 [facility] Comment on above: Order Comment: Speci men Type: BLOOD SPECIMEN Ordering Facility: [facility] Address: [address] [place] [address]954 Performed By: #### 5 7021-8 #### [facility] CLIA [id number] [address] [place] [address] 85300 Eosinophils/100 WBC (Bld) 1.4 % Normal [facility] Comment on above: Order Comment: Speci men Type: BLOOD SPECIMEN Ordering Facility: [facility] Address: [address] [place] [address] 32518 Performed By: #### 5 7021-8 #### [facility] CLIA [id number] [address] [place] [address] 88058 Erythrocyte distribution width (RBC) [Ratio] 11.9 % Normal 11.5-15.0 [facility] Comment on above: Order Comment: Speci men Type: BLOOD SPECIMEN Ordering Facility: [facility] Address: [address] [place] [address] 97981 Performed By: #### 5 7021-8 #### [facility] CLIA [id number] [address] [place] [address] 36685 Hematocrit (Bld) [Volume fraction] 40.5 % Normal 39.0-51.0 [facility] Comment on above: Order Comment: Speci men Type: BLOOD SPECIMEN Ordering Facility: [facility] Address: [address] [place] [address] Performed By: #### 5 7021-8 #### [facility] CLIA [id number] [address] [place] [address] 03584 Hemoglobin (Bld) [Mass/Vol] 14.2 g/dL Normal 13.0-17.0 [facility] Comment on above: Order Comment: Speci men Type: BLOOD SPECIMEN Ordering Facility: [facility] Address: [address] [place] [address] 10943 Performed By: #### 5 7021-8 #### [facility] CLIA [id number] [address] [place] [address] Immature granulocytes (Bld) [#/Vol] 10*3/uL Normal <0.10 [facility] Comment on above: Order Comment: Speci men Type: BLOOD SPECIMEN Ordering Facility: [facility] Address: [address] [place] [address] Performed By: #### 5 7021-8 #### [facility] CLIA [id number] [address] [place] [address] 62030 Immature granulocytes/100 WBC (Bld) 0.3 % Normal [facility] Comment on above: Order Comment: Speci men Type: BLOOD SPECIMEN Ordering Facility: [facility] Address: [address] [place] [address] Performed By: #### 5 7021-8 #### [facility] CLIA [id number] [address] [place] [address] 85080 Lymphocytes (Bld) [#/Vol] 1.28 10*3/uL Normal 1.00-4.00 [facility] Comment on above: Order Comment: Speci men Type: BLOOD SPECIMEN Ordering Facility: [facility] Address: [address] [place] [address] Performed By: #### 5 7021-8 #### [facility] CLIA [id number] [address] [place] [address] 41621 Lymphocytes/100 WBC (Bld) 43.4 % Normal [facility] Comment on above: Order Comment: Speci men Type: BLOOD SPECIMEN Ordering Facility: [facility] Address: [address] [place] [address] 30218 Performed By: #### 5 7021-8 #### [facility] CLIA [id number] [address] [place] [address] 83683 MCH (RBC) [Entitic mass] 32.2 pg Normal 26.0-34.0 [facility] Comment on above: Order Comment: Speci men Type: BLOOD SPECIMEN Ordering Facility: [facility] Address: [address] [place] [address] Performed By: #### 5 7021-8 #### [facility] CLIA [id number] [address] [place] [address] 45946 MCHC (RBC) [Mass/Vol] 35.1 g/dL Normal 30.5-36.0 [facility] Comment on above: Order Comment: Speci men Type: BLOOD SPECIMEN Ordering Facility: [facility] Address: [address] [place] [address] Performed By: #### 5 7021-8 #### [facility] CLIA [id number] [address] [place] [address] 30142 MCV (RBC) [Entitic vol] 91.8 fL Normal 80.0-100.0 [facility] Comment on above: Order Comment: Speci men Type: BLOOD SPECIMEN Ordering Facility: [facility] Address: [address] [place] [address] Performed By: #### 5 7021-8 #### [facility] CLIA [id number] [address] [place] [address] 61370 Monocytes (Bld) [#/Vol] 0.28 10*3/uL Normal <0.87 [facility] Comment on above: Order Comment: Speci men Type: BLOOD SPECIMEN Ordering Facility: [facility] Address: [address] [place] [address] Performed By: #### 5 7021-8 #### [facility] CLIA [id number] [address] [place] [address] 62706 Monocytes/100 WBC (Bld) 9.5 % Normal [facility] Comment on above: Order Comment: Speci men Type: BLOOD SPECIMEN Ordering Facility: [facility] Address: [address] [place] [address] Performed By: #### 5 7021-8 #### [facility] CLIA [id number] [address] [place] [address] 23781 Neutrophils (Bld) [#/Vol] 1.32 10*3/uL Low 1.45-7.50 [facility] Comment on above: Order Comment: Speci men Type: BLOOD SPECIMEN Ordering Facility: [facility] Address: [address] [place] [address] 36852 Performed By: #### 5 7021-8 #### [facility] CLIA [id number] [address] [place] [address] 47426 Neutrophils/100 WBC (Bld) 44.7 % Normal [facility] Comment on above: Order Comment: Speci men Type: BLOOD SPECIMEN Ordering Facility: [facility] Address: [address] [place] [address] Performed By: #### 5 7021-8 #### [facility] CLIA [id number] [address] [place] [address] 69521 Nucleated RBC (Bld) [#/Vol] 10*3/uL Normal <0.01 [facility] Comment on above: Order Comment: Speci men Type: BLOOD SPECIMEN Ordering Facility: [facility] Address: [address] [place] [address] Performed By: #### 5 7021-8 #### [facility] CLIA [id number] [address] [place] [address] 26516 Nucleated RBC/100 WBC (Bld) [Ratio] 0.0 /100 WBC Normal [facility] Comment on above: Order Comment: Speci men Type: BLOOD SPECIMEN Ordering Facility: [facility] Address: [address] [place] [address] 67277 Performed By: #### 5 7021-8 #### [facility] CLIA [id number] [address] [place] [address] 16356 Platelet mean volume (Bld) [Entitic vol] 9.8 fL Normal 9.0-12.7 [facility] Comment on above: Order Comment: Speci men Type: BLOOD SPECIMEN Ordering Facility: [facility] Address: [address] [place] [address] 98780 Performed By: #### 5 7021-8 #### [facility] CLIA [id number] [address] [place] [address] Platelets (Bld) [#/Vol] 137 10*3/uL Low 150-400 [facility] Comment on above: Order Comment: Speci men Type: BLOOD SPECIMEN Ordering Facility: [facility] Address: [address] [place] [address] Performed By: #### 5 7021-8 #### [facility] CLIA [id number] [address] [place] [address] RBC (Bld) [#/Vol] 4.41 10*6/uL Normal 4.20-6.00 [facility] Comment on above: Order Comment: Speci men Type: BLOOD SPECIMEN Ordering Facility: [facility] Address: [address] [place] [address] Performed By: #### 5 7021-8 #### [facility] CLIA [id number] [address] [place] [address] 58338 WBC (Bld) [#/Vol] 2.95 10*3/uL Low 3.70-11.00 [facility] Comment on above: Order Comment: Speci men Type: BLOOD SPECIMEN Ordering Facility: [facility] Address: [address] [place] [address] Performed By: #### 5 7021-8 #### [facility] CLIA [id number] [address] [place] [address] 99762 CRP SerPl-ncon 02-22-2024 CRP [Mass/Vol] mg/L Normal <0.9 [facility] Comment on above: Order Comment: Speci men Type: BLOOD SPECIMEN Ordering Facility: [facility] Address: [address] [place] [address] Performed By: #### 1 988-5, 2132-9 #### [facility] CLIA [id number] [address] [place] [address] [facility] Comprehensive metabolic 2000 panelOrdered By: Emeterio Betts on 02-22-2024 Albumin [Mass/Vol] 4.5 g/dL 3.9 - 4.9 g/dL Cl [facility] ALP [Catalytic activity/Vol] 101 U/L 38 - 113 U/L [facility] ALT [Catalytic activity/Vol] 17 U/L 10 - 54 U/L [facility] Anion gap [Moles/Vol] 11 mmol/L 9 - 18 mmol/L [facility] AST [Catalytic activity/Vol] [facility] Comment on above: Unable to assay. Spe cimen significantly hemolyzed. Bilirubin [Mass/Vol] 2.4 mg/dL High 0.2 - 1 .3 mg/dL [facility] Calcium [Mass/Vol] 9.7 mg/dL 8.5 - 10. 2 mg/dL [facility] Chloride [Moles/Vol] 98 mmol/L 97 - 10 5 mmol/L [facility] CO2 [Moles/Vol] 27 mmol/L 22 - 30 mmol/L [facility] Creatinine [Mass/Vol] 1.16 mg/dL 0.73 - 1.22 mg/dL [facility] GFR/1.73 sq M.predicted among non-blacks MDRD (S/P/Bld) [Vol rate/Area] 79 mL/min/{1.73_m2} - PINF [facility] Comment on above: Estimated Glomerular [...] [Mass/Vol] 87 mg/dL 74 - 99 mg/dL [facility] Comment on above: The [place] Diab[employer] Association (ADA) provides guidance for [...] Standards of Medical Care in Diabetes 2016, [place] [employer]. Diabetes Care. 2016.39(Suppl 1). Interpretation and review of laboratory results Abnormal [facility] Potassium [Moles/Vol] 3.9 mmol/L 3.7 - 5.1 mmol/L [facility] Protein [Mass/Vol] 7.4 g/dL 6.3 - 8.0 g/dL [facility] Sodium [Moles/Vol] 136 mmol/L 136 - 144 mmol/L [facility] Urea nitrogen [Mass/Vol] 12 mg/dL 9 - 24 mg/dL [facility] Comprehensive metabolic 2000 panelon 02-22-2024 Albumin [Mass/Vol] 4.5 g/dL Normal 3.9-4.9 [facility] Comment on above: Order Comment: Speci men Type: BLOOD SPECIMEN Ordering Facility: [facility] Address: [address] [place] [address] Performed By: #### 2 4323-8 #### [facility] CLIA [id number] [address] [place] [address] 88621 ALP [Catalytic activity/Vol] 101 U/L Normal 38-113 [facility] Comment on above: Order Comment: Speci men Type: BLOOD SPECIMEN Ordering Facility: [facility] Address: [address] [place] [address] Performed By: #### 2 4323-8 #### [facility] CLIA [id number] [address] [place] [address] 00531 ALT [Catalytic activity/Vol] 17 U/L Normal 10-54 [facility] Comment on above: Order Comment: Speci men Type: BLOOD SPECIMEN Ordering Facility: [facility] Address: [address] [place] [address] Performed By: #### 2 4323-8 #### [facility] CLIA [id number] [address] [place] [address] 93723 Anion gap [Moles/Vol] 11 mmol/L Normal 9-18 [facility] Comment on above: Order Comment: Speci men Type: BLOOD SPECIMEN Ordering Facility: [facility] Address: [address] [id number] Performed By: #### 2 4323-8 #### [facility] CLIA [id number] [address] [place] [address] AST [Catalytic activity/Vol] Normal [facility] Comment on above: Order Comment: Speci men Type: BLOOD SPECIMEN Ordering Facility: [facility] Address: [address] [place] [address] Result Comment: Unab le to assay. Specimen significantly hemolyzed. Performed By: #### 2 4323-8 #### [facility] CLIA [id number] [address] [place] [address] 59861 Bilirubin [Mass/Vol] 2.4 mg/dL High 0.2-1.3 [facility] Comment on above: Order Comment: Speci men Type: BLOOD SPECIMEN Ordering Facility: [facility] Address: [address] [place] [address] Performed By: #### 2 4323-8 #### [facility] CLIA [id number] [address] [place] [address] 74700 Calcium [Mass/Vol] 9.7 mg/dL Normal 8.5-10.2 [facility] Comment on above: Order Comment: Speci men Type: BLOOD SPECIMEN Ordering Facility: [facility] Address: [address] [place] [address] Performed By: #### 2 4323-8 #### [facility] CLIA [id number] [address] [place] [address] 59600 Chloride [Moles/Vol] 98 mmol/L Normal 97-105 [facility] Comment on above: Order Comment: Speci men Type: BLOOD SPECIMEN Ordering Facility: [facility] Address: [address] [place] [address] Performed By: #### 2 4323-8 #### [facility] CLIA [id number] [address] [place] [address] CO2 [Moles/Vol] 27 mmol/L Normal 22-30 [facility] Comment on above: Order Comment: Speci men Type: BLOOD SPECIMEN Ordering Facility: [facility] Address: [address] [place] [address] Performed By: #### 2 4323-8 #### [facility] CLIA [id number] [address] [place] [address] Creatinine [Mass/Vol] 1.16 mg/dL Normal 0.73-1.22 [facility] Comment on above: Order Comment: Speci men Type: BLOOD SPECIMEN Ordering Facility: [facility] Address: [address] [place] [address] Performed By: #### 2 4323-8 #### [facility] CLIA [id number] [address] [place] [address] 13571 Creatinine and Glomerular filtration rate.predicted panel (S/P/Bld) 79 mL/min/1.73m??? Normal >=60 [facility] Comment on above: Order Comment: Speci men Type: BLOOD SPECIMEN Ordering Facility: [facility] Address: [address] [place] [address] Result Comment: Barbara mated Glomerular Filtration Rate [...] GFR. Performed By: #### 2 4323-8 #### [facility] CLIA [id number] [address] [place] [address] 52405 Glucose [Mass/Vol] 87 mg/dL Normal 74-99 [facility] Comment on above: Order Comment: Speci men Type: BLOOD SPECIMEN Ordering Facility: [facility] Address: [address] [id number] Result Comment: The [place] Diabetes Association (ADA) provides guidance for cutoff [...] Standards of Medical Care in Diabetes 2016, [place] [employer]. Diabetes Care. 2016.39(Suppl 1). Performed By: #### 2 4323-8 #### [facility] CLIA [id number] [address] [place] [address] Potassium [Moles/Vol] 3.9 mmol/L Normal 3.7-5.1 [facility] Comment on above: Order Comment: Speci men Type: BLOOD SPECIMEN Ordering Facility: [facility] Address: [address] [place] [address] Performed By: #### 2 4323-8 #### [facility] CLIA [id number] [address] [place] [address] 52001 Protein [Mass/Vol] 7.4 g/dL Normal 6.3-8.0 [facility] Comment on above: Order Comment: Inesi gurpreet Type: BLOOD SPECIMEN Ordering Facility: [facility] Address: [address] [place] [address] 24841 Performed By: #### 2 4323-8 #### [facility] CLIA [id number] [address] [place] [address] 06442 Sodium [Moles/Vol] 136 mmol/L Normal 136-144 [facility] Comment on above: Order Comment: Speci men Type: BLOOD SPECIMEN Ordering Facility: [facility] Address: [address] [place] [address] 37562 Performed By: #### 2 4323-8 #### [facility] CLIA [id number] [address] [place] [address] 16823 Urea nitrogen [Mass/Vol] 12 mg/dL Normal 9-24 [facility] Comment on above: Order Comment: Speci men Type: BLOOD SPECIMEN Ordering Facility: [facility] Address: [address] [place] [address] Performed By: #### 2 4323-8 #### [facility] CLIA [id number] [address] [place] [address] 61997 Eosinophils/100 WBC Auto (Bl d)on 02-22-2024 Eosinophils/100 WBC (Bld) 1.4 % [facility] Erythrocyte distribution wid th Auto (RBC) [Ratio]on 02-22-2024 Erythrocyte distribution width (RBC) [Ratio] 11.9 % 11.5-15.0 [facility] Hematocrit Auto (Bld) [Volum e fraction]on 02-22-2024 Hematocrit (Bld) [Volume fraction] 40.5 % 39.0-51.0 [facility] Hemoglobin [Mass/volume] in Bloodon 02-22-2024 Hemoglobin (Bld) [Mass/Vol] 14.2 g/dL 13.0-17.0 [facility] - Chemistry and C hemistry - challengeon 02-22-2024 Albumin [Mass/Vol] 4.5 g/dL 3.9-4.9 [facility] ALP [Catalytic activity/Vol] 101 U/L 38-113 [facility] ALT [Catalytic activity/Vol] 17 U/L 10-54 [facility] Bilirubin [Mass/Vol] 2.4 mg/dL High 0.2-1.3 [facility] Calcium [Mass/Vol] 9.7 mg/dL 8.5-10.2 [facility] Chloride [Moles/Vol] 98 mmol/L 97-105 [facility] CO2 [Moles/Vol] 27 mmol/L 22-30 [facility] Creatinine [Mass/Vol] 1.16 mg/dL 0.73-1.22 [facility] Glucose [Mass/Vol] 87 mg/dL 74-99 [facility] Comment on above: The [place] Diabete s Association (ADA) provides guidance for [...] Standards of Medical Care in Diabetes 2016, [place] [employer]. Diabetes Care. 2016.39(Suppl 1). Potassium [Moles/Vol] 3.9 mmol/L 3.7-5.1 [facility] Sodium [Moles/Vol] 136 mmol/L 136-144 [facility] Urea nitrogen [Mass/Vol] 12 mg/dL 06-18 [facility] - Hematology and Cell countson 02-22-2024 Eosinophils (Bld) [#/Vol] 0.04 10*3/uL <0.46 [facility] Immature granulocytes/100 WBC (Bld) 0.3 % [facility] Leukocytes [#/volume] correc brett for nucleated erythrocytes in Blood by Automated counon 02-22-2024 WBC corrected for nucl RBC Auto (Bld) [#/Vol] 2.95 k/uL Low 3.70-11.00 [facility] Lymphocytes Auto (Bld) [#/Vo l]on 02-22-2024 Lymphocytes (Bld) [#/Vol] 1.28 10*3/uL 1.00-4.00 [facility] Lymphocytes/100 WBC Auto (Bl d)on 02-22-2024 Lymphocytes/100 WBC (Bld) 43.4 % [facility] MCH Auto (RBC) [Entitic mass ]on 02-22-2024 MCH (RBC) [Entitic mass] 32.2 pg 26.0-34.0 [facility] MCHC Auto (RBC) [Mass/Vol]on 02-22-2024 MCHC (RBC) [Mass/Vol] 35.1 g/dL 30.5-36.0 [facility] MCV Auto (RBC) [Entitic vol] on 02-22-2024 MCV (RBC) [Entitic vol] 91.8 fL 80.0-100.0 [facility] Monocytes Auto (Bld) [#/Vol] on 02-22-2024 Monocytes (Bld) [#/Vol] 0.28 10*3/uL <0.87 [facility] Monocytes/100 WBC Auto (Bld) on 02-22-2024 Monocytes/100 WBC (Bld) 9.5 % [facility] Mycobacterium tuberculosis s timulated gamma interferon [Interpretation] in Blood Qualon 02-22-2024 M. tuberculosis stim IFN-g Ql (Bld) [Interp] Negative [facility] Neutrophils Auto (Bld) [#/Vo l]on 02-22-2024 Neutrophils (Bld) [#/Vol] 1.32 10*3/uL Low 1.45-7.50 [facility] Neutrophils/100 WBC Auto (Bl d)on 02-22-2024 Neutrophils/100 WBC (Bld) 44.7 % [facility] No Panel Informationon 02-21 Aspartate Amino Transf (AST/SGOT) See comment [facility] Comment on above: Unable to assay. Spe cimen significantly hemolyzed. C-Reactive Protein, Quantitative <0.3 mg/dL <0.9 [facility] Estimated GFR (CKD-EPI) 79 mL/min/1.73m??? >=60 [facility] Comment on above: Estimated Glomerular Filtration [...] Immature Granulocyte # (Auto) <0.03 k/uL <0.10 [facility] Vitamin B12 Level >2000 pg/mL High 232-1245 [facility] Nucleated RBC Auto (Bld) [#/ Vol]on 02-22-2024 Nucleated RBC (Bld) [#/Vol] 10*3/uL <0.01 [facility] Nucleated erythrocytes [Pres ence] in Blood by Automated counton 02-22-2024 Nucleated RBC Auto Ql (Bld) 0.0 /100{WBC} [facility] Platelet mean volume Auto (B ld) [Entitic vol]on 02-22-2024 Platelet mean volume (Bld) [Entitic vol] 9.8 fL 9.0-12.7 [facility] Platelets Auto (Bld) [#/Vol] on 02-22-2024 Platelets (Bld) [#/Vol] 137 10*3/uL Low 150-400 [facility] Protein [Mass/volume] in Ser um or Plasmaon 02-22-2024 Protein [Mass/Vol] 7.4 g/dL 6.3-8.0 [facility] RBC Auto (Bld) [#/Vol]on RBC (Bld) [#/Vol] 4.41 10*6/uL 4.20-6.00 [facility] Serum or plasma anion gap de terminationon 02-22-2024 Anion gap [Moles/Vol] 11 mmol/L 9-18 [facility] Vit B12 SerPl-mCncon 024 Cobalamin (Vitamin B12) [Mass/Vol] pg/mL High 232-1245 [facility] Comment on above: Order Comment: Speci men Type: BLOOD SPECIMEN Ordering Facility: [facility] Address: [address] [place] [address] Performed By: #### 1 408-4, 7180-3 #### [facility] CLIA [id number] [address] [place] [address] [place] Whole blood measurement of M ycobacterium tuberculosis stimulated gamma interferon relon 02-22-2024 M. tuberculosis stim IFN-g by CD4+ CD8+ T-cells corrected for background Qn (Bld) 0.09 [IU]/mL <0.35 [facility] CNPSheryl 01-25-2024 CNPN Telephone (CAITLYN) HERMINIO MOHAN ([id number]) 1980 M Date Time Provider Department 01/25/24 DEEPALI STONE During your visit today, we recorded the following information about you: Deepali Castellanos RN 01/25/2024 1:52 PM Signed Submitted PA request for Xifaxan via CM. Awaiting insurance determination. Deepali Castellanos RN (Sykes: [id number]) - [id number] Manuela Crowley 01/29/2024 1:12 PM Signed Incoming fax received on 01/27/2024 informing of Xifaxan approval, valid 01/27/2024 - 03/23/2024. Scanned into [employer]. PA ref #: [id number] Manuela Crowley Allergies As of Date: 01/25/2024 [...] 07/15/2013 14 - Other: See Comments Comments: [place] off , dizziness, irregular heart beat/breathing, difficult [...] Status:Closed by DEEPALI CASTELLANOS RN on 01/25/24 [facility] CNOVon 01-12-2024 CNOV Office Visit (GASTAV ) HERMINIO MOHAN ([id number]) 1980 M Date Time Provider Department 01/12/24 9:20 AM DEEPALI STONE GASTELSA During your visit today, we recorded the [...] smoking Serial bowel resections, most recently 2015. (more content not included)... Normal [facility] ANES POSTPROC EVALon 024 ANES POSTPROC EVAL HNO ID: [id number] Author: ELVIS MELGAR MD Service: Anesthesiology Author [...] MD, PhD; Elvis Melgar MD; Dayday Tucker APRN.LOG RAFTER; Coni Edouard RN Responsible Provider: Elvis Melgar [...] November 15, 2023 TIME: 1:56 PM CSN: [id number] [facility] ANES PRE-OPon 11-15-2023 ANES PRE-OP HNO ID: [id number] Author: ELVIS MELGAR MD Service: Anesthesiology Author Type: Physician Type: Anesthesia Preprocedure Evaluation Filed: 11/15/2023 12:40 Note Text: ANESTHESIOLOGY DAY OF SURGERY NOTE : 1980 Procedure Information Date/Time: 11/15/23 1245 Scheduled providers: Deepali Stone MD, PhD; Elvis Melgar MD; Dayday Tucker APRN.LOG RAFTER; Coni Edouard RN Procedure: COLONOSCOPY DIAGNOSTIC Location: [...] and consent discussed: yes. Patient / Responsible Democrat agrees to proceed: yes Patient / Surrogate [...] November 15, 2023 TIME: 12:40 PM CSN: [id number] Normal [facility] Colonoscopyon 11-15-2023 Colonoscopy [facility] Gastrointestinal Endoscopy Patient Name: Herminio Mohan Procedure Date: 11/15/2023 1:17 PM Date of : 1980 Admit Type: Outpatient Age: 43 Room: [place] [address] Gender: Male Note Status: Finalized Attending MD: Deepali Stone MD, PhD, [id number] Procedure: Colonoscopy Indications: Disease activity assessment of [...] in one week telephone Dr. Stone at [phone] for results. - Resume previous diet. - Continue present medications. - Return to my office as previously scheduled. - Patient has a contact number available for emergencies. The signs and symptoms of potential delayed complications were discussed with the patient. Return to [facility] (more content not included)... Normal [facility] Flexible sigmoidoscopy study on 11-15-2023 [facility] HISTORY PHYSICALon HISTORY PHYSICAL HNO ID: [id number] Author: DEEPALI STONE MD, PhD Service: Gastroenterology [...] Comments Cramps Lioresal [Baclofen] Other: See Comments Gladstone off , dizziness, irregular heart beat/breathing, difficult [...] DATE: November 15, 2023 TIME: 1:18 PM [facility] SURGICAL PATHOLOGYon 024 CASE REPORT [facility] Comment on above: Order Comment: Speci men Type: TISSUE SPECIMEN Ordering Facility: [facility] Address: [address] [place] [address] Result Comment: Surg [facility] Pathology Report Case: [id number] Authorizing Provider: Deepali Stone MD, Collected: 11/15/2023 01:32 PM PhD Ordering Location: Procedures Received: 11/15/2023 02:02 PM Pathologist: Van Quezada MD, PhD Specimens: A) - TRANSVERSE COLON POLYP B) - ILEUM BIOPSY C) - TRANSVERSE COLON BIOPSY, ? colitis D) - SIGMOID COLON POLYP E) - RECTAL BIOPSY, proctitis Performed By: #### S #### [facility] CLIA [id number] [address] [place], [place] [address] [address] [place] FINAL DIAGNOSIS Normal [facility] Comment on above: Order Comment: Speci men Type: TISSUE SPECIMEN Ordering Facility: [facility] Address: [address] [place] [address] Result Comment: A. C olon, transverse, polyp, [...] or dysplasia. Performed By: #### S #### [facility] CLIA [id number] [address] [place] [address] [place] FINAL PERFORMING LAB Normal [facility] Comment on above: Order Comment: Raquel vázquez Type: TISSUE SPECIMEN Ordering Facility: [facility] Address: [address] [place] [address] Result Comment: Diag nostic interpretation performed at [facility], [address] [place] [address] CLIA# [id number] Reporting Process Consultant: Macario Jeffery M.D. Performed By: #### S #### [facility] CLIA [id number] [address] [place] [address] [place] GROSS DESCRIPTION Normal [facility] Comment on above: Order Comment: Raquel vázquez Type: TISSUE SPECIMEN Ordering Facility: [facility] Address: [address] [place] [address] Result Comment: A. T RANSVERSE COLON POLYP [...] 0.1 cm. Totally submitted in one cassette. DB November 15, 2023 7:36 PM Gross examination performed at [facility], [address] [place] [address]., [place] [address] D. SIGMOID COLON POLYP Received in formalin is one segment of yan-brown polypoid tissue measuring 1.3 x 0.6 x 0.3 cm. No stalk is present. The line of resection is noted. The specimen is bisected and totally submitted in one cassette. Gross examination performed at [facility], [address] [place] [address]., [address] November 15, 2023 7:11 PM E. RECTAL BIOPSY Received in formalin are two pieces of yan to yan-pink, soft tissue aggregating to 0.8 x 0.3 x 0.2 cm. Totally submitted in one cassette. November 15, 2023 7:39 PM Gross examination performed at [facility], [address] [place] [address]., [place] [address] Performed By: #### S #### [facility] CLIA [id number] [address] [place] [id number] [place] CBC panel Auto (Bld)on 09-07 Erythrocyte distribution width (RBC) [Ratio] 12.4 % 11.5 - 15.0 % [facility] Hematocrit (Bld) [Volume fraction] 36.9 % Low 39.0 - 51.0 % [facility] Hemoglobin (Bld) [Mass/Vol] 13.0 g/dL 13.0 - 17.0 g/dL [facility] MCH (RBC) [Entitic mass] 32.4 pg 26.0 - 34.0 pg [facility] MCHC (RBC) [Mass/Vol] 35.2 g/dL 30.5 - 36.0 g/dL [facility] MCV (RBC) [Entitic vol] 92.0 fL 80.0 - 100.0 fL [facility] Nucleated RBC (Bld) [#/Vol] <0.01 k/uL [facility] Platelet mean volume (Bld) [Entitic vol] 8.9 fL Low 9.0 - 12.7 fL [facility] Platelets (Bld) [#/Vol] 127 10*3/uL Low 150 - 400 k/uL [facility] RBC (Bld) [#/Vol] 4.01 10*6/uL Low 4.20 - 6.0 0 m/uL [facility] WBC (Bld) [#/Vol] 3.96 10*3/uL 3.70 - 11. 00 k/uL [facility] Comprehensive metabolic 2000 panelon 09-07-2023 Albumin [Mass/Vol] 4.2 g/dL 3.9 - 4.9 g/dL [facility] ALP [Catalytic activity/Vol] 95 U/L 38 - 113 U/L [facility] ALT [Catalytic activity/Vol] 11 U/L 10 - 54 U/L [facility] Anion gap [Moles/Vol] 9 mmol/L 9 - 18 mmol/L [facility] AST [Catalytic activity/Vol] 13 U/L Low 14 - 40 U/L [facility] Bilirubin [Mass/Vol] 2.8 mg/dL High 0.2 - 1 .3 mg/dL [facility] Calcium [Mass/Vol] 8.9 mg/dL 8.5 - 10. 2 mg/dL [facility] Chloride [Moles/Vol] 100 mmol/L 97 - 10 5 mmol/L [facility] CO2 [Moles/Vol] 29 mmol/L 22 - 30 mmol/L [facility] Creatinine [Mass/Vol] 1.07 mg/dL 0.73 - 1.22 mg/dL [facility] Estimated Glomerular Filtration Rate 88 mL/min/1.73m >=60 mL/min/1.73m [facility] Glucose [Mass/Vol] 115 mg/dL High 74 - 99 mg/dL [facility] Potassium [Moles/Vol] 3.4 mmol/L Low 3.7 - 5.1 mmol/L [facility] Protein [Mass/Vol] 6.6 g/dL 6.3 - 8.0 g/dL [facility] Sodium [Moles/Vol] 138 mmol/L 136 - 144 mmol/L [facility] Urea nitrogen [Mass/Vol] 10 mg/dL 9 - 24 mg/dL [facility] CBC W Auto Differential pane l (Bld)on 01-27-2023 Basophils (Bld) [#/Vol] 0.03 10*3/uL <0.11 k/uL [facility] Basophils/100 WBC (Bld) 0.8 % [facility] Differential cell count method Nom (Bld) Auto [facility] Eosinophils (Bld) [#/Vol] 0.03 10*3/uL <0.46 k/uL [facility] Eosinophils/100 WBC (Bld) 0.8 % [facility] Erythrocyte distribution width (RBC) [Ratio] 12.6 % 11.5 - 15.0 % [facility] Hematocrit (Bld) [Volume fraction] 36.7 % Low 39.0 - 51.0 % [facility] Hemoglobin (Bld) [Mass/Vol] 12.7 g/dL Low 13.0 - 17.0 g/dL [facility] Immature granulocytes (Bld) [#/Vol] <0.10 k/uL [facility] Immature granulocytes/100 WBC (Bld) 0.3 % [facility] Lymphocytes (Bld) [#/Vol] 1.03 10*3/uL 1.00 - 4.00 k/uL [facility] Lymphocytes/100 WBC (Bld) 27.8 % [facility] MCH (RBC) [Entitic mass] 33.2 pg 26.0 - 34.0 pg [facility] MCHC (RBC) [Mass/Vol] 34.6 g/dL 30.5 - 36.0 g/dL [facility] MCV (RBC) [Entitic vol] 95.8 fL 80.0 - 100.0 fL [facility] Monocytes (Bld) [#/Vol] 0.27 10*3/uL <0.87 k/uL [facility] Monocytes/100 WBC (Bld) 7.3 % [facility] Neutrophils (Bld) [#/Vol] 2.34 10*3/uL 1.45 - 7.50 k/uL [facility] Neutrophils/100 WBC (Bld) 63.0 % [facility] Nucleated RBC (Bld) [#/Vol] <0.01 k/uL [facility] Nucleated RBC/100 WBC (Bld) [Ratio] 0.0 /100 WBC [facility] Platelet mean volume (Bld) [Entitic vol] 8.8 fL Low 9.0 - 12.7 fL [facility] Platelets (Bld) [#/Vol] 122 10*3/uL Low 150 - 400 k/uL [facility] RBC (Bld) [#/Vol] 3.83 10*6/uL Low 4.20 - 6.0 0 m/uL [facility] WBC (Bld) [#/Vol] 3.71 10*3/uL 3.70 - 11. 00 k/uL [facility] RETIC COUNTon 01-27-2023 Reticulocytes (Bld) [#/Vol] 0.69521 10*3/uL 0.018 - 0.100 M/uL [facility] Reticulocytes (Bld) [#/Vol]o n 01-27-2023 Reticulocytes/100 RBC (Bld) 1.2 % 0.4 - 2.0 % [facility] CBC panel Auto (Bld)on 12-07 Erythrocyte distribution width (RBC) [Ratio] 12.6 % 11.5 - 15.0 % [facility] Hematocrit (Bld) [Volume fraction] 38.0 % Low 39.0 - 51.0 % [facility] Hemoglobin (Bld) [Mass/Vol] 13.4 g/dL 13.0 - 17.0 g/dL [facility] MCH (RBC) [Entitic mass] 33.6 pg 26.0 - 34.0 pg [facility] MCHC (RBC) [Mass/Vol] 35.3 g/dL 30.5 - 36.0 g/dL [facility] MCV (RBC) [Entitic vol] 95.2 fL 80.0 - 100.0 fL [facility] Nucleated RBC (Bld) [#/Vol] <0.01 k/uL [facility] Platelet mean volume (Bld) [Entitic vol] 8.5 fL Low 9.0 - 12.7 fL [facility] Platelets (Bld) [#/Vol] 118 10*3/uL Low 150 - 400 k/uL [facility] RBC (Bld) [#/Vol] 3.99 10*6/uL Low 4.20 - 6.0 0 m/uL [facility] WBC (Bld) [#/Vol] 2.97 10*3/uL Low 3.70 - 11. 00 k/uL [facility] Comprehensive metabolic 2000 panelon 12-07-2022 Albumin [Mass/Vol] 4.2 g/dL 3.9 - 4.9 g/dL [facility] ALP [Catalytic activity/Vol] 92 U/L 38 - 113 U/L [facility] ALT [Catalytic activity/Vol] 15 U/L 10 - 54 U/L [facility] Anion gap [Moles/Vol] 11 mmol/L 9 - 18 mmol/L [facility] AST [Catalytic activity/Vol] 15 U/L 14 - 40 U/L [facility] Bilirubin [Mass/Vol] 2.0 mg/dL High 0.2 - 1 .3 mg/dL [facility] Calcium [Mass/Vol] 9.1 mg/dL 8.5 - 10. 2 mg/dL [facility] Chloride [Moles/Vol] 100 mmol/L 97 - 10 5 mmol/L [facility] CO2 [Moles/Vol] 26 mmol/L 22 - 30 mmol/L [facility] Creatinine [Mass/Vol] 1.11 mg/dL 0.73 - 1.22 mg/dL [facility] Estimated Glomerular Filtration Rate 84 mL/min/1.73m >=60 mL/min/1.73m [facility] Glucose [Mass/Vol] 128 mg/dL High 74 - 99 mg/dL [facility] Potassium [Moles/Vol] 3.4 mmol/L Low 3.7 - 5.1 mmol/L [facility] Protein [Mass/Vol] 6.6 g/dL 6.3 - 8.0 g/dL Cl [facility] Sodium [Moles/Vol] 137 mmol/L 136 - 144 mmol/L [facility] Urea nitrogen [Mass/Vol] 11 mg/dL 9 - 24 mg/dL [facility] CBC AUTO DIFFon 06-13-2022 BASO # 0.0 103/ul Normal 0.0-0.1 [facility] Comment on above: Performed By: #### C BC #### [facility] [address] [address] [address] Isabel Garcia Basophils/100 WBC (Bld) 1.1 % Normal 0.2-2.0 [facility] Comment on above: Performed By: #### C BC #### [facility] [address] [address] [address] Isabel Garcia EO # 0.1 103/ul Normal 0.0-0.7 [facility] Comment on above: Performed By: #### C BC #### [facility] [address] [place] [address] Dr. Isabel Garcia Eosinophils/100 WBC (Bld) 1.7 % Normal 0.9-7.0 [facility] Comment on above: Performed By: #### C BC #### [facility] [address] [place] [address] Dr. Isabel Garcia Erythrocyte distribution width (RBC) [Ratio] 12.4 % Normal 11.0-15.0 [facility] Comment on above: Performed By: #### C BC #### [facility] [address] [place] [address] Dr. Isabel Garcia Hematocrit (Bld) [Volume fraction] 41.3 % Critically low 42.0-54.0 [facility] Comment on above: Performed By: #### C BC #### [facility] [address] [place] [address] Dr. Isabel Garcia Hemoglobin (Bld) [Mass/Vol] 14.2 g/dL Normal 14.0-18.0 [facility] Comment on above: Performed By: #### C BC #### [facility] [address] [place] [address] Dr. Isabel Garcia IG # 0.01 10e3/ul Normal 0.00-0.03 [facility] Comment on above: Performed By: #### C BC #### [facility] [address] [place] [address] Dr. Isabel Garcia IG % 0.3 % Normal 0.0-0.5 [facility] Comment on above: Performed By: #### C BC #### [facility] [address] [place] [address] Dr. Isabel Garcia LYMPH # 1.4 103/ul Normal 1.2-3.8 [facility] Comment on above: Performed By: #### C BC #### [facility] [address] [place] [address] Dr. Isabel Garcia Lymphocytes/100 WBC (Bld) 38.7 % Normal 20.5-60.0 [facility] Comment on above: Performed By: #### C BC #### [facility] [address] [place] [address] Dr. Isabel Garcia MANUAL DIFF REQ NO Normal [facility] Comment on above: Performed By: #### C BC #### [facility] [address] [place] [address] Dr. Isabel Garcia MCH (RBC) [Entitic mass] 32.9 pg Normal 25.9-34.0 [facility] Comment on above: Performed By: #### C BC #### [facility] [address] [place] [address] Dr. Isabel Garcia MCHC (RBC) [Mass/Vol] 34.4 g/dL Normal 29.9-35.2 [facility] Comment on above: Performed By: #### C BC #### [facility] [address] [place] [address] Dr. Isabel Garcia MCV (RBC) [Entitic vol] 95.6 fL Critically high 80.0-94.0 [facility] Comment on above: Performed By: #### C BC #### [facility] [address] [place] [address] Dr. Isabel Garcia MONO # 0.4 103/ul Normal 0.3-0.8 [facility] Comment on above: Performed By: #### C BC #### [facility] [address] [place] [address] Dr. Isabel Garcia Monocytes/100 WBC (Bld) 11.9 % Normal 1.7-12.0 [facility] Comment on above: Performed By: #### C BC #### [facility] [address] [place] [address] Dr. Isabel Garcia NEUT # 1.7 103/ul Normal 1.4-6.5 [facility] Comment on above: Performed By: #### C BC #### [facility] [address] [place] [address] Dr. Isabel Garcia Neutrophils/100 WBC (Bld) 46.3 % Normal 43.0-75.0 [facility] Comment on above: Performed By: #### C BC #### [facility] [address] [place] [address] Dr. Isabel Garcia Platelet mean volume (Bld) [Entitic vol] 8.4 fL Critically low 9.5-13.5 [facility] Comment on above: Performed By: #### C BC #### [facility] [address] [address] [address] Isabel Garcia PLT 129 103/ul Critically low 150-450 [facility] Comment on above: Performed By: #### C BC #### [facility] [address] [address] [address] Isabel Garcia RBC 4.32 106/ul Critically low 4.70-6.10 [facility] Comment on above: Performed By: #### C BC #### [facility] [address] [address] [address] Isabel Garcia WBC 3.6 103/ul Critically low 4.0-11.0 [facility] Comment on above: Performed By: #### C BC #### [facility] [address] [address] [address] Isabel Garcia FERRITINon 06-13-2022 Ferritin [Mass/Vol] 84.0 ng/mL Normal 26.0-388.0 [facility] Comment on above: Performed By: #### V ITB12, FERR #### [facility] [address] [place] [address] Dr. Isabel Garcia MAGNESIUMon 06-13-2022 Magnesium [Mass/Vol] 2.1 mg/dL Normal 1.8-2.4 [facility] Comment on above: Performed By: #### M G, BMP, TSH #### [facility] [address] [address] [address] Isabel Garcia PROF CHEM 8 (BAS METB)on Anion gap [Moles/Vol] 12.3 mmol/L Normal [facility] Comment on above: Performed By: #### M G BMP, TSH #### [facility] [address] [address] [address] Isabel Garcia Calcium [Mass/Vol] 8.7 mg/dL Normal 8.5-10.1 [facility] Comment on above: Performed By: #### M G, BMP, TSH #### [facility] [address] [address] [address] Isabel Garcia Chloride [Moles/Vol] 101 mmol/L Normal 98-107 [facility] Comment on above: Performed By: #### M G, BMP, TSH #### [facility] [address] [address] [address] Isabel Garcia CO2 [Moles/Vol] 26.4 mmol/L Normal 21.0-32.0 [facility] Comment on above: Performed By: #### M G, BMP, TSH #### [facility] [address] [place] [address] Dr. Isabel Garcia Creatinine [Mass/Vol] 1.00 mg/dL Normal 0.70-1.30 [facility] Comment on above: Performed By: #### M G, BMP, TSH #### [facility] [address] [address] [address] Isabel Garcia EGFR-AF SAMMARINESE >60 Normal >=60 [facility] Comment on above: Performed By: #### M Prince BMP, TSH #### [facility] [address] [place] [address] Dr. Isabel Garcia EGFR-NON AF SAMMARINESE >60 Normal >=60 [facility] Comment on above: Performed By: #### M G, BMP, TSH #### [facility] [address] [address] [address] Isabel Garcia Glucose [Mass/Vol] 96 mg/dL Normal 74-106 [facility] Comment on above: Performed By: #### M G, BMP, TSH #### [facility] [address] [address] [address] Isabel Garcia Potassium [Moles/Vol] 3.7 mmol/L Normal 3.5-5.1 [facility] Comment on above: Performed By: #### M G, BMP, TSH #### [facility] [address] [address] [address] Isabel Garcia Sodium [Moles/Vol] 136 mmol/L Normal 136-145 [facility] Comment on above: Performed By: #### M Prince BMP, TSH #### [facility] [address] [place] [address] Dr. Isabel Garcia Urea nitrogen [Mass/Vol] 13.0 mg/dL Normal 7.0-18.0 [facility] Comment on above: Performed By: #### M Prince BMP, TSH #### [facility] [address] [place] [address] Dr. Isabel Garcia Urea nitrogen/Creatinine [Mass ratio] 13.0 mg/mg Normal [facility] Comment on above: Performed By: #### Macrina Morrison BMP, TSH #### [facility] [address] [place] [address] Dr. Isabel Garcia TSHon 06-13-2022 TSH 0.779 uIU/mL Normal 0.358-3.740 [facility] Comment on above: Performed By: #### SHELBY Lucia, TSH #### [facility] [address] [place] [address] Dr. Isabel Garcia VITAMIN B12on 06-13-2022 Cobalamin (Vitamin B12) [Mass/Vol] 286.0 pg/mL Normal 193.0-986.0 [facility] [facility] Comment on above: Performed By: #### V ITB12, FERR #### [facility] [address] [place] [address] Dr. Isabel Garcia CBC panel Auto (Bld)on 03-02 Erythrocyte distribution width (RBC) [Ratio] 12.6 % 11.5 - 15.0 % [facility] Hematocrit (Bld) [Volume fraction] 39.7 % 39.0 - 51.0 % [facility] Hemoglobin (Bld) [Mass/Vol] 13.8 g/dL 13.0 - 17.0 g/dL [facility] MCH (RBC) [Entitic mass] 33.1 pg 26.0 - 34.0 pg [facility] MCHC (RBC) [Mass/Vol] 34.8 g/dL 30.5 - 36.0 g/dL [facility] MCV (RBC) [Entitic vol] 95.2 fL 80.0 - 100.0 fL [facility] Nucleated RBC (Bld) [#/Vol] 10*3/uL <0.01 k/uL [facility] Platelet mean volume (Bld) [Entitic vol] 8.8 fL Low 9.0 - 12.7 fL [facility] Platelets (Bld) [#/Vol] 134 10*3/uL Low 150 - 400 k/uL [facility] RBC (Bld) [#/Vol] 4.17 10*6/uL Low 4.20 - 6.0 0 m/uL [facility] WBC (Bld) [#/Vol] 3.39 10*3/uL Low 3.70 - 11. 00 k/uL [facility] Comprehensive metabolic 2000 panelon 03-02-2022 Albumin [Mass/Vol] 4.4 g/dL 3.9 - 4.9 g/dL [facility] ALP [Catalytic activity/Vol] 97 U/L 38 - 113 U/L [facility] ALT [Catalytic activity/Vol] 12 U/L 10 - 54 U/L [facility] Anion gap [Moles/Vol] 7 mmol/L Low 9 - 18 mmol/L [facility] AST [Catalytic activity/Vol] 15 U/L 14 - 40 U/L [facility] Bilirubin [Mass/Vol] 1.4 mg/dL High 0.2 - 1 .3 mg/dL [facility] Calcium [Mass/Vol] 9.1 mg/dL 8.5 - 10. 2 mg/dL [facility] Chloride [Moles/Vol] 102 mmol/L 97 - 10 5 mmol/L [facility] CO2 [Moles/Vol] 28 mmol/L 22 - 30 mmol/L [facility] Creatinine [Mass/Vol] 1.01 mg/dL 0.73 - 1.22 mg/dL [facility] Estimated Glomerular Filtration Rate 95 mL/min/1.73m >=60 mL/min/1.73m [facility] Glucose [Mass/Vol] 114 mg/dL High 74 - 99 mg/dL [facility] Potassium [Moles/Vol] 3.7 mmol/L 3.7 - 5.1 mmol/L [facility] Protein [Mass/Vol] 6.8 g/dL 6.3 - 8.0 g/dL [facility] Sodium [Moles/Vol] 137 mmol/L 136 - 144 mmol/L [facility] Urea nitrogen [Mass/Vol] 11 mg/dL 9 - 24 mg/dL [facility] SURGICAL PATHOLOGYon 021 SURGICAL PATHOLOGY Specimen originated from [facility] Specimen #: [id number] Submitting Physician: DEEPALI STONE M.D. FINAL DIAGNOSIS [...] in one cassette. Gross examination performed at [facility], [address] [place] [address] 11/04/2020 1:49:01 PM Date of Report: 11/05/2020 Date of Procedure: 11/04/2020 Date of Receipt: 11/04/2020 Submitted by: DEEPALI STONE M.D. Location: [facility] Diagnostic interpretation performed at [facility], [address] [place] [address], [place] [address]. CLIA Number: [id number] Normal [facility] Reference Lab Comment on above: Performed By: #### S #### See report for performing lab information. Vital Signs Date Time Vital Sign Value Performing Clinician Facility 10-17-2024 15:29-0500 Body weight 66.41 kg Evince Work Phone: [facility] 10-17-2024 15:29-0500 Diastolic blood pressure 64 mm[Hg] Evince Work Phone: [facility] 10-17-2024 15:29-0500 Heart rate 93 /min Evince Work Phone: [facility] 10-17-2024 15:29-0500 SaO2% (BldA) [Mass fraction] 96 % [facility] 10-17-2024 15:29-0500 Systolic blood pressure 100 mm[Hg] [employer] Work Phone: [facility] 10-02-2024 14:18-0500 Body temperature 97.9 [degF] Chair Iconfinder Work Phone: [facility] 10-02-2024 14:18-0500 Diastolic blood pressure 65 mm[Hg] Chair Kati Work Phone: [facility] 10-02-2024 14:18-0500 Heart rate 100 /min Chair [place] Work Phone: [facility] 10-02-2024 14:18-0500 Respiratory rate 16 /min Chair [place] Work Phone: [facility] 10-02-2024 14:18-0500 SaO2% (BldA) [Mass fraction] 98 % Chair Kati Work Phone: [facility] 10-02-2024 14:18-0500 Systolic blood pressure 94 mm[Hg] Chair Kati Work Phone: [facility] 09-26-2024 14:47-0500 Body height 182.88 cm [facility] 09-26-2024 14:47-0500 Body mass index (BMI) [Ratio] 20 kg/m2 [facility] 09-26-2024 14:47-0500 Body temperature 98.2 [degF] [facility] 09-26-2024 14:47-0500 Body weight 67 kg [facility] 09-26-2024 14:47-0500 Diastolic blood pressure 70 mm[Hg] [facility] 09-26-2024 14:47-0500 Heart rate 87 /min [facility] 09-26-2024 14:47-0500 Systolic blood pressure 102 mm[Hg] [facility] 09-23-2024 13:31-0500 Body height 182.88 cm [facility] 09-23-2024 13:31-0500 Body mass index (BMI) [Ratio] 20 kg/m2 [facility] 09-23-2024 13:31-0500 Body weight 67.13 kg [facility] 09-23-2024 13:31-0500 Diastolic blood pressure 79 mm[Hg] [facility] 09-23-2024 13:31-0500 Heart rate 92 /min [facility] 09-23-2024 13:31-0500 Systolic blood pressure 125 mm[Hg] [facility] 08-07-2024 13:57-0500 Body temperature 97.59 [degF] Chair [place] Work Phone: [facility] 08-07-2024 13:57-0500 Diastolic blood pressure 76 mm[Hg] Chair [place] Work Phone: [facility] 08-07-2024 13:57-0500 Heart rate 95 /min Chair [place] Work Phone: [facility] 08-07-2024 13:57-0500 Respiratory rate 16 /min Chair Kati Work Phone: [facility] 08-07-2024 13:57-0500 SaO2% (BldA) [Mass fraction] 96 % Chair Kati Work Phone: [facility] 08-07-2024 13:57-0500 Systolic blood pressure 111 mm[Hg] Chair Kati Work Phone: [facility] 08-06-2024 14:11-0500 Body height 182.88 cm [facility] 08-06-2024 14:11-0500 Body mass index (BMI) [Ratio] 19.7 kg/m2 [facility] 08-06-2024 14:11-0500 Body temperature 98.2 [degF] [facility] 08-06-2024 14:11-0500 Body weight 66 kg [facility] 08-06-2024 14:11-0500 Diastolic blood pressure 69 mm[Hg] [facility] 08-06-2024 14:11-0500 Systolic blood pressure 103 mm[Hg] [facility] 06-17-2024 13:56-0400 Body height 182.88 cm [facility] 06-17-2024 13:56-0400 Body mass index (BMI) [Ratio] 20.1 kg/m2 [facility] 06-17-2024 13:56-0400 Body weight 67.3 kg [facility] 06-17-2024 13:56-0400 Diastolic blood pressure 62 mm[Hg] [facility] 06-17-2024 13:56-0400 Heart rate 102 /min [facility] 06-17-2024 13:56-0400 Systolic blood pressure 95 mm[Hg] [facility] 06-12-2024 14:00-0400 Body temperature 97.7 [degF] Chair Kati Work Phone: [facility] 06-12-2024 14:00-0400 Diastolic blood pressure 66 mm[Hg] Chair [place] Work Phone: [facility] 06-12-2024 14:00-0400 Heart rate 76 /min Chair Kati Work Phone: [facility] 06-12-2024 14:00-0400 Respiratory rate 16 /min Chair [place] Work Phone: [facility] 06-12-2024 14:00-0400 SaO2% (BldA) [Mass fraction] 99 % Chair [place] Work Phone: [facility] 06-12-2024 14:00-0400 Systolic blood pressure 99 mm[Hg] Chair [place] Work Phone: [facility] 06-04-2024 14:10-0400 Body height 182.88 cm [facility] 06-04-2024 14:10-0400 Body mass index (BMI) [Ratio] 19.7 kg/m2 [facility] 06-04-2024 14:10-0400 Body temperature 97.9 [degF] [facility] 06-04-2024 14:10-0400 Body weight 66 kg [facility] 06-04-2024 14:10-0400 Diastolic blood pressure 69 mm[Hg] [facility] 06-04-2024 14:10-0400 Systolic blood pressure 104 mm[Hg] [facility] 04-18-2024 14:10-0400 Body temperature 98.01 [degF] Chair [place] Work Phone: [facility] 04-18-2024 14:10-0400 Diastolic blood pressure 72 mm[Hg] Chair [place] Work Phone: [facility] 04-18-2024 14:10-0400 Heart rate 65 /min Chair [place] Work Phone: [facility] 04-18-2024 14:10-0400 Respiratory rate 18 /min Chair Kati Work Phone: [facility] 04-18-2024 14:10-0400 SaO2% (BldA) [Mass fraction] 96 % Chair [place] Work Phone: [facility] 04-18-2024 14:10-0400 Systolic blood pressure 103 mm[Hg] Chair [place] Work Phone: [facility] 04-03-2024 08:37-0400 Body height 182.88 cm [facility] 04-03-2024 08:37-0400 Body mass index (BMI) [Ratio] 19.7 kg/m2 [facility] 04-03-2024 08:37-0400 Body temperature 98.2 [degF] [facility] 04-03-2024 08:37-0400 Body weight 66 kg [facility] 04-03-2024 08:37-0400 Diastolic blood pressure 76 mm[Hg] [facility] 04-03-2024 08:37-0400 Systolic blood pressure 108 mm[Hg] [facility] 02-27-2024 14:17-0400 Body height 182.88 cm [facility] 02-27-2024 14:17-0400 Body mass index (BMI) [Ratio] 19.4 kg/m2 [facility] 02-27-2024 14:17-0400 Body temperature 98.8 [degF] [facility] 02-27-2024 14:17-0400 Body weight 65 kg [facility] 02-27-2024 14:17-0400 Diastolic blood pressure 89 mm[Hg] [facility] 02-27-2024 14:17-0400 Heart rate 60 /min [facility] 02-27-2024 14:17-0400 Systolic blood pressure 121 mm[Hg] [facility] 02-22-2024 14:24-0400 Body temperature 98.01 [degF] Chair [place] Work Phone: [facility] 02-22-2024 14:24-0400 Diastolic blood pressure 76 mm[Hg] Chair Chin Work Phone: [facility] 02-22-2024 14:24-0400 Heart rate 71 /min Chair Chin Work Phone: [facility] 02-22-2024 14:24-0400 Respiratory rate 16 /min Chair Chin Work Phone: [facility] 02-22-2024 14:24-0400 SaO2% (BldA) [Mass fraction] 98 % Chair Chin Work Phone: [facility] 02-22-2024 14:24-0400 Systolic blood pressure 116 mm[Hg] Chair Chin Work Phone: [facility] 01-12-2024 09:26-0400 Body height 182.9 cm Deepali Stone MD, PhD Work Phone: [facility] 01-12-2024 09:26-0400 Body mass index (BMI) [Ratio] 20.03 kg/m2 Deepali Stone MD, PhD Work Phone: [facility] 01-12-2024 09:26-0400 Body weight 67 kg Deepali Stone MD, PhD Work Phone: [facility] 01-12-2024 09:26-0400 Diastolic blood pressure 82 mm[Hg] Deepali Stone MD, PhD Work Phone: [facility] 01-12-2024 09:26-0400 Heart rate 98 /min Deepali Stone MD, PhD Work Phone: [facility] 01-12-2024 09:26-0400 SaO2% (BldA) [Mass fraction] 98 % Deepali Stone MD, PhD Work Phone: [facility] 01-12-2024 09:26-0400 Systolic blood pressure 117 mm[Hg] Deepali Stone MD, PhD Work Phone: [facility] 01-08-2024 14:39-0400 Body height 182.88 cm [facility] 01-08-2024 14:39-0400 Body mass index (BMI) [Ratio] 19.9 kg/m2 [facility] 01-08-2024 14:39-0400 Body weight 66.67 kg [facility] 01-08-2024 14:39-0400 Diastolic blood pressure 75 mm[Hg] [facility] 01-08-2024 14:39-0400 Heart rate 100 /min [facility] 01-08-2024 14:39-0400 Systolic blood pressure 114 mm[Hg] [facility] 12-28-2023 14:01-0400 Body temperature 97.59 [degF] Chair Kati Work Phone: [facility] 12-28-2023 14:01-0400 Diastolic blood pressure 78 mm[Hg] Chair [place] Work Phone: [facility] 12-28-2023 14:01-0400 Heart rate 83 /min Chair Kati Work Phone: [facility] 12-28-2023 14:01-0400 Respiratory rate 16 /min Chair [place] Work Phone: [facility] 12-28-2023 14:01-0400 SaO2% (BldA) [Mass fraction] 100 % Chair Kati Work Phone: [facility] 12-28-2023 14:01-0400 Systolic blood pressure 115 mm[Hg] Chair Kati Work Phone: [facility] 12-26-2023 14:08-0400 Body height 182.88 cm [facility] 12-26-2023 14:08-0400 Body mass index (BMI) [Ratio] 20 kg/m2 [facility] 12-26-2023 14:08-0400 Body weight 66.84 kg [facility] 12-26-2023 14:08-0400 Diastolic blood pressure 78 mm[Hg] [facility] 12-26-2023 14:08-0400 Heart rate 92 /min [facility] 12-26-2023 14:08-0400 Systolic blood pressure 116 mm[Hg] [facility] 11-15-2023 14:30-0500 Diastolic blood pressure 63 mm[Hg] Deepali Stone MD, PhD Work Phone: [facility] 11-15-2023 14:30-0500 Heart rate 82 /min Deepali Stone MD, PhD Work Phone: [facility] 11-15-2023 14:30-0500 Respiratory rate 13 /min Deepali Stone MD, PhD Work Phone: [facility] 11-15-2023 14:30-0500 SaO2% (BldA) [Mass fraction] 95 % Deepali Stone MD, PhD Work Phone: [facility] 11-15-2023 14:30-0500 Systolic blood pressure 100 mm[Hg] Deepali Stone MD, PhD Work Phone: [facility] 11-15-2023 13:50-0500 Body temperature 97.11 [degF] Deepali Stone MD, PhD Work Phone: [facility] 11-15-2023 12:39-0500 Body weight 65.77 kg Deepali Stone MD, PhD Work Phone: [facility] 11-02-2023 14:05-0500 Body temperature 97.39 [degF] Chair Kati Work Phone: [facility] 11-02-2023 14:05-0500 Diastolic blood pressure 69 mm[Hg] Chair [place] Work Phone: [facility] 11-02-2023 14:05-0500 Heart rate 96 /min Chair [place] Work Phone: [facility] 11-02-2023 14:05-0500 Respiratory rate 18 /min Chair Kati Work Phone: [facility] 11-02-2023 14:05-0500 SaO2% (BldA) [Mass fraction] 95 % Chair [place] Work Phone: [facility] 11-02-2023 14:05-0500 Systolic blood pressure 101 mm[Hg] Chair [place] Work Phone: [facility] 10-12-2023 13:00-0500 Body height 182.88 cm [facility] 10-12-2023 13:00-0500 Body weight 64.41 kg [facility] 10-12-2023 13:00-0500 Diastolic blood pressure 73 mm[Hg] [facility] 10-12-2023 13:00-0500 Systolic blood pressure 98 mm[Hg] [facility] 09-07-2023 14:18-0500 Body temperature 98.4 [degF] Chair [place] Work Phone: [facility] 09-07-2023 14:18-0500 Diastolic blood pressure 73 mm[Hg] Chair Kati Work Phone: [facility] 09-07-2023 14:18-0500 Heart rate 90 /min Chair Kati Work Phone: [facility] 09-07-2023 14:18-0500 Respiratory rate 18 /min Chair Kati Work Phone: [facility] 09-07-2023 14:18-0500 SaO2% (BldA) [Mass fraction] 97 % Chair [place] Work Phone: [facility] 09-07-2023 14:18-0500 Systolic blood pressure 123 mm[Hg] Chair Kati Work Phone: [facility] 08-25-2023 15:26-0500 Body height 182.9 cm Deepali Stone MD, PhD Work Phone: [facility] 08-25-2023 15:26-0500 Body weight 65.77 kg Deepali Stone MD, PhD Work Phone: [facility] 08-25-2023 15:26-0500 Diastolic blood pressure 84 mm[Hg] Deepali Stone MD, PhD Work Phone: [facility] 08-25-2023 15:26-0500 Heart rate 85 /min Deepali Stone MD, PhD Work Phone: [facility] 08-25-2023 15:26-0500 Systolic blood pressure 118 mm[Hg] Deepali Stone MD, PhD Work Phone: [facility] 07-10-2023 13:45-0400 Body height 182.88 cm Ap Denis Other [facility] Other 07-10-2023 13:45-0400 Body mass index (BMI) [Ratio] 18.93 kg/m2 Ap Denis Other [facility] Other 07-10-2023 13:45-0400 Body weight 63.32 kg Ap Denis Other [facility] Other 07-10-2023 13:45-0400 Diastolic blood pressure 76 mm[Hg] Ap Denis Other [facility] Other 07-10-2023 13:45-0400 Systolic blood pressure 116 mm[Hg] Ap Denis Other [facility] Other 05-18-2023 15:09-0400 Body temperature 98.2 [degF] Chair [place] Work Phone: [facility] 05-18-2023 15:09-0400 Diastolic blood pressure 63 mm[Hg] Chair [place] Work Phone: [facility] 05-18-2023 15:09-0400 Heart rate 75 /min Chair [place] Work Phone: [facility] 05-18-2023 15:09-0400 Respiratory rate 16 /min Chair [place] Work Phone: [facility] 05-18-2023 15:09-0400 SaO2% (BldA) [Mass fraction] 98 % Chair [place] Work Phone: [facility] 05-18-2023 15:09-0400 Systolic blood pressure 98 mm[Hg] Chair Kati Work Phone: [facility] 04-07-2023 13:15-0400 Body height 182.88 cm Ap Denis Other [facility] Other 04-07-2023 13:15-0400 Body mass index (BMI) [Ratio] 19.12 kg/m2 Ap Denis Other [facility] Other 04-07-2023 13:15-0400 Body weight 63.96 kg Ap Denis Other [facility] Other 04-07-2023 13:15-0400 Diastolic blood pressure 68 mm[Hg] Ap Denis Other [facility] Other 04-07-2023 13:15-0400 Systolic blood pressure 99 mm[Hg] Ap Denis Other [facility] Other 03-23-2023 14:10-0400 Body temperature 98.1 [degF] Chair [place] Work Phone: [facility] 03-23-2023 14:10-0400 Diastolic blood pressure 60 mm[Hg] Chair [place] Work Phone: [facility] 03-23-2023 14:10-0400 Heart rate 82 /min Chair Kati Work Phone: [facility] 03-23-2023 14:10-0400 Respiratory rate 16 /min Chair Kati Work Phone: [facility] 03-23-2023 14:10-0400 SaO2% (BldA) [Mass fraction] 98 % Chair Kati Work Phone: [facility] 03-23-2023 14:10-0400 Systolic blood pressure 95 mm[Hg] Chair [place] Work Phone: [facility] 01-27-2023 12:54-0400 Body temperature 97.81 [degF] Chair [place] Work Phone: [facility] 01-27-2023 12:54-0400 Diastolic blood pressure 74 mm[Hg] Chair [place] Work Phone: [facility] 01-27-2023 12:54-0400 Heart rate 91 /min Chair [place] Work Phone: [facility] 01-27-2023 12:54-0400 Respiratory rate 18 /min Chair [place] Work Phone: [facility] 01-27-2023 12:54-0400 SaO2% (BldA) [Mass fraction] 97 % Chair Kati Work Phone: [facility] 01-27-2023 12:54-0400 Systolic blood pressure 122 mm[Hg] Chair Kati Work Phone: [facility] 01-18-2023 12:30-0400 Body height 182.88 cm Ap Denis Other [facility] Other 01-18-2023 12:30-0400 Body mass index (BMI) [Ratio] 20.8 kg/m2 Ap Denis Other [facility] Other 01-18-2023 12:30-0400 Body weight 69.58 kg Ap Denis Other [facility] Other 01-18-2023 12:30-0400 Diastolic blood pressure 60 mm[Hg] Ap Denis Other [facility] Other 01-18-2023 12:30-0400 SaO2% (BldA) [Mass fraction] 97 % Ap Denis Other [facility] Other 01-18-2023 12:30-0400 Systolic blood pressure 104 mm[Hg] Ap Denis Other [facility] Other 12-07-2022 15:14-0400 Body temperature 98.29 [degF] Chair Iconfinder Work Phone: [facility] 12-07-2022 15:14-0400 Diastolic blood pressure 54 mm[Hg] Chair [place] Work Phone: [facility] 12-07-2022 15:14-0400 Heart rate 78 /min Chair Kati Work Phone: [facility] 12-07-2022 15:14-0400 Respiratory rate 16 /min Chair Iconfinder Work Phone: [facility] 12-07-2022 15:14-0400 SaO2% (BldA) [Mass fraction] 96 % Chair [place] Work Phone: [facility] 12-07-2022 15:14-0400 Systolic blood pressure 91 mm[Hg] Chair [place] Work Phone: [facility] 10-17-2022 15:30-0500 Body height 182.88 cm Ap Denis Other [facility] Other 10-17-2022 15:30-0500 Body mass index (BMI) [Ratio] 20.34 kg/m2 Ap Denis Other [facility] Other 10-17-2022 15:30-0500 Body weight 68.04 kg Ap Denis Other [facility] Other 10-17-2022 15:30-0500 Diastolic blood pressure 66 mm[Hg] Ap Denis Other [facility] Other 10-17-2022 15:30-0500 SaO2% (BldA) [Mass fraction] 97 % Ap Denis Other [facility] Other 10-17-2022 15:30-0500 Systolic blood pressure 102 mm[Hg] Ap Denis Other [facility] Other 10-12-2022 14:45-0500 Body temperature 98.2 [degF] Chair [place] Work Phone: [facility] 10-12-2022 14:45-0500 Diastolic blood pressure 64 mm[Hg] Chair [place] Work Phone: [facility] 10-12-2022 14:45-0500 Heart rate 75 /min Chair [place] Work Phone: [facility] 10-12-2022 14:45-0500 Respiratory rate 16 /min Chair [place] Work Phone: [facility] 10-12-2022 14:45-0500 SaO2% (BldA) [Mass fraction] 98 % Chair [place] Work Phone: [facility] 10-12-2022 14:45-0500 Systolic blood pressure 98 mm[Hg] Chair [place] Work Phone: [facility] 08-16-2022 14:38-0500 Body temperature 97.81 [degF] Chair [place] Work Phone: [facility] 08-16-2022 14:38-0500 Diastolic blood pressure 79 mm[Hg] Chair [place] Work Phone: [facility] 08-16-2022 14:38-0500 Heart rate 89 /min Chair [place] Work Phone: [facility] 08-16-2022 14:38-0500 Respiratory rate 16 /min Chair [place] Work Phone: [facility] 08-16-2022 14:38-0500 SaO2% (BldA) [Mass fraction] 98 % Chair [place] Work Phone: [facility] 08-16-2022 14:38-0500 Systolic blood pressure 112 mm[Hg] Chair Kati Work Phone: [facility] 04-27-2022 14:28-0400 Body temperature 98.2 [degF] Chair [place] Work Phone: [facility] 04-27-2022 14:28-0400 Diastolic blood pressure 66 mm[Hg] Chair [place] Work Phone: [facility] 04-27-2022 14:28-0400 Heart rate 78 /min Chair Kati Work Phone: [facility] 04-27-2022 14:28-0400 Respiratory rate 18 /min Chair [place] Work Phone: [facility] 04-27-2022 14:28-0400 Systolic blood pressure 112 mm[Hg] Chair [place] Work Phone: [facility] 03-02-2022 14:07-0400 Body temperature 97 [degF] Chair Kati Work Phone: [facility] 03-02-2022 14:07-0400 Diastolic blood pressure 65 mm[Hg] Chair [place] Work Phone: [facility] 03-02-2022 14:07-0400 Heart rate 70 /min Chair Kati Work Phone: [facility] 03-02-2022 14:07-0400 Respiratory rate 18 /min Chair [place] Work Phone: [facility] 03-02-2022 14:07-0400 SaO2% (BldA) [Mass fraction] 98 % Chair [place] Work Phone: [facility] 03-02-2022 14:07-0400 Systolic blood pressure 106 mm[Hg] Chair Kati Work Phone: [facility] 01-21-2022 11:00-0400 Body weight 67.27 kg Deepali Stone MD, PhD Work Phone: [facility] 01-21-2022 11:00-0400 Diastolic blood pressure 70 mm[Hg] Deepali Stone MD, PhD Work Phone: [facility] 01-21-2022 11:00-0400 Heart rate 97 /min Deepali Stone MD, PhD Work Phone: [facility] 01-21-2022 11:00-0400 SaO2% (BldA) [Mass fraction] 98 % Deepali Stone MD, PhD Work Phone: [facility] 01-21-2022 11:00-0400 Systolic blood pressure 120 mm[Hg] Deepali Stone MD, PhD Work Phone: [facility] 01-05-2022 14:18-0400 Body temperature 98.1 [degF] Chair [place] Work Phone: [facility] 01-05-2022 14:18-0400 Diastolic blood pressure 71 mm[Hg] Chair Kati Work Phone: [facility] 01-05-2022 14:18-0400 Heart rate 83 /min Chair [place] Work Phone: [facility] 01-05-2022 14:18-0400 Respiratory rate 18 /min Chair [place] Work Phone: [facility] 01-05-2022 14:18-0400 SaO2% (BldA) [Mass fraction] 98 % Chair [place] Work Phone: [facility] 01-05-2022 14:18-0400 Systolic blood pressure 119 mm[Hg] Chair [place] Work Phone: [facility] Encounters Encounter Date Encounter Type Care Provider Facility Start: 10-17-2024 End: 10-17-2024 Office outpatient new 45 minutes Tiffanie Gaming DO Work Phone: [facility] Comment on above: Restless leg syndrom e (Primary Dx); Iron deficiency anemia, unspecified iron deficiency anemia type Start: 10-17-2024 End: 10-17-2024 ambulatory TIFFANIE GAMING Not Available Start: 10-17-2024 End: 10-17-2024 Bamboo flowsheet Tiffanie Mcgrathett DO Work Phone: [facility] Start: 10-17-2024 End: 10-17-2024 Bamboo flowsheet Tiffanie Mcgrathett DO Work Phone: [facility] Start: 10-02-2024 End: 10-02-2024 ambulatory Chair Delvis Chin Work Phone: Hematology/Oncology Comment on above: Crohn's disease of b oth small and large intestine with intestinal obstruction (HCC) (Primary Dx) Start: 09-26-2024 End: 09-26-2024 ambulatory [facility] Work Phone: Start: 09-26-2024 End: 09-26-2024 Patient encounter procedure [facility] Physician [facility] Palliative Work Phone: Start: 09-23-2024 End: 09-23-2024 Patient encounter procedure [facility] Physician [facility] Work Phone: Start: 09-17-2024 Non-patient / Non-visit [facility] Physician [facility] Work Phone: Start: 09-15-2024 Non-patient / Non-visit [facility] Physician [facility] Work Phone: Start: 09-14-2024 End: 09-14-2024 E-mail encounter from [...] (Primary Dx) Start: 08-06-2024 End: 08-06-2024 ambulatory [facility] Work Phone: Start: 08-06-2024 End: 08-06-2024 Patient encounter procedure [facility] Physician [facility] Work Phone: Start: 07-18-2024 End: 07-18-2024 Orders Only Deepali Stone MD, PhD Work Phone: Gastroenterology Start: 07-02-2024 Non-patient / Non-visit [facility] Physician [facility] Work Phone: Start: 06-17-2024 End: 06-17-2024 ambulatory [facility] Work Phone: Start: 06-17-2024 End: 06-17-2024 Patient encounter procedure [facility] Physician [facility] Work Phone: Start: 06-12-2024 End: 06-12-2024 ambulatory Chair Delvis Chin Work Phone: Hematology/Oncology Comment on above: Crohn's disease of b oth small and large intestine with intestinal obstruction (HCC) (Primary Dx) Start: 06-04-2024 End: 06-04-2024 ambulatory [facility] Work Phone: Start: 06-04-2024 End: 06-04-2024 Patient encounter procedure [facility] Physician [facility] Work Phone: Start: 04-18-2024 End: 04-18-2024 ambulatory Chair Delvis Chin Work Phone: Hematology/Oncology Comment on above: Crohn's disease of b oth small and large intestine with intestinal obstruction (HCC) (Primary Dx) Start: 04-03-2024 End: 04-03-2024 ambulatory [facility] Work Phone: Start: 04-03-2024 End: 04-03-2024 Patient encounter procedure [facility] Physician [facility] Work Phone: Start: 02-27-2024 End: 02-27-2024 ambulatory [facility] Work Phone: Start: 02-27-2024 End: 02-27-2024 Patient encounter procedure [facility] Physician [facility] Work Phone: Start: 02-22-2024 Non-patient / Non-visit [facility] Work Phone: Start: 02-22-2024 End: 02-22-2024 ambulatory Chair Delvis Chin Work Phone: Hematology/Oncology Comment on above: Crohn's disease of b oth small and large intestine with intestinal obstruction (HCC) (Primary Dx); Crohn's disease of small intestine with intestinal obstruction (HCC) Start: 02-08-2024 End: 02-08-2024 Patient encounter procedure [facility] Physician [facility] Work Phone: Start: 01-25-2024 Telephone encounter Deepali Stone MD, PhD Work Phone: Gastroenterology Comment on above: Insurance Authorizat ion ([employer]) Start: 01-12-2024 End: 01-12-2024 ambulatory DEEPALI STONE Facility:[facility] Start: 01-12-2024 End: 01-12-2024 Patient encounter procedure Deepali Stone MD, PhD Work Phone: Gastroenterology Comment on above: Crohn's disease of s mall intestine with intestinal obstruction (HCC) (Primary Dx); Vitamin D deficiency-Severe; Immunosuppression (HCC); Adenomatous polyp of colon, unspecified part of colon Start: 01-08-2024 End: 01-08-2024 ambulatory [facility] Work Phone: Start: 01-08-2024 End: 01-08-2024 Patient encounter procedure [facility] Physician [facility] Work Phone: Start: 12-28-2023 End: 12-28-2023 ambulatory Chair Delvis Chin Work Phone: Hematology/Oncology Comment on above: Crohn's disease of b oth small and large intestine with intestinal obstruction (HCC) (Primary Dx) Start: 12-26-2023 End: 12-26-2023 ambulatory [facility] Work Phone: Start: 12-26-2023 End: 12-26-2023 Patient encounter procedure [facility] Physician [facility] Work Phone: Start: 11-21-2023 Non-patient / Non-visit [facility] Physician [facility] Work Phone: Start: 11-15-2023 ambulatory AP DENIS Facility :[facility] Start: 11-15-2023 End: 11-15-2023 Subsequent hospital visit by physician Deepali Stone MD, PhD Work Phone: Procedures Comment on above: Crohn's disease of s mall intestine with intestinal obstruction (HCC) [K50.012] Start: 11-10-2023 Non-patient / Non-visit [facility] Physician [facility] Work Phone: Start: 11-02-2023 End: 11-02-2023 ambulatory Chair Delvis Chin Work Phone: Hematology/Oncology Comment on above: Crohn's disease of b oth small and large intestine with intestinal obstruction (HCC) (Primary Dx) Start: 11-02-2023 Nursing evaluation o f patient and report Ap Denis [facility] Start: 10-20-2023 End: 10-20-2023 ambulatory Ap Denis Other [facility] Other Start: 10-20-2023 Nursing evaluation o f patient and report Ap Denis [facility] Start: 10-12-2023 End: 10-12-2023 Patient encounter procedure [facility]ician [facility]- Start: 09-21-2023 End: 09-21-2023 ambulatory Ap Denis Other [facility] Other Start: 09-21-2023 Telephone encounter Ap Denis [facility] Start: 09-13-2023 End: 09-13-2023 ambulatory Ap Denis Other [facility] Other Start: 09-13-2023 Telephone encounter Ap Denis [facility] Start: 09-07-2023 End: 09-07-2023 ambulatory Chair Delvis Chin Work Phone: Hematology/Oncology Comment on above: Crohn's disease of b oth small and large intestine with intestinal obstruction (HCC) (Primary Dx); Crohn's disease of small intestine with intestinal obstruction (HCC) Start: 08-25-2023 End: 08-25-2023 Patient encounter procedure Deepali Stone MD, PhD Work Phone: Gastroenterology Comment on above: Crohn's disease of s mall intestine with intestinal obstruction (HCC) (Primary Dx); Crohn's disease of small and large intestines with complication (HCC) Start: 08-23-2023 End: 08-23-2023 ambulatory Ap Denis Other [facility] Other Start: 08-23-2023 Telephone encounter Ap Denis [facility] Start: 08-15-2023 End: 08-15-2023 ambulatory Ap Denis Other [facility] Other Start: 08-15-2023 Telephone encounter Ap Denis [facility] Start: 08-14-2023 End: 08-14-2023 ambulatory Ap Denis Other [facility] Other Start: 08-14-2023 Telephone encounter Ap Denis [facility] Start: 08-08-2023 End: 08-08-2023 ambulatory Ap Denis Other [facility] Other Start: 08-08-2023 Telephone encounter Ap Denis [facility] Start: 07-21-2023 End: 07-21-2023 ambulatory Ap Denis Other [facility] Other Start: 07-21-2023 Telephone encounter Ap Denis [facility] Start: 07-19-2023 End: 07-19-2023 ambulatory Ap Denis Other [facility] Other Start: 07-19-2023 Telephone encounter Ap Denis [facility] Start: 07-13-2023 End: 07-13-2023 ambulatory Chair 18 Kati Work Phone: Hematology/Oncology Comment on above: Crohn's disease of b oth small and large intestine with intestinal obstruction (HCC) (Primary Dx) Start: 07-10-2023 End: 07-10-2023 ambulatory Ap Denis Other [facility] Other Start: 07-10-2023 Office outpatient visit 15 minutes Ap Denis [facility] Start: 06-27-2023 End: 06-27-2023 ambulatory Ap Denis Other [facility] Other Start: 06-27-2023 Telephone encounter Ap Denis [facility] Start: 06-07-2023 End: 06-07-2023 ambulatory Ap Denis Other [facility] Other Start: 06-07-2023 Telephone encounter Ap Denis [facility] Start: 05-18-2023 End: 05-18-2023 ambulatory Chair 17 Kati Work Phone: Hematology/Oncology Comment on above: Crohn's disease of b oth small and large intestine with intestinal obstruction (HCC) (Primary Dx) Start: 05-10-2023 End: 05-10-2023 ambulatory Ap Denis Other [facility] Other Start: 05-10-2023 Telephone encounter Ap Denis [facility] Start: 04-07-2023 End: 04-07-2023 ambulatory Ap Denis Other [facility] Other Start: 04-07-2023 Office outpatient visit 15 minutes Ap Denis [facility] Start: 03-23-2023 End: 03-23-2023 ambulatory Chair Delvis Chin Work Phone: Hematology/Oncology Comment on above: Crohn's disease of b oth small and large intestine with intestinal obstruction (HCC) (Primary Dx) Start: 03-23-2023 Telephone encounter Kelly Steward RN H ematology/Oncology Comment on above: Orders Start: 01-27-2023 End: 01-27-2023 ambulatory Chair Delvis Chin Work Phone: Hematology/Oncology [...] 01-19-2023 End: 01-19-2023 ambulatory Ap Denis Other [facility] Other Start: 01-19-2023 Telephone encounter Ap Denis [facility] Start: 01-18-2023 End: 01-18-2023 ambulatory Ap Denis Other [facility] Other Start: 01-18-2023 Office outpatient visit 15 minutes Ap Denis [facility] Start: 01-11-2023 End: 01-11-2023 ambulatory Ap Denis Other [facility] Other Start: 01-11-2023 Telephone encounter Ap Denis [facility] Start: 12-16-2022 End: 12-16-2022 ambulatory Ap Denis Other [facility] Other Start: 12-16-2022 Telephone encounter Ap Denis [facility] Start: 12-12-2022 End: 12-12-2022 ambulatory Ap Denis Other [facility] Other Start: 12-12-2022 Telephone encounter Ap Denis [facility] Start: 12-08-2022 ambulatory Deepali lawrence MD, PhD Work Phone: Gastroenterology Comment on above: Question regarding C BC Start: 12-07-2022 End: 12-07-2022 ambulatory Chair 19 Kati Work Phone: Hematology/Oncology Comment on above: Crohn's disease of b oth small and large intestine with intestinal obstruction (HCC) (Primary Dx); Crohn's disease of small intestine with intestinal obstruction (HCC); Immunosuppression (HCC) Start: 11-09-2022 End: 11-09-2022 ambulatory Ap Denis Other [facility] Other Start: 11-09-2022 Telephone encounter Ap Denis [facility] Start: 10-20-2022 End: 10-20-2022 ambulatory Ap Denis Other [facility] Other Start: 10-20-2022 Telephone encounter Ap Denis [facility] Start: 10-17-2022 End: 10-17-2022 ambulatory Ap Denis Other [facility] Other Start: 10-17-2022 Office outpatient visit 15 minutes Ap Denis [facility] Start: 10-12-2022 End: 10-12-2022 ambulatory Chair John Chin Work Phone: Hematology/Oncology [...] 05-31-2022 Adult health examination Ap Denis Other [facility] Other Start: 04-27-2022 End: 04-27-2022 ambulatory Chair Delvis Chin Work Phone: Hematology/Oncology Comment on above: Crohn's disease of b oth small and large intestine with intestinal obstruction (HCC) (Primary Dx) Start: 03-02-2022 End: 03-02-2022 ambulatory Chair Delvis Chin Work Phone: Hematology/Oncology [...] Dx) Start: 01-05-2022 End: 01-05-2022 ambulatory Chair Delvis Chin Work Phone: Hematology/Oncology Comment on above: Crohn's disease of b oth small and large intestine with intestinal obstruction (HCC) (Primary Dx) Start: 01-04-2022 Refill Yue Keith azael [facility] Work Phone: Hematology/Oncology Comment on above: Refill [...] Work Phone: Start: 11-04-2020 Colonoscopy Yue Underwood [facility] Work Phone: Start: 12-31-2015 Removal of suture Bridgett a Denis Other Start: 07-15-2013 Adult depression scr eening assessment Yue Pisano [facility] Work Phone: Plan of Treatment Date Care Activity Detail Author Start: 2038 HEPATITIS B (1 of 3 - Risk 3-dose series) HEPATITIS B (1 of 3 - Risk 3-dose series) [facility] Start: 2038 Hepatitis B Vaccine (1 of 3 - Risk 3-dose series) Hepatitis B Vaccine (1 of 3 - Risk 3-dose series) [facility] Start: 02-21-2027 Diabetes Screening Diabetes Screenin g [facility] Start: 09-07-2026 Diabetes Screening Diabetes Screenin g [facility] Start: 11-27-2024 End: 11-27-2024 ambulatory 11/27/2024 2:00 PM [facility] Hematology/Oncology [address] [place] [address] [place] [address] 8 Week [facility] Hematology/Oncology Comment on above: 8 Week En[facility]vio Start: 11-15-2024 Screening for malign ant neoplasm of colon [facility] Start: 10-17-2024 End: 10-17-2024 Patient encounter procedure 10/17/2024 3:30 PM EST Office Visit [place] [address] [id number] [place] [id number] Tiffanie Gaming DO [address] [place] [address] Arrived [facility] [place] Comment on above: Arrived Start: 10-17-2024 End: 10-17-2025 Ferritin [Mass/volume] in Serum or Plasma Ferritin Lab Routine Restless leg syndrome Iron deficiency anemia, unspecified iron deficiency anemia type Expected: 10/17/2024 (Approximate), Expires: 10/17/2025 [facility] Work Phone: Comment on above: Expected: 10/17/2024 (Approximate), Expires: 10/17/2025 Start: 10-02-2024 End: 10-02-2024 ambulatory 10/02/2024 2:00 PM EST [facility] [address] [facility] [place] [address] 8 Week [facility] Hematology/Oncology Comment on above: 8 Week Entyvio Start: 09-23-2024 Patient referral [facility] Work Phone: Start: 08-07-2024 End: 08-07-2024 ambulatory 08/07/2024 2:00 PM EST [facility]fusion [facility] Hematology/Oncology [address] [place] [address] 8 Week [facility] Hematology/Oncology Comment on above: 8 Week En[facility]vio Start: 06-12-2024 End: 06-12-2024 ambulatory 06/12/2024 2:00 PM EDT Infusion Center Hematology/Oncology [address] [place] [address] 8 Week [facility] Hematology/Oncology Comment on above: 8 Week En[facility]io Start: 05-26-2024 Covid-19 Vaccine () Covid-19 Vaccine () [facility] Start: 05-26-2024 Covid-19 Vaccine ( season) Covid-19 Vaccine () [facility] Start: 05-26-2024 Influenza vaccination [facility] Start: 04-18-2024 End: 04-18-2024 ambulatory 04/18/2024 2:00 PM EDT Infusion Center Hematology/Oncology [address] [place] [address] [place] [address] 8 Week [facility] Hematology/Oncology Comment on above: 8 Week [facility]io Start: 02-22-2024 End: 02-22-2024 ambulatory 02/22/2024 2:00 PM ED [facility] Hematology/Oncology [address] [place] [address] [place] [address] 8 Week [facility] Hematology/Oncology Comment on above: 8 Week En[facility]io Start: 01-12-2024 End: 04-12-2024 BLOOD TB SCREEN BLOOD TB SCREEN Lab Routine Crohn's disease of small intestine with intestinal obstruction (HCC) Expected: 01/12/2024, Expires: 04/12/2024 [facility] Comment on above: Expected: 01/12/2024 , Expires: 04/12/2024 Start: 2023 Cologuard (FIT-DNA) Cologuard (FIT-D NA) [facility] Start: [address] Colonography [facility] Start: 2023 Fecal Occult Blood Fecal Occult Bloo d [facility] Start: 2023 Screening for malign ant neoplasm of colon [facility] Start: 2023 Sigmoidoscopy Sigmoidoscopy [facility] Start: 09-25-2023 Behavioral Health Screening Behavioral Health Screening [facility] Start: 09-25-2023 Depression Assessment Depression Ass essment [facility] Start: 05-26-2023 Covid-19 Vaccine ( season) Covid-19 Vaccine () [facility] Start: 05-26-2023 Influenza vaccination [facility] Start: 12-11-2022 End: 02-10-2023 CBC W Auto Differential panel - Blood CBC + DIFF Lab Routine Crohn's disease of small intestine with intestinal obstruction (HCC) Abnormal blood cell count Expected: 12/11/2022, Expires: 02/10/2023 [facility] Work Phone: Comment on above: Expected: 12/11/2022 , Expires: 02/10/2023 Start: 12-11-2022 End: 02-10-2023 COPPER BLOOD COPPER BLOOD Lab Routine Crohn's disease of small intestine with intestinal obstruction (HCC) Abnormal blood cell count Expected: 12/11/2022, Expires: 02/10/2023 [facility] Work Phone: Comment on above: Expected: 12/11/2022 , Expires: 02/10/2023 Start: 12-11-2022 End: 02-10-2023 RETIC COUNT RETIC COUNT Lab Routine Crohn's disease of small intestine with intestinal obstruction (HCC) Abnormal blood cell count Expected: 12/11/2022, Expires: 02/10/2023 [facility] Work Phone: Comment on above: Expected: 12/11/2022 , Expires: 02/10/2023 Start: 09-25-2022 DEPRESSION ASSESSMENT DEPRESSION ASS ESSMENT [facility] Start: 05-26-2022 Influenza vaccination [facility] Start: 01-21-2022 End: 03-23-2022 C reactive protein [Mass/volume] in Serum or Plasma C-REACTIVE PROTEIN (CRP) Lab Routine Crohn's disease of small intestine with intestinal obstruction (HCC) Expected: 01/21/2022, Expires: 03/23/2022 [facility] Work Phone: Comment on above: Expected: 01/21/2022 , Expires: 03/23/2022 Start: 01-21-2022 End: 03-23-2022 CBC panel - Blood by Automated count CBC Lab Routine Crohn's disease of small intestine with intestinal obstruction (HCC) Expected: 01/21/2022, Expires: 03/23/2022 [facility] Work Phone: Comment on above: Expected: 01/21/2022 , Expires: 03/23/2022 Start: 01-21-2022 End: 03-23-2022 Comprehensive metabolic 2000 panel - Serum or Plasma COMP METABOLIC PANEL Lab Routine Crohn's disease of small intestine with intestinal obstruction (HCC) Expected: 01/21/2022, Expires: 03/23/2022 [facility] Work Phone: Comment on above: Expected: 01/21/2022 , Expires: 03/23/2022 Start: 01-21-2022 End: 03-23-2022 VITAMIN B12 BLOOD VITAMIN B12 BLOOD Lab Routine Crohn's disease of small intestine with intestinal obstruction (HCC) Expected: 01/21/2022, Expires: 03/23/2022 [facility] Work Phone: Comment on above: Expected: 01/21/2022 , Expires: 03/23/2022 Start: 01-21-2022 End: 03-23-2022 VITAMIN D 25 HYDROXY VITAMIN D 25 HYDROXY Lab Routine Crohn's disease of small intestine with intestinal obstruction (HCC) Expected: 01/21/2022, Expires: 03/23/2022 [facility] Work Phone: Comment on above: Expected: 01/21/2022 , Expires: 03/23/2022 Start: 11-04-2021 Colonoscopy COLONOSCOPY [facility] Start: 11-04-2021 COLORECTAL CANCER SCREENING COLORECTAL CANCER SCREENING [facility] Start: 11-04-2021 Screening for malign ant neoplasm of colon [facility] Start: 09-25-2021 DEPRESSION ASSESSMENT DEPRESSION ASS ESSMENT [facility] Start: 08-14-2021 COVID-19 VACCINE (3 - Booster for Moderna series) COVID-19 VACCINE (3 - Booster for Moderna series) [facility] Start: 05-09-2021 COVID-19 VACCINE (3 - Booster for Moderna series) COVID-19 VACCINE (3 - Booster for Moderna series) [facility] Start: 05-09-2021 COVID-19 VACCINE (3 - Moderna series) COVID-19 VACCINE (3 - Moderna series) [facility] Start: 07-15-2014 Adult depression screening assessment DEPRESSION SCREENING [facility] Start: 2013 Lipid 1996 panel - Serum or Plasma Lipid Screening [facility] Start: 2013 Lipid panel Lipid Screening [facility] Start: 2013 LIPID SCREEN LIPID SCREEN [facility] Start: 07-06-2013 Pneumococcal vaccination Pneumococcal Vaccine (2 of 2 - PCV) [facility] Start: 1997 HEPATITIS A (1 of 2 - Risk 2-dose series) HEPATITIS A (1 of 2 - Risk 2-dose series) [facility] Start: 1997 Hepatitis A Vaccine (1 of 2 - Risk 2-dose series) Hepatitis A Vaccine (1 of 2 - Risk 2-dose series) [facility] Start: 1997 HEPATITIS B (1 of 3 - Risk 3-dose series) HEPATITIS B (1 of 3 - Risk 3-dose series) [facility] Start: 1997 Hepatitis B Vaccine (1 of 3 - 19+ 3-dose series) Hepatitis B Vaccine (1 of 3 - 19+ 3-dose series) [facility] Start: 1997 Urine microalbumin profile [facility] Start: 1996 Anxiety Screening Anxiety Screening [facility] Start: 1996 Depression Screening Depression Scre ening [facility] Start: 1996 HEPATITIS C SCREENING HEPATITIS C [facility] Start: 1996 Hepatitis C screening Hepatitis C [facility] Start: 1996 HIV SCREENING HIV SCREENING [facility] Start: 1996 HIV screening HIV Screening [facility] Start: 1996 MMR (1 of 2 - Risk 2-dose series) MMR (1 of 2 - Risk 2-dose series) [facility] Start: 1996 MMR Vaccine (1 of 2 - Risk 2-dose series) MMR Vaccine (1 of 2 - Risk 2-dose series) [facility] Start: 1988 Meningococcal B Vaccine: Consider Based On Risk (1 of 4 - Increased Risk) Meningococcal B Vaccine: Consider Based On Risk (1 of 4 - Increased Risk) [facility] Start: 1988 MENINGOCOCCAL B: Consider based on risk (1 of 4 - Increased Risk Bexsero 2-dose series) MENINGOCOCCAL B: Consider based on risk (1 of 4 - Increased Risk Bexsero 2-dose series) [facility] Start: 1988 MENINGOCOCCAL B: Consider based on risk (1 of 4 - Increased Risk) MENINGOCOCCAL B: Consider based on risk (1 of 4 - Increased Risk) [facility] Start: 1979 HEPATITIS A (1 of 2 - Risk 2-dose series) HEPATITIS A (1 of 2 - Risk 2-dose series) [facility] 25-hydroxyvitamin D3 [Mass/volume] in Serum or Plasma VITAMIN D 25 HYDROXY Lab Routine Crohn's disease of small intestine with intestinal obstruction (HCC) Immunosuppression (HCC) 12/07/2022 2:57 PM EDT [facility] Work Phone: End: 08-19-2024 25-hydroxyvitamin D3 [Mass/volume] in Serum or Plasma VITAMIN D 25 HYDROXY Lab Routine Crohn's disease of small intestine with intestinal obstruction (HCC) 1 Occurrences starting 08/25/2023 until 08/19/2024 [facility] Work Phone: Comment on above: 1 Occurrences starti ng 08/25/2023 until 08/19/2024 25-hydroxyvitamin D3 [Mass/volume] in Serum or Plasma VITAMIN D 25 HYDROXY Lab Routine Crohn's disease of small intestine with intestinal obstruction (HCC) 09/07/2023 2:37 PM [facility] Work Phone: BLOOD TB SCREEN BLOOD TB SCREEN Lab Routine Crohn's disease of small intestine with intestinal obstruction (HCC) Immunosuppression (HCC) 12/07/2022 2:57 PM EDT [facility] Work Phone: BLOOD TB SCREEN BLOOD TB SCREEN Lab Routine Crohn's disease of small intestine with intestinal obstruction (HCC) 02/22/2024 2:23 PM EDT [facility] Work Phone: C reactive protein [Mass/volume] in Serum or Plasma C-REACTIVE PROTEIN (CRP) Lab Routine Crohn's disease of small intestine with intestinal obstruction (HCC) 03/02/2022 2:09 PM EDT [facility] Work Phone: C reactive protein [Mass/volume] in Serum or Plasma C-REACTIVE PROTEIN (CRP) Lab Routine Crohn's disease of small intestine with intestinal obstruction (HCC) Immunosuppression (HCC) 12/07/2022 2:57 PM EDT [facility] Work Phone: End: 08-23-2024 C reactive protein [Mass/volume] in Serum or Plasma C-REACTIVE PROTEIN (CRP) Lab Routine Crohn's disease of small intestine with intestinal obstruction (HCC) 1 Occurrences starting 08/25/2023 until 08/23/2024 [facility] Work Phone: Comment on above: 1 Occurrences starti ng 08/25/2023 until 08/23/2024 C reactive protein [Mass/volume] in Serum or Plasma C-REACTIVE PROTEIN (CRP) Lab Routine Crohn's disease of small intestine with intestinal obstruction (HCC) 09/07/2023 2:37 PM EST [facility] Work Phone: End: 01-10-2025 C reactive protein [Mass/volume] in Serum or Plasma C-REACTIVE PROTEIN Lab Routine Crohn's disease of small intestine with intestinal obstruction (HCC) 1 Occurrences starting 01/12/2024 until 01/10/2025 [facility] Comment on above: 1 Occurrences starti ng 01/12/2024 until 01/10/2025 End: 08-19-2024 CBC panel - Blood by Automated count CBC Lab Routine Crohn's disease of small intestine with intestinal obstruction (HCC) 1 Occurrences starting 08/25/2023 until 08/19/2024 [facility] Work Phone: Comment on above: 1 Occurrences starti ng 08/25/2023 until 08/19/2024 End: 01-06-2025 CBC W Auto Differential panel - Blood COMPLETE BLOOD COUNT AND DIFFERENTIAL Lab Routine Crohn's disease of small intestine with intestinal obstruction (HCC) 1 Occurrences starting 01/12/2024 until 01/06/2025 [facility] Comment on above: 1 Occurrences starti ng 01/12/2024 until 01/06/2025 Cobalamin (Vitamin B 12) [Mass/volume] in Serum or Plasma VITAMIN B12 BLOOD Lab Routine Crohn's disease of small intestine with intestinal obstruction (HCC) Immunosuppression (HCC) 12/07/2022 2:57 PM EDT [facility] Work Phone: End: 08-23-2024 Cobalamin (Vitamin B12) [Mass/volume] in Serum or Plasma VITAMIN B12 BLOOD Lab Routine Crohn's disease of small intestine with intestinal obstruction (HCC) 1 Occurrences starting 08/25/2023 until 08/23/2024 [facility] Work Phone: Comment on above: 1 Occurrences starti ng 08/25/2023 until 08/23/2024 Cobalamin (Vitamin B 12) [Mass/volume] in Serum or Plasma VITAMIN B12 BLOOD Lab Routine Crohn's disease of small intestine with intestinal obstruction (HCC) 09/07/2023 2:37 PM EST [facility] Work Phone: End: 01-10-2025 Cobalamin (Vitamin B12) [Mass/volume] in Serum or Plasma VITAMIN B12 Lab Routine Crohn's disease of small intestine with intestinal obstruction (HCC) 1 Occurrences starting 01/12/2024 until 01/10/2025 [facility] Comment on above: 1 Occurrences starti ng 01/12/2024 until 01/10/2025 End: 08-25-2024 COLONOSCOPY DIAGNOSTIC COLONOSCOPY DIAGNOSTIC Endoscopy Routine Crohn's disease of small intestine with intestinal obstruction (HCC) 1 Occurrences starting 08/25/2023 until 08/25/2024 [facility] Work Phone: Comment on above: 1 Occurrences starti ng 08/25/2023 until 08/25/2024 End: 08-23-2024 Comprehensive metabolic 2000 panel - Serum or Plasma COMP METABOLIC PANEL Lab Routine Crohn's disease of small intestine with intestinal obstruction (HCC) 1 Occurrences starting 08/25/2023 until 08/23/2024 [facility] Work Phone: Comment on above: 1 Occurrences starti ng 08/25/2023 until 08/23/2024 End: 01-10-2025 Comprehensive metabolic 2000 panel - Serum or Plasma COMPREHENSIVE METABOLIC PANEL Lab Routine Crohn's disease of small intestine with intestinal obstruction (HCC) 1 Occurrences starting 01/12/2024 until 01/10/2025 [facility] Work Phone: Comment on above: 1 Occurrences starti ng 01/12/2024 until 01/10/2025 COPPER BLOOD COPPER BLOOD Lab Routine Crohn's disease of small intestine with intestinal obstruction (HCC) Abnormal blood cell count 01/27/2023 1:07 PM EDT [facility] Work Phone: End: 09-23-2024 MRI ABD ENTEROG WO/W IVCON MRI ABD ENTEROG WO/W IVCON Radiology Routine Crohn's disease of small and large intestines with complication (HCC) 1 Occurrences starting 08/25/2023 until 09/23/2024 [facility] Work Phone: Comment on above: 1 Occurrences starti ng 08/25/2023 until 09/23/2024 End: 09-23-2024 Mri pelvis w/o & w/contrast material MRI PEL ENTEROG WO/W IVCON Radiology Routine Crohn's disease of small and large intestines with complication (HCC) 1 Occurrences starting 08/25/2023 until 09/23/2024 [facility] Work Phone: Comment on above: 1 Occurrences starti ng 08/25/2023 until 09/23/2024 Patient Education Low back pain in adults [facility] Work Phone: Patient referral [facility] Work Phone: SURGICAL PATHOLOGY [facility] Work Phone: Comment on above: Release Upon Vasilein g for 1 Occurrences starting 11/15/2023, 1 completed VITAMIN B12 BLOOD VITAMIN B12 BL OOD Lab Routine Crohn's disease of small intestine with intestinal obstruction (HCC) 03/02/2022 2:09 PM EDT [facility] Work Phone: VITAMIN D 25 HYDROXY VITAMIN D 2 5 HYDROXY Lab Routine Crohn's disease of small intestine with intestinal obstruction (HCC) 03/02/2022 2:09 PM EDT [facility] Work Phone: XR Lumbar spine 2 or 3 Views [facility] Immunizations Immunization Date Immunization Notes Care Provider Eduardo yang 07-06-2012 pneumococcal polysaccharide vaccine, 23 valent Ap Deins Other [facility] Payers Date Payer Category Payer Worker's Compensation [employer] [id number] 2024 Blue Cross Blue Shield BC [id number] 2023 Private Health Insurance YULI GATES OAP [id number] 2023-Present [phone] [address] [place] [address] Open Access [id number] 2023 Private Health Insurance [id number] 2023 Blue Cross Blue Shield [id number] 2023 Medicare [employer] [place] MED[place] [id number] 2023-Present [phone] [address] [place] [address] HMO [id number] 2023 Medicare [id number] 2016 Unknown [employer] BLUE CARD PPO OOS [id number] 2016-Present [phone] [address] [place] [address] PPO [id number] 2016 Unknown [id number] 1978 Unknown [id number] 1978 Unknown [id number] 1959 Unknown [id number] Medicare [id number] Medicare [employer] MCR PFFS [id number] 600 [id number] Private Health Insurance [facility] [id number] Social History Date Type Detail Facility Start: 02-20-2015 End: 11-18-2022 Tobacco smoking status NHIS Ex-smoker [facility] Start: 12-15-1996 End: 11-10-2023 History of tobacco use Current smoker [facility] Start: 12-15-1996 End: 12-15-2014 History of tobacco use Cigarette Smoker [facility] Start: 02-20-2015 End: 01-27-2023 Cigarettes smoked current (pack per day) - Reported 1 [facility] Start: 02-20-2015 End: 11-18-2022 Tobacco use and exposure Smokeless tobacco non-user [facility] Start: 10-26-2020 End: 01-12-2024 Alcohol intake Current drinker of alcohol (finding) [facility] Start: 02-01-2013 History SDOH Alcohol Comment Maybe once a year [facility] Start: 1980 Sex Assigned At Male [facility] Start: 12-26-2021 End: 08-16-2022 Exposure to SARS-CoV-2 (event) Not sure [facility] Start: 01-27-2023 End: 01-12-2024 Sex Assigned At [facility] Start: 10-16-2024 National Score (1-100), lower number is lower risk 59 [facility] Start: 10-26-2020 Gender identity Identifies as male gender (finding) [facility] Start: 10-26-2020 Sexual orientation Heterosexual (finding) [facility] Start: 08-06-2024 End: 09-26-2024 Sex Male (finding) [facility] Tobacco smoking stat [facility] Tobacco smoking consumption unknown [facility] Clinical Notes 01-05-2022 to 10-17-2024 Tiffanie Gaming DO - 10/17/2024 3:30 PM EST Note Date & Type Note Facility 10-17-2024 History of Presen t illness Narrative Images from the original note were not included. Chief Complaints: leg pain Subjective Herminio Mohan, 44 y.o., male Patient presents today for a neurologic consult at the request of Dr. Ap Denis for restless leg syndrome. Patient is accompanied by his . Patient reports he has been dealing with restless legs since about 2000. This is mostly happening at night. He denies this keeping him up at night but he states he does not sleep well. His states he is still jerking at night when he is sleeping. His states he moves like he is having seizures. It sounds like this is throughout his whole body not just his legs. He went to [facility] after having 5 hours of the full body jerking. He states after these events he is exhausted. This also disrupts his stomach which he already deals with issues having Crohn's disease. Review of Systems Constitutional: Negative for appetite change, fatigue and fever. Respiratory: Negative for cough, shortness of breath and wheezing. Cardiovascular: Negative for chest pain, palpitations and leg swelling. Gastrointestinal: Negative for abdominal pain, constipation, diarrhea and nausea. Musculoskeletal: Negative for arthralgias, gait problem and myalgias. Leg pain Neurological: Positive for tremors and numbness. Negative for dizziness and headaches. No past medical history on file. No past surgical history on file. No family history on file. Social History Tobacco Use Smoking status: Not on file Smokeless tobacco: Not on file Substance Use Topics Alcohol use: Not on file Allergies: Reglan [metoclopramide] Vitals: 10/17/24 1529 BP: 100/64 Pulse: 93 SpO2: 96% There is no height or weight on file to calculate BMI. weight: 146 lb 6.4 oz Neurologic exam: Mental status: Awake, alert to person, place and time. Recent and remote memory are intact. Language is fluent without aphasia. Attention and concentration are normal. Fund of knowledge is appropriate for level of education. Cranial nerves: CN II: Visual acuity is normal. Visual quigley full to confrontation. CN III, IV, : pupils equal round and reactive to light. Extraocular movements intact. No ptosis present. CN V: Facial sensation is normal. CN VII: Full and symmetric facial movement. CN VIII: Hearing is normal to finger rub bilaterally: CN IX and X: Palate elevates symmetrically. CN XI: Shoulder shrug is normal bilaterally. CN XII: Tongue is midline without atrophy or fasciculation. Motor: RUE Strength deltoid, , biceps , triceps , wrist extensors , wrist flexor , cement paver strength 5/5. LUE Strength deltoid , biceps , triceps , wrist extensors , wrist flexor , cement paver strength 5/5. RLE Strength illopsoas, quadriceps, tibialis anterior, and gastrocnemius strength 5/5. LLE Strength illopsoas, quadriceps, tibialis anterior, and gastrocnemius strength 5/5. Normal tone x4 extremities. Bulk is normal. Sensory: Sensation is intact to light touch throughout Four extremities. Reflexes: RUE biceps reflex 2+ brachioradialis reflex 2+ . LUE biceps reflex 2+ brachioradialis reflex 2+ . RLE knee reflex 2+ . LLE knee reflex 2+ . Castellon's sign negative. Coordination: Gistqh-ur-oltm testing and rapid alternating movements are normal Gait: Normal Review and summary of old records: Assessment/Plan Diagnoses and all orders for this visit: Restless leg syndrome Iron deficiency anemia, unspecified iron deficiency anemia type It is my impression that the patient has restless legs syndrome. He has had some severe exacerbations leading to emergency department visits. He did have ropinirole increased from 2 mg p.o. b.I.d. to 3 mg p.o. b.I.d. on September 23, 2024 and this seemed to provide only a small amount of help per the patient and his . The patient does have a history of Crohn's disease and anemia and I wonder if an iron-deficiency processes exacerbating the patient's restless legs symptoms. Patient is on pain medication already and Requip and also on benzodiazepine at night for sleep. Plan: Check ferritin level If this is normal the patient may require referral to tertiary care center for further evaluation and treatment If this is abnormal in low, given the patient's extensive GI history and surgeries and lack of absorption, the patient will likely need referral to Hematology for consideration of iron infusions Additional information was taken from the patient's who accompanied him to the visit today. Pt has been fully educated on their diagnosis, lab results, treatment options, follow up plan, return instructions, and discussion of mental health issues documented in this encounter [facility] 08-06-2024 Evaluation note Diagnosis Onset Date Resolution Abdominal pain despite therapy for Crohn's disease acute August 06, 024 2:04pm Insomnia acute August 06, 2024 2:04pm Restless leg syndrome acute Aug 1:29pm Abdominal pain despite therapy for Crohn's disease acute September 26 2:40pm Insomnia acute September 26 025 2:40pm Restless leg syndrome acute Sep 2:40pm [facility] Work Phone: 1(561) 863-689109-10-2024 Evaluation note* Diagnosis Onset Date Resolution Status Admit Date Abdominal pain despite therapy for Crohn's disease acute May 2:08pm Adjustment disorder with mixed anxiety and depressed mood acute June 04, 2024 2:08pm Insomnia acute May 2:08pm Fatigue acute May 1:39pm Grief reaction acute June 17, 2024 1:39pm Lumbar pain with radiation down right leg acute June 17, 2024 1:39pm Abdominal pain despite therapy for Crohn's disease acute Nove mb2023 2:04pm Insomnia acute August 06, 2024 2:04pm [facility] Work Phone: [phone]) 519-351605-02-2024 Telephone encounter Note* Telephone Encounter - Deepali Castellanos RN - 01/25/2024 1:51 PM EDT Submitted PA request for Xifaxan via CMM. Awaiting insurance determination. Deepali Castellanos RN (Sykes: [id number]) - [id number] [facility]05-02-2024 Miscellaneous Notes* Telephone Encounter - Deepali Castellanos RN - 01/25/2024 1:51 PM EDT Submitted PA request for Xifaxan via CMM. Awaiting insurance determination. Deepali Castellanos RN (Sykes: [id number]) - [id number] documented [facility] History of Present illness Narrative* [...] Crohns, fibrostenosing, s/p serial resections most recently 2016 On Entyvio with endoscopic remission Has chronic [...] Deepali Stone MD, PhD documented in this encounterVan [facility]04-[facility]-2024 NoteHNO ID: [id number] Author: DEEPALI STONE MD, PhD Service: ? [...] 2018 repeated colonoscopy and (more content not included)...[facility]04-04-2024 NoteHNO ID: [id number] Author: MICHELE TURCIOS RN Service: ? Author Type: Registered Nurse Type: Progress Notes Filed: 12/28/2023 15:29 Note Text: Patient has arrived for Entyvio per Dr Stone. There are no signed orders to proceed. Provider paged. Michele Turcios RNUniversity [facility]als [facility]04-[facility] History of Present illness Narrative* Michele Turcios RN - 12/28/2023 2:03 PM EDT Patient has arrived for Entyvio per Dr Stone. There are no signed orders to proceed. Provider paged. Michele Turcios RN documented in [facility] encounterVan [facility] History and physical note * [...] Comments Cramps Lioresal [Baclofen] Other: See Comments [place] off , dizziness, irregular heart beat/breathing, difficult [...] 2023 TIME: 1:18 PM documented in [facility]Van [facility] Evaluation note* Encounter Date Diagnosis Assessment Notes Treatment Notes Treatment Clinical Notes Oct, Pernicious anemia (ICD-10 - D51.0) [facility] 01-26-2024 Evaluation note* Encounter Date Diagnosis Assessment Notes Treatment Notes Treatment Clinical Notes Sep, Pernicious anemia (ICD-10 - D51.0) [facility] 12-28-2023 Evaluation note* Encounter Date Diagnosis Assessment Notes Treatment Notes Treatment Clinical Notes Aug, Crohn's disease with other complication, unspecified gastrointestinal tract location (ICD-10 - K50.918) [facility] 12-20-2023 Evaluation note* Encounter Date Diagnosis Assessment Notes Treatment Notes Treatment Clinical Notes Aug, Crohn's disease with other complication, unspecified gastrointestinal tract location (ICD-10 - K50.918) [facility] 12-01-2023 History of Present illness Narrative* [...] Deepali Stone MD, PhD documented in [facility] encounterVan [facility]29[facility] Evaluation note* Encounter Date Diagnosis Assessment Notes Treatment Notes Treatment Clinical Notes Jul, Crohn's disease with other complication, unspecified gastrointestinal tract location (ICD-10 - K50.918) [facility] 11-21-2023 Evaluation note* Encounter Date Diagnosis Assessment Notes Treatment Notes Treatment Clinical Notes Jul, Crohn's disease with other complication, unspecified gastrointestinal tract location (ICD-10 - K50.918) [facility] 11-20-2023 Evaluation note* Encounter Date Diagnosis Assessment Notes Treatment Notes Treatment Clinical Notes Jul, Crohn's disease with other complication, unspecified gastrointestinal tract location (ICD-10 - K50.918) [facility] 11-14-2023 Evaluation note* Encounter Date Diagnosis Assessment Notes Treatment Notes Treatment Clinical Notes Jul, Crohn's disease with other complication, unspecified gastrointestinal tract location (ICD-10 - K50.918) [facility] 10-27-2023 Evaluation note* Encounter Date Diagnosis Assessment Notes Treatment Notes Treatment Clinical Notes Jun, Crohn's disease with other complication, unspecified gastrointestinal tract location (ICD-10 - K50.918) [facility] 10-25-2023 Evaluation note* Encounter Date Diagnosis Assessment Notes Treatment Notes Treatment Clinical Notes Jun, Crohn's disease with other complication, unspecified gastrointestinal tract location (ICD-10 - K50.918) [facility] 10-16-2023 Evaluation note* Encounter Date Diagnosis Assessment Notes Treatment Notes Treatment Clinical Notes Jun, Crohn's disease with other complication, unspecified gastrointestinal tract location (ICD-10 - K50.918) Reviewed [facility] report. Followup in 3 months. Changed meds to reflect his new insurance and their formulary. [facility] 09-13-2023 Evaluation note* Encounter Date Diagnosis Assessment Notes Treatment Notes Treatment Clinical Notes May, Crohn's disease with other complication, unspecified gastrointestinal tract location (ICD-10 - K50.918) [facility] 08-16-2023 Evaluation note* Encounter Date Diagnosis Assessment Notes Treatment Notes Treatment Clinical Notes Apr, Crohn's disease with other complication, unspecified gastrointestinal tract location (ICD-10 - K50.918) [facility] 07-14-2023 Evaluation note* Encounter Date Diagnosis [...] problem. encouraged hydration and exercise as able. [facility] 06-30-2023 Miscellaneous Notes* Telephone Encounter - Deepali Stone MD, PhD - 03/24/2023 2:27 PM EDT Removed thx * Telephone Encounter - Kelly Steward RN - 03/23/2023 3:36 PM EDT Herminio does not take the benadryl or tylenol prior to his entyvio infusions. Would you mind removingthese premeds from all future plans to avoid confusion? Thank you, Kelly Steward RN documented in this encounterVan [facility]05-[facility]23 Miscellaneous Notes* Telephone Encounter - Deepali Castellanos RN - 01/24/2023 1:13 PM EDT Called [facility] at [phone] and spoke Jen. Jen was informed patient could schedule earlier due to scheduling conflict per Dr. Stone. Informed Jen that there is documentation via [address] from 01/23/23. Jen verbalized understanding. Deepali Castellanos RN documented in this encounterVan [facility]04-27-2023 Evaluation note* Encounter Date Diagnosis Assessment Notes Treatment Notes Treatment Clinical Notes Dec, Restless legs syndrome (RLS) (ICD-10 - G25.81) [facility] 04-26-2023 Evaluation note* Encounter Date Diagnosis [...] has failed Ambien for insomnia all doses [facility] 04-19-2023 Evaluation note* Encounter Date Diagnosis Assessment Notes Treatment Notes Treatment Clinical Notes Dec, Crohn's disease with other complication, unspecified gastrointestinal tract location (ICD-10 - K50.918) [facility] 03-16-2023 Miscellaneous Notes* Telephone Encounter - Deepali Castellanos RN - 12/08/2022 1:54 PM EDT Lab results from 12/07/[address] Stone for review. Deepali Castellanos RN documented in this encounterVan [facility]01-26-[facility]23 Evaluation note* Encounter Date Diagnosis Assessment Notes Treatment Notes Treatment Clinical Notes Sep, Restless legs syndrome (RLS) (ICD-10 - G25.81) [facility] 01-23-2023 Evaluation note* Encounter Date Diagnosis [...] dose about 5 months ago was completed. [facility] 12-12-2022 Miscellaneous Notes* Telephone Encounter - Marques Zacarias - 09/05/2022 10:41 AM EST Scheduled * Telephone Encounter - Deepali Stone MD, PhD - 08/26/2022 7:33 AM EST He needs to be seen to continue crohns therapy Please offer next available dept use documented in this encounterVan [facility]06-[facility] History of Present illness Narrative* Blanca Dobbins RN - 03/02/2022 2:36 PM EDT . documented in this encounterVan [facility]04-29-2022 History of Present illness Narrative* [...] with addendum/edit. Serial bowel resections, most recently 2016. Was [...] Deepali Stone MD, PhD documented in this encounterVan [facility]04-13-2022 Miscellaneous Notes* Telephone Encounter - Deepali Stone MD, PhD - 01/05/2022 2:36 PM EDT This is reordered thx * Telephone Encounter - Yue Pisano RPh - 01/04/2022 4:10 PM EDT Herminio's script for Entyvio has . Will you please renew it for him. Thank you Golden Pisano RPh documented in this encounterVan [facility]ert [facility] Hospital04-13-2022 History of Present illness Narrative* [...] him. Alisia Lopes RN documented [facility]University [facility]+Reason for visit Narrative* Chief Complaint 3 Month Follow Up Amb Documentation Amb Documentation [address] Denis Referral Reason for Visit Crohn's disease, uns pecified, with other complication Fibromyalgia Primary insomnia Restless leg syndrome Abdominal pain despite therapy for Crohn's disease Crohn's disease Encounter for palliative care Fibromyalgia Primary insomnia [facility] Work Phone: Chili complaint+Reason for visit Narrative* Chief Complaint [address] Denis Referral Patient here for a 1 month f/u in office Reason for Visit Crohn's disease, uns pecified, with other complication Fibromyalgia Primary insomnia Restless leg syndrome Abdominal pain despite therapy for Crohn's disease Crohn's disease Encounter for palliative care Crohn's disease Fibromyalgia [facility] Work Phone: chief complaint+Reason for visit Narrative* Chief Complaint Dr. [...] disease Crohn's disease, unspecified, with other complication [facility] Work Phone: Evaluation note* Diagnosis Crohn's disease of both small and large intestine with intestinal obstruction (HCC)- 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 intestine [facility] Diagnosis Crohn's disease of small intestine with intestinal obstruction (HCC)- Primary Regional enteritis of small intestine documented [facility]* Diagnosis Crohn's disease of both small and large intestine with intestinal obstruction (HCC)- 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 intestine Crohn's disease of small intestine with intestinal obstruction (HCC) Regional enteritis of small intestine documented in this encounter [facility]* Diagnosis Crohn's disease of both small and large intestine with intestinal obstruction (HCC)- 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 intestine [facility] this [facility] [facility] Diagnosis Crohn's disease of both small and large intestine with intestinal obstruction (HCC)- 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 intestine [facility] Crohn's disease of both small and large intestine with intestinal obstruction (HCC)- 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 intestine [facility] InformationNort Outlisten Other Evaluation note* Diagnosis Crohn's disease of both small and large intestine with intestinal obstruction (HCC)- 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 intestine Crohn's disease of small intestine with intestinal obstruction (HCC) Regional enteritis of small intestine Immunosuppression (HCC) Unspecified disorder of immune mechanism [facility] Crohn's disease of small [...] [facility] assessment [facility]: [facility] note* Diagnosis Onset Date Resolution Status Crohn's disease, unspecified, with other complication acute Fibromyalgia acute Primary insomnia acute Restless leg syndrome acute Abdominal pain despite therapy for Crohn's disease acute Crohn's disease acute Encounter for palliative care acute Fibromyalgia acute Primary insomnia acute [facility] Work Phone: evaluation note* Diagnosis Crohn's disease of small intestine with intestinal obstruction (HCC)- Primary Regional enteritis of small intestine Vitamin D deficiency-Severe Unspecified vitamin D deficiency Immunosuppression (HCC) Unspecified disorder of immune mechanism Adenomatous polyp of colon, unspecified part of colon [facility] Diagnosis Crohn's disease of both small and large intestine with intestinal obstruction (HCC)- 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 intestine Crohn's disease of small intestine with intestinal obstruction (HCC) Regional enteritis of small intestine documented in this encounter [facility] note* Diagnosis Onset Date Resolution Status Crohn's disease, unspecified, with other complication acute Fibromyalgia acute Primary insomnia acute Restless leg syndrome acute Abdominal pain despite therapy for Crohn's disease acute Crohn's disease acute Encounter for palliative care acute Crohn's disease acute Fibromyalgia acute [facility] Work Phone: evaluation note* Diagnosis Onset Date Resolution Status Abdominal pain despite therapy for Crohn's disease acute Crohn's disease acute Encounter for palliative care acute Abdominal pain despite therapy for Crohn's disease acute Crohn's disease acute Abdominal pain despite therapy for Crohn's disease acute Crohn's disease, unspecified, with other complication acute [facility] Work Phone: evaluation note* Diagnosis Crohn's disease of both small and large intestine with intestinal obstruction (HCC)- 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 intestine documented in this encounter [facility] note* Diagnosis Onset Date Resolution Status Abdominal pain despite therapy for Crohn's disease acute Crohn's disease, unspecified, with other complication acute Abdominal pain despite therapy for Crohn's disease acute Adjustment disorder with mix ed anxiety and depressed mood acute Insomnia acute [facility] Work Phone: evaluation note* Diagnosis Onset Date Resolution Status Abdominal pain despite therapy for Crohn's disease acute Crohn's disease, unspecified, with other complication acute Abdominal pain despite therapy for Crohn's disease acute Adjustment disorder with mix ed anxiety and depressed mood acute Insomnia acute Fatigue acute Lumbar pain with radiation down right leg acute [facility] Work Phone: Evaluation note* Diagnosis Restless leg syndrome- Primary Restless legs syndrome (RLS) Iron deficiency anemia, unspecified iron deficiency anemia type [facility] - Reported* Type Description Date Medical History Crohn''s disease wit h complication, unspecified gastrointestinal tract location Medical History Movement disorder Medical History Restless leg syndrome Medical History Pernicious anemia Medical History Nausea and vomiting Medical History Insomnia Surgical History BOWEL RESECTION X 3 (08/1995, AND 01/2011) Surgical History HERNIA REPAIR 1997 Surgical History VASECTOMY 2007 Hospitalization History SEE SURGICAL HX [employer] Other Reason for referral (narrative)* Outpatient Procedure (Routine) - Authorized Specialty Diagnoses / Procedures Referred By Mena santiago Referred To Contact [facility] Diagnoses Crohn's disease of small intestine with intestinal obstruction (HCC) Procedures COLONOSCOPY DIAGNOSTIC COLONOSCOPY FLX DX W/COLLJ SPEC WHEN PFRMD Deepali Stone MD, PhD [address] [place] [address] [facility] [address] [place] [address] Referral ID Status Reason Start Date Expiration Date Visits Requested Visits Authorized [id number] Authorized Auto-Generat ed Referral 08/25/2023 08/25/2024 1 1 * MRI/CT (Routine) - Pending Review Specialty Diagnoses / Procedures Referred By Mena santiago Referred To Contact [facility] Diagnoses Crohn's disease of small and large intestines with complication (HCC) Procedures MRI PEL ENTEROG WO/W IVCON MRI PELVIS W/O & W/CONTRAST MATERIAL Deepali Stone MD, PhD [address] [place], [place] [id number] [facility] [place] [address] Referral ID Status Reason Start Date Expiration Date Visits Requested Visits Authorized [id number] Pending Review Auto-Generat ed Referral 08/25/2023 09/23/2024 1 1 * MRI/CT (Routine) - Pending Review Specialty Diagnoses / Procedures Referred By Mena santiago Referred To Contact [facility] Diagnoses Crohn's disease of small and large intestines with complication (HCC) Procedures MRI ABD ENTEROG WO/W IVCON MRI ABDOMEN W/O & W/CONTRAST MATERIAL MRI PELVIS W/O & W/CONTRAST MATERIAL Deepali Stone MD, PhD [address] [id number] [facility] [place] [address] Referral ID Status Reason Start Date Expiration Date Visits Requested Visits Authorized [id number] Pending Review Auto-Generat ed Referral 08/25/2023 09/23/2024 1 1 [facility] for referral (narrative)* Outpatient Procedure (Routine) - Closed Specialty Diagnoses / Procedures Referred By Mena santiago Referred To Contact [facility] Diagnoses Crohn's disease of small intestine with intestinal obstruction (HCC) Procedures COLONOSCOPY DIAGNOSTIC COLONOSCOPY FLX DX W/COLLJ SPEC WHEN Deepali Nava MD, PhD [address] [phone] [facility] [place] [id number] Referral ID Status Reason Start Date Expiration Date V isits Requested Visits Authorized [id number] Closed Auto-Generate d Referral 08/25/2023 08/25/2024 1 1 [facility] for visit Narrative* Outpatient Procedure (Routine) - Closed Specialty Diagnoses / Procedures Referred By Mena santiago Referred To Contact [facility] [place] Diagnoses Crohn's disease of small intestine with intestinal obstruction (HCC) Procedures COLONOSCOPY DIAGNOSTIC COLONOSCOPY FLX DX W/COLLJ SPEC WHEN Deepali Nava MD, PhD [address] [phone] [facility] [address] [place] [address] Referral ID Status Reason Start Date Expiration Date V isits Requested Visits Authorized [id number] Closed Auto-Generate d Referral 08/25/2023 08/25/2024 1 1 [facility] for visit Narrative* Consultation (Routine) - Pending Review Specialty Diagnoses / Procedures Referred By Contac t Referred To Contact Neurology Diagnoses Restless legs syndrome Procedures [place] OFFICE/OUTPATIENT NEW LOW MDM 30 MINUTES Ap Denis MD [address] [place] [address] Phone: tel: fax: Tiffanie Gaming DO [address] [place] [address] Phone: tel: fax: Referral ID Status Reason Start Date Expiration Date Visits Requested Visits Authorized [id number] Pending Review Consult and Treat 09/27/2024 03/26/2025 1 1 [facility] Healthcare Summary Purpose Family History No Family History Records Found Relationship Condition Age at Onset Recorded Date/T evaristo father Heart disease Unknown Diabetes mellitus Unknown Not Specified Crohn's disease Unknown sister Unknown Ulcerative colitis Unknown Relationship Condition Age at Onset Recorded Date/T evaristo father Heart disease Unknown Diabetes mellitus Unknown mother Crohn's disease Unknown sister Unknown Ulcerative colitis Unknown Advance Directives No Advanced Directives Records FoundDocuments on File Type Date Recorded 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 EXP 14201/06/22 Refrigerate. EXP: (24 HR) New Bag/Syringe/Bottle 01/05/2022 [...] of sterile 0.9% Sodium Chloride Injection. EXP: 14103/03/22 Refrigerate. EXP: (24 HR) New Bag/Syringe/Bottle 03/02/2022 [...] of sterile 0.9% Sodium Chloride Injection. EXP 1300 01/28/23 Refrigerate. EXP: (24 HR) New Bag/Syringe/Bottle 01/27/2023 [...] 1430, Approx Total Volume: 280 mL EXP: 05/19/23 0215 RT After the infusion is complete [...] 1430, Approx Total Volume: 280 mL EXP 181 After the infusion is complete flush with [...] 2024 2:04pm Insomnia August 06, 2024 2:04pm Chief Complaint Admit Date 2 month follow up August 06, 2024 2:04pm Amb Documentation September 17, 2024 9:50am ER f/u restless legs September 23, 2024 1:29pm Patient here for a 2 month f/u September 262024 2:40pm Reason for Visit Admit Date Abdominal pain despite therapy for Crohn 's disease August 06, 2024 2:04pm Insomnia August 06, 2024 2:04pm Restless leg syndrome September 23 1:29pm Abdominal pain despite therapy for Crohn 's disease September 26, 2024 2:40pm Insomnia September 26, 2024 2: 40pm Restless leg syndrome September 26, 2024 2:40pm Additional Source Comments (unrecognized sect ion and content) No Status Records FoundNo Status Records FoundNo Status Records FoundNo Status Records FoundNo Status Records Found INFORMATION SOURCE (unrecogn ized section and content) DATE CREATED AUTHOR 11/07/2020 [facility] DATE CREATED AUTHOR AUTHOR'S ORGANIZ ATION 06/26/[address] [facility] DATE CREATED AUTHOR AUTHOR'S ORGANIZ ATION 11/23/2023 [facility] DATE CREATED AUTHOR AUTHOR'S ORGANIZ ATION 10/08/2024 [facility] DATE CREATED AUTHOR AUTHOR'S ORGANIZ ATION 10/19/2024 [facility] EPIC Source Comments (unrecognize d section and content) In the event this informatio n is protected by the Federal Confidentiality of Alcohol and Drug Abuse Patient Records regulations: The Federal rules restrict any use of the information to criminally investigate or prosecute any alcohol or drug abuse patient.[facility]In the event this information is protected by the Federal Confidentiality of Alcohol and Drug Abuse Patient Records regulations: The Federal rules restrict any use of the information to criminally investigate or prosecute any alcohol or drug abuse patient.[facility]In the event this information is protected by the Federal Confidentiality of Alcohol and Drug Abuse Patient Records regulations: The Federal rules restrict any use of the information to criminally investigate or prosecute any alcohol or drug abuse patient.[facility] HospitalIn the event this information is protected by the Federal Confidentiality of Alcohol and Drug Abuse Patient Records regulations: The Federal rules restrict any use of the information to criminally investigate or prosecute any alcohol or drug abuse patient.[facility]In the event this information is protected by the Federal Confidentiality of Alcohol and Drug Abuse Patient Records regulations: The Federal rules restrict any use of the information to criminally investigate or prosecute any alcohol or drug abuse patient.[facility]In the event this information is protected by the Federal Confidentiality of Alcohol and Drug Abuse Patient Records regulations: The Federal rules restrict any use of the information to criminally investigate or prosecute any alcohol or drug abuse patient.[facility] HospitalIn the event this information is protected by the Federal Confidentiality of Alcohol and Drug Abuse Patient Records regulations: The Federal rules restrict any use of the information to criminally investigate or prosecute any alcohol or drug abuse patient.[facility]In the event this information is protected by the Federal Confidentiality of Alcohol and Drug Abuse Patient Records regulations: The Federal rules restrict any use of the information to criminally investigate or prosecute any alcohol or drug abuse patient.[facility]In the event this information is protected by the Federal Confidentiality of Alcohol and Drug Abuse Patient Records regulations: The Federal rules restrict any use of the information to criminally investigate or prosecute any alcohol or drug abuse patient.[facility]In the event this information is protected by the Federal Confidentiality of Alcohol and Drug Abuse Patient Records regulations: The Federal rules restrict any use of the information to criminally investigate or prosecute any alcohol or drug abuse patient.[facility] the event this information is protected by the Federal Confidentiality of Alcohol and Drug Abuse Patient Records regulations: The Federal rules restrict any use of the information to criminally investigate or prosecute any alcohol or drug abuse patient.[facility]In the event this information is protected by the Federal Confidentiality of Alcohol and Drug Abuse Patient Records regulations: The Federal rules restrict any use of the information to criminally investigate or prosecute any alcohol or drug abuse patient.[facility]In the event this information is protected by the Federal Confidentiality of Alcohol and Drug Abuse Patient Records regulations: The Federal rules restrict any use of the information to criminally investigate or prosecute any alcohol or drug abuse patient.[facility]In the event this information is protected by the Federal Confidentiality of Alcohol and Drug Abuse Patient Records regulations: The Federal rules restrict any use of the information to criminally investigate or prosecute any alcohol or drug abuse patient.[facility]In the event this information is protected by the Federal Confidentiality of Alcohol and Drug Abuse Patient Records regulations: The Federal rules restrict any use of the information to criminally investigate or prosecute any alcohol or drug abuse patient.[facility]In the event this information is protected by the Federal Confidentiality of Alcohol and Drug Abuse Patient Records regulations: The Federal rules restrict any use of the information to criminally investigate or prosecute any alcohol or drug abuse patient.[facility] the event this information is protected by the Federal Confidentiality of Alcohol and Drug Abuse Patient Records regulations: The Federal rules restrict any use of the information to criminally investigate or prosecute any alcohol or drug abuse patient.[facility]In the event this information is protected by the Federal Confidentiality of Alcohol and Drug Abuse Patient Records regulations: The Federal rules restrict any use of the information to criminally investigate or prosecute any alcohol or drug abuse patient.[facility]In the event this information is protected by the Federal Confidentiality of Alcohol and Drug Abuse Patient Records regulations: The Federal rules restrict any use of the information to criminally investigate or prosecute any alcohol or drug abuse patient.[facility] HospitalIn the event this information is protected by the Federal Confidentiality of Alcohol and Drug Abuse Patient Records regulations: The Federal rules restrict any use of the information to criminally investigate or prosecute any alcohol or drug abuse patient.[facility]In the event this information is protected by the Federal Confidentiality of Alcohol and Drug Abuse Patient Records regulations: The Federal rules restrict any use of the information to criminally investigate or prosecute any alcohol or drug abuse patient.[facility] HospitalIn the event this information is protected by the Federal Confidentiality of Alcohol and Drug Abuse Patient Records regulations: The Federal rules restrict any use of the information to criminally investigate or prosecute any alcohol or drug abuse patient.[facility] HospitalIn the event this information is protected by the Federal Confidentiality of Alcohol and Drug Abuse Patient Records regulations: The Federal rules restrict any use of the information to criminally investigate or prosecute any alcohol or drug abuse patient.[facility] HospitalIn the event this information is protected by the Federal Confidentiality of Alcohol and Drug Abuse Patient Records regulations: The Federal rules restrict any use of the information to criminally investigate or prosecute any alcohol or drug abuse patient.[facility] HospitalIn the event this information is protected by the Federal Confidentiality of Alcohol and Drug Abuse Patient Records regulations: The Federal rules restrict any use of the information to criminally investigate or prosecute any alcohol or drug abuse patient.[facility] HospitalIn the event this information is protected by the Federal Confidentiality of Alcohol and Drug Abuse Patient Records regulations: The Federal rules restrict any use of the information to criminally investigate or prosecute any alcohol or drug abuse patient.[facility] HospitalIn the event this information is protected by the Federal Confidentiality of Alcohol and Drug Abuse Patient Records regulations: The Federal rules restrict any use of the information to criminally investigate or prosecute any alcohol or drug abuse patient.[facility] HospitalIn the event this information is protected by the Federal Confidentiality of Alcohol and Drug Abuse Patient Records regulations: The Federal rules restrict any use of the information to criminally investigate or prosecute any alcohol or drug abuse patient.[facility] HospitalIn the event this information is protected by the Federal Confidentiality of Alcohol and Drug Abuse Patient Records regulations: The Federal rules restrict any use of the information to criminally investigate or prosecute any alcohol or drug abuse patient.[facility] HospitalIn the event this information is protected by the Federal Confidentiality of Alcohol and Drug Abuse Patient Records regulations: The Federal rules restrict any use of the information to criminally investigate or prosecute any alcohol or drug abuse patient.[facility] HospitalIn the event this information is protected by the Federal Confidentiality of Alcohol and Drug Abuse Patient Records regulations: The Federal rules restrict any use of the information to criminally investigate or prosecute any alcohol or drug abuse patient.[facility] Reason for Visit (unrecogniz ed section and content) Reason Onset Date Comments Refill Request 01/04/2022 Specialty Diagnoses / Procedures Referred By Contac t Referred To Contact Diagnoses Crohn's disease of both small and large intestine with intestinal obstruction (HCC) Procedures INJECTION, VEDOLIZUMAB Deepali Stone MD, PhD [address] [place] [address] Reynold Treat [address] [place] [address] Referral ID Status Reason Start Date Expiration Date V isits Requested Visits Authorized [id number] Authorized 09/14/2021 09/15/2022 7 7 Reason Comments Established Patient Follow-Up Crohn's di sease of small intestine with intestinal obstruction Reason Comments Appointment Referral ID Status Reason Start Date Expiration Date V isits Requested Visits Authorized [id number] Authorized 09/14/2021 09/16/2023 14 14 Reason Comments Orders Specialty Diagnoses / Procedures Referred By Contac t Referred To Contact Diagnoses Crohn's disease of both small and large intestine with intestinal obstruction Procedures Consult, Test, Treatment, Follow-up, Labs Deepali Stone MD, PhD [address] [place] [address] [place] [address] Referral ID Status Reason Start Date Expiration Date Visits Requested Visits Authorized [id number] Authorized Patient Cleared - Qualified 100% FAS 10/11/2023 99 99 Reason Comments Established Patient 9 month follow up Specialty Diagnoses / Procedures Referred By Mena santiago Referred To Contact [facility] Diagnoses Crohn's disease of both small and large intestine with intestinal obstruction Procedures COLONOSCOPY FLX DX W/COLLJ SPEC WHEN PFRMD Consult, Test, Treatment, Follow-up, Labs Deepali Stoen MD, PhD [address] [phone] [facility] [address] [place], [place] [id number] Referral ID Status Reason Start Date Expiration Date V isits Requested Visits Authorized [id number] Authorized 07/13/2023 10/11/2023 99 99 Referral ID Status Reason Start Date Expiration Date V isits Requested Visits Authorized [id number] Authorized 09/14/2021 09/24/2023 99 99 Referral ID Status Reason Start Date Expiration Date V isits Requested Visits Authorized [id number] Authorized 09/14/2021 10/02/2024 21 21 Reason Comments Established Patient Crohn's disease of s mall intestine with intestinal obstruction Reason Comments Insurance Authorization [employer] Referral ID Status Reason Start Date Expiration Date V isits Requested Visits Authorized [id number] Authorized 09/14/2021 04/02/2025 24 24 Referral ID Status Reason Start Date Expiration Date V isits Requested Visits Authorized [id number] Authorized 09/14/2021 09/23/2025 27 27 Care Teams (unrecognized sec tion and content) [employer]izer Machine Relationship Specialty Start Date End Date pA Denis MD [address] [place] [address] PCP - General Family Practice 01/07/13 [employer] Machine Relationship Specialty Start Date End Date Ap Denis MD [address] [place] [address] PCP - General Family Practice 01/07/13 [employer] Relationship Specialty Start Date End Date Ap Denis MD [address] [place] [facility] [address] PCP - General Family Practice 01/07/13 [employer]izer Machine Relationship Specialty Start Date End Date Ap Denis MD [address] [place] [place] [address] PCP - General Family Practice 01/07/13 [employer] Relationship Specialty Start Date End Date Ap Denis MD [address] [place] [place] [address] PCP - General Family Practice 01/07/13 [employer] Machine Relationship Specialty Start Date End Date Ap Denis MD [address] [place] [address] PCP - General Family Medicine 01/07/13 [employer]izer Machine Relationship Specialty Start Date End Date Ap Denis MD [address] [place] [address] PCP - General Family Medicine 01/07/13 [employer]izer Machine Relationship Specialty Start Date End Date Ap Denis MD [address] [place] [place] [address] PCP - General Family Medicine 01/07/13 [employer]izer Machine Relationship Specialty Start Date End Date Ap Denis MD [address] [place] [place] [id number] PCP - General Family Medicine 01/07/13 [employer]izer Machine Relationship Specialty Start Date End Date Ap Denis MD [address] [place] [place] [address] PCP - General Family Medicine 01/07/13 [employer]izer Machine Relationship Specialty Start Date End Date Ap Denis MD [address] [place] [id number] PCP - General Family Medicine 01/07/13 [employer] Relationship Specialty Start Date End Date Ap Denis MD [address] [place] [place] [address] PCP - General Family Medicine 01/07/13 [employer] Relationship Specialty Start Date End Date Ap Denis MD [address] [place] [address] PCP - General Family Medicine 01/07/13 [employer] Relationship Specialty Start Date End Date Ap Denis MD [address] [place] [address] PCP - General Family Medicine 01/07/13 [employer] Relationship Specialty Start Date End Date Ap Denis MD [address] [place] [address] PCP - General Family Medicine 01/07/13 [employer] Relationship Specialty Start Date End Date Ap Denis MD [address] [place] [id number] PCP - General Family Medicine 01/07/13 [employer] Relationship Specialty Start Date End Date Ap Denis MD [address] [place] [phone] PCP - General Family Medicine 01/07/13 [employer] Relationship Specialty Start Date End Date Ap Denis MD [address] [place] [phone] PCP - General Family Medicine 01/07/13 Team [...] January 08, 2024 End: January 08, 2024 [employer] Relationship Specialty Start Date End Date Ap Denis MD [address] [place] [address] PCP - General Family Medicine 01/07/13 [employer] Relationship Specialty Start Date End Date Ap Denis MD [address] [place] [address] PCP - General Family Medicine 01/07/13 [employer] Relationship Specialty Start Date End Date Ap Denis MD [address] [place] [phone] PCP - General Family Medicine 01/07/13 Team [...] June 17, 2024 End: June 17, 2024 [employer] Relationship Specialty Start Date End Date Ap Denis MD [address] [place] [address] PCP - General Family Medicine 01/07/13 Team Status: Active Member Role Status Dates Ap Denis MD Primary Care Provide r, Attending Provider Active Start: July 02, 2024 Team Status: Inactive Member Role Status Dates Ap Denis MD Primary Care Provider Active Start: August 06, 2024 End: August 06, 2024 Radha Reyes APRN Attending Provider Active Start: August 06, 2024 End: August 06, 2024 [employer] Relationship Specialty Start Date End Date Ap Denis MD [address] [place] [phone] PCP - General Family Medicine 01/07/13 Team Status: Active Member Role Status Dates Ap Denis MD Primary Care Provider Active Start: September 15, 2024 Shaila Posey MD Attending Provider Active Sta rt: September 15, 2024 Team Status: Active Member Role Status Dates Ap Denis MD Primary Care Provider Active Start: September 17, 2024 Kenya Amaro CMA Attending Provider Active Start: September 17, 2024 Team Status: Inactive Member Role Status Dates Ap Denis MD Primary Care Provide r, Attending Provider Active Start: September 23, 2024 End: September 23, 2024 Team Status: Inactive Member Role Status Dates Ap Denis MD Primary Care Provider Active Start: September 26, 2024 End: September 26, 2024 Radha Reyes APRN Attending Provider Active Start: September 26, 2024 End: September 26, 2024 [employer] Relationship Specialty Start Date End Date Ap Denis MD [address] [place] [address] PCP - General Family Medicine 01/07/13 [employer] Relationship Specialty Start Date End Date Ap Denis MD [address] [place] [phone] PCP - General Family Medicine 10/04/24 [employer] Relationship Specialty Start Date End Date Ap Denis MD [address] [place] [phone] PCP - General Family Medicine 10/04/24 Inactive Administered Medications - up to 3 [...] 1815 Refrigerate. 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 [facility]. provides no warranty or guarantee of the accuracy or completeness of information in this document.
== END 2024-10-28 16:17 | disposition home or self-care (01) ==
LOC: LAB 16:16
PROVIDERS: PCP Family Medicine; Visit Provider Psychiatry & Neurology Neurology
DX: G25.81 Restless legs syndrome (principal); D50.9 Iron deficiency anemia, unspecified
CPT/HCPCS: 36415; 82728